=== PATIENT | female | born 1955 | race Caucasian/White ===

== ENCOUNTER 2020-11-29 08:49 | Outpatient (REF) | payer BC, SELFPAY ==
--- NOTE | ~2020-11-29 | XR_ITS ---
EXAMINATION: XR CHEST CLINICAL INFORMATION: COPD COMPARISON: None TECHNIQUE: 2 views of the chest were obtained. FINDINGS: The cardiac and mediastinal contours are normal. The lungs are well inflated. The lungs are clear. There is no pleural effusion or pneumothorax. There are degenerative changes of the spine. There are surgical clips in the left axilla. XR/XR chest 2V IMPRESSION: Well-inflated lungs suggestive of COPD. No evidence for acute disease in chest.
[2020-11-29 10:18] LABS: MANUAL DIFF FLAG NO
[2020-11-29 10:23] LABS: Basophils Percent Auto 0.3 % (0-2); Eosinophils Absolute Auto 0.2 X10*3/uL (0.0-0.4); Eosinophils Percent Auto 2.2 % (0-4); Hematocrit 44.9 % (37-47); Imm Gran Abs Auto 0.04 X10*3/uL (0.00-0.03); Imm Gran Pct Auto 0.5 % (0.0-0.4); Lymphocytes Absolute Auto 2.2 X10*3/uL (1.2-4.9); Lymphocytes Percent Auto 25.8 % (20-40); Mean Corpuscular HGB Conc 33.4 g/dl (31.0-35.0); Mean Corpuscular Volume 95.7 fL (80-98); Mean Platelet Volume 9.3 fL (9.4-12.3); Monocytes Absolute Auto 0.5 X10*3/uL (0.1-1.2); Monocytes Percent Auto 5.5 % (2-11); Neutrophils Absolute Auto 5.7 X10*3/uL (2.0-8.3); Neutrophils Percent Auto 65.7 % (45-73); Platelet Count 337 X10*3/uL (160-400); Red Blood Count 4.69 X10*6/uL (4.20-5.50); Red Cell Distribution Width 13.1 % (11.0-16.0); White Blood Count 8.7 X10*3/uL (4.8-10.8)
[2020-11-29 11:13] LABS: Erythrocyte Sedimentation Rate 12 MM/HR (0-20)
[2020-12-03 09:26] LABS: IgA 154 mg/dL (70-320); IgG 733 mg/dL (600-1540); IgM 196 mg/dL (50-300)
== END 2020-11-29 08:50 | disposition home or self-care (01) ==
LOC: HO.XRAY 08:49
PROVIDERS: PCP Internal Medicine Medical Oncology; Visit Provider Hospitalist
DX: J30.9 Allergic rhinitis, unspecified (principal); J44.9 Chronic obstructive pulmonary disease, unspecified; J40 Bronchitis, not specified as acute or chronic
CPT/HCPCS: 36415; 71046; 82784; 85025; 85652; 86003

== ENCOUNTER 2020-12-19 08:42 | Outpatient (REF) | payer MEDICARE, SELFPAY ==
--- NOTE | 2020-12-19 11:25 | PFT_ITS ---
FLOWS: FEV1 40% of predicted at 1.15 L. FVC 80% of predicted at 3.01 L. FEV1 to FVC ratio of 0.38. Positive bronchodilator response. LUNG VOLUMES: Total lung capacity 146% of predicted at 8.51 L. Residual volume 224% of predicted at 5.33 L. Slow vital capacity 92% of predicted at 3.18 L. Expiratory reserve volume 46% of predicted at 0.45 L. Diffusion capacity is moderately decreased. IMPRESSION: Severe obstructive ventilatory defect with positive bronchodilator response. Increased total lung capacity suggests hyperinflation. Increased residual volume suggests air trapping. Decreased diffusion capacity suggests emphysema. MD LEONCIO Bermudez/MODL / [id number]
== END 2020-12-19 08:43 | disposition home or self-care (01) ==
LOC: HO.RESP 08:42
PROVIDERS: PCP Internal Medicine Medical Oncology; Visit Provider Hospitalist
DX: J44.9 Chronic obstructive pulmonary disease, unspecified (principal)
CPT/HCPCS: 94060; 94727; 94729

== ENCOUNTER → 2020-12-31 08:52 | Outpatient (BNVA) | payer MEDICARE, SELFPAY | PROVIDERS: PCP Internal Medicine Medical Oncology; Visit Provider Hospitalist | DX: J44.0 Chronic obstructive pulmonary disease with (acute) lower respiratory infection (principal); J30.9 Allergic rhinitis, unspecified; J40 Bronchitis, not specified as acute or chronic | CPT/HCPCS: 99212 ==

== ENCOUNTER 2021-02-07 14:51 | Outpatient (REF) | payer MEDICARE, SELFPAY ==
--- NOTE | ~2021-02-07 | CT_ITS ---
EXAMINATION: CT CHEST SCREENING CLINICAL INFORMATION: Former smoker. Quit 1 year ago. 90 pack-year history. COMPARISON: Previous chest x-ray November 2020 TECHNIQUE: Multidetector volumetric CT imaging of the chest is performed without contrast using low dose technique. Additional 2D coronal and sagittal reformatted images and axial 3D maximum intensity projection (MIP) images are generated on the CT workstation. This CT examination was performed using dose optimization techniques as appropriate, variously including the following: *Automated exposure control *Adjustment of mA and/or kV according to patient size (this includes techniques or standardized protocols for targeted exams where dose is matched to indication/reason for exam; i.e. extremities or head) *Use of iterative reconstruction technique DLP: 51 mGy-cm FINDINGS: LUNGS: There is evidence of emphysema. There is mild biapical pleural parenchymal scarring. There is a 2 cm groundglass attenuation right upper lobe nodule near the junction of the major and minor fissures axial image 229 series 5. There is a 3 mm perivascular right middle lobe nodule axial image 3:30 series 5. No endobronchial or endotracheal lesion is seen. MEDIASTINUM: The mediastinum is normal. PLEURA: There is no pleural effusion. No pleural mass or thickening. AXILLA: There are surgical clips in the left axilla. There is left axillary lymphadenopathy. Largest left axillary lymph node measures 1 x 1.5 cm. There are surgical clips in the left breast. Right chest wall and axilla are unremarkable. UPPER ABDOMEN: Unremarkable OSSEOUS STRUCTURES: There are degenerative changes of the spine. CT/CT lung screening IMPRESSION: Emphysema. 2 cm groundglass attenuation right upper lobe nodule. Prominent left axillary lymph nodes. Postsurgical changes to the left axilla and chest wall. ASSESSMENT: Lung-RADS category 2S RECOMMENDATION: Annual low-dose chest CT follow-up recommended. Oncology follow-up for prominent left axillary lymph nodes recommended.
== END 2021-02-07 14:52 | disposition home or self-care (01) ==
LOC: HO.CT 14:51
PROVIDERS: PCP Internal Medicine Medical Oncology; Visit Provider Physician Assistant Medical
DX: Z87.891 Personal history of nicotine dependence (principal); J44.9 Chronic obstructive pulmonary disease, unspecified; Z80.1 Family history of malignant neoplasm of trachea, bronchus and lung
CPT/HCPCS: 71271; G0296

== ENCOUNTER → 2021-03-10 08:56 | Outpatient (BNVA) | payer MEDICARE, SELFPAY | PROVIDERS: PCP Internal Medicine Medical Oncology; Visit Provider Hospitalist | DX: J44.0 Chronic obstructive pulmonary disease with (acute) lower respiratory infection (principal); R91.1 Solitary pulmonary nodule; J30.9 Allergic rhinitis, unspecified | CPT/HCPCS: 99212 ==

== ENCOUNTER 2021-07-02 11:35 | Outpatient (REF) | payer MEDICARE, SELFPAY | END 2021-07-02 11:36 | disposition home or self-care (01) | LOC: HO.LNP 11:35 | PROVIDERS: Visit Provider Internal Medicine Medical Oncology | DX: H10.9 Unspecified conjunctivitis (principal) | CPT/HCPCS: 87070; 87205 ==

== ENCOUNTER 2021-07-18 07:03 | Outpatient (REF) | payer MEDICARE, SELFPAY ==
[2021-07-18 07:36] LABS: MANUAL DIFF FLAG NO
[2021-07-18 08:03] LABS: Basophils Percent Auto 0.5 % (0-2); Eosinophils Absolute Auto 0.2 X10*3/uL (0.0-0.4); Eosinophils Percent Auto 3.5 % (0-4); Hematocrit 41.4 % (37.0-47.0); Hemoglobin 13.7 g/dl (12.0-16.0); Imm Gran Abs Auto 0.01 X10*3/uL (0.00-0.03); Imm Gran Pct Auto 0.2 % (0.0-0.4); Lymphocytes Absolute Auto 2.4 X10*3/uL (1.2-4.9); Lymphocytes Percent Auto 44.2 % (20-40); Mean Corpuscular HGB Conc 33.1 g/dl (31.0-35.0); Mean Corpuscular Hemoglobin 32.2 pg (27.0-33.0); Mean Corpuscular Volume 97.4 fL (80.0-98.0); Mean Platelet Volume 9.4 fL (9.4-12.3); Monocytes Absolute Auto 0.4 X10*3/uL (0.1-1.2); Neutrophils Absolute Auto 2.4 x10*3/uL (2.0-8.3); Neutrophils Percent Auto 43.6 % (45-73); Platelet Count 279 X10*3/uL (160-400); Red Blood Count 4.25 X10*6/uL (4.20-5.50); Red Cell Distribution Width 13.2 % (11.0-16.0); White Blood Count 5.5 X10*3/uL (4.8-10.8)
[2021-07-18 08:32] LABS: Alanine Aminotransferase 23 U/L (0-31); Alkaline Phosphatase 84 U/L (39-117); Anion Gap 12 (12-20); Aspartate Amino Transferase 17 U/L (5-31); Bilirubin Total 0.5 mg/dL (0.0-1.0); Blood Urea Nitrogen 21 mg/dL (9-16); Calcium 9.7 mg/dL (8.4-10.2); Carbon Dioxide 28 mmol/L (22-29); Chloride 106 mmol/L (96-108); Cholesterol 228 mg/dL; Estimated Glomerular Filt Rate > 60; Glucose Fasting 107 mg/dL (60-99); HDL Cholesterol 55 mg/dL; LDL Cholesterol Calculated 134 mg/dl; Potassium 4.8 mmol/L (3.3-5.1); Sodium 141 mmol/L (135-145); Total Protein 6.3 g/dL (6.5-8.0); Triglycerides 197 mg/dL
[2021-07-18 09:06] LABS: Vitamin B12 874 pg/mL (200-900)
== END 2021-07-18 07:04 | disposition home or self-care (01) ==
LOC: HO.LAB 07:03
PROVIDERS: PCP Internal Medicine Medical Oncology; Visit Provider Internal Medicine Medical Oncology
DX: G35 Multiple sclerosis (principal); M47.27 Other spondylosis with radiculopathy, lumbosacral region; F41.9 Anxiety disorder, unspecified; M47.816 Spondylosis without myelopathy or radiculopathy, lumbar region
CPT/HCPCS: 36415; 80053; 80061; 82607; 85025

== ENCOUNTER 2021-07-24 09:19 | Outpatient (REF) | payer MEDICARE, SELFPAY ==
[2021-08-01 04:56] LABS: HPV mRNA E6/E7 rflx Detected (Not Detected)
[2021-08-01 05:01] LABS: HPV 16 RNA NOT DETECTED (NOT DETECTED)
== END 2021-07-24 09:20 | disposition home or self-care (01) ==
LOC: HO.LAB 09:19
PROVIDERS: PCP Internal Medicine Medical Oncology; Visit Provider Advanced Practice Midwife
DX: Z01.419 Encounter for gynecological examination (general) (routine) without abnormal findings (principal); F17.210 Nicotine dependence, cigarettes, uncomplicated
CPT/HCPCS: 87624; 87625; 88142

== ENCOUNTER → 2021-08-11 09:27 | Outpatient (BNVA) | payer MEDICARE, SELFPAY | PROVIDERS: PCP Internal Medicine Medical Oncology; Visit Provider Hospitalist | DX: J30.9 Allergic rhinitis, unspecified (principal); J44.1 Chronic obstructive pulmonary disease with (acute) exacerbation; R91.1 Solitary pulmonary nodule | CPT/HCPCS: 99212 ==

== ENCOUNTER 2021-11-04 11:14 | Outpatient (REF) | payer MEDICARE, SELFPAY ==
--- NOTE | ~2021-11-04 | XR_ITS ---
EXAMINATION: RIGHT HIP AND RIGHT FEMUR. CLINICAL INFORMATION: Pain. COMPARISON: None TECHNIQUE: AP and frog-leg views right hip. Right femur 2 views. FINDINGS: Right hip: There is no visible acute fracture, dislocation or subluxation seen. No bony erosive changes. The soft tissues are normal. Right femur: There is no visible acute fracture or bony erosive changes. The soft tissues are normal. XR/XR femur RT 2V IMPRESSION: Unremarkable right hip and right femur exam.
--- NOTE | ~2021-11-04 | XR_ITS ---
EXAMINATION: RIGHT HIP AND RIGHT FEMUR. CLINICAL INFORMATION: Pain. COMPARISON: None TECHNIQUE: AP and frog-leg views right hip. Right femur 2 views. FINDINGS: Right hip: There is no visible acute fracture, dislocation or subluxation seen. No bony erosive changes. The soft tissues are normal. Right femur: There is no visible acute fracture or bony erosive changes. The soft tissues are normal. XR/XR hip RT min 2V IMPRESSION: Unremarkable right hip and right femur exam.
== END 2021-11-04 11:15 | disposition home or self-care (01) ==
LOC: HO.XRAY 11:14
PROVIDERS: PCP Internal Medicine Medical Oncology; Visit Provider Internal Medicine Medical Oncology
DX: M25.551 Pain in right hip (principal); M89.8X5 Other specified disorders of bone, thigh
CPT/HCPCS: 73502; 73552

== ENCOUNTER 2021-11-13 07:10 | Outpatient (REF) | payer MEDICARE, SELFPAY ==
[2021-11-13 07:31] LABS: MANUAL DIFF FLAG NO
[2021-11-13 07:51] LABS: Basophils Percent Auto 0.5 % (0-2); Eosinophils Absolute Auto 0.3 X10*3/uL (0.0-0.4); Eosinophils Percent Auto 3.4 % (0-4); Hematocrit 42.3 % (37.0-47.0); Hemoglobin 14.4 g/dl (12.0-16.0); Imm Gran Abs Auto 0.03 X10*3/uL (0.00-0.03); Imm Gran Pct Auto 0.4 % (0.0-0.4); Lymphocytes Absolute Auto 3.1 X10*3/uL (1.2-4.9); Lymphocytes Percent Auto 42.8 % (20-40); Mean Corpuscular Hemoglobin 32.5 pg (27.0-33.0); Mean Corpuscular Volume 95.5 fL (80.0-98.0); Mean Platelet Volume 8.8 fL (9.4-12.3); Monocytes Absolute Auto 0.5 X10*3/uL (0.1-1.2); Monocytes Percent Auto 7.4 % (2-11); Neutrophils Absolute Auto 3.3 x10*3/uL (2.0-8.3); Neutrophils Percent Auto 45.5 % (45-73); Platelet Count 332 X10*3/uL (160-400); Red Blood Count 4.43 X10*6/uL (4.20-5.50); Red Cell Distribution Width 12.8 % (11.0-16.0); White Blood Count 7.3 X10*3/uL (4.8-10.8)
[2021-11-13 08:16] LABS: Alanine Aminotransferase 21 U/L (0-31); Albumin Level 4.2 g/dL (3.5-5.0); Alkaline Phosphatase 84 U/L (39-117); Anion Gap 15 (12-20); Aspartate Amino Transferase 14 U/L (5-31); Bilirubin Total 0.6 mg/dL (0.0-1.0); Blood Urea Nitrogen 23 mg/dL (9-16); Calcium 9.2 mg/dL (8.4-10.2); Carbon Dioxide 28 mmol/L (22-29); Chloride 103 mmol/L (96-108); Cholesterol 255 mg/dL; Estimated Glomerular Filt Rate > 60; Glucose Fasting 97 mg/dL (60-99); HDL Cholesterol 67 mg/dL; LDL Cholesterol Calculated 134 mg/dl; Potassium 4.3 mmol/L (3.3-5.1); Sodium 142 mmol/L (135-145); Total Protein 6.7 g/dL (6.5-8.0); Triglycerides 274 mg/dL
== END 2021-11-13 07:11 | disposition home or self-care (01) ==
LOC: HO.LAB 07:10
PROVIDERS: PCP Internal Medicine Medical Oncology; Visit Provider Internal Medicine Medical Oncology
DX: H10.9 Unspecified conjunctivitis (principal); G35 Multiple sclerosis; M47.816 Spondylosis without myelopathy or radiculopathy, lumbar region
CPT/HCPCS: 36415; 80053; 80061; 85025

== ENCOUNTER 2022-02-02 09:49 | Emergency (ER) | payer MEDICARE, SELFPAY ==
--- NOTE | ~2022-02-02 | XR_ITS ---
EXAMINATION: XR chest 2V CLINICAL INFORMATION: Reason for Exam covid + 14 days, sob, fever COMPARISON: November 2020 TECHNIQUE: XR chest 2V Lungs and Sania: Hyperinflated lungs suggesting air trapping disease possibly COPD, small density projecting over the left upper lobe superimposed on the left anterior fifth rib, could be bony versus lung nodule, round density projecting over the left middle lung zone same level of the nipple shadow lateral view. Pleura: Normal. Costophrenic angles are sharp. No pneumothorax. Heart: The heart is normal in size. Mediastinum: The mediastinum is within normal limits.. Bones: Skeletal structures included are normal for patient's age. XR/XR chest 2V IMPRESSION: 1. Hyperinflated lungs suggesting air trapping disease possibly COPD. 2. Small density projecting over the left upper lobe could be bony versus lung nodule. 3. Round density projecting over the left middle lung zone same level of the nipple shadow lateral view. 4. May consider correlation with follow-up annual low-dose chest CT screening
[2022-02-02 09:52] VITALS: BP 156/94; PULSE 124; RESP 24; TEMP 36.8; O2SAT 95; BMI 23.3
[2022-02-02 14:52] VITALS: BP 143/80; PULSE 121; RESP 20; TEMP 36.6; O2SAT 95
--- NOTE | 2022-02-02 15:34 | ED_ITS ---
HPI - General Adult General Chief complaint: Upper Respiratory Symptoms Stated complaint: Covid+/sent by pcp pneumonia? Time Seen by Provider: 02/02/22 15:34 Source: patient Mode of arrival: ambulatory Limitations: no limitations History of Present Illness HPI narrative: Patient is a 66 year old assigned female at with a history of COPD and COVID-19 presenting to the emergency department today with persistent cough and feeling unwell. Patient states that she was diagnosed with COVID-19 over 2 weeks ago, given PAXLOVID and was intitally starting to feel better than began feeling poorly again. Patient denies any dizziness, lightheadedness, abdominal pain, nausea, vomiting, blurry vision, double vision, loss of vision, chest pain, difficulty breathing, shortness of breath, back pain, night sweats, pain with urination, increased urinary frequency, increased urinary urgency, blood in her urine or stool, syncope or a near syncopal episode, recent trauma or falls, bowel incontinence, bladder incontinence, bowel retention, bladder retention, or any other complaints at this time. Onset (ago): week(s) (2) Severity: mild Severity scale (1-10): 3 Relieving factors: none Exacerbating factors: none Associated symptoms: cough Treatments prior to arrival: none Related Data Home Medications Medication Instructions Recorded Confirmed albuterol sulfate 90 mcg/actuation 2 puff PO Q6H PRN 11/29/20 aerosol inhaler sertraline 50 mg tablet 50 mg PO BID 11/29/20 cyclobenzaprine 5 mg tablet 5 mg PO BEDTIME 08/11/21 prednisone 20 mg tablet mg PO 08/11/21 Previous Rx's Medication Instructions Recorded doxycycline hyclate 100 mg capsule 100 mg PO BID 10 days #20 caps 08/11/21 prednisone 20 mg tablet See Rx Instructions PO DAILY 10 08/11/21 days #15 tabs albuterol sulfate 2.5 mg/3 mL 2.5 mg (3 mL) inhalation BID for 12/22/21 (0.083 %) solution for nebulization wheezing #180 mL Trelegy Ellipta 200 mcg-62.5 1 ea PO DAILY #60 ea 02/02/22 mcg-25 mcg powder for inhalation ([id number]) doxycycline hyclate 100 mg tablet 100 mg PO BID 7 days #14 tabs 02/02/22 prednisone 20 mg tablet 20 mg PO DAILY 12 days #26 tabs 02/02/22 Allergies Allergy/AdvReac Type Severity Reaction Status Date / Time No Known Allergies Allergy Verified 08/11/21 09:41 [No Known Allergies*] Review of Systems Constitutional: Constitutional: Reports no additional constitutional complaints, Denies chills, Reports fever(s) and Denies night sweats Eyes: Eyes: Reports no additional eye complaints, Denies blurry vision, Denies change in vision, Denies diplopia, Denies eye discharge, Denies loss of vision and Denies eye pain ENT: Denies dizziness Cardiovascular: Cardiovascular: Reports no additional cardiovascular complaints, Denies chest pain, Denies lightheadedness, Denies Loss of Consciousness and Denies dyspnea Respiratory: Respiratory: Reports no additional respiratory complaints, Reports cough and Denies dyspnea Gastrointestinal: Gastrointestinal: Reports no additional gastrointestinal complaints, Denies abdominal pain, Denies melena, Denies hematochezia, Denies change in bowel habits and Denies change in stool character Genitourinary: Genitourinary: Denies hematuria, Denies urinary frequency, Denies dysuria, Denies urinary incontinence, Denies urinary hesitancy and Denies urinary urgency Musculoskeletal: Musculoskeletal: Reports no additional musculoskeletal complaints, Denies numbness and Denies tingling Neurologic: Denies dizziness, Denies loss of vision, Denies numbness and Denies tingling Psychiatric: Psychiatric: Reports no additional psychiatric complaints Endocrine: Endocrine: Reports no additional endocrine complaints Hematologic/Lymphatic: Hematologic/Lymphatic: Reports no additional hematologic/lymphatic complaints Allergic/Immunologic: Allergic/Immunologic: Reports no additional allergic/immunologic complaints [facility] Past Medical History Attestation statement: The following information was validated with the patient. Source: old records reviewed Medical History Asthma-COPD overlap syndrome Bronchitis Chronic allergic rhinitis COPD (chronic obstructive pulmonary disease) History of breast cancer Personal history of nicotine dependence Pulmonary nodule Tobacco dependence Surgical History History of hysterectomy History of lumpectomy of left breast History of tonsillectomy Hx of cone biopsy of cervix Social History Social History Household Members: Significant Other Household Members Other:: Carlos Alcohol intake: current Alcohol intake frequency: a few times a week Patient Tobacco Use Status: Current someday Tobacco user Tobacco use type: Cigarette Cigarette Packs Per Day: 1 Years Smoked: 40 Second Hand Smoke Exposure: No Advance Directives: No Advance Directives Information Provided: No Sexual orientation: Straight/Heterosexual Gender identity: Female Physical Exam ED Vital Signs: Vital Signs - 24 hr 02/02/22 09:52 02/02/22 14:52 Temperature 98.3 F 98 F Pulse Rate 124 H 121 H Respiratory Rate 24 H 20 Blood Pressure 156/94 H 143/80 H Pulse Oximetry 95 95 Oxygen Delivery Method Room Air Room Air BMI result Body Mass Index 23.3 Const General: cooperative, no acute distress, alert and awake Nutritional Appearance: well nourished Orientation/consciousness: patient oriented x3 Limitations: no limitations HENMT Head: Yes normal to inspection and Yes atraumatic Ears: hearing grossly normal bilaterally and external ears normal General nose exam: Normal external nose present, no nasal discharge noted and no epistaxis Face and sinus: Yes normal facial exam, No abrasion and No laceration Mouth: Normal oral and palatal mucosa present, no drooling and no muffled voice Eyes General: appearance normal, both eyes and all related structures Periorbital: periorbital findings normal Eyelids: Yes eyelids normal Conjunctivae: conjunctivae normal Pupils: Equal, round and reactive pupils present EOM: EOMs intact bilaterally Neck Neck: Yes normal visual inspection, Yes full ROM and Yes no lymphadenopathy Chest Chest palpation & inspection: normal inspection of the chest Resp Effort & Inspection: normal respiratory effort, able to speak in complete sentences and Actively coughing Auscultation: clear to auscultation bilaterally Cardio Rate: regular rate Rhythm: regular rhythm GI Inspection: Yes normal to inspection Neuro General: patient oriented x3 and moves all extremities Cranial nerves: Yes Equal, round and reactive pupils present Cognition (Neuro): normal cognition Motor exam (neuro): 5/5 motor strength present throughout Sensory Exam: Normal double simultaneous stimulation for sensation Coordination: [id number] test normal Extrem General: Yes normal to inspection, Yes full ROM and Yes capillary refill normal Psych Appearance: grossly normal Mental Status: mental status grossly normal Affect: normal affect Attitude: cooperative Thought process: Normal thought process present Thought content: Normal thought content present Insight: Good insight present (Psych) Medical Decision Making MDM Narrative Medical decision making narrative: Patient is a 66 year old assigned female at with a history of COPD and COVID-19 presenting to the emergency department today with a persistent cough. Patient's physical exam was unremarkable. Patient's rapid COVID-19 test was still positive. Patient's chest x-ray showed no acute process. I explained my physical exam findings as well as all test results to the patient. I answered all questions asked by the patient. I stressed the importance of the patient taking her medication as prescribed. I stressed the importance of the patient following up with her primary care provider. I stressed the importance of the patient returning to the emergency department immediately if her symptoms were to worsen or if she were to develop any dizziness, shortness of breath, difficulty breathing, chest pain, blurry vision, loss of vision, nausea, vomiting, abdominal pain, fever, chills, back pain, or any other complaints. Patient verbalized agreement and understanding with this treatment plan and discharge. Medical Records Medical records reviewed: Yes I reviewed the patient's medical records. Lab Data Lab results reviewed: Yes I reviewed the patient's lab results. Labs: Lab Results 02/02/22 02/02/22 Range/Units 16:07 16:07 Influenza Type A (PCR) NEGATIVE (Negative) Influenza Type B (PCR) NEGATIVE (Negative) RSV RNA Qual (PCR) NEGATIVE (Negative) SARS-CoV-2 RNA (RT-PCR) POSITIVE A (Negative) S. pyogenes GrpA MINI Negative (Negative) Imaging Data Chest x-ray: Attestation: I personally reviewed and interpreted this imaging study as follows: My impression: No acute process. Radiologist's impression: EXAMINATION: XR chest 2V CLINICAL INFORMATION: Reason for Exam covid + 14 days, sob, fever COMPARISON: November 2020? TECHNIQUE: XR chest 2V Lungs and Sania: Hyperinflated lungs suggesting air trapping disease possibly COPD, small density projecting over the left upper lobe superimposed on the left anterior fifth rib, could be bony versus lung nodule, round density projecting over the left middle lung zone same level of the nipple shadow lateral view. Pleura: Normal. Costophrenic angles are sharp. No pneumothorax. Heart: The heart is normal in size. Mediastinum: The mediastinum is within normal limits.. Bones: Skeletal structures included are normal for patient's age. XR/XR chest 2V IMPRESSION: 1.? Hyperinflated lungs suggesting air trapping disease possibly COPD. 2.? Small density projecting over the left upper lobe could be bony versus lung nodule. 3.? Round density projecting over the left middle lung zone same level of the nipple shadow lateral view. 4.? May consider correlation with follow-up annual low-dose chest CT screening Dictated By: Joe Peace MD Signed By: Electronically signed by Joe Peace MD 02/02/22 1112 Discharge Plan Discharge Clinical Impression: Upper respiratory infection Patient Disposition: Home, Self-Care Instructions: Upper Respiratory Infection (ED) Additional Instructions: Follow up with your primary care provider. Return to the emergency department immediately if your symptoms worsen or if you develop any dizziness, shortness of breath, difficulty breathing, chest pain, blurry vision, loss of vision, nausea, vomiting, abdominal pain, fever, chills, back pain, or any other complaints. Prescriptions: New prednisone 20 mg tablet 20 mg PO DAILY 12 Days Qty: 26 0RF Rx Instructions: Take 3 tablets for 5 days THEN; Take 2 tablets for 4 days THEN; Take 1 tablet for 3 days doxycycline hyclate 100 mg tablet 100 mg PO BID 7 Days Qty: 14 0RF No Action albuterol sulfate 2.5 mg /3 mL (0.083 %) solution for nebulization 2.5 mg inhalation BID Qty: 180 0RF Trelegy Ellipta 200-62.5-25 mcg blister with device 1 ea PO DAILY Qty: 60 6RF albuterol sulfate 90 mcg/actuation HFA aerosol inhaler 2 puff PO Q6H PRN sertraline 50 mg tablet 50 mg PO BID prednisone 20 mg tablet PO cyclobenzaprine 5 mg tablet 5 mg PO BEDTIME doxycycline hyclate 100 mg capsule 100 mg PO BID 10 Days Qty: 20 0RF prednisone 20 mg tablet See Rx Instructions PO DAILY 10 Days Qty: 15 0RF Rx Instructions: PO daily; Take 2 tabs daily x 5 days, then 1 tablet daily x 5 days Referrals: Jaime Russ MD [Primary Care Provider] - Interventions: ED Discharge Assessment Last Done: 02/02/22 17:43 Print Language: Mosotho
[2022-02-02 16:24] LABS: Strep A Nucleic Acid Negative (Negative)
[2022-02-02 16:57] LABS: Influenza A PCR NEGATIVE (Negative); Influenza B PCR NEGATIVE (Negative); Resp Syncy Virus RNA Qual PCR NEGATIVE (Negative); SARS COV2 PCR INHOUSE POSITIVE (Negative)
== END 2022-02-02 18:39 | disposition home or self-care (01) ==
PROVIDERS: Physician Assistant Medical; Emergency Provider Student in an Organized Health Care Education/Training Program; PCP Internal Medicine Medical Oncology
DX: U07.1 COVID-19 (principal); R05.9 Cough, unspecified; Z79.899 Other long term (current) drug therapy; F17.210 Nicotine dependence, cigarettes, uncomplicated; Z71.6 Tobacco abuse counseling
CPT/HCPCS: 0241U; 71046; 87651; 99282; 99283

== ENCOUNTER → 2022-03-13 09:57 | Outpatient (BNVA) | payer MEDICARE, SELFPAY | PROVIDERS: PCP Internal Medicine Medical Oncology; Visit Provider Hospitalist | DX: J44.1 Chronic obstructive pulmonary disease with (acute) exacerbation (principal); J30.9 Allergic rhinitis, unspecified; J44.9 Chronic obstructive pulmonary disease, unspecified; R91.1 Solitary pulmonary nodule | CPT/HCPCS: 99212 ==

== ENCOUNTER 2022-05-01 16:17 | Outpatient (REF) | payer MEDICARE, SELFPAY ==
--- NOTE | ~2022-05-01 | CT_ITS ---
EXAMINATION: CT CHEST SCREENING CLINICAL INFORMATION: Previous smoker quitting 1 year ago with 45 year history of smoking 2 packs per day. COMPARISON: 02/07/2021. TECHNIQUE: Multidetector volumetric CT imaging of the chest is performed without contrast using low dose technique. Additional 2D coronal and sagittal reformatted images and axial 3D maximum intensity projection (MIP) images are generated on the CT workstation. This CT examination was performed using dose optimization techniques as appropriate, variously including the following: *Automated exposure control *Adjustment of mA and/or kV according to patient size (this includes techniques or standardized protocols for targeted exams where dose is matched to indication/reason for exam; i.e. extremities or head) *Use of iterative reconstruction technique DLP: 52 mGy-cm FINDINGS: LUNGS: Central airways are patent. There are changes of centrilobular emphysema seen bilaterally similar to previous study. There is some central bronchial wall thickening present, which may be related to respiratory bronchiolitis of smoking. No bronchiectasis is appreciated. There are some scattered bilateral sub-4 mm densities seen. There is again noted to be an approximately 2.7 x 2.1 x 2.0 cm region of groundglass opacity within the right middle lobe adjacent to major and minor fissures. Previously this measured approximately 2.5 x 2.1 x 2.0 cm in size. Within the superior segment of the right lower lobe there is an irregularly marginated soft tissue mass measuring approximately 1.8 x 1.2 x 1.4 cm in size. This was not appreciated on prior study of 02/07/2021 and is suspicious for possible malignancy. This is seen on image [address] series #5. There is a 5 mm nodule seen along the left major fissure on image [address] series #5. This is not calcified. This may represent an intrafissural lymph node. MEDIASTINUM: Visualized portions of the thyroid gland appear unremarkable. Heart normal size. No coronary artery calcification identified. No pericardial effusion. No thoracic aortic aneurysm. No mediastinal or hilar lymphadenopathy is appreciated. CORONARY ARTERY CALCIFICATION: None visualized on this study. PLEURA: There is no pleural effusion. No pleural mass or thickening. AXILLA: Patient is status post previous left axillary surgery. UPPER ABDOMEN: Unremarkable. OSSEOUS STRUCTURES: No suspicious destructive bony abnormality. CT/CT lung screening IMPRESSION: New suspicious 1.8 cm mass within the superior segment of the right lower lobe. Stable region of groundglass opacity within the right middle lobe. Changes of centrilobular emphysema. ASSESSMENT: Lung-RADS category 4X: Suspicious. RECOMMENDATION: Further evaluation with PET/CT.
== END 2022-05-01 16:18 | disposition home or self-care (01) ==
LOC: HO.CT 16:17
PROVIDERS: Visit Provider Physician Assistant Medical
DX: Z87.891 Personal history of nicotine dependence (principal)
CPT/HCPCS: 71271

== ENCOUNTER 2022-05-12 14:52 | Outpatient (REF) | payer MEDICARE, SELFPAY ==
--- NOTE | 2022-05-12 16:22 | PFT_ITS ---
Forced vital capacity 83%, FEV1 48%, FEV1/FVC ratio 45. [id number] is 23% and MVV 61%. Post bronchodilator therapy. There is a very small improvement in FEV1 and GSC53-37. Total lung capacity 126%, residual volume 172%, and diffusion capacity 61% CONCLUSION: There is evidence of severe obstructive airway disorder with hyperinflation and air trapping. Only minimal response to bronchodilator therapy is noted. Clinical correlation is recommended. MD DEYAINRA Crawford/MODL / [id number]
== END 2022-05-12 14:53 | disposition home or self-care (01) ==
LOC: HO.RESP 14:52
PROVIDERS: PCP Internal Medicine Medical Oncology; Visit Provider Surgery
DX: R91.1 Solitary pulmonary nodule (principal); Z87.891 Personal history of nicotine dependence
CPT/HCPCS: 94060; 94727; 94729

== ENCOUNTER 2022-05-19 13:12 | Outpatient (REF) | payer MEDICARE, SELFPAY ==
--- NOTE | ~2022-05-19 | PE_ITS ---
EXAMINATION: Fluorine-18 FDG PET/CT Scan CLINICAL INDICATION: Initial treatment management. Pulmonary nodule, diagnosis. History of left breast cancer 2016. PROCEDURE: 68 minutes following the intravenous administration of 5.9 mCi of fluorine 18 FDG, images from the base of the skull to the mid thighs were obtained using a combined PET/CT scanner with CT scan based attenuation correction. No oral contrast was administered. No intravenous contrast was administered. Transverse, coronal, sagittal, and volume reconstruction projections were obtained. The patient's blood glucose as determined by a finger stick, was 82 mg/dl immediately prior to injection. Total CT exam dose-length product 438.48 mGy-cm * These CT images were obtained using dose optimization techniques as appropriate, variously including the following: Automated exposure control * Adjustment of mA and/or kV according to patient size (this includes techniques or standardized protocols for targeted exams where dose is matched to indication/reason for exam; i.e. extremities or head) * Use of iterative reconstruction technique COMPARISON: No previous PET/CT scan is available for comparison. CT scan of the chest dated 05/01/[address] scan of the abdomen and pelvis dated 05/30/2018 are available for comparison. FINDINGS: (Slice numbers described in this report are numbered superiorly to inferiorly with slice #1 in the head) NECK AND VISUALIZED HEAD: No foci of abnormal FDG activity are noted. The distribution of FDG activity is physiological. There is no cervical lymphadenopathy. THORAX: There is an FDG avid solid pulmonary nodule present in the superior segment of the right lower lobe, measuring approximately 1.1 x 0.9 cm in largest transverse dimensions and 0.9 cm cephalocaudad. This shows abnormal FDG activity, SUVmax 3.8, slice 81/267. The nodule appears slightly smaller than on the recent CT scan of the chest dated 05/01/2022, but the differences probably due to the difference in CT technique on these nondiagnostic CT images compared to the prior. A groundglass opacity laterally in the posterior aspect of the right middle lobe abutting the major and minor interlobar fissures appears unchanged from 05/01/2022 and shows no abnormal FDG activity. There is a 0.5 cm nodule in the medial aspect of the interlobar fissure of the left lung, just barely visualized in slice 240/[address] images and appears unchanged from the 05/01/2022 CT scan. This is too small to be characterized on the FDG PET images. No additional pulmonary nodules are visualized. There are no additional foci of abnormal FDG activity present in the chest. No additional pulmonary nodules are visualized. There is no mediastinal, supraclavicular, or axillary lymphadenopathy. There is no pleural or pericardial fluid, or pneumothorax. Several metallic clips are present in the left breast and left axilla with no associated abnormal FDG activity. ABDOMEN AND PELVIS: There is mild FDG activity present throughout the gastrointestinal tract. Minimal diverticulosis is noted without evidence of diverticulitis. The hollow viscera are otherwise unremarkable. The liver, gallbladder, kidneys, adrenal glands and pancreas appear unremarkable. The pelvic organs are unremarkable. There is no retroperitoneal, mesenteric, pelvic or inguinal lymphadenopathy. MUSCULOSKELETAL: There is mildly increased FDG activity in the acromioclavicular joints bilaterally, more prominently on the right, likely arthritic. There are no other foci of abnormal FDG activity in the osseous structures. There are mild degenerative changes in the spine but no suspicious sclerotic or lytic lesions are visualized. VASCULAR: Scattered vascular calcifications are present, most prominently in the abdominal aorta. PET/PET CT fusion skull to thigh IMPRESSION: 1. The previously visualized nodule in the superior segment of the right lower lobe is FDG avid and strongly suspicious for malignancy. Biopsy is recommended if clinically indicated. 2. A groundglass opacity in the right middle lobe is unchanged from prior studies and shows no abnormal FDG activity suggesting a benign etiology. However because approximately 10% of pulmonary malignancies demonstrate no abnormal FDG activity, if biopsy of this nodule is not obtained, followup with diagnostic CT scan in 6 months is recommended. 3. No additional abnormalities suspicious for metastatic or other malignant lesions are noted.
== END 2022-05-19 13:13 | disposition home or self-care (01) ==
LOC: HO.PET 13:12
PROVIDERS: PCP Internal Medicine Medical Oncology; Visit Provider Surgery
DX: Z13.89 Encounter for screening for other disorder (principal)

== ENCOUNTER → 2022-05-22 08:49 | Outpatient (BNVA) | payer MEDICARE, SELFPAY | PROVIDERS: PCP Internal Medicine Medical Oncology; Visit Provider Surgery | DX: R91.1 Solitary pulmonary nodule (principal); F17.210 Nicotine dependence, cigarettes, uncomplicated; Z80.1 Family history of malignant neoplasm of trachea, bronchus and lung | CPT/HCPCS: 99202 ==

== ENCOUNTER 2022-07-27 09:06 | Outpatient (REF) | payer MEDICARE, MEDICAID, SELFPAY ==
[2022-07-30 04:44] LABS: HPV mRNA E6/E7 rflx Not Detected (Not Detected)
== END 2022-07-27 09:07 | disposition home or self-care (01) ==
LOC: HO.LNP 09:06
PROVIDERS: PCP Internal Medicine Medical Oncology; Visit Provider Advanced Practice Midwife
DX: Z01.419 Encounter for gynecological examination (general) (routine) without abnormal findings (principal); N95.1 Menopausal and female climacteric states; Z90.710 Acquired absence of both cervix and uterus
CPT/HCPCS: 87624; 88142

== ENCOUNTER 2022-07-28 09:56 | Outpatient (REF) | payer MEDICARE, MEDICAID, SELFPAY ==
[2022-07-28 10:53] LABS: MANUAL DIFF FLAG NO
[2022-07-28 11:09] LABS: Basophils Percent Auto 0.3 % (0-2); Eosinophils Absolute Auto 0.2 X10*3/uL (0.0-0.4); Eosinophils Percent Auto 2.8 % (0-4); Hematocrit 41.1 % (37.0-47.0); Hemoglobin 13.9 g/dl (12.0-16.0); Imm Gran Abs Auto 0.03 X10*3/uL (0.00-0.03); Imm Gran Pct Auto 0.5 % (0.0-0.4); Lymphocytes Percent Auto 31.2 % (20-40); Mean Corpuscular HGB Conc 33.8 g/dl (31.0-35.0); Mean Corpuscular Hemoglobin 32.1 pg (27.0-33.0); Mean Corpuscular Volume 94.9 fL (80.0-98.0); Mean Platelet Volume 9.2 fL (9.4-12.3); Monocytes Absolute Auto 0.5 X10*3/uL (0.1-1.2); Monocytes Percent Auto 8.4 % (2-11); Neutrophils Absolute Auto 3.6 x10*3/uL (2.0-8.3); Neutrophils Percent Auto 56.8 % (45-73); Platelet Count 279 X10*3/uL (160-400); Red Blood Count 4.33 X10*6/uL (4.20-5.50); Red Cell Distribution Width 12.6 % (11.0-16.0); White Blood Count 6.4 X10*3/uL (4.8-10.8)
[2022-07-28 11:55] LABS: Erythrocyte Sedimentation Rate 11 MM/HR (0-20)
[2022-07-28 12:26] LABS: Alanine Aminotransferase 21 U/L (0-31); Albumin Level 4.4 g/dL (3.5-5.0); Alkaline Phosphatase 117 U/L (39-117); Anion Gap 15 (12-20); Aspartate Amino Transferase 14 U/L (5-31); Bilirubin Direct 0.2 mg/dL (0.0-0.5); Bilirubin Total 0.6 mg/dL (0.0-1.0); Blood Urea Nitrogen 19 mg/dL (9-16); Calcium 9.6 mg/dL (8.4-10.2); Carbon Dioxide 27 mmol/L (22-29); Chloride 104 mmol/L (96-108); Estimated Glomerular Filt Rate > 60; Glucose Random 95 mg/dL (60-115); Potassium 4.9 mmol/L (3.3-5.1); Sodium 141 mmol/L (135-145); Total Protein 6.8 g/dL (6.5-8.0)
[2022-07-30 20:43] LABS: TS Negative Control Passed; TS Panel A 0; TS Panel B 1; TS Positive Control Passed; TSpotTB Negative (Negative)
[2022-08-04 05:33] LABS: Angiotensin Converting Enzyme 41 U/L (9-67)
== END 2022-07-28 09:57 | disposition home or self-care (01) ==
LOC: HO.LAB 09:56
PROVIDERS: PCP Internal Medicine Medical Oncology; Visit Provider Hospitalist
DX: J44.1 Chronic obstructive pulmonary disease with (acute) exacerbation (principal); J30.9 Allergic rhinitis, unspecified; R91.1 Solitary pulmonary nodule; F17.210 Nicotine dependence, cigarettes, uncomplicated
CPT/HCPCS: 36415; 80048; 80076; 82164; 85025; 85652; 86481; 99212

== ENCOUNTER 2022-11-03 07:20 | Outpatient (REF) | payer MEDICARE, MEDICAID, SELFPAY ==
--- NOTE | ~2022-11-03 | CT_ITS ---
EXAMINATION: CT CHEST WITHOUT CONTRAST CLINICAL INFORMATION: Pulmonary nodule COMPARISON: Previous chest CT April 2022 and PET/CT May 2022 TECHNIQUE: Multidetector volumetric CT imaging of the chest was done. Axial MIP volume rendering provided. Sagittal and coronal reformatted images were obtained. This CT examination was performed using dose optimization techniques as appropriate, variously including the following: *Automated exposure control *Adjustment of mA and/or kV according to patient size (this includes techniques or standardized protocols for targeted exams where dose is matched to indication/reason for exam; i.e. extremities or head) *Use of iterative reconstruction technique DLP: 147 mGy-cm FINDINGS: LUNGS: Emphysema. New postsurgical changes to the right lower lobe from partial lobectomy. Previously identified groundglass attenuation area in the right upper lobe near the major and minor fissures is not appreciably changed. This measures approximately 2 cm axial image 233 series 5. This may have cystic component. Stable small solid pulmonary nodules measuring 4 mm in the peripheral or subpleural left lower lobe adjacent to the major fissure axial image 260 series 5. No new pulmonary nodule. No endobronchial or endotracheal lesion. MEDIASTINUM: New surgical clips in the right pulmonary hilum. Normal heart size. No pericardial effusion. No enlarged hilar or mediastinal lymph nodes. Normal caliber thoracic aorta. CORONARY ARTERY CALCIFICATION: None visualized on this study. PLEURA: There is no pleural effusion. No pleural mass or thickening. AXILLA: Surgical clips in the left rest and axilla. No chest wall mass or enlarged axillary lymph nodes. UPPER ABDOMEN: Unremarkable. OSSEOUS STRUCTURES: Degenerative changes of the spine. CT/CT chest wo IV con IMPRESSION: Emphysema. New postsurgical changes following right lower lobe partial lobectomy. Stable pulmonary nodules, largest a 2 cm groundglass attenuation right upper lobe nodule near the major and minor fissures Fleischner guidelines were followed.
== END 2022-11-03 07:21 | disposition home or self-care (01) ==
LOC: HO.CT 07:20
PROVIDERS: PCP Internal Medicine Medical Oncology; Visit Provider Surgery
DX: R91.1 Solitary pulmonary nodule (principal)
CPT/HCPCS: 71250

== ENCOUNTER 2022-11-06 09:41 | Outpatient (AMB) | payer MEDICARE, MEDICAID, SELFPAY ==
--- NOTE | 2022-11-06 09:54 | A.OFFVIS_ITS ---
Intake Vital Signs 11/06/22 10:07 Height 5 ft 9 in Weight 168 lb BMI 24.8 BP 120/72 Blood Pressure Location Lt brachial Position Sitting Pulse 112 H Pulse Oximetry (%) 96 Intake Visit Reasons: Follow up after Chest CT Allergies No Known Allergies [No Known Allergies*] Allergy (Verified 11/06/22 10:01) Medication List - Last Reconciled 11/07/22 by Travis Forbes MD albuterol sulfate 90 mcg/actuation 2 puffs PO Q6H PRN albuterol sulfate 2.5 mg (3 mL) inhalation BID cyclobenzaprine 5 mg PO BEDTIME nebulizers As directed sertraline 50 mg PO BID Trelegy Ellipta 200-62.5-25 mcg ([id number]) 1 ea PO DAILY NS HPI Follow up after Chest CT HPI Details 67-year-old woman long-time smoker quit for the most part about a year ago but smoked a p ack per day starti ng at age 16 up un til that point.? S he is part of the lung cancer screen ing program and cooper d a low-dose CT sc an done on 05/01/19 which was swapna red with her previ ous low-dose CT sc an done on 021.? This was rev iewed interpreted by me directly and discussed at our multidisciplinary thoracic Oncology Conference.? Findi ngs on the most re cent CT scan show a new 1.8 cm super ior segment right lower lobe solid n odule.? There is a stable purely allegra und-glass area in the right middle l obe.? We had recom mended PET scan, P FTs and a visit wi th me to discuss.? PET scan was done but is not read y et.? On my review of the PET scan th ere is significant increased uptake within the nodule itself and no incr eased uptake in th e mediastinum, hil um, or elsewhere.? Pulmonary functio n testing done on 05/12/2022 showed an FEV1 of 48% of pr edicted which goes up to 55% and a D LCO VA of 65% of p redicted. She then underwent a da Vi nci right lower lo be superior segmen tectomy and was fo und on pathology t o have a granuloma tous nodule. She was discharged on postoperative day #2 06/26/2022. She did quite well po stoperatively and reports today that she has minimal i f any pain and her breathing seems t o be back at her b aseline.She had he r first follow-up CT scan done on 11/03/2022. This was done to ensure miriam t the nodule in qu estion was actuall y removed. Again on my review the n odule that was pre sent previously cooper s now gone as a re sult of her operat ion. Her mother h ad lung cancer and of it at 88 years old.? She wa s a former smoker at the time.? She reports otherwise feeling generally good health and de nies unintentional weight loss, decr eased appetite, fe vers, chills, soak ing sweats or nigh t sweats, or fatig ue.? She denies ch est pain, cough, o r hemoptysis.? She does report short ness of breath say s she can easily g o up a flight of s tairs without stop ping.? She can als o walk relatively long distances wit hout feeling short of breath.? She d enies any new neur ologic symptoms.? Other than above, 12 point review of systems was done and documented sep arately in the off ice chart with [facility] [place] social and f amily history. ? [facility] Medical History Asthma-COPD overlap syndrome Bronchitis Chronic allergic rhinitis COPD (chronic obstructive pulmonary disease) History of breast cancer Personal history of nicotine dependence Pulmonary nodule Pulmonary nodules Surgical History History of cone biopsy of cervix History of hysterectomy History of lumpectomy of left breast History of tonsillectomy Social History Household Members: Significant Other Household Members Other:: Carlos Alcohol intake: current Alcohol intake frequency: 0-2 drinks per day Patient Tobacco Use Status: Former Tobacco user Tobacco use type: Cigarette Cigarette Packs Per Day: 1 Years Smoked: 40 Second Hand Smoke Exposure: No Sexual orientation: Straight/Heterosexual Gender identity: Female Physical Exam Vital Signs: Last Vital Signs Pulse 112 H 11/06/22 10:07 BP 120/72 11/06/22 10:07 Pulse Ox 96 11/06/22 10:07 BMI result Body Mass Index 24.8 nad RRR CTAB abd soft nl bs no edema wounds well healed Assessment & Plan Assessment & Plan (1) Pulmonary nodule: Comment: (new soft tissue mass 1.8 x 1.2 x 1.4 cm in size in RLL on 05/01/22 LDCT)+necrotizing granulomas Code(s): R91.1 - Solitary pulmonary nodule Plan: 67-year-old woman who has now quit smoking and is about 5 months status post da Stacia right lower lobe superior segmentectomy for a 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 Her CAT scan does confirm that the nodule in question was indeed removed. She is quite pleased with the way her operation went and how she feels today. She says her breathing is at least back at her baseline since stopping smoking. I did discuss with her the findings on the CAT scan as described in the HPI. I think at this point we will just put her back in the screening program here and do an annual screening CT in about a year. (2) Personal history of nicotine dependence: Comment: (former smoker - onset 17, 1ppd x 48yrs, 45pyh - quit 12/2020) Code(s): Z87.891 - Personal history of nicotine dependence Orders: Orders CT lung screening 11 Months Z87.891 - Personal history of nicotine dependence Quality Reporting (2019) Adult ([facility] 138/05/27/[birth year]) Smoking risk assessment performed?: Yes Patient Tobacco Use Status: Former Tobacco user Coding Level of Care Code Est Pt Level 4 (44544) Diagnoses Pulmonary nodule R91.1 Personal history of nicotine dependence Z87.891
[2022-11-06 10:07] VITALS: BP 120/72; PULSE 112; O2SAT 96; BMI 24.8
== END 2022-11-06 10:19 | disposition home or self-care (01) ==
PROVIDERS: PCP Internal Medicine Medical Oncology; Visit Provider Surgery
DX: R91.1 Solitary pulmonary nodule (principal); Z87.891 Personal history of nicotine dependence

== ENCOUNTER → 2022-11-06 09:41 | Outpatient (BNVA) | payer MEDICARE, MEDICAID, SELFPAY | PROVIDERS: PCP Internal Medicine Medical Oncology; Visit Provider Surgery | DX: R91.1 Solitary pulmonary nodule (principal); Z87.891 Personal history of nicotine dependence | CPT/HCPCS: 99212 ==

== ENCOUNTER 2022-12-17 11:51 | Outpatient (REF) | payer MEDICARE, OTHER, SELFPAY ==
[2022-12-17 12:17] LABS: MANUAL DIFF FLAG NO
[2022-12-17 13:29] LABS: Basophils Percent Auto 0.4 % (0-2); Eosinophils Absolute Auto 0.2 X10*3/uL (0.0-0.4); Hemoglobin 13.8 g/dl (12.0-16.0); Imm Gran Abs Auto 0.01 X10*3/uL (0.00-0.03); Imm Gran Pct Auto 0.1 % (0.0-0.4); Lymphocytes Percent Auto 28.4 % (20-40); Mean Corpuscular HGB Conc 32.9 g/dl (31.0-35.0); Mean Corpuscular Hemoglobin 31.5 pg (27.0-33.0); Mean Corpuscular Volume 95.9 fL (80.0-98.0); Mean Platelet Volume 9.3 fL (9.4-12.3); Monocytes Absolute Auto 0.6 X10*3/uL (0.1-1.2); Monocytes Percent Auto 8.1 % (2-11); Neutrophils Absolute Auto 4.2 x10*3/uL (2.0-8.3); Platelet Count 326 X10*3/uL (160-400); Red Blood Count 4.38 X10*6/uL (4.20-5.50); Red Cell Distribution Width 12.6 % (11.0-16.0); White Blood Count 6.9 X10*3/uL (4.8-10.8)
[2022-12-17 14:02] LABS: C Reactive Protein 0.12 mg/dL (< or = 0.50)
[2022-12-17 14:18] LABS: Thyroid Stimulating Hormone 1.77 uIU/mL (0.32-4.0)
[2022-12-17 14:21] LABS: Erythrocyte Sedimentation Rate 12 MM/HR (0-20)
[2022-12-21 21:29] LABS: Immunoglobulin A 132 mg/dL (70-320)
[2022-12-22 19:44] LABS: Gliadin Deamidated IgA Ab <1.0 U/mL; Gliadin Deamidated IgG Ab <1.0 U/mL
[2022-12-24 11:33] LABS: Transglutaminase Ab IgG <1.0 U/mL; Transglutaminase IgA <1.0 U/mL
[2022-12-24 13:54] LABS: Endomysial IgA Antibody Negative (Negative)
== END 2022-12-17 11:52 | disposition home or self-care (01) ==
LOC: HO.LAB 11:51
PROVIDERS: PCP Internal Medicine Medical Oncology; Visit Provider Internal Medicine
DX: R19.4 Change in bowel habit (principal); R19.7 Diarrhea, unspecified
CPT/HCPCS: 36415; 82784; 84443; 85025; 85652; 86140; 86231; 86258; 86364

== ENCOUNTER 2023-01-26 09:48 | Outpatient (AMB) | payer MEDICARE, MEDICAID, SELFPAY ==
--- NOTE | 2023-01-26 09:54 | A.OFFVIS_ITS ---
Intake Vital Signs 01/26/23 09:55 Height 5 ft 9 in Weight 175 lb 4.28 oz BMI 25.9 BP 128/70 Blood Pressure Location Lt brachial Position Sitting Pulse 89 Pulse Source Pulse Oximeter Pulse Oximetry (%) 96 Oxygen Delivery Method Room Air Intake Visit Reasons: Pulmonary Nodules General Office Worker Required: No Allergies No Known Allergies [No Known Allergies*] Allergy (Verified 01/26/23 09:58) HPI HPI Comments History of Present Illness Details The patient is a 67-year-old woman with a long smoking history who apparently just moved from [facility] to the [facility] the last 3 years. She moved to the [place] she started developing worsening cough congestion nasal congestion and chest tightness. She has required prednisone multiple times. Usually worse he is in is in the springtime. She was provided Symbicort with partial improvement of the symptoms. She does have a rescue inhaler that she does use on a regular basis. Her symptoms have been getting worse and she was referred to an accounts receivable processor. However, she was found to have significant wheezing and rhonchi so therefore deferred the allergy testing for her to get control of her asthma symptoms and she was referred to us. On further questioning she does have 2 cats at home. She did quit regular smoking but she still smokes socially at times. Denies any mold in the house. She did not really have issues with allergies prior to moving to the [place]. She has not been hospitalized for this condition. The patient does not have a recent x-ray to review. I did look at her blood work from 2019 demonstrating some degree of eosinophilia bringing up the question of eosinophilic asthma or eosinophilic bronchitis. 03/13/2022 the patient is here for a pulm onary follow-up visit. Since we last spoke she did develop COVID-19 sometime in January. The patient did have increasing coughing chest congestion. She did have a chest x-ray demonstrating hyperinflation of her lungs. Otherwise the patient is doing better. She does continue on her Trelegy and has a rescue inhaler that she uses a vest twice a week. We did review her last CT scan of the chest that was part of the lung cancer screening program that was back in February 2021. The patient has yet had her repeat CT scan this year. I will send a message to the lung cancer screening program in order for her to be scheduled for her CT scan. In the meantime it is okay to wait few more weeks specially since the patient did have COVID and waiting for all potential inflammatory changes to subside. 07/28/2022 the patient is here for pulmon allyson follow-up visit. She underwent her surgery and she tolerated it well. Her wedge biopsy demonstrated a nodule that was consistent of necrotizing granulomas. Her AFB and fungal stains were negative. The lymph node dissection demonstrated lymphoid hyperplasia. It was all reactive. This is all reassuring. The patient states that back in 2018 she did get tested for TB although she does know the results. She does not have any respiratory symptoms at this time. She continues using inhalers. She did quit smoking and since then her breathing has improved dramatically. She is scheduled to have a repeat CT scan further other nodules with thoracic surgery in the lung cancer screening program. In the meantime will continue with current medicines. Will plan to decrease her Trelegy that visit. The patient also undergo blood work including a T spot. If the T spot is positive then additional diagnostic interventions will be required to check for AFB cultures. Ultimately will discuss diet if she needs any additional therapies. 01/26/2023 the patient is here for a pul monary follow-up visit. The patient is doing well. She had a repeat CT scan in November 2022 demonstrating stable postoperative changes in stable ground-glass densities. No significant changes overall. The patient does have emphysema. Her T spot was negative. She continues on the Trelegy 200. Since she is doing well will go ahead and switch her down to the 100. I do believe that in due time she is able to switch over to Anoro in minimizing the inhaled steroids. She quit smoking altogether. She is doing very well from that standpoint. Will follow-up in November after her repeat CT scan. Or sooner if any other issues arise. [facility] Medical History Asthma-COPD overlap syndrome Bronchitis Chronic allergic rhinitis COPD (chronic obstructive pulmonary disease) History of breast cancer Personal history of nicotine dependence Pulmonary nodule Pulmonary nodules Surgical History History of cone biopsy of cervix History of hysterectomy History of lumpectomy of left breast History of tonsillectomy Social History Household Members: Significant Other Household Members Other:: Carlos Alcohol intake: current Alcohol intake frequency: 0-2 drinks per day Patient Tobacco Use Status: Former Tobacco user Tobacco use type: Cigarette Cigarette Packs Per Day: 1 Years Smoked: 40 Second Hand Smoke Exposure: No Sexual orientation: Straight/Heterosexual Gender identity: Female Review of Systems Const Denies night sweats ENT Denies change in voice, Denies lip swelling, Denies mouth pain, Reports nasal congestion, Reports nasal discharge and Denies tongue swelling Card Denies chest pain Resp Denies change in phlegm color, Denies chest congestion, Reports cough and Denies wheezing GI Denies abdominal pain Musc Denies no additional complaints Neuro Denies Neuro-related abnormal movements Psych Denies no additional complaints Kailash/Lymph Denies easy bleeding and Denies lymphadenopathy Aller/Immun Denies lip swelling, Denies tongue swelling and Denies wheezing Physical Exam Vital Signs: Last Vital Signs Pulse 89 01/26/23 09:55 BP 128/70 01/26/23 09:55 Pulse Ox 96 01/26/23 09:55 Oxygen Delivery Method Room Air 01/26/23 09:55 BMI result Body Mass Index 25.9 Const General: cooperative, healthy appearing, no acute distress, well developed and alert Orientation/consciousness: patient oriented x3 HEENT Head: Yes normal to inspection Eyes General: appearance normal, both eyes and all related structures Neck Neck: Yes normal visual inspection Chest Chest palpation & inspection: normal inspection of the chest Breast/axilla palpation: normal palpation of the breasts Resp Effort & Inspection: normal respiratory effort Auscultation: no rhonchi, no wheezes and diminished lung sounds GI Palpation (GI): Soft to palpation Skin General skin exam: no rashes or lesions noted Rashes: no rashes Neuro General: patient oriented x3 Cognition (Neuro): normal cognition Extrem General: Yes normal to inspection Psych Attitude: cooperative Assessment & Plan Assessment & Plan (1) COPD (chronic obstructive pulmonary disease): Code(s): J44.9 - Chronic obstructive pulmonary disease, unspecified Qualifiers: COPD type: COPD with acute exacerbation Qualified Code(s): J44.1 - Chronic obstructive pulmonary disease with (acute) exacerbation (2) Chronic allergic rhinitis: Code(s): J30.9 - Allergic rhinitis, unspecified (3) Asthma-COPD overlap syndrome: Code(s): J44.9 - Chronic obstructive pulmonary disease, unspecified (4) Pulmonary nodule: Comment: (new soft tissue mass 1.8 x 1.2 x 1.4 cm in size in RLL on 05/01/22 LDCT)+necrotizing granulomas Code(s): R91.1 - Solitary pulmonary nodule Plan Decrease Trelegy inhaler 100, consider Anoro MIREYA as needed LDCT program 11/2023 F/U 8-10 months Quality Reporting (2019) Adult ([facility] 138/05/27/[birth year]) Smoking risk assessment performed?: Yes Patient Tobacco Use Status: Former Tobacco user Coding Level of Care Code Est Pt Level 4 (92010) Diagnoses Chronic obstructive pulmonary disease with acute exacerbation J44.1 COPD type: COPD with acute exacerbation Chronic allergic rhinitis J30.9 Asthma-COPD overlap syndrome J44.9 Pulmonary nodule R91.1 Time Spent (min) 16
[2023-01-26 09:55] VITALS: BP 128/70; PULSE 89; O2SAT 96; BMI 25.9
== END 2023-01-26 10:24 | disposition home or self-care (01) ==
PROVIDERS: PCP Internal Medicine Medical Oncology; Visit Provider Hospitalist
DX: J44.1 Chronic obstructive pulmonary disease with (acute) exacerbation (principal); J30.9 Allergic rhinitis, unspecified; J44.9 Chronic obstructive pulmonary disease, unspecified; R91.1 Solitary pulmonary nodule
CPT/HCPCS: 99214

== ENCOUNTER → 2023-01-26 09:48 | Outpatient (BNVA) | payer MEDICARE, MEDICAID, SELFPAY | PROVIDERS: Visit Provider Hospitalist | DX: R91.1 Solitary pulmonary nodule (principal); J44.1 Chronic obstructive pulmonary disease with (acute) exacerbation; J30.9 Allergic rhinitis, unspecified | CPT/HCPCS: 99212 ==

== ENCOUNTER 2023-02-08 13:23 | Day surgery (SDC) | payer MEDICARE, MEDICAID, SELFPAY ==
[2023-02-05 06:31] VITALS: BMI 25.4
--- NOTE | 2023-02-05 10:05 | HO.ANESPROP2 ---
Documented by User: Adrianne Augustine NP 02/05/23 10:06 HPI - Anesthesia Eval Consult details Narrative: 67yo F for Colonoscopy PMFSH Active Problems Active Problems: All Active Problems (Updated 07/28/22 @ 21:20 by Db Haley MD) Pulmonary nodules (Acute) Pulmonary nodule (Acute) Personal history of nicotine dependence (Acute) COPD (chronic obstructive pulmonary disease) (Acute) Bronchitis (Acute) Chronic allergic rhinitis (Acute) Asthma-COPD overlap syndrome (Acute) Past Medical History Medical History Pulmonary nodules Pulmonary nodule History of breast cancer Personal history of nicotine dependence COPD (chronic obstructive pulmonary disease) Bronchitis Chronic allergic rhinitis Asthma-COPD overlap syndrome Surgical History Surgical History History of pneumonectomy History of cone biopsy of cervix History of tonsillectomy History of lumpectomy of left breast History of hysterectomy Social History Social History Household Members: Significant Other Household Members Other:: Carlos Alcohol intake: current Alcohol intake frequency: 0-2 drinks per day Patient Tobacco Use Status: Former Tobacco user Quit Date: 1 year ago Tobacco use type: Cigarette Cigarette Packs Per Day: 1 Years Smoked: 40 Second Hand Smoke Exposure: No Use of substances other than those prescribed or required for medical reasons: No Are you DNR?: No Advance Directives: No Advance Directives Information Provided: Yes Sexual orientation: Straight/Heterosexual Gender identity: Female Meds Allergies Allergy/AdvReac Type Severity Reaction Status Date / Time No Known Allergies Allergy Verified 02/08/23 13:39 [No Known Allergies*] Home Medications Medication Instructions Recorded Confirmed Last Taken Type albuterol sulfate 90 mcg/actuation 2 puff PO Q6H PRN 11/29/20 11/07/22 Unknown History aerosol inhaler sertraline 50 mg tablet 50 mg PO BID 11/29/20 11/07/22 Unknown History cyclobenzaprine 5 mg tablet 5 mg PO BEDTIME 08/11/21 11/07/22 Unknown History nebulizers 03/13/22 11/07/22 Unknown History Exam Exam Date and Time: February 05, 2023 1005 Height,Weight and Vital Signs: Height 5 ft 10 in Weight 80.286 kg Assessment and Plan Assessment Anesthesia Assessment: Chart Reviewed Documented by User: Flores Us MD 02/08/23 14:26 PMFSH Past Medical History Medical History Pulmonary nodules Pulmonary nodule History of breast cancer Personal history of nicotine dependence COPD (chronic obstructive pulmonary disease) Bronchitis Chronic allergic rhinitis Asthma-COPD overlap syndrome Surgical History Surgical History History of pneumonectomy History of cone biopsy of cervix History of tonsillectomy History of lumpectomy of left breast History of hysterectomy History of Problems with Anesthesia: No Social History Social History Household Members: Significant Other Household Members Other:: Carlos Alcohol intake: current Alcohol intake frequency: 0-2 drinks per day Patient Tobacco Use Status: Former Tobacco user Quit Date: 1 year ago Tobacco use type: Cigarette Cigarette Packs Per Day: 1 Years Smoked: 40 Second Hand Smoke Exposure: No Use of substances other than those prescribed or required for medical reasons: No Are you DNR?: No Advance Directives: No Advance Directives Information Provided: Yes Sexual orientation: Straight/Heterosexual Gender identity: Female Meds Allergies Allergy/AdvReac Type Severity Reaction Status Date / Time No Known Allergies Allergy Verified 02/08/23 13:39 [No Known Allergies*] Home Medications Medication Instructions Recorded Confirmed Last Taken Type albuterol sulfate 90 mcg/actuation 2 puff PO Q6H PRN 11/29/20 11/07/22 Unknown History aerosol inhaler sertraline 50 mg tablet 50 mg PO BID 11/29/20 11/07/22 Unknown History cyclobenzaprine 5 mg tablet 5 mg PO BEDTIME 08/11/21 11/07/22 Unknown History nebulizers 03/13/22 11/07/22 Unknown History Exam Airway Mallampati Class: III TM Dist: >3cm Neck ROM: Full Partial: Upper and Lower Loose/Missing/Broken Teeth: Yes, Upper and Lower Heart: RRR Lungs: CTA Assessment and Plan Assessment Anesthesia Assessment: Anesthesia Plan Discussed Final Anesthetic Review History of Problems with Anesthesia: No NPO: Yes ASA Class: III Final Preanesthetic Review: Meds/Allgs Chart Reviewed, Consent Obtained/Reviewed and Anes Risks/Benef Reviewed Patient Risk: Intermediate Procedure Risk: Low Anesthetic Plan Anesthetic Plan: MAC: Disposition: Standard PACU
[2023-02-08 13:33] VITALS: BMI 24.7
[2023-02-08] MEDS: Lactated Ringers 1,000 ML 100 ML IVCONT (13:56)
[2023-02-08 13:57] VITALS: BP 128/87; PULSE 105; RESP 16; TEMP 36.4; O2SAT 98
--- NOTE | 2023-02-08 14:39 | PC.NURSE ---
Care transitioned to [facility] (PACU).
--- NOTE | 2023-02-08 16:13 | P.BOP_ITS ---
Brief Operative Note Date of Service: 02/08/23 Pre-op diagnosis: Screening Post-op diagnosis: other (Diverticulosis, Internal hemorrhoids) Procedure: Colonoscopy to the cecum Surgeon: Jaime Preciado MD Anesthesia: MAC Was an Surveyor Instrument Assistant used for this Procedure?: No Estimated blood loss (mL): 0 Pathology: none sent Condition: stable Disposition: PACU
[2023-02-08 16:17] VITALS: BP 130/71; PULSE 65; RESP 17; TEMP 36.3; O2SAT 99
[2023-02-08 16:32] VITALS: BP 129/77; PULSE 62; RESP 20; TEMP 36.7; O2SAT 97
--- NOTE | 2023-02-08 20:29 | OP_ITS ---
DATE OF SERVICE: 02/08/2023 SURGEON: Jaime Preciado MD INDICATIONS: The patient presents for evaluation of colorectal cancer screening. Full consent was obtained from her for this, including risks of bleeding and perforation. PREOPERATIVE DIAGNOSIS: Colorectal cancer screening. POSTOPERATIVE DIAGNOSIS: PROCEDURE PERFORMED: Colonoscopy to the cecum. ESTIMATED BLOOD LOSS: COMPLICATIONS: ANESTHESIA: Monitored anesthesia care. ASSISTANTS: SPECIMENS: POSTOPERATIVE DIAGNOSES: Colorectal cancer screening, diverticulosis, internal hemorrhoids. DESCRIPTION OF PROCEDURE: The patient was placed in the left lateral decubitus position. The digital rectal exam revealed no abnormalities. The Olympus video pediatric colonoscope was entered into the rectum and advanced to the cecum. Advancement past the sigmoid colon was somewhat difficult. Once in the cecum, I did identify a normal-appearing cecal pouch with appendiceal orifice and a normal-appearing ileocecal valve. The entire cecum appeared normal. The scope was slowly withdrawn, assessing all mucosal surfaces carefully. Preparation was excellent. I did not visualize any sign of polyps, colitis, nor angiodysplasia. There was a [id number] amount of sigmoid diverticulosis. In the rectum the scope was retroflexed visualizing internal hemorrhoids but no other pathology. The rectal mucosa appeared normal. The scope was straightened and withdrawn from the patient. She tolerated the procedure well and was returned to the recovery area in stable condition. IMPRESSION: 1. Diverticulosis. 2. Internal hemorrhoids. PLAN: Given the negative exam and no family history of colon cancer, I would recommend a followup colonoscopy in 10 years for further screening. She was advised to continue her dicyclomine as needed for abdominal cramps and discomfort. If things are stable, she will otherwise see me on a p.r.n. basis. MD YISEL Cheatham/LUIS DANIEL / [id number] MTDIsamar
== END 2023-02-08 16:47 | disposition home or self-care (01) ==
PROVIDERS: PCP Internal Medicine Medical Oncology; Visit Provider Internal Medicine
PROC: 0DJD8ZZ Inspection of Lower Intestinal Tract, Via Natural or Artificial Opening Endoscopic (ICD-10-PCS; CPT 45378; principal; 2023-02-08 14:40)
DX: Z12.11 Encounter for screening for malignant neoplasm of colon (principal); K57.30 Diverticulosis of large intestine without perforation or abscess without bleeding; K64.8 Other hemorrhoids; R19.7 Diarrhea, unspecified; M79.7 Fibromyalgia; J44.9 Chronic obstructive pulmonary disease, unspecified; R91.1 Solitary pulmonary nodule; Z90.2 Acquired absence of lung [part of]; Z80.1 Family history of malignant neoplasm of trachea, bronchus and lung; Z79.51 Long term (current) use of inhaled steroids; Z79.899 Other long term (current) drug therapy; Z85.3 Personal history of malignant neoplasm of breast; Z87.891 Personal history of nicotine dependence; Z98.890 Other specified postprocedural states
CPT/HCPCS: G0121

== ENCOUNTER 2023-07-26 08:34 | Outpatient (REF) | payer MEDICARE, OTHER, SELFPAY ==
[2023-07-26 08:44] LABS: MANUAL DIFF FLAG NO
[2023-07-26 09:25] LABS: Basophils Percent Auto 0.5 % (0-2); Eosinophils Absolute Auto 0.2 X10*3/uL (0.0-0.4); Eosinophils Percent Auto 3.1 % (0-4); Hematocrit 40.5 % (37.0-47.0); Hemoglobin 13.8 g/dl (12.0-16.0); Imm Gran Abs Auto 0.02 X10*3/uL (0.00-0.03); Imm Gran Pct Auto 0.3 % (0.0-0.4); Lymphocytes Absolute Auto 1.7 X10*3/uL (1.2-4.9); Lymphocytes Percent Auto 29.5 % (20-40); Mean Corpuscular HGB Conc 34.1 g/dl (31.0-35.0); Mean Corpuscular Hemoglobin 31.7 pg (27.0-33.0); Mean Corpuscular Volume 93.1 fL (80.0-98.0); Mean Platelet Volume 9.3 fL (9.4-12.3); Monocytes Absolute Auto 0.4 X10*3/uL (0.1-1.2); Monocytes Percent Auto 6.8 % (2-11); Neutrophils Absolute Auto 3.5 x10*3/uL (2.0-8.3); Neutrophils Percent Auto 59.8 % (45-73); Platelet Count 291 X10*3/uL (160-400); Red Blood Count 4.35 X10*6/uL (4.20-5.50); Red Cell Distribution Width 12.6 % (11.0-16.0); White Blood Count 5.9 X10*3/uL (4.8-10.8)
[2023-07-26 09:51] LABS: Alanine Aminotransferase 14 U/L (0-31); Albumin Level 4.1 g/dL (3.5-5.0); Alkaline Phosphatase 96 U/L (39-117); Anion Gap 10 (12-20); Aspartate Amino Transferase 13 U/L (5-31); Bilirubin Total 0.4 mg/dL (0.0-1.0); Blood Urea Nitrogen 16 mg/dL (9-16); Calcium 9.2 mg/dL (8.4-10.2); Carbon Dioxide 25 mmol/L (22-29); Chloride 107 mmol/L (96-108); Cholesterol 227 mg/dL (<200); Estimated Glomerular Filt Rate > 60; Glucose Fasting 105 mg/dL (60-99); HDL Cholesterol 61 mg/dL (>40); LDL Cholesterol Calculated 137 mg/dL (<100); Potassium 4.2 mmol/L (3.3-5.1); Sodium 138 mmol/L (135-145); Total Protein 6.7 g/dL (6.5-8.0); Triglycerides 146 mg/dL (<150)
== END 2023-07-26 08:35 | disposition home or self-care (01) ==
LOC: HO.LAB 08:34
PROVIDERS: PCP Internal Medicine Medical Oncology; Visit Provider Internal Medicine Medical Oncology
DX: E66.3 Overweight (principal)
CPT/HCPCS: 36415; 80053; 80061; 85025

== ENCOUNTER 2023-10-28 15:44 | Outpatient (REF) | payer MEDICARE, SELFPAY ==
--- NOTE | ~2023-10-28 | CT_ITS ---
EXAMINATION: CT LOW-DOSE SCREENING CHEST WITHOUT CONTRAST CLINICAL INFORMATION: Personal history of nicotine dependence, cigarettes, former smoker; 40 pack years; quit 2 years prior; 76 kg Partial right lower lung resection. COMPARISON: 11/03/[address] 05/01/[address] PET CT 05/19/2022. TECHNIQUE: Multidetector volumetric CT imaging of the chest is performed on a Siemens SOMATOM Definition scanner without contrast using low dose technique. Additional 2D coronal and sagittal reformatted images and axial 3D maximum intensity projection (MIP) images are generated on the CT workstation. This CT examination was performed using dose optimization techniques as appropriate, variously including the following: *Automated exposure control *Adjustment of mA and/or kV according to patient size (this includes techniques or standardized protocols for targeted exams where dose is matched to indication/reason for exam; i.e. extremities or head) *Use of iterative reconstruction technique TOTAL EXAM DLP: 48 mGy-cm. Please note, due to [facility] contractual, systems, and staffing issues, an [facility] radiologist was not available for review and dictation of this case until 12/10/2023. FINDINGS: PULMONARY NODULES: -Stable 2 cm inferior right upper lobe groundglass nodule with no solid component abutting the major fissure, without change (series 5, image 218). -6 mm branching linear nodule (series 5 image 181) is endobronchial and likely inflammatory. -3 mm nodule in the right middle lobe mid aspect is stable (series 5, image 242). -3 mm nodule left lower lobe superior segment is new from prior, however appears endobronchial and is likely inflammatory (series 5, image 247). -Stable granuloma left upper lobe laterally (series 5, image 122). This is benign. -Stable 4 mm lymph node in the medial left major fissure (series 5, image 251). This is benign. LUNGS: -There are partial right lower lobe resection. There is residual scarring and suture line present. -There is moderate centrilobular emphysema throughout both lungs. -Small airways appear normal. Central airways are patent. -Anterior right costophrenic angle scarring is stable. -No consolidations or definite active lung disease. MEDIASTINUM: -No abnormal mediastinal or hilar lymphadenopathy. -Aorta is nonaneurysmal and mildly calcified. -Main pulmonary artery is normal in size. -Heart size is normal. There is lipomatous infiltration of the intra-atrial septum. -No pericardial effusion. -Esophagus is normal in caliber and course with a probable small type I hiatal hernia. CORONARY ARTERY CALCIFICATION: None visualized on this study. THYROID GLAND: Unremarkable to the extent seen. CHEST WALL/AXILLA: No masses or abnormal lymph nodes present. There are surgical clips in the left axilla and left upper outer breast. UPPER ABDOMEN: -No abnormalities. OSSEOUS STRUCTURES: No suspicious lytic or blastic bone lesions. CT/CT lung screening IMPRESSION: 1. A few stable pulmonary nodules, with a stable 2.0 cm pure groundglass nodule inferior right upper lobe. Attention on future exams is recommended. Chance of malignancy less than 1%. 2. A small branching nodule in the right lower lobe and 3 mm left lower lobe new nodule felt to be endobronchial and inflammatory. 3. Moderate diffuse centrilobular emphysema. No active lung disease identified. 4. Status post partial resection right lower lobe. 5. No abnormal lymphadenopathy. 6. Left axillary clips present from prior surgery. ASSESSMENT: 1. Lung-RADS Category 2: Benign appearance or behavior of nodules. 2. Lung-RADS Category S: None. RECOMMENDATION: Continued routine annual low-dose CT lung screening in 1 year is recommended. An order for CT CHEST LOW DOSE CANCER SCREENING ([id number]) can be placed. Electronically signed by: Fam Forde MD 12/10/2023 03:19 PM EDT
== END 2023-10-28 15:45 | disposition home or self-care (01) ==
LOC: HO.CT 15:44
PROVIDERS: PCP Internal Medicine Medical Oncology; Visit Provider Physician Assistant Medical
DX: Z12.2 Encounter for screening for malignant neoplasm of respiratory organs (principal); Z87.891 Personal history of nicotine dependence
CPT/HCPCS: 71271

== ENCOUNTER → 2023-10-28 15:46 | Outpatient (BNV) | payer MEDICARE, SELFPAY | PROVIDERS: PCP Internal Medicine Medical Oncology; Visit Provider Radiology Diagnostic Radiology | DX: Z90.2 Acquired absence of lung [part of] (principal); Z87.891 Personal history of nicotine dependence | CPT/HCPCS: 71271 ==

== ENCOUNTER 2023-12-09 10:25 | Outpatient (AMB) | payer MEDICARE, SELFPAY ==
[2023-12-09 10:31] VITALS: BP 122/70; PULSE 89; O2SAT 96; BMI 26.2
--- NOTE | 2023-12-09 10:31 | MHC.OFFVIS ---
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 to the [facility] the last 3 years. She moved to the [place] she started developing worsening cough congestion nasal congestion and chest tightness. She has required prednisone multiple times. Usually worse he is in is in the springtime. She was provided Symbicort with partial improvement of the symptoms. She does have a rescue inhaler that she does use on a regular basis. Her symptoms have been getting worse and she was referred to an carbon printer. However, she was found to have significant wheezing and rhonchi so therefore deferred the allergy testing for her to get control of her asthma symptoms and she was referred to us. On further questioning she does have 2 cats at home. She did quit regular smoking but she still smokes socially at times. Denies any mold in the house. She did not really have issues with allergies prior to moving to the [place]. She has not been hospitalized for this condition. The patient does not have a recent x-ray to review. I did look at her blood work from 2019 demonstrating some degree of eosinophilia bringing up the question of eosinophilic asthma or eosinophilic bronchitis. 03/13/2022 the patient is here for a pulmonary follow-up visit. Since we last spoke she did develop COVID-19 sometime in January. The patient did have increasing coughing chest congestion. She did have a chest x-ray demonstrating hyperinflation of her lungs. Otherwise the patient is doing better. She does continue on her Trelegy and has a rescue inhaler that she uses a vest twice a week. We did review her last CT scan of the chest that was part of the lung cancer screening program that was back in February 2021. The patient has yet had her repeat CT scan this year. I will send a message to the lung cancer screening program in order for her to be scheduled for her CT scan. In the meantime it is okay to wait few more weeks specially since the patient did have COVID and waiting for all potential inflammatory changes to subside. 07/28/2022 the patient is here for pulmonary follow-up visit. She underwent her surgery and she tolerated it well. Her wedge biopsy demonstrated a nodule that was consistent of necrotizing granulomas. Her AFB and fungal stains were negative. The lymph node dissection demonstrated lymphoid hyperplasia. It was all reactive. This is all reassuring. The patient states that back in 2018 she did get tested for TB although she does know the results. She does not have any respiratory symptoms at this time. She continues using inhalers. She did quit smoking and since then her breathing has improved dramatically. She is scheduled to have a repeat CT scan further other nodules with thoracic surgery in the lung cancer screening program. In the meantime will continue with current medicines. Will plan to decrease her Trelegy that visit. The patient also undergo blood work including a T spot. If the T spot is positive then additional diagnostic interventions will be required to check for AFB cultures. Ultimately will discuss diet if she needs any additional therapies. 01/26/2023 the patient is here for a pulmonary follow-up visit. The patient is doing well. She had a repeat CT scan in November 2022 demonstrating stable postoperative changes in stable ground-glass densities. No significant changes overall. The patient does have emphysema. Her T spot was negative. She continues on the Trelegy 200. Since she is doing well will go ahead and switch her down to the 100. I do believe that in due time she is able to switch over to Anoro in minimizing the inhaled steroids. She quit smoking altogether. She is doing very well from that standpoint. Will follow-up in November after her repeat CT scan. Or sooner if any other issues arise. 12/09/2023 the patient is here for a pulmonary follow-up visit. The patient overall has been doing well from a respiratory status. She continues use her respiratory medications as prescribed. We had decreased her to Trelegy 100. At this point will try to place her on oral when trying to minimize inhaled steroids. She did have a CT scan so the lung cancer screening program. Has not been officially read yet. Has been about a month. I did review the images with the patient. It appears that her surgical changes have not changed in pulmonary nodules have not changed. Although we still have to wait for the final read. The patient ultimately will have a repeat CT scan in a year's time if has not changed. In addition to that the patient is concerned that she is very anxious. Her daughter is undergoing evaluation for potential rectal cancer. I did encourage her to reach out to her primary care doctor. Is and also message for primary care doctor about anxiety issues. [facility] Medical History Pulmonary nodules Pulmonary nodule History of breast cancer Personal history of nicotine dependence COPD (chronic obstructive pulmonary disease) Bronchitis Chronic allergic rhinitis Asthma-COPD overlap syndrome Surgical History History of pneumonectomy History of cone biopsy of cervix History of tonsillectomy History of lumpectomy of left breast History of hysterectomy Social History Household Members: Significant Other Household Members Other:: Carlos Alcohol intake: current Alcohol intake frequency: 0-2 drinks per day Patient Tobacco Use Status: Former Tobacco user Tobacco use type: Cigarette Cigarette Packs Per Day: 1 Years Smoked: 40 Second Hand Smoke Exposure: No Sexual orientation: Straight/Heterosexual Gender identity: Female Review of Systems Const Denies night sweats ENT Denies change in voice, Denies lip swelling, Denies mouth pain, Reports nasal congestion, Reports nasal discharge and Denies tongue swelling Card Denies chest pain Resp Denies change in phlegm color, Denies chest congestion, Reports cough and Denies wheezing GI Denies abdominal pain Musc Denies no additional complaints Neuro Denies Neuro-related abnormal movements Psych Reports as per HPI and Reports anxiety Kailash/Lymph Denies easy bleeding and Denies lymphadenopathy Aller/Immun Denies lip swelling, Denies tongue swelling and Denies wheezing Physical Exam Vital Signs: Last Vital Signs Pulse 89 12/09/23 10:31 BP 122/70 12/09/23 10:31 Pulse Ox 96 12/09/23 10:31 Oxygen Delivery Method Room Air 12/09/23 10:31 BMI result Body Mass Index 26.2 Const General: cooperative, healthy appearing, no acute distress, well developed and alert Orientation/consciousness: patient oriented x3 HEENT Head: Yes normal to inspection Eyes General: appearance normal, both eyes and all related structures Neck Neck: Yes normal visual inspection Chest Chest palpation & inspection: normal inspection of the chest Breast/axilla palpation: normal palpation of the breasts Resp Effort & Inspection: normal respiratory effort Auscultation: no rhonchi, no wheezes and diminished lung sounds GI Palpation (GI): Soft to palpation Skin General skin exam: no rashes or lesions noted Rashes: no rashes Neuro General: patient oriented x3 Cognition (Neuro): normal cognition Extrem General: Yes normal to inspection Psych Attitude: cooperative Quality Reporting (2019) Adult ([facility] 138/05/27/[birth year]) Smoking risk assessment performed?: Yes Patient Tobacco Use Status: Former Tobacco user Assessment & Plan Assessment & Plan (1) COPD (chronic obstructive pulmonary disease): Code(s): J44.9 - Chronic obstructive pulmonary disease, unspecified Category: Medical Qualifiers: COPD type: COPD with acute exacerbation Qualified Code(s): J44.1 - Chronic obstructive pulmonary disease with (acute) exacerbation (2) Chronic allergic rhinitis: Code(s): J30.9 - Allergic rhinitis, unspecified Category: Medical (3) Asthma-COPD overlap syndrome: Code(s): J44.9 - Chronic obstructive pulmonary disease, unspecified Category: Medical (4) Pulmonary nodule: Comment: (new soft tissue mass 1.8 x 1.2 x 1.4 cm in size in RLL on 05/01/22 LDCT)+necrotizing granulomas Code(s): R91.1 - Solitary pulmonary nodule Category: Medical Plan stop Trelegy inhaler 100 start Anoro MIREYA as needed LDCT program 11/2024 F/U 12 months Medications: New umeclidinium-vilanterol 62.5-25 mcg/actuation (Anoro Ellipta) 1 inh inhalation DAILY 60 ea 11RF J44.89 - Other specified chronic obstructive pulmonary disease Discontinued qtcwbbavrhs-crfouyxyv-jocxnwix 100-62.5-25 mcg (Trelegy Ellipta) Discontinued Reason: Doctor's Order 1 inh inhalation DAILY 30 days 60 ea 11RF J44.9 - Chronic obstructive pulmonary disease, unspecified Coding Level of Care Code Est Pt Level 4 (47485) Diagnoses Chronic obstructive pulmonary disease with acute exacerbation J44.1 COPD type: COPD with acute exacerbation Chronic allergic rhinitis J30.9 Asthma-COPD overlap syndrome J44.9 Pulmonary nodule R91.1 Time Spent (min) 17
== END 2023-12-09 11:38 | disposition home or self-care (01) ==
PROVIDERS: PCP Internal Medicine Medical Oncology; Visit Provider Hospitalist
DX: J44.1 Chronic obstructive pulmonary disease with (acute) exacerbation (principal); J30.9 Allergic rhinitis, unspecified; J44.9 Chronic obstructive pulmonary disease, unspecified; R91.1 Solitary pulmonary nodule
CPT/HCPCS: 99214

== ENCOUNTER → 2023-12-09 10:25 | Outpatient (BNVA) | payer MEDICARE, SELFPAY | PROVIDERS: PCP Internal Medicine Medical Oncology; Visit Provider Hospitalist | DX: J44.89 Other specified chronic obstructive pulmonary disease (principal); J30.9 Allergic rhinitis, unspecified; R91.1 Solitary pulmonary nodule | CPT/HCPCS: 99212 ==

== ENCOUNTER 2024-08-12 10:27 | Inpatient (IN) | payer MEDICARE, SELFPAY ==
[2024-08-12] VITALS (7 sets, daily range): BP systolic 100–170; BP diastolic 62–86; PULSE 73–110; RESP 12–18; TEMP 36.3–37.1; O2SAT 95–99; BMI 24.4; BMI 25.2
--- NOTE | ~2024-08-12 | NM_ITS ---
Lexiscan Myocardial perfusion study Indication: Chest pain to evaluate for myocardial ischemia Technique: The patient was brought in for a Lexiscan perfusion study on 08/14/2024 and was injected 0.4 mg of Lexiscan intravenously. Within a minute of this injection 33 mCi of sestamibi was given intravenously. Images were obtained using the SPECT gamma camera interlaced with the gating device. Images were obtained in supine position. Resting perfusion study was performed on 08/14/2024. Patient was administered 11 mCi of sestamibi intravenously at rest. Images were then obtained in supine position. Images obtained without without CT attenuation. Total DLP 71 mGy-cm. Images were processed with the software and compared side to side in short axis, horizontal long axis and vertical long axis views. Findings: The stress perfusion study showed nonattenuated images show moderately reduced uptake in the basal inferior and mid inferior wall of the LV myocardium. Remainder of the LV myocardium is normally perfused. Attenuated corrected images show mild thickening and heterogeneous uptake in the basal and mid inferior wall of the LV myocardium.. The gated study shows normal LV systolic function with calculated LVEF of 62%. LV cavity is normal in size. The gated study shows normal systolic wall thickening and contraction of segments. Resting study shows nonattenuated images show mildly improved uptake in the mid inferior wall and no significant change in the basal inferior wall uptake. Attenuated corrected images show normal uptake of radiotracer in all segments of the LV myocardium. Gating at rest reveals normal systolic wall motion with ejection fraction at greater than 55%. The findings are consistent with reversible defect of the basal and mid inferior wall of minimal to mild intensity suggestive of ischemia. NM/NM yvonne perf SPECT rest & str Impression: 1. Myocardial perfusion imaging study shows [id number] sized minimal to mild intensity basal and mid inferior wall ischemia in RCA territory 2. Gated LVEF is 62% 3. Transient ischemic dilatation not present Nondiagnostic changes on EKG. Electronically signed by: Dl Mann MD 08/14/2024 05:25 PM EDT
--- NOTE | ~2024-08-12 | XR_ITS ---
CLINICAL HISTORY: CP 2 view chest x-ray Comparison: 02/02/2022 Findings: No consolidation or effusion. Normal size heart. No acute fracture. IMPRESSION: 1. No acute findings. This document has been electronically signed by: Octavio Ledezma MD on 08/12/2024 11:35:14
--- NOTE | 2024-08-12 10:34 | ECG_ITS ---
Test Reason : CP Blood Pressure : */* mmHG Vent. Rate : 87 BPM Atrial Rate : 75 BPM P-R Int : 124 ms QRS Dur : 82 ms QT Int : 364 ms P-R-T Axes : 59 33 83 degrees QTcB Int : 438 ms Sinus rhythm with occasional Premature ventricular complexes and Premature atrial complexes Low voltage QRS ST & T wave abnormality, consider anterior ischemia Abnormal ECG When compared with ECG of 27-Feb-2018 18:31, Premature ventricular complexes are now Present Premature atrial complexes are now Present Referred By: Sandoval Leo Electronically Signed By: MONIQUE WALKER
--- NOTE | 2024-08-12 10:45 | ED_ITS ---
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 She states at that time she had diaphoresis, palpitations, shortness of breath, and nausea.She states that they lasted for approximately 20 minutes, waxing and waning in severity. She states that EMS had given her a dose of nitroglycerin and aspirin, she states that she is currently asymptomatic at this time. Patient reports that she did recently travel to [place] and back at the end of July. She also states that she had a tooth pulled several days ago. No fevers or chills. No recent illness. No recent surgeries or hospitalizations. No history of blood clots. No other complaints or concerns at this time. MD complaint: chest pain, chest heaviness and chest discomfort Pertinent past history: asthma Onset (ago): hour(s) Timing of current episode: episodic Prior episodes: No Onset: during rest Pain location: substernal Pain radiation: right arm and jaw/teeth Severity: severe Quality: aching and heaviness Relieving factors: nitroglycerin Exacerbating factors: nothing Context: recent surgery Associated symptoms: nausea, diaphoresis and dyspnea Treatment prior to arrival: aspirin and nitroglycerin Risk Factors Coronary artery disease risk factors: smoking history Thoracic aortic dissection risk factors: none Related Data On Oral Contraceptives: No Home Medications ?Medication ?Instructions ?Recorded ?Confirmed sertraline 50 mg tablet 50 mg PO DAILY 11/29/20 08/12/24 nebulizers 03/13/22 11/07/22 acetaminophen 650 mg 650 mg PO Q8H PRN pain 08/12/24 08/12/24 tablet,extended release cholecalciferol (vitamin D3) 50 50 mcg PO DAILY 08/12/24 08/12/24 mcg (2,000 unit) capsule (Vitamin D3) dicyclomine 10 mg capsule 10 - 20 mg PO Q6H PRN abdominal 08/12/24 08/12/24 cramps or discomfort melatonin 5 mg tablet 10 mg PO BEDTIME 08/12/24 08/12/24 tizanidine 2 mg tablet 2 mg PO BEDTIME PRN Muscle Spasm 08/12/24 08/12/24 fluticasone fur. 200 mcg-umeclid 1 inh inhalation DAILY 08/13/24 08/13/24 62.5 mcg-vilant 25 mcg inhalat.powder (Trelegy Ellipta) Allergies Allergy/AdvReac Type Severity Reaction Status Date / Time No Known Allergies Allergy Verified 08/12/24 10:43 [No Known Allergies*] Review of Systems 2 Review of Systems: Yes all other systems are reviewed and are negative Constitutional: Constitutional: Reports as per [facility] Past Medical History Medical History Pulmonary nodules Pulmonary nodule History of breast cancer Personal history of nicotine dependence COPD (chronic obstructive pulmonary disease) Bronchitis Chronic allergic rhinitis Asthma-COPD overlap syndrome Surgical History History of pneumonectomy History of cone biopsy of cervix History of tonsillectomy History of lumpectomy of left breast History of hysterectomy Family History Family History (Updated 08/13/24 @ 10:46 by Jimbo Bain MD) Mother Heart disease Social History Social History Household Members: Spouse Household Members Other:: Carlos Housing: House Do you presently have visiting nurse or other home services: No Alcohol intake: current Alcohol intake frequency: a few times a week Patient Tobacco Use Status: Former Tobacco user Tobacco use type: Cigarette Cigarette Packs Per Day: 1 Years Smoked: 40 Smoked in Last 30 Days: No Second Hand Smoke Exposure: No Use of substances other than those prescribed or required for medical reasons: No Currently Displaying Signs/Symptoms of Drug Intoxication Withdrawal: No Have you been hit, kicked, punched, or otherwise hurt by someone within the past year? If so, by whom?: No Do you feel safe in your current relationship?: Yes Is there a partner from a previous relationship who is making you feel unsafe now?: No Are you made to feel afraid or neglected: No Advance Directives: No Advance Directives Information Provided: No Do you have a plan to hurt others: No Plan Recently lost weight without trying: No Eating poorly because of decreased appetite: No Nutrition Risks: No Nutritional Risk Patient : No : No Poor oral hygiene: No service: No Sexual orientation: Straight/Heterosexual Gender identity: Female Physical Exam 2 Vital Signs: Vital Signs: Last Vital Signs Temp 96.9 F 08/14/24 07:51 Pulse 75 08/14/24 07:51 Resp 17 08/14/24 07:51 BP 136/95 H 08/14/24 07:51 Pulse Ox 98 08/14/24 07:51 O2 Del Method Room Air 08/14/24 07:51 BMI result Body Mass Index 24.4 Const: General: cooperative, comfortable and no acute distress O rientation/consciousness: patient oriented x3 Limitations: no limitations HEENT: Head: Yes normal to inspection, Yes normocephalic and Yes atraumatic Ears: hearing grossly normal bilaterally General nose exam: Normal external nose present Face and sinus: Yes normal facial exam Mouth: Normal oral and palatal mucosa present, oropharynx normal and moist mucous membranes Throat: Yes posterior oropharynx normal Eyes: General: appearance normal, both eyes and all related structures E yelids: Yes eyelids normal Conjunctivae: conjunctivae normal Sclerae: s clerae normal Pupils: Equal, round and reactive pupils present EOM: EOMs intact bilaterally Neck: Neck: Yes normal visual inspection, Yes full ROM and Yes no lymphadenopathy Lymphatic: no lymphadenopathy noted Chest: Chest palpation & inspection: normal inspection of the chest Resp: Effort & Inspection: normal respiratory effort and able to speak in complete sentences Auscultation: clear to auscultation bilaterally, no crackles, no rales, no rhonchi and no wheezes Cardio: Rate: regular rate Rhythm: regular rhythm Heart sounds: S1 normal heart sound present and S2 normal heart sound present GI: Inspection: Yes normal to inspection Skin: General skin exam: no rashes or lesions noted Trauma: no lacerations or abrasions Wounds: no wounds Neuro: General: patient oriented x3 and moves all extremities Cranial nerves: Yes Equal, round and reactive pupils present Extrem: General: Yes normal to inspection Right upper extremity: normal to inspection Left upper extremity: normal to inspection Right lower extremity: normal to inspection Left lower extremity: normal to inspection Medications Administered Generic Name Dose Route Start Last Admin Trade Name Freq PRN Reason Stop Dose Admin Acetaminophen 650 mg 08/12/24 16:09 08/13/24 21:01 Acetaminophen 325 Mg Tablet PO 650 mg Q6H PRN Administration Pain, Mild 1-3,fever,headache Aspirin 81 mg 08/13/24 09:00 08/14/24 08:01 Aspirin Enteric Coated 81 Mg Tablet.Dr PO 81 mg DAILY YOLANDE Administration Atorvastatin Calcium 40 mg 08/13/24 09:15 08/14/24 08:01 Atorvastatin Calcium 40 Mg Tablet PO 40 mg DAILY YOLANDE Administration Enoxaparin Sodium 40 mg 08/13/24 09:00 08/14/24 08:00 Enoxaparin Sodium 40 Mg/0.4 Ml Syringe SUBCUT 40 mg Q24H YOLANDE Administration Fluticasone/Umeclidinium/Vilanterol 1 puff 08/14/24 08:00 08/14/24 07:48 Fluticasone/Umeclidinium/Vilanterol 200/62.5/25 Blst.W.Dev INHALE 1 puff RDAILY YOLANDE Administration Fluticasone/Umeclidinium/Vilanterol 1 puff 08/14/24 09:00 08/14/24 08:29 Fluticasone/Umeclidinium/Vilanterol 200/62.5/25 Blst.W.Dev INHALE Not Given RDAILY YOLANED Melatonin 6 mg 08/12/24 16:09 08/13/24 21:01 Melatonin 3 Mg Tablet PO 6 mg BEDTIME PRN Administration Insomnia Sertraline HCl 50 mg 08/13/24 09:00 08/14/24 08:01 Sertraline Hcl 50 Mg Tablet PO 50 mg DAILY YOLANDE Administration Sodium Chloride 3 ml 08/13/24 00:00 08/14/24 08:01 0.9 % Sodium Chloride Flush 3 Ml Syringe IVFLUSH 3 ml QSHIFT YOLANDE Administration Tizanidine HCl 2 mg 08/12/24 21:48 08/13/24 21:03 Tizanidine Hcl 4 Mg Tablet PO 2 mg BEDTIME PRN Administration Muscle Spasm Vitamin D 50 mcg 08/13/24 09:00 08/14/24 08:01 Cholecalciferol (Vitamin D3) 25 Mcg Tablet PO 50 mcg DAILY YOLANDE Administration Discontinued Medications Generic Name Dose Route Start Last Admin Trade Name Patricq PRN Reason Stop Dose Admin Lorazepam 0.25 mg 08/14/24 08:00 08/14/24 08:05 Lorazepam 0.5 Mg Tablet PO 08/14/24 08:01 0.25 mg ONCE ONE Administration Tizanidine HCl 4 mg 08/12/24 21:07 08/12/24 21:12 Tizanidine Hcl 4 Mg Tablet PO 08/12/24 21:08 4 mg ONCE ONE Administration Medical Decision Making Medical Decision Making [facility] Narrative: 69-year-old female, with a past medical history of COPD, pulmonary nodules, asthma, 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 On arrival, patient is hypertensive at 170/80, tachycardic at 110bpm. Patient is alert and oriented x4, speaking in full sentences, well-appearing. Differential diagnoses include ACS, PE, pneumothorax, anxiety. will obtain cardiac workup. Given long flight to [place], and recent surgery, PE is also in the differential. D-dimer was ordered. Course: 1550 - overall workup today reassuring, she has no leukocytosis, stable H&H, chemistry with no significant electrolyte derangement troponin x2 negative. Urine revealing high specific gravity, otherwise not infectious. D-dimer negative. Chest x-ray unremarkable. Patient has a heart score of 5. Given patient is concerning story on her arrival today, I discussed this case with my attending physician, Dr. Leo, who agrees that this is a concerning story. I discussed this case with road traffic controller, Dr. Bain, who recommends admission. Differential Diagnosis Differential Diagnoses: The differential diagnosis associated with the presentation includes see above Admission/Observation Consideration of admission/observation: Escalation of care including admission/observation considered Lab Data [facility] Lab Attestation statement: I reviewed the patient's lab results. patient with no leukocytosis, stable H&H, chemistry revealing no acute electrolyte abnormalities, troponin x2 flat D-dimer less than 150 08/13/24 07:42 08/13/24 07:42 Labs: Lab Results 0508/12/24 08/12/24 Range/Units 11:08 13:07 13:25 WBC 7.4 (4.8-10.8) X10*3/uL RBC 4.32 (4.20-5.50) X10*6/uL Hgb 13.7 (12.0-16.0) g/dl Hct 41.1 (37.0-47.0) % MCV 95.1 (80.0-98.0) fL MCH 31.7 (27.0-33.0) pg MCHC 33.3 (31.0-35.0) g/dl RDW 13.0 (11.0-16.0) % Plt Count 301 (160-400) X10*3/uL MPV 8.9 L (9.4-12.3) fL Immature Gran % (Auto) 0.3 (0.0-0.4) % Neut % (Auto) 73.5 H (45-73) % Lymph % (Auto) 18.4 L (20-40) % Hawkins % (Auto) 5.8 (2-11) % Eos % (Auto) 1.6 (0-4) % Baso % (Auto) 0.4 (0-2) % Lymph # (Auto) 1.4 (1.2-4.9) X10*3/uL Hawkins # (Auto) 0.4 (0.1-1.2) X10*3/uL Eos # (Auto) 0.1 (0.0-0.4) X10*3/uL Baso # (Auto) 0.0 (0.0-0.2) X10*3/uL Abs Immat Gran (auto) 0.02 (0.00-0.03) X10*3/uL Absolute Neuts (auto) 5.4 (2.0-8.3) x10*3/uL Absolute Nucleated RBC 0.000 (0.0-0.012) X10*3/uL Nucleated RBC % (auto) 0.0 (0.0-0.2) /100WBC PT 10.2 L (10.9-12.4) SEC INR 0.9 (0.9-1.1) APTT 27.0 (26.0-36.8) SEC D-Dimer High Sensitivty < 150 NG/ML Sodium 142 (135-145) mmol/L Potassium 4.2 (3.3-5.1) mmol/L Chloride 109 H (96-108) mmol/L Carbon Dioxide 23 (22-29) mmol/L Anion Gap 14 (12-20) BUN 24 H (9-16) mg/dL Creatinine 0.83 (0.5-1.4) mg/dL Estim Creat Clear Calc 65.9 Estimated GFR > 60 Random Glucose 94 (60-115) mg/dL Calcium 9.4 (8.4-10.2) mg/dL Magnesium 2.4 (1.6-2.6) mg/dL Total Bilirubin 0.4 (0.0-1.0) mg/dL Direct Bilirubin 0.1 (0.0-0.5) mg/dL AST 21 (5-31) U/L ALT 25 (0-31) U/L Alkaline Phosphatase 98 (39-117) U/L Total Creatine Kinase 53 (26-140) U/L Troponin I High Sens < 2.7 < 2.7 (<3.5-17.0) ng/L Total Protein 7.1 (6.5-8.0) g/dL Albumin 4.3 (3.5-5.0) g/dL Urine Color Yellow Urine Appearance Clear Urine pH 5.5 (5.0-9.0) Ur Specific Robbins >= 1.030 H (1.005-1.025) Urine Protein Trace (Neg-Trace) mg/dL Urine Glucose (UA) Negative (Negative) mg/dL Urine Ketones Trace (Negative) mg/dL Urine Blood Negative (Negative) Urine Nitrite Negative (Negative) Ur Leukocyte Esterase Negative (Negative) Influenza Type A (PCR) NEGATIVE (Negative) Influenza Type B (PCR) NEGATIVE (Negative) RSV RNA Qual (PCR) NEGATIVE (Negative) SARS-CoV-2 RNA (RT-PCR) NEGATIVE (Negative) Independent Interpretation I performed an independent interpretation of an: EKG Interpretation: EKG at a ventricular rate of 87 beats per minute, occasional PACs, she does have inverted T-waves in V1 through V6, similar to previous. Radiology Impression Discussion of test interpretation with radiology: I have reviewed the radiologist's reading. Radiologist Impression: [address] [address] XRay Report Signed Patient: Filomena Saeed MR#: [id number] : 1955 Acct:[id number] Age/Sex: 69 / F ADM Date: 08/12/24 Loc: HO.ED Attending Dr: Ordering Physician: Amanda Hou Date of Service: 08/12/24 Procedure(s): XR chest 2V Accession Number(s): [id number] cc: Jaime Russ MD; Amanad Hou~ CLINICAL HISTORY: CP 2 view chest x-ray Comparison: 02/02/2022 Findings: No consolidation or effusion. Normal size heart. No acute fracture. IMPRESSION: 1. No acute findings. This document has been electronically signed by: Octavio Ledezma MD on 08/12/2024 11:35:14 Dictated By: Octavio Ledezma MD Signed By: <Electronically signed by Octavio Ledezma MD in OV> Scores Heart Score History: -2- highly suspicious ECG: -1- non specific repolarization disturbance Age: -2- > or = 65 Risk factory: -0- no risk factors known Troponin: -0- < or = normal limit Score: 5 Risk: 16.6% Critical Care Time Critical Care Time Critical Care Time: Yes Total Critical Care Time: 31 Attestation: I have personally provided critical care time exclusive of time spent on separately billable procedures. Time includes review of lab data, radiology results, discussion with consultants, and monitoring for potential decompensation. Intervention performed as documented. Discharge Plan Discharge Clinical Impression: Chest pain Patient Disposition: Admitted As Inpatient Interventions: Admission Worksheet (ED) Last Done: 08/12/24 16:57 Discharge Date/Time: 08/12/24 18:43
--- OUTSIDE RECORDS SUMMARY | 2024-08-12 10:49 | XMS_ITS ---
Author Organization [facility] Address [address] [place] [address] [place] [address] Care Team Providers Care Senior Information Systems Architect Name Role Phone Petrona STEWART, Jaime Primary Care Provider Unavailab Jaime Bush Unavailable [phone] REASON FOR VISIT EXTREME ABD PAIN Encounters Encounter Location Date Provider Diagnosis [facility] [address] [place] [address] 04/03/2024 Jaime Preciado Plan Of Treatment No Information Progress Notes * ENRIQUE GUIDO BDOB: (68 yo F)Acc No.[id number]:04/03/2024 Patient:?ENRIQUE GUIDO :1955???Age:68 Y???Sex:Female Address:[facility] [address] , [place], [address] * true * Date:? Generated for Princess sarmiento/Zoila/eTransmitting on:?08/12/2024 10:49 AM EDT
--- OUTSIDE RECORDS SUMMARY | 2024-08-12 10:49 | XMS_ITS | Patient Health Record ---
Author Organization Jaime Russ III, MD Address [address] [facility] [place] [address] Care Team Providers Care Housing Property Manager Name Role Phone Jaime Russ Primary Care Provider Allergies Allergen (clinical drug [...] 1.3 BLD Negative Negative - Menstrating No MAMMOGRAM DIGITAL BILATERAL SCREEN Reviewed date:10/21/2023 03:24:22 PM Interpretation:undefined Performing Lab: Notes/Report: undefined CT lung screening Reviewed date:03/29/2024 08:34:39 AM Interpretation: Performing Lab: Notes/Report: [address] [address] [address] Scan Report Signed Patient: Filomena Alanis MR#: [id number] : 1955 Acct:[id number] Age/Sex: 68 / F ADM Date: 10/28/23 Loc: HO.CT Attending Dr: Chayo Mayo PA-C Ordering Physician: Chayo Mayo PA-C Date of Service: 10/28/23 Procedure(s): CT lung screening Accession Number(s): [id number] cc: Jaime Russ MD; Chayo Mayo PA-C EXAMINATION: CT LOW-DOSE SCREENING CHEST WITHOUT CONTRAST CLINICAL INFORMATION: Personal history of nicotine dependence, cigarettes, former smoker; 40 pack years; quit 2 years prior; 76 kg Partial right lower lung resection. COMPARISON: 11/03/[address] 05/01/[address]. PET CT 05/19/2022. TECHNIQUE: Multidetector volumetric CT imaging of the chest is performed on a Siemens SOMATOM Definition scanner without contrast using low dose technique. Additional 2D coronal and sagittal reformatted images and axial 3D maximum intensity projection (MIP) images are generated on the CT workstation. This CT examination was performed using dose optimization techniques as appropriate, variously including the following: *Automated exposure control *Adjustment of mA and/or kV according to patient size (this includes techniques or standardized protocols for targeted exams where dose is matched to indication/reason for exam; i.e. extremities or head) *Use of iterative reconstruction technique TOTAL EXAM DLP: 48 mGy-cm. Please note, due to [facility] contractual, systems, and staffing issues, an [facility] radiologist was not available for review and dictation of this case until 12/10/2023. FINDINGS: PULMONARY NODULES: -Stable 2 cm inferior right upper lobe groundglass nodule with no solid component abutting the major fissure, without change (series 5, image 218). -6 mm branching linear nodule (series 5 image 181) is endobronchial and likely inflammatory. -3 mm nodule in the right middle lobe mid aspect is stable (series 5, image 242). -3 mm nodule left lower lobe superior segment is new from prior, however appears endobronchial and is likely inflammatory (series 5, image 247). -Stable granuloma left upper lobe laterally (series 5, image 122). This is benign. -Stable 4 mm lymph node in the medial left major fissure (series 5, image 251). This is benign. LUNGS: -There are partial right lower lobe resection. There is residual scarring and suture line present. -There is moderate centrilobular emphysema throughout both lungs. -Small airways appear normal. Central airways are patent. -Anterior right costophrenic angle scarring is stable. -No consolidations or definite active lung disease. MEDIASTINUM: -No abnormal mediastinal or hilar lymphadenopathy. -Aorta is nonaneurysmal and mildly calcified. -Main pulmonary artery is normal in size. -Heart size is normal. There is lipomatous infiltration of the intra-atrial septum. -No pericardial effusion. -Esophagus is normal in caliber and course with a probable small type I hiatal hernia. CORONARY ARTERY CALCIFICATION: None visualized on this study. THYROID GLAND: Unremarkable to the extent seen. CHEST WALL/AXILLA: No masses or abnormal lymph nodes present. There are surgical clips in the left axilla and left upper outer breast. UPPER ABDOMEN: -No abnormalities. OSSEOUS STRUCTURES: No suspicious lytic or blastic bone lesions. CT/CT lung screening IMPRESSION: 1. A few stable pulmonary nodules, with a stable 2.0 cm pure groundglass nodule inferior right upper lobe. Attention on future exams is recommended. Chance of malignancy less than 1%. 2. A small branching nodule in the right lower lobe and 3 mm left lower lobe new nodule felt to be endobronchial and inflammatory. 3. Moderate diffuse centrilobular emphysema. No active lung disease identified. 4. Status post partial resection right lower lobe. 5. No abnormal lymphadenopathy. 6. Left axillary clips present from prior surgery. ASSESSMENT: 1. Lung-RADS Category 2: Benign appearance or behavior of nodules. 2. Lung-RADS Category S: None. RECOMMENDATION: Continued routine annual low-dose CT lung screening in 1 year is recommended. An order for CT CHEST LOW DOSE CANCER SCREENING ([id number]) can be placed. Electronically signed by: Fam Forde MD 12/10/2023 03:19 PM EDT Dictated By: Fam Forde MD Signed By: <Electronically signed by Fam Forde MD in OV> 12/10/23 1519 DD/ 1546 TD/TT: 10/28/23 1605 Ladies Suit Operator: [address] [address] [address] Scan Report Signed Patient: Umberto Alanis MR#: [id number] : 1955 Acct:[id number] Age/Sex: 68 / F ADM Date: 10/28/23 Loc: HO.CT Attending Dr: Chayo Mayo PA-C Ordering Physician: Chayo Mayo PA-C Date of Service: 10/28/23 Procedure(s): CT lung screening Accession Number(s): [id number] cc: Jaime Russ MD; Chayo Mayo PA-C EXAMINATION: CT LOW-DOSE SCREENIN G CHEST WITHOUT CONTRAST CLINICAL INFORMATION: Personal history of nicotine dependence, cigarettes, former smoker; 40 pack years; quit 2 y ears prior; 76 kg Partial right lower lung resection. COMPARISON: 11/03/[address] 05/01/2022 low dose l glenna screening CT. PET CT 05/19/2022. TECHNIQUE: Multidetector volume tric CT imaging of the chest is performed on a Siemens SOMATOM Defi nition scanner without contrast using low dose technique. Additiona l 2D coronal and sagittal reformatted images and axial 3D maximum int ensity projection (MIP) images are generated on the CT workstation. This CT examination was performed using dose optimization techniques as appropriate, various ly including the following: *Automated exposure control *Adjustment of mA an d/or kV according to patient size (this includes techniques or standa rdized protocols for targeted exams where dose is matched to indicatio n/reason for exam; i.e. extremities or head) *Use of iterative reconstruction technique TOTAL EXAM DLP: 48 mGy-cm. Please note, due to [facility] contractual, systems, and staffing issues, an [facility] radio logist was not available for review and dictation of this case until 12/10/2023. FINDINGS: PULMONARY NODULES: -Stable 2 cm inferio r right upper lobe groundglass nodule with no solid component abutting t he major fissure, without change (series 5, image 218). -6 mm branching line ar nodule (series 5 image 181) is endobronchial and likely inflammatory. -3 mm nodule in the right middle lobe mid aspect is stable (series 5, image 242). -3 mm nodule left lo wer lobe superior segment is new from prior, however appears endo bronchial and is likely inflammatory (series 5, image 247). -Stable granuloma le ft upper lobe laterally (series 5, image 122). This is benign. -Stable 4 mm lymph n ode in the medial left major fissure (series 5, image 251). This is benign. LUNGS: -There are partial r ight lower lobe resection. There is residual scarring and suture line present. -There is moderate centrilobular emphysema throughout both lungs. -Small airways appea r normal. Central airways are patent. -Anterior right cost ophrenic angle scarring is stable. -No consolidations o r definite active lung disease. MEDIASTINUM: -No abnormal mediast inal or hilar lymphadenopathy. -Aorta is nonaneurys mal and mildly calcified. -Main pulmonary ernestine ry is normal in size. -Heart size is adrianne l. There is lipomatous infiltration of the intra-atrial septum. -No pericardial effusion. -Esophagus is normal in caliber and course with a probable small type I hiatal hernia. CORONARY ARTERY CALC IFICATION: None visualized on this study. THYROID GLAND: Unrem arkable to the extent seen. CHEST WALL/AXILLA: N o masses or abnormal lymph nodes present. There are surgical clips in th e left axilla and left upper outer breast. UPPER ABDOMEN: -No abnormalities. OSSEOUS STRUCTURES: No suspicious lytic or blastic bone lesions. C T/CT lung screening IMPRESSION: 1. A few stable pulm onary nodules, with a stable 2.0 cm pure groundglass nodule i nferior right upper lobe. Attention on future exams is recommended. Gil ce of malignancy less than 1%. 2. A small branching nodule in the right lower lobe and 3 mm left lower lobe new nodule felt to be endobronchial and inflammatory. 3. Moderate diffuse centrilobular emphysema. No active lung disease identified. 4. Status post parti al resection right lower lobe. 5. No abnormal lymphadenopathy. 6. Left axillary cli ps present from prior surgery. ASSESSMENT: 1. Lung-RADS Categor y 2: Benign appearance or behavior of nodules. 2. Lung-RADS Category S: None. RECOMMENDATION: Continued routine an nual low-dose CT lung screening in 1 year is recommended. An orde r for CT CHEST LOW DOSE CANCER SCREENING ([id number]) can be placed. Electronically mike d by: Fam Forde MD 12/10/2023 03:19 PM EDT Dictated By: Fam Forde MD Signed By: <Electron ically signed by Fam Forde MD in OV> 12/10/23 1519 DD/ 1546 TD/TT: 10/28/23 1602 [employer] Suit Operator: Reason For Referral No Information Medications Medication SIG (Take, Route, Frequency, Duration) Notes Start Date End Date Status Sertraline HCl 50 MG TAKE 1 TABLET BY MO ORH TWICE DAILY Active LORazepam 1 MG 1 tablet at bedtime as needed Orally Once a day 02/15/2024 Active Anoro Ellipta 62.5-25 MCG/ACT Inhalation Active tiZANidine HCl 2 MG TAKE 1 TABLET BY ALEJANDRA TH DAILY AT BEDTIME NEEDED Oral Active LORazepam 1 MG 1 tablet at bedtime if needed Orally Once a day 06/09/2024 Active Immunizations Vaccine Route Administration Date Status Comme nts Influenza no Preserv 3 and > Unknown 02/09/2020 Adminis tered Td (adult) Unknown 08/18/2016 Administered Comirnaty Pfizer COVID-19 12+ Unknown 01/28/2023 Admini stered COVID 19 Moderna Unknown 07/04/2020 Administered Influenza-iiv4 p-free high dose Unknown 02/09/2020 Admi nistered Boostrix Unknown 05/12/2024 Administered COVID 19 Moderna Unknown 10/14/2021 Administered COVID 19 Moderna Unknown 02/03/2021 Administered COVID 19 Moderna Unknown 06/06/2020 Administered Comirnaty Pfizer COVID-19 12+ Unknown 05/12/2024 Admini stered RSV Adjuvant Unknown 03/16/2023 Administered PCV13 Unknown 01/20/2021 Administered PCV20 Unknown 03/16/2023 Administered Social History Tobacco Use: Social History Observation [...] Never (0 point) Points 2 Interpretation Negative Problems Problem Type SNOMED Code ICD Code Onset Dates Problem Status W/U Status Risk Notes Problem 2620267 Former smoker (Z87.891) Active confirmed We have formulated a plan to reemain abstinent in times of stress and illness. Problem 476550129 Overweight (E66.3) Active confirmed She has gained a few pounds and is very slightly overweight. We reviewed her weight loss strategy. We made a plan to return to the mid range of normal of her BMI. Problem 44332175 Multiple sclerosis (G35) Active confirmed There was no sign of activity of this process. She remained stable. No treatment is necessary. Surveillance will continue. Problem 97943113 Anxiety (F41.9) Active confirmed We discussed ways of coping with anxiety without using medication. Her anxiety is mild and her depression is minimal distention. Problem Vitamin D deficiency (47206293) Vitamin D deficiency, unspecified (E55.9) Active confirmed She was continued on her supplements. Problem 42305209 Chronic obstructive pulmonary disease, unspecified COPD type (J44.9) Active confirmed No longer smoking. She is comfortable breathing room air. Is somewhat short of breath with prolonged exertion. She has not her renewals specialist recently. Problem 362853613 Lumbosacral radiculopathy due to degenerative joint disease of spine (M47.27) Active confirmed Pain in the right hip may be from nerve impingement in the lumbar spine or from the joint. X-rays will be done in an orthopedic consultation will be arranged. Problem 27539631 Dysfunctional uterine bleeding (N93.8) Active confirmed She has had no C[employer] C[employer] MEAT complaints. Recently. Problem 58902901 Reactive depression (F32.9) Active confirmed She appears to be stable. No increase in her depression or depressive symptoms has occurred. She continues on sertraline. She does not have a history of worsening depression around the winter holidays. Problem 379292296 Malignant neoplasm of upper-outer quadrant of left female breast, unspecified estrogen receptor status (C50.412) Active confirmed There was no sign of return breast cancer today. Breast of monthly. She will be up-to-date with a Problem 46287497 Degenerative disc disease at L5-S1 level (M51.36) Active confirmed Her back pain is mild. She is avoiding heavy lifting and says to range of motion of the spine is normal. Problem 240133535 Right lower lobe pulmonary nodule (R91.1) Active confirmed The tumor was a benign lesion with granulomatous. Although the lymph nodes were negative. She continues to smoke cigarettes and we have aggressively discussed smoking cessation today. The wounds have healed. Problem 576223979 Arthritis of lumbar spine (M47.816) Active confirmed Her low back pain is minimal today. She is conducting all of the activities of daily life without impairment. Vital Signs Heart Rate 72 /min 08/02/2024 Temperature 97.0 degrees Fahrenheit 08/02/2024 Blood pressure diastolic 75 mm Hg 08/02/2024 Height 69 in 08/02/2024 Blood pressure systolic 117 mm Hg 08/02/2024 Weight 168 lbs 08/02/2024 BMI 24.81 kg/m2 08/02/2024 Encounters Encounter Location Date Provider Diagnosis Jaime Russ III, MD [address] [place] [address] [place] [address] 03/14/2024 Jaime Russ Overweight E66.3 ; Malignant neoplasm of upper-outer quadrant of left female breast, unspecified estrogen receptor status C50.412 ; Vitamin D deficiency, unspecified E55.9 ; Multiple sclerosis G35 ; Reactive depression F32.9 ; Lumbosacral radiculopathy due to degenerative joint disease of spine M47.27 and Anxiety F41.9 Jaime Russ III, MD [address] [place] [address] [place] [address] 08/02/2024 Jaime Russ Malignant neoplasm o f [...] and Right lower lobe pulmonary nodule R91.1 Jaime Russ III, MD [address] [place] [address] [place] [address] 12/27/2023 Jaime Russ III, MD [address] [place] [address] [place] [address] 12/27/2023 Jaime Russ III, MD [address] [place] [address] [place] [address] 02/15/2024 Jaime Russ III, MD [address] [place] [address] [place] [address] 02/15/2024 Jaime Russ III, MD [address] [place] [address] [place] [address] 04/03/2024 Jaime Russ III, MD [address] [place] [address] [place] [address] 06/09/2024 Jaime Russ III, MD [address] [place] [address] [place] [address] 06/09/2024 Jaime Russ Assessments Encounter Date Diagnosis (ICD Code) Assessment [...] of recurrence.A breast examination today was unremarkable. 08/02/2024 Chronic obstructive pulmonary disease, unspecified COPD type (ICD-10 - J44.9) No longer smoking. She is comfortable breathing room air. Is somewhat short of breath with prolonged exertion. She has not her renewals specialist recently. 08/02/2024 Malignant neoplasm of upper-outer quadrant of left female breast, unspecified estrogen receptor status (ICD-10 - C50.412) There was no sign of return breast cancer today. Breast of monthly. She will be up-to-date with a 03/14/2024 Vitamin D deficiency, unspecified (ICD-10 - E55.9) She was continued on her supplements. 08/02/2024 Multiple sclerosis (ICD-10 - G35) There was no sign of activity of this process. She remained stable. No treatment is necessary. Surveillance will continue. 03/14/2024 Multiple sclerosis (ICD-10 - G35) There [...] worsening depression around the winter holidays. 03/14/2024 Reactive depression (ICD-10 - F32.9) She appears to be stable. No increase in her depression or depressive symptoms has occurred. She continues on sertraline. She does not have a history of worsening depression around the winter holidays. 08/02/2024 Dysfunctional uterine bleeding (ICD-10 - N93.8) She has had no C[employer] MEAT complaints. Recently. 03/14/2024 Lumbosacral radiculopathy due to degenerative joint disease of spine (ICD-10 - M47.27) Pain in the right hip may be from nerve impingement in the lumbar spine or from the joint. X-rays will be done in an orthopedic consultation will be arranged. 08/02/2024 Anxiety (ICD-10 - F41.9) We discussed ways of coping with anxiety without using medication. Her anxiety is mild and her depression is minimal distention. 03/14/2024 Anxiety (ICD-10 - F41.9) We discussed [...] The wounds have healed. Plan Of Treatment Pending Test Test Name Order Date PROFILE, FASTING (COMPREHENSIVE METABOLI C) 09/02/2017 PROFILE, FASTING (COMPREHENSIVE METABOLI C) 07/22/2021 PROFILE, FASTING (COMPREHENSIVE METABOLI C) 07/28/2023 PROFILE, FASTING (COMPREHENSIVE METABOLI C) 06/02/2021 PROFILE, FASTING (COMPREHENSIVE METABOLI C) 08/02/2024 PROFILE, FASTING (COMPREHENSIVE METABOLI C) 01/26/2023 PROFILE, FASTING (COMPREHENSIVE METABOLI C) 07/10/2019 PROFILE, FASTING (COMPREHENSIVE METABOLI C) 03/14/2024 LIPID PANEL 07/10/2019 LIPID PANEL 09/02/2017 LIPID PANEL 07/22/2021 LIPID PANEL 06/02/2021 CBC w DIFF 07/10/2019 CBC w DIFF 09/02/2017 CBC w DIFF 07/28/2023 CBC w DIFF 07/22/2021 CBC w DIFF 06/02/2021 CBC w DIFF 08/02/2024 CA 27.29 09/02/2017 CBC WITH AUTO DIFF 01/26/2023 CBC WITH AUTO DIFF 03/14/2024 Lipid Panel 08/02/2024 Lipid Panel 01/26/2023 Lipid Panel 03/14/2024 Lipid Panel 07/28/2023 Vitamin B12 06/02/2021 Vitamin D 25-OH Total 03/14/2024 MM screening mammo BI 08/02/2024 Next Appt Details Provider Name:Jaime Russ, 11/01/2024 10:30:00 AM, [address] [place] [address] [address] [place], [place], [address], Provider Name:Jaime Russ, 08/03/2025 09:30:00 AM, [address] [place] [address] [place], [place], [address], Insurance Providers Payer Name Payer Address Payer Phone Subscriber Number Group Number Insured Name Patient Relationship to Insured Coverage Start Date Coverage End Date [employer] [address] [place], [place] [id number] [phone] [id number] [place] (Billing s)Filomena Self - patient is the insured MEDICARE NGS [address] [place] [place] [address] [phone] [id number] [place] (Billing s)Filomena Self - patient is the insured Medical (General) History Medical History History ICD Code multiple sclerosis 2012, last menstrual period 1986 invasive adenocarcinoma left breast, estrogen and progesterone positive, HER-2 negative,12/2015, Oncotype 10% depression history of anxiety state history of vitamin B12 injections 2014 f or cobalamin deficiency osteopenia by bone density December 05, 2015 Surgical History Surgery Date(Month/Year) Lung surgery segmentectomy by Dr Forbes at [facility], [place] ign granuloma 06/24/2022 lumpectomy left breast, DCIS 1995 partial hysterectomy with unilateral O o ophorectomy 1986 lumpectomy, fibroadenoma, left breast 19 75 left breast lumpectomy stage 1A infiltra ting ductal carcinoma 01/2016 Hospitalization History Reason Date(Month/Year) lung resection only in 2 days 06/24/2022 Low back pain 04/2019
--- OUTSIDE RECORDS SUMMARY | 2024-08-12 10:49 | XMS_ITS ---
Author Organization [facility] Address [address] [place] [address] [place] [address] Care Team Providers Care Recovery Advocate Name Role Phone Petrona STEWART, Jaime Primary Care Provider Unavailab Jaime Bush Unavailable [phone] REASON FOR VISIT not feeling well Medications Medication SIG (Take, Route, Fr equency, Duration) Notes Start Date End Date Status Dicyclomine HCl 10 MG TAKE 1 TO 2 CAPSUL ES BY MOUTH EVERY 6 HOURS NEEDED FOR ABDOMINAL CRAMPS/DISCOMFORT Orally Every 6 hours as needed for 30 days Active Ondansetron 4 MG 1 tablet on the tong ue and allow to dissolve Orally Every 6 hours as needed for nausea for 30 day(s) 04/07/2024 Active Encounters Encounter Location Date Provider Diagnosis [facility] [address] [place] [address] 04/07/2024 Jaime Preciado Plan Of Treatment Medication Medication Name Sig Start Date Stop Date Notes Dicyclomine HCl 10 MG TAKE 1 TO 2 CAPSUL ES BY MOUTH EVERY 6 HOURS NEEDED FOR ABDOMINAL CRAMPS/DISCOMFORT Orally Every 6 hours as needed for 30 days Ondansetron 4 MG 1 tablet on the tong ue and allow to dissolve Orally Every 6 hours as needed for nausea for 30 day(s) 04/07/2024 Progress Notes * ENRIQUE GUIDO BDOB: [birth year] (68 yo F)Acc No.[id number]:04/07/2024 Patient:?ENRIQUE GUIDO :1955???Age:68 Y???Sex:Female Address:[place], [address] * Refills? Refill Dicyclomine HCl Capsule, 10 MG, Orally, 40, TAKE 1 TO 2 CAPSULES BY MOUTH EVERY 6 HOURS NEEDED FOR ABDOMINAL CRAMPS/DISCOMFORT, Every 6 hours as needed, 30 days, Refills=3 Start Ondansetron Tablet Disintegrating, 4 MG, Orally, 20, 1 tablet on the tongue and allow to dissolve, Every 6 hours as needed for nausea, 30 day(s), Refills=0 * true * Date:? Generated for Princess sarmiento/oZila/eTransmitting on:?08/12/2024 10:49 AM EDT
--- OUTSIDE RECORDS SUMMARY | 2024-08-12 10:49 | XMS_ITS | Patient Health Record ---
Author Organization [facility] Address [address] [place] [address] Care Team Providers Care Steel Die Engraver Name Role Phone SUKH EDMONDS Unavailable Allergies No Known Allergies Reason For Referral Reason EVAL AND TREAT Diagnosis 1 Anxiety (F41.9) Referral Organization [facility] Referring Provider First Name SUKH Referring Provider Last Name ARISTEO Penn Referring Provider Speciality Family Med icine Referred Provider Specialty Psychiatry Referral Priority Routine Referral Appointment Date 02/24/2024 Reason EVAL AND TREAT Diagnosis 1 Anxiety (F41.9) Referral Organization [facility] Referring Provider First Name SUKH Referring Provider Last Name ARISTEO Penn Referring Provider Speciality Family Med icine Referred Provider Specialty Family Medic ine Referral Priority Routine Referral Appointment Date 02/24/2024 Medications Medication SIG (Take, Route, Frequency, Duration) Notes Start Date End Date Status Anoro Ellipta 62.5-25 MCG/ACT INHALE 1 P UFF BY MOUTH DAILY Inhalation for 30 Days Active Cyclobenzaprine HCl 5 MG TAKE 1 TABLET B Y MOUTH EVERY DAY AT BEDTIME Oral for 90 Days Active Sertraline HCl 50 MG TAKE 1 TABLET BY MO UTH TWICE DAILY Oral for 90 Days Active LORazepam 1 MG TAKE 1 TABLET BY ALEJANDRA TH DAILY AT BEDTIME FOR 10 DAYS NEEDED Oral for 10 Days Active Social History Tobacco Use: Social History Observation Description Date Details (start date - stop date) Never Smoker NA - NA Tobacco Control (Standard) Question Answer Notes Tobacco use: Nonsmoker Problems Problem Type SNOMED Code ICD Code Onset Dates Problem Status W/U Status Risk Notes Problem [id number] Anxiety (F41.9) Active confirmed Vital Signs Height 69 in 02/24/2024 Patient Reported Normal Blood Pressure Patient Reported Normal Temperature Weight 172 lbs 02/24/2024 Patient Reported Normal Blood Pressure Patient Reported Normal Temperature BMI 25.4 kg/m2 02/24/2024 Patient Reported Normal Blood Pressure Patient Reported Normal Temperature Encounters Encounter Location Date Provider Diagnosis [facility] [address] [place] [address] 02/24/2024 SUKH EDMONDS Anxiety F41.9 Assessments Encounter Date Diagnosis (ICD Code) Assessment Notes Treatment Notes Treatment Clinical Notes Section Notes 02/24/2024 Anxiety (ICD-10 - F41.9) Your records show you are currently on lorazepam. Please follow up with your regular doctor or psychiatrist for further evaluation and management of increasing anxiety. PATIENT EDUCATION: ANXIETY Anxiety is a normal reaction to stress. Difficult situations can cause you to have symptoms such as sweaty palms and a nervous feeling. In an anxiety disorder, the symptoms are far more severe. Constant worry, muscle tension, trouble sleeping, nausea and diarrhea, and other symptoms can make normal daily activities difficult or impossible. These symptoms may occur for no reason, and they can affect your work, school, or social life. Medicines, counseling, and self-care can all help. FOLLOW UP WITH PSYCHIATRY. Here are a list of different online options: https://www.[address].com/ https://www.FreedomPop.Payteller/ https://www.Waterstone Pharmaceuticals.Payteller/ https://www.YOGITECH.Payteller/ https://get.Factual.Payteller Take medicines exactly as directed. Call your doctor if you think you are having a problem with your medicine. Go to your counseling sessions and follow-up appointments. Call 911 anytime you think you may need emergency care. For example, call if: You feel you cannot stop from hurting yourself or someone else. Keep the numbers for these national suicide hotlines: Dial 988, 3-751-393-TALK ( ) or 0-600-BHAPCWV ( ) . If you or someone you know talks about suicide or feeling hopeless, get help right away. Watch closely for changes in your health, and be sure to contact your doctor if: You have anxiety or fear that affects your life. You have symptoms of anxiety that are new or different from those you had before. 02/24/2024 Other Follow the treatment plan as indicated by the provider. Take any medications as prescribed. If you have any questions about your prescription, ask the pharmacist. Call 911 anytime you think you may need emergency care. For example, call if:You have severe trouble breathing.You have a seizure.Call your doctor now or seek immediate medical care if:You have trouble breathing.You have a fever with a stiff neck or a severe headache.You have pain or pressure in your chest or belly.You have a fever or cough that returns after getting better.You feel very sleepy, dizzy, or confused.You are not urinating.You have severe muscle pain.You have severe weakness, or you are unsteady.You have medical conditions that are getting worse.Watch closely for changes in your health, and be sure to contact your doctor if:You do not get better as expected.You are having a problem with your medicine. You participated in a Fasttrack Rx request, considered an asynchronous visit where you provide your symptoms and medical history, and a treatment plan is formulated based on your submission. A treatment plan and patient education were provided based on your submission. If symptoms persist or worsen, you should seek in-person care or call 911 immediately for further evaluation. Plan Of Treatment No Information Insurance Providers Payer Name Payer Address Payer Phone Subscriber Number Group Number Insured Name Patient Relationship to Insured Coverage Start Date Coverage End Date [facility] [address] [place] [address] [id number] Filomena Saeed Self - patient is the insured Medical (General) History Medical History History ICD Code COPD 11/24/2021
--- OUTSIDE RECORDS SUMMARY | 2024-08-12 10:49 | XMS_ITS ---
Author Organization Jaime Russ III, MD Address [address] [place] [address] [address] [facility] [place] [address] Care Team Providers Care Radio Operator Name Role Phone Jaime Russ Primary Care Provider [phone] Medications Medication SIG (Take, Route, Fr equency, Duration) Notes Start Date End Date Status LORazepam 1 MG 1 tablet at bedtime if needed Orally Once a day for 10 days 06/09/2024 Active Social History Sex Assigned At : Social History Observation Description Sex Assigned At Female Encounters Encounter Location Date Provider Diagnosis Jaime Russ III, MD [address] [place] [address] [address] [place] [address] 06/09/2024 Jaime Russ Plan Of Treatment Medication Medication Name Sig Start Date Stop Date Notes LORazepam 1 MG 1 tablet at bedtime if needed Orally Once a day for 10 days 06/09/2024 Next Appt Details Provider Name:Jaime Russ, 11/01/2024 10:30:00 AM, [address] [place] [address] [place], [address], Provider Name:Jaime Russ, 08/03/2025 09:30:00 AM, [address] [place] [address] [place], [address], Progress Notes * Filomena SAEED (BILLINGS)DOB: 1955 (68 yo F)Acc No.[id number]:06/09/2024 Patient:?Filomena SAEED (BILLINGS) :1955???Age:68 Y???Sex:Female Address:[address] [place] [address], [place], [address] * Refills? Start LORazepam Tablet, 1 MG, Orally, 10 Tablet, 1 tablet at bedtime if needed, Once a day, 10 days, Refills=1 * true * Date:? Generated for Princess sarmiento/Zoila/eTransmitting on:?08/12/2024 10:48 AM EDT
--- OUTSIDE RECORDS SUMMARY | 2024-08-12 10:49 | XMS_ITS ---
Author Organization [facility] Address [address] [place] [address] Care Team Providers Care Team Sports Sales Associate Name Role Phone SUKH EDMONDS Unavailable Allergies No Known Allergies Reason For Referral Reason EVAL AND TREAT Diagnosis 1 Anxiety (F41.9) Referral Organization [facility] Referring Provider First Name DUANEVALENTINO Referring Provider Last Name ARISTEO Penn Referring Provider Speciality Family Med gatito Referred Provider Specialty Psychiatry Referral Priority Routine Referral Appointment Date 02/24/2024 Reason EVAL AND TREAT Diagnosis 1 Anxiety (F41.9) Referral Organization [facility] Referring Provider First Name SUKH Referring Provider Last Name ARISTEO Penn Referring Provider Speciality Family Med icine Referred Provider Specialty Family Medic ine Referral Priority Routine Referral Appointment Date 02/24/2024 REASON FOR VISIT General Health, Patient requesting service from promotional campaign insurance_pmax Medications Medication SIG (Take, Route, Frequency, Duration) [...] Problem Status W/U Status Risk Notes Problem [id number] Anxiety (F41.9) Active confirmed Vital Signs Height 69 in 02/24/2024 Weight 172 lbs 02/24/2024 BMI 25.4 kg/m2 02/24/2024 Patient Reported Normal Bloo d PressurePatient Reported Normal Temperature Encounters Encounter Location Date Provider Diagnosis [facility] [address] [place] [address] 02/24/2024 SUKH EDMONDS Anxiety F41.9 Assessments Encounter [...] are a list of different online options: https://www.Dianji Technology.com/ https://www.PrairieSmarts.Wallept/ https://www.Jacked.Wallept/ https://www.Ici [place]reuil.Wallept/ https://get.ACTV8me.Wallept Take medicines exactly as directed. Call your doctor if you think you are having a problem with your medicine. Go to your counseling sessions and follow-up appointments. Call 911 anytime you think you may need emergency care. For example, call if: You feel you cannot stop from hurting yourself or someone else. Keep the numbers for these national suicide hotlines: Dial 988, 5-413-432-TALK ( ) or 0-629-XXUWMSZ ( ) . If you or someone [...] immediately for further evaluation. Plan Of Treatment Treatment Notes Assessment Notes Anxiety Your records show you are currently on [...] are a list of different online options: https://www.talkiatry.com/ https://www.brightside.com/ https://www.talkspace.com/ https://www.betterhelp.com/ https://get.Sensipass.com Take medicines exactly as directed. Call your doctor if you think you are having a problem with your medicine. Go to your counseling sessions and follow-up appointments. Call 911 anytime you think you may need emergency care. For example, call if: You feel you cannot stop from hurting yourself or someone else. Keep the numbers for these national suicide hotlines: Dial 988, 2-655-635-TALK ( ) or 7-296-QFNVNCN ( ). If you or someone you know talks about suicide or feeling hopeless, get help right away. Watch closely for changes in your health, and be sure to contact your doctor if: You have anxiety or fear that affects your life. You have symptoms of anxiety that are new or different from those you had before. Other Follow the treatment plan as indicated [...] are having a problem with your medicine. Referrals Referral Date Details 02/24/2024 02/24/2024, EVAL AND TREAT 02/24/2024 02/24/2024, EVAL AND TREAT Next Appt Details Follow Up: PCP, Reason: Progress Notes * Adrián SAEED:1955 (68 yo F)Acc No.[id number]:02/24/2024 Patient:?Filomena SAEED Provider:?SUKH EDMONDS MD :1955???Age:68 Y???Sex:Female D ate:02/24/2024 Phone: Address:[id number] Subjective: * Chief Complaints: * ???General HealthPatient req uesting service from promotional campaign insurance_pmax * HPI: ???TeleHealth Complaint History:? Reason for visit:. ? 68 year-old female, presents with anxiety for a duration of 7 weeks. Medical History: COPD, generalized anxiety disorder 2 item score and fibromyalgia. Medications: Sertraline HCl 50mg 1X daily. Risk Factors: No recent history of upper respiratory infection. MSG SENT TO PT:?the [facility] Provider is unable to fulfill your request with the information submitted. To complete your request, please clarify if you are looking for a refill? If so please provide name, dosage and direction on medication needed. PTS RESPONSE:??I am looking for a prescription for something to address my heightened anxiety. * ROS:?All Other Systems:?Review of Systems (ROS)?See HPI for details.?The patient is also suffering from anxiety (clinical course gradual and severity severe), muscle pain (severity moderate and duration 4 years), nausea (duration 7 days), night sweats, excessive sweating, fatigue, sleep disturbance, waking up and cannot fall back to sleep, waking up couple of times at night, poor concentration and generalized muscle pain. The patient denies the following: weakness of one side of body, speech dysfunction, drooping of side of the mouth, chest pain, palpitations, lack of energy to complete day-to-day tasks, shortness of breath, cough, sputum production, dizziness, difficulty walking, facial flushing, rash, disability affecting daily living, difficulty falling asleep, excessive sleepiness, tremors, change in bowel habit and fever. * Medical History:? * Surgical History:?Denies Pas t Surgical History * Hospitalization/Major Diagno stic Procedure:?Denies Past Hospitalization * Family History:? Patient Denies. * Social History:?Tobacco Use:?Tobacco Control (Standard)?Tobacco use:?Nonsmoker.?Drugs/Alcohol:?Do you drink alcohol?: Yes 1 Drink Weekly Social. * Medications:?TakingCyclobenz aprine HCl 5 MG Tablet TAKE 1 TABLET BY MOUTH EVERY DAY AT BEDTIME Oral Anoro Ellipta 62.5-25 MCG/ACT Aerosol Powder Breath Activated INHALE 1 PUFF BY MOUTH DAILY Inhalation LORazepam 1 MG Tablet TAKE 1 TABLET BY MOUTH DAILY AT BEDTIME FOR 10 DAYS NEEDED Oral Sertraline HCl 50 MG Tablet TAKE 1 TABLET BY MOUTH TWICE DAILY Oral Taking Cyclobenzaprine HCl 5 MG Tablet TAKE 1 TABLET BY MOUTH EVERY DAY AT BEDTIME Oral Taking Anoro Ellipta 62.5-25 MCG/ACT Aerosol Powder Breath Activated INHALE 1 PUFF BY MOUTH DAILY Inhalation Taking LORazepam 1 MG Tablet TAKE 1 TABLET BY MOUTH DAILY AT BEDTIME FOR 10 DAYS NEEDED Oral Taking Sertraline HCl 50 MG Tablet TAKE 1 TABLET BY MOUTH TWICE DAILY Oral * Allergies:?N.K.D.A.no[Allerg ies Verified] Objective: * Vitals:?Ht: 69 in, Wt:172lbs , BMI:25.4Index. Patient Reported Normal Blood Pressure Patient Reported Normal Temperature. * Physical Examination:?Asynchronous visit, unable to assess. Assessment: * Assessment: 1.?Anxiety - F41.9 (Primary) ??? Plan: * Treatment: 2.?Others? Notes: Follow the treatment plan as indicated by the provider. Take any medications as prescribed. If you have any questions about your prescription, ask the pharmacist. [id number] you think you may need emergency care. For example, call if:You have severe trouble breathing.You have a seizure.Call your doctor nowor seek immediate medical care if:You have trouble [...] expected.You are having a problem with your medicine.?? Clinical Notes:You participated in a Fasttrack Rx request, considered an asynchronous visit where you provide your symptoms and medical history, and a treatment plan is formulated based on your submission. A treatment plan and patient education were provided based on your submission. If symptoms persist or worsen, you should seek in-person care or call 911 immediately for further evaluation. ?? * Procedure Codes:?EDILSON Magdaleno ant / CC Processing [id number] Office Visit, Est Pt., Level 2, delivered asynchronous, Modifiers: GQ * Follow Up:?PCP * Billing Information: * Visit Code:? * Procedure Codes:? MPFEE Merchant / CC Processing Fee. [id number] Office Visit, Est Pt., Level 2, delivered asynchronous. Modifiers: GQ * Sign off status: Completed true * Provider:?SUKH EDMONDS MD Da te:?02/24/2024 Generated for Princess sarmiento/Zoila/eTransmitting on:?08/12/2024 10:48 AM EDT History and Physical Notes * HPI (History of Present Illness) Category Sub-Category Detail Notes Category Not es TeleHealth Complaint History 68 year-old female, presents with anxiety for a duration of 7 weeks. Medical History: COPD, generalized anxiety disorder 2 item score and fibromyalgia. Medications: Sertraline HCl 50mg 1X daily. Risk Factors: No recent history of upper respiratory infection. MSG SENT TO PT: the [facility] Provider is unable to fulfill your request with the information submitted. To complete your request, please clarify if you are looking for a refill? If so please provide name, dosage and direction on medication needed. PTS RESPONSE: I am looking for a prescription for something to address my heightened anxiety. Physical Examination Category Sub-Category Detail Notes Section Note s Asynchronous vi sit, unable to assess Consultation Request Notes Referral Date Referring Provider Referred Provider Not es 02/24/2024 SUKH EDMONDS EVAL AND TREAT 02/24/2024 SUKH EDMONDS EVAL AND TREAT
--- OUTSIDE RECORDS SUMMARY | 2024-08-12 10:49 | XMS_ITS | Clinical Summary ---
Author Organization [facility] Address [address] [place] [address] Care Team Providers Care Senior Account Executive Name Role Phone Ariana Russ MD Primary Care Provider [phone] Social History Tobacco Use Types Packs/Day Years Used Date Smoking Tobacco: Former Cigarettes Q uit: 05/06/2022 Comments Unknown Sex and Gender Information Value Date Recorded Sex Assigned at Not on file Legal Sex Female 11:22 AM EST Gender Identity Not on file Sexual Orientation Not on file Travel History Travel Start Travel End [place] 07/02/2024 08/02/2024 Obstetrics History Last Filed Vital Signs Vital Sign Reading Time Taken Comments Blood Pressure 132/94 07/07/2022 10:33 AM EDT Si tting R Arm Pulse 102 07/07/2022 10:33 AM EDT Temperature - - Respiratory Rate - - Oxygen Saturation - - Inhaled Oxygen Concentration - - Weight 75.8 kg (167 lb) 07/07/2022 10:33 AM EDT Height 175.3 cm (5' 9 ) 07/07/2022 10:33 AM EDT Body Mass Index 24.66 07/07/2022 10:33 AM EDT Plan of Treatment Upcoming Encounters Date Type Department Care Team (Late st Contact Info) Description 08/14/2024 9:30 AM EDT [facility]ointment [facility] [address] [address] Health Maintenance Due Date Last Done Comments DTaP,Tdap,and Td Vaccines (1 - Tdap) 1973 Pneumococcal Vaccine: 50+ Years (1 of 1 - PCV) 2004 Zoster Vaccines (1 of 2) 2004 Colorectal Cancer Screening: Colonoscopy 03/03/2022 Depression Screening 03/03/2022 Falls Risk Assessment 03/03/2022 Hepatitis C Screening 03/03/2022 Medicare Annual Wellness Visit 03/03/2022 Social Influencers of Health Screening 03/03/2022 COVID-19 Vaccine ( season) 2023 Influenza Vaccine (Season Ended) 2024 Breast Cancer Screening 08/12/2025 08/13/19 24, 08/10/2022, 06/30/2021, Additional history exists RSV Immunization Adult Patients (1 - 1-dose 75+ series) 2029 Osteoporosis Screening (Bone Density Screening) 07/01/2031 06/30/2021 HIB Vaccines Aged Out No longer eligi ble based on patient's age to complete this topic HPV Vaccines Aged Out No longer eligi ble based on patient's age to complete this topic Hepatitis A Vaccines Aged Out No long er eligible based on patient's age to complete this topic Hepatitis B Vaccines Aged Out No long er eligible based on patient's age to complete this topic IPV Vaccines Aged Out No longer eligi ble based on patient's age to complete this topic MMR Vaccines Aged Out No longer eligi ble based on patient's age to complete this topic Meningococcal ACWY Vaccine Aged Out N o longer eligible based on patient's age to complete this topic Meningococcal B Vaccine Aged Out No l onger eligible based on patient's age to complete this topic RSV Immunization Patients Under 20 months Aged Out No longer eligible based on patient's age to complete this topic Varicella Vaccines Aged Out No longer eligible based on patient's age to complete this topic Procedures Procedure Name Priority Date/Time Associated Diagnosis Comments [facility] SCREENING DIGITAL Routine 08/13/2023 10:07 AM EDT Encounter for screening mammogram for malignant neoplasm of breast [facility] DEXA AXIAL SKELETON Routine 06/30/2021 2:58 PM EDT Encounter for screening for osteoporosis from Last 3 Months or Most Recently Relevant to Health Maintenance Results * [facility] SCREENING DIGITAL (08/13/2023 10:07 AM EDT) Anatomical Region Laterality Modality Mammography 08/13/2023 8:33 AM EDT Narrative 08/13/2023 10:[address] [facility] Diagnostic Imaging Department [address] [place] [address] Patient: ??ENRIQUE MERAZ ?/Age/Sex: 1955 - Unit#: ??[id number] ? Location/Status: ??SPDIMAM/REG CLI ? Mnemonic/Ordering Site: ??DIGSC/SPMAM Ordering Physician: ??ARIANA RUSS MD [facility] Screening Digital - 08/13/23845 Report Status:Signed EXAM: [facility] Screening Digital EXAM DATE AND TIME: 08/13/2023 8:46 AM HISTORY: ??Annual screening, history of left breast lumpectomy in 2016 COMPARISON: ??Multiple exams dating back to 2019 TECHNIQUE: Bilateral digital breast tomosynthesis was performed in the CC and MLO projections. Computer aided detection with PlaceFull 3D 3.1 was employed. TISSUE DENSITY: b. There are scattered areas of fibroglandular density. FINDINGS: Postsurgical changes of lumpectomy in the left breast. ??No suspicious masses, grouped microcalcifications, or areas of architectural distortion are seen. The skin and vascularity are unremarkable. IMPRESSION: Stable mammographic appearance of the breasts. ??No evidence of malignancy is seen. A negative mammogram in the presence of a clinically suspicious palpable abnormality does not preclude the possibility of malignancy or alter the indications for biopsy. BI-RADS: ??Category 2: Benign RECOMMENDATION(S): 1: Routine screening mammogram BILATERAL in 1 year. 3341F, 7033F Dictating Physician: ??RAYSA CATSELLON MD Electronically Signed by: ??RAYSA CASTELLON MD Dic Date/Time: ??08/13/23 1006 Sign date/Time: ??08/13/23 1007 Procedure Note Raysa Castellon MD - 11/22/2023 [facility] Diagnostic Imaging Department [address] [place], [place] [id number] Patient: ENRIQUE MERAZ /Age/Sex: 1955 - 68 - F Unit#: [id number] Location/Status: [facility] CLI Mnemonic/Ordering Site: [facility] Ordering Physician: ARIANA RUSS MD [facility] Screening Digital - 08/13/23 - 0846 Report Status:Signed EXAM: [facility] Screening Digital EXAM DATE AND TIME: 08/13/2023 8:46 AM HISTORY: Annual screening, history of left breast lumpectomy in 2016 COMPARISON: Multiple exams dating back to 2019 TECHNIQUE: Bilateral digital breast tomosynthesis was performed in the CCand MLO projections. Computer aided detection with StockleapD Zulama 3D 3.1was employed. TISSUE DENSITY: b. There are scattered areas of fibroglandular density. FINDINGS: Postsurgical changes of lumpectomy in the left breast. No suspiciousmasses, grouped microcalcifications, or areas of architectural distortion areseen. The skin and vascularity are unremarkable. IMPRESSION: Stable mammographic appearance of the breasts. No evidence of malignancyis seen. A negative mammogram in the presence of a clinically suspicious palpable abnormality does not preclude the possibility of malignancy or alter the indications for biopsy. BI-RADS: Category 2: Benign RECOMMENDATION(S): 1: Routine screening mammogram BILATERAL in 1 year. 3341F, 7025F Dictating Physician: RAYSA CASTELLON MD Electronically Signed by: RAYSA CASTELLON MD Dic Date/Time: 08/13/23 1006 Sign date/Time: 08/13/23 1007 us Ariana Russ MD IMG BI PROCEDURES Final Result * [facility] DEXA AXIAL SKELETON (06/30/2021 2:58 PM EDT) Anatomical Region Laterality Modality Mammography 06/30/2021 1:24 PM EDT Narrative 06/30/2021 2:[address] [facility] Diagnostic Imaging Department [address] [place] [address] Patient: ??ENRIQUE MERAZ ?/Age/Sex: 1955 65 - F Unit#: ??[id number] ? Location/Status: ??SPDIMAM/REG CLI ? Mnemonic/Ordering Site: ??MAMDEXAAX/SPMAM Ordering Physician: ??ARIANA RUSS MD [facility] Dexa Axial Skeleton - 06/30/21 - 9257 HISTORY: Post menopausal woman with hormone depletion for screening bone densitometry. The patient is on calcium supplement with Vitamin D. TECHNIQUE: Bone densitometry is performed utilizing dual energy x-ray absorptiometry (DEXA) in the ITADSecurity unit. The lumbar spine is evaluated in the AP projection and L1 through L4 are utilized. The proximal femora are evaluated in the AP projection bilaterally. FINDINGS: AP spine: Bone mineral density: 0.911 gm/cm2 T-score: -2.2 Z-score: -0.8 Dual Femur (mean): Bone mineral density: 0.675 gm/cm2 T-score: -2.6 Z-score: -1.6 IMPRESSION: Osteopenia in the lumbar spine. 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 520[address] A report detailing these results has been enclosed. Dictating Physician: ??PETERSON BRAND MD Electronically Signed by: ??PETERSON BRAND MD Dic Date/Time: ??06/30/211456 Sign date/Time: ??06/30/21 145 Procedure Note Peterson Brand MD - 03/25/2022 [facility] Diagnostic Imaging Department [address] [place] [address] Patient: ENRIQUE MERAZO.B./Age/Sex: 1955 - 65 - F Unit#: [id number] Location/Status: [facility] Mnemonic/Ordering Site: [facility] Ordering Physician: ARIANA RUSS MD [facility] Dexa Axial Skeleton - 06/30/21 - 1417 HISTORY: Post menopausal woman with hormone depletion for screening bone densitometry. The patient is on calcium supplement with Vitamin D. TECHNIQUE: Bone densitometry is performed utilizing dual energy x-ray absorptiometry (DEXA) in the ITADSecurity unit. The lumbar spine isevaluated in the AP projection and L1 through L4 are utilized. The proximal femoraare evaluated in the AP projection bilaterally. FINDINGS: AP spine: Bone mineral density: 0.911 gm/cm2 T-score: -2.2 Z-score: -0.8 Dual Femur (mean): Bone mineral density: 0.675 gm/cm2 T-score: -2.6 Z-score: -1.6 IMPRESSION: Osteopenia in the lumbar spine. 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 [address]654 A report detailing these results has been enclosed. Dictating Physician: PETERSON BRAND MD Electronically Signed by: PETERSON BRAND MD Dic Date/Time: 06/30/211456 Sign date/Time: 06/30/211457 Ariana Russ MD IMG BI PROCEDURES Final Result from Last 3 Months or Most Recently Relevant to Health Maintenance Insurance [employer]IC[place] AD[place]ANTAGE Care Teams Senior Account Executive Relationship Specialty Start Date End Date Ariana Russ MD [address] [place] [id number] PCP - General 05/18/22
--- OUTSIDE RECORDS SUMMARY | 2024-08-12 10:49 | XMS_ITS ---
Author Organization Jaime Russ III, MD Address [address] [facility] [place] [address] Care Team Providers Care Power Lineman Name Role Phone Jaime Russ Primary Care [...] 1.3 BLD Negative Negative - Menstrating No REASON FOR VISIT annual exam Medications Medication SIG (Take, Route, Frequency, Duration) Notes Start Date End Date Status Sertraline HCl 50 MG TAKE 1 TABLET BY MO UTH TWICE DAILY Active Anoro Ellipta 62.5-25 MCG/ACT [...] Date Provider Diagnosis Jaime Russ III, MD [address] [place] [address] [place] [address] 08/02/2024 Jaime Russ Malignant neoplasm o f [...] with prolonged exertion. She has not her military communications specialist recently. 08/02/2024 Multiple sclerosis (ICD-10 - [...] (ICD-10 - N93.8) She has had no SAMPLE CASE PORTER complaints. Recently. 08/02/2024 Anxiety (ICD-10 - F41.9) [...] 1 TABLET BY MO UT TWICE DAILY Anoro Ellipta 62.5-25 MCG/ACT Inhalation [...] METABOLI C) 08/02/2024 CBC w DIFF 08/02/2024 Lipid Panel 08/02/2024 MM screening mammo BI 08/02/2024 Next Appt Details Follow Up: 3 Months, Reason: ov review labs and mammogram Provider Name:Jaime Russ, 11/01/2024 10:30:00 AM, [address] [place] [address] [address], [place], [address], Provider Name:Jaime Russ, 08/03/2025 09:30:00 AM, [address] [place] [address] [address], [place], [address], Progress Notes * Filomena SAEED (BILLINGS)DOB: 1955 (69 yo F)Acc No.[id number]:08/02/2024 Progress Notes Patient:?ALLYLOR CristoFilomena DAS Provider:?Jaime Russ MD :1955???Age:69 Y???Sex:Female D ate:08/02/2024 Address:[address] [place] [address] [phone] Subjective: * Chief Complaints: * ???Annual exam * HPI: ???Depression Screening:?She comes to the office today at the age of 73 her annual physical examination.? Her COPD has been stable.? Her seasonal allergies have been very mild.? Her main complaint today is that she wakes up in the middle the night and cannot return to sleep.? She has been taking melatonin.? Her dose was 3 mg.? I suggested she try fiber 6.? We discussed the varieties of insomnia.? She will be up-to-date with colonoscopies and mammograms.? Comprehensive blood work will be ordered. ?PHQ-9?Little interest or pleasure in doing things?Not at all ?Feeling down, depressed, or hopeless?Not at all ?Trouble falling or staying asleep, or sleeping too much?Nearly every day ?Feeling tired or having little energy?Not at all ?Poor appetite or overeating?Not at all ?Feeling bad about yourself or that you are a failure, or have let yourself or your family down?Not at all ?Trouble concentrating on things, such as reading the newspaper or watching television?Not at all ?Moving or speaking so slowly that other people could have noticed; or the opposite, being so fidgety or restless that you have been moving around a lot more than usual?Not at all ?Thoughts that you would be better off or of hurting yourself in some way?Not at all ?Total Score?3 ?Interpretation?Minimal Depression ???COVID-19 Screening:?Questions?Have you had any new onset fever, chills, cough, congestion, sore throat, shortness of breath, muscle aches??No ???Fall Risk Screening:?Fall History?Have you had any falls with injury in the past year??No ?Have you had two or more falls in the past year??No ?Fall Risk Assessment:?No falls in the past year ???SDOH Questions:?SDOH Questions?In the past year have you been worried about losing your housing??No ?In the past year have you or any family members you live with been unable to get any of the following when it was really needed? Check all that apply:?None * ROS:?General/Constitutional:?pain?only normal aches and pains.?Chills?denies.?Fatigue?admits.?Fever?denies.?ENT:?Decreased hearing?denies.?Respiratory:?Cough?denies.?Cardiovascular:?Chest pain with exertion?denies.?Dyspnea on exertion?with prolonged activity.?Shortness of breath?with exertion.?Gastrointestinal:?Constipation?occasional.?Decreased appetite?denies.?Diarrhea?denies.?Heartburn?denies.?Nausea?denies.?Rectal bleeding?denies.?Vomiting?denies.?Hematology:?bruising?denies.?petechiae?denies.?Swollen glands?none have been noted.?Genitourinary:?Frequent urination?a small amount.?Musculoskeletal:?Muscle aches?denies.?Painful joints?denies.?Sciatica?denies.?Weakness?denies.?Skin:?Itching?denies.?Rash?denies.?Skin lesion(s)?denies.?Neurologic:?Difficulty speaking?denies.?Dizziness?denies.?Headache?denies.?Low back pain?denies.?Psychiatric:?Depressed mood?denies.? * Medical History:? * Surgical History:?left breas t lumpectomy stage 1A infiltrating ductal carcinoma 01/2016lumpectomy, fibroadenoma, left breast 1975partial hysterectomy with unilateral O oophorectomy 1986lumpectomy left breast, DCIS 1995segmentectomy by Dr Forbes at [facility], Benign granuloma 06/24/2022Lung surgery * Hospitalization/Major Diagno stic Procedure:?Low back pain 04/2019lung resection only in 2 days 06/24/2022 * Family History:?Father: dece ased 79 yrs.?Mother: 88 yrs, diagnosed with Cancer, HTN.?Siblings: .?1 brother(s) , 1 sister(s) - healthy. 1 son(s) , 1 daughter(s) - healthy. .? Her maternal grandmother had a primary brain tumor. Her mother of lung cancer and was a smoker. A brother with bipolar disorder committed suicide. There is no family history of solid tumors or hematologic disorders otherwise. Her father had Alzheimer's disease when he . * Social History:?Tobacco Use:?Tobacco Control (Standard)?Tobacco use:?Former smoker ?How long has it been since you last smoked??1-5 years ?Additional Findings: Tobacco non-user?Ex-cigarette smoker ???Drugs/Alcohol:?Drugs?Have you used drugs other than those for medical reasons in the past 12 months??No ???Drug/Alcohol:?AUDIT-C (Standard)?Did you have a drink containing alcohol in the past year??Yes ?How often did you have six or more drinks on one occasion in the past year??2 to 4 times a month (2 points) ?How many drinks did you have on a typical day when you were drinking in the past year??1 or 2 drinks (0 point) ?How often did you have a drink containing alcohol in the past year??Never (0 point) ?Points?2 ?Interpretation?Negative ???She is and lives independently. She has a significant other boyfriend in [place]. A daughter has a history of substance abuse. She has a son who works as a residential counselor. She stopped smoking in 2016. * Medications:?TakingSertralin e HCl 50 MG Tablet TAKE 1 TABLET [...] reviewed and reconciled with the patient * Allergies:?SeasonaleTamoxife n CitrateNo Known Food Allergy Objective: * Vitals:?Ht: 69, Wt:168, BMI: 24.81, BP:117/75, HR:72, Temp:97.0, Wt-k.2. * ???Past Orders: Lab:URINE DIP STICK * Collection Date [...] -) Menstrating No NR N/A * Examination: ???General Examination: ?GENERAL APPEARANCE:?pleasant, well nourished, well developed, in no acute distress, calm and relaxed, woman.?HEAD:?atraumatic, normocephalic.?EYES:?eomi, perrla, anicteric, conjugate.?EARS:?normal.?NOSE:?septum intact.?ORAL CAVITY:?normal, unremarkable.?NECK/THYROID:?no jugular venous distention, no carotid bruit, thyroid normal.?LYMPH NODES:?no enlarged lymph nodes,spleen normal.?SKIN:?no suspicious lesions, anicteric.?HEART:?no clicks, gallops, murmurs, or rubs, regular rhythm, S1, S2 normal, no s3, or vascular bruits.?LUNGS:?, diminished breath sounds throughout, rhonchi on the RIGHT, rhonchi on the LEFT.?BREASTS:?Not examined, Patient declined in favor her tester/lift trucker.?ABDOMEN:?bowel sounds normal, no ascites, no organomegaly, no mass.?RECTAL EXAM:?Declined, prefers tester/lift trucker.?MUSCULOSKELETAL:?extremities unremarkable, no clubbing, cyanosis or edema.?PERIPHERAL PULSES:?normal.?NEUROLOGIC:?alert and oriented, cranial nerves 2-12 grossly intact, deep tendon reflexes 2+ symmetrical, motor strength normal upper and lower extremities, sensory exam intact.?PSYCH:?alert, oriented, cognitive function intact, thought process logical, goal directed, speech clear, mood/affect full range, good eye contact.? Assessment: * Assessment: 1.?Malignant neoplasm of upp er-outer quadrant of left female breast, unspecified estrogen receptor status - C50.412 (Primary)???Notes :There was no sign of return breast cancer today.? Breast of monthly.? She will be up-to-date with a???2.?Chronic obstructive pulmonary disease, unspecified COPD type - J44.9???Notes :No longer smoking.? She is comfortable breathing room air.? Is somewhat short of breath with prolonged exertion.? She has not her military communications specialist recently.???3.?Multiple sclerosis - G35???Notes :There was no sign of activity of this process. She remained stable. No treatment is necessary. Surveillance will continue.???4.?Reactive depression - F32.9???Notes :She appears to be stable. No increase in her depression or depressive symptoms has occurred. She continues on sertraline. She does not have a history of worsening depression around the winter holidays.???5.?Dysfunctional uterine bleeding - N93.8???Notes :She has had no SAMPLE CASE PORTER complaints. Recently.???6.?Anxiety - F41.9???Notes :We discussed ways of coping with anxiety without using medication. Her anxiety is mild and her depression is minimal distention.???7.?Lumbosacral radiculopathy due to degenerative joint disease of spine - M47.27???Notes :Pain in the right hip may be from nerve impingement in the lumbar spine or from the joint. X-rays will be done in an orthopedic consultation will be arranged.???8.?Degenerative disc disease at L5-S1 level - M51.36???Notes :Her back pain is mild. She is avoiding heavy lifting and says to range of motion of the spine is normal.???9.?Right lower lobe pulmonary nodule - R91.1???Notes :The tumor was a benign lesion with granulomatous. Although the lymph nodes were negative. She continues to smoke cigarettes and we have aggressively discussed smoking cessation today. The wounds have healed.??? Plan: * Treatment: 2.?Chronic obstructive pulmo nary disease, unspecified COPD type?LAB: PROFILE, FASTING (COMPREHENSIVE METABOLIC) ?LAB: CBC w DIFF ?LAB: Lipid Panel 3.?Others? Continue LORazepam Tablet, 1 MG, 1 tablet at bedtime as needed, Orally, Once a day;?Continue Sertraline HCl Tablet, 50 MG, TAKE 1 TABLET BY MOUTH TWICE DAILY;?Continue Anoro Ellipta Aerosol Powder Breath Activated, 62.5-25 MCG/ACT, Inhalation;?Continue LORazepam Tablet, 1 MG, 1 tablet at bedtime if needed, Orally, Once a day;?Continue tiZANidine HCl Tablet, 2 MG, TAKE 1 TABLET BY MOUTH DAILY AT BEDTIME NEEDED, Oral.?? * Labs:? * ?Lab: URINE DIP STICK (C ollection Date & Time - 08/02/2024) ? Value Reference Range ?SG 1.025 1.005 - 1.025 * ?pH 5.0 5.0 - 9.0 * ?MESHA Negative Negative - * ?NIT Negative Negative - * ?PRO 15 Negative - Trac e * ?GLU Negative Negative - * ?KET 5 Negative - * ?UBG 0.2 0.1 - 1.8 * ?KEVIN 1 0.2 - 1.3 * ?BLD Negative Negative - * ?Menstrating No * Procedure Codes:?71579 URINE -NO MICRO * Preventive Medicine:? ??COPD Care Plan:?Patient Lifestyle Goals?Be able to be more active with friends and family, Reduce number of ED and hospitalizations, Relieve symptoms and improve quality of life.?Treatment Goals?Exercise to help whole body, including lungs, Eat a nutritious diet and increase water consumption to 6-8 glasses a day.?Barriers?no barriers.?Self-Managment Goals?Eat a healthy diet, Get an air purifier for the rooms you are in the most.? * Follow Up:?3 Months (Reason: ov review labs and mammogram) * Images: * Sign off status: Completed true * Provider:?Jaime Russ MD Date:?07/06 Generated for Princess sarmiento/Zoila/Amrik on:?08/12/2024 10:49 AM EDT History and Physical Notes * [...] had two or more falls in the year?: No Fall Risk Assessment:: No falls [...] examined, Patien t declined in favor her tester/lift trucker MUSCULOSKELETAL: extremities unremark able, no clubbing, cyanosis or edema LYMPH NODES: no enlarged lymph no brennan,spleen normal RECTAL EXAM: Declined, prefers gy necologist PSYCH: alert, oriented, cog nitive function intact, thought process logical, goal directed, speech clear, mood/affect full range, good eye contact ORAL CAVITY: normal, unremarkable
--- OUTSIDE RECORDS SUMMARY | 2024-08-12 10:50 | XMS_ITS ---
Author Organization Jaime Russ III, MD Address [address] [place] [address] [place] [address] Care Team Providers Care Bessemer Converter Operator Name Role Phone Jaime Russ Primary Care Provider [phone] REASON FOR VISIT Rx Request Social History Sex Assigned At : Social History Observation Description Sex Assigned At Female Encounters Encounter Location Date Provider Diagnosis Jaime Russ III, MD [address] [place] [address] [place] [address] 06/09/2024 Jaime Russ Plan Of Treatment Next Appt Details Provider Name:Jaime Russ, 11/01/2024 10:30:00 AM, [address] [place] [address] [place], [address], Provider Name:Jaime Russ, 08/03/2025 09:30:00 AM, [address] [place] [address] [place], [address], Progress Notes * Filomena SAEED (BILLINGS)DOB: 1955 (68 yo F)Acc No.[id number]:06/09/2024 Patient:?Filomena SAEED (BILLINGS) :1955???Age:68 Y???Sex:Female Address:[facility] [place], [address] * true * Date:? Generated for Princess sarmiento/Zoila/eTransmitting on:?08/12/2024 10:49 AM EDT
[2024-08-12 11:15] LABS: MANUAL DIFF FLAG NO
[2024-08-12 11:16] LABS: Basophils Percent Auto 0.4 % (0-2); Eosinophils Absolute Auto 0.1 X10*3/uL (0.0-0.4); Eosinophils Percent Auto 1.6 % (0-4); Hematocrit 41.1 % (37.0-47.0); Hemoglobin 13.7 g/dl (12.0-16.0); Imm Gran Abs Auto 0.02 X10*3/uL (0.00-0.03); Imm Gran Pct Auto 0.3 % (0.0-0.4); Lymphocytes Absolute Auto 1.4 X10*3/uL (1.2-4.9); Lymphocytes Percent Auto 18.4 % (20-40); Mean Corpuscular HGB Conc 33.3 g/dl (31.0-35.0); Mean Corpuscular Hemoglobin 31.7 pg (27.0-33.0); Mean Corpuscular Volume 95.1 fL (80.0-98.0); Mean Platelet Volume 8.9 fL (9.4-12.3); Monocytes Absolute Auto 0.4 X10*3/uL (0.1-1.2); Monocytes Percent Auto 5.8 % (2-11); Neutrophils Absolute Auto 5.4 x10*3/uL (2.0-8.3); Neutrophils Percent Auto 73.5 % (45-73); Platelet Count 301 X10*3/uL (160-400); Red Blood Count 4.32 X10*6/uL (4.20-5.50); White Blood Count 7.4 X10*3/uL (4.8-10.8)
[2024-08-12 11:27] LABS: INTERNATIONAL NORM RATIO 0.9 (0.9-1.1); Prothrombin Time 10.2 SEC (10.9-12.4)
[2024-08-12 11:30] LABS: Alanine Aminotransferase 25 U/L (0-31); Albumin Level 4.3 g/dL (3.5-5.0); Alkaline Phosphatase 98 U/L (39-117); Anion Gap 14 (12-20); Aspartate Amino Transferase 21 U/L (5-31); Bilirubin Direct 0.1 mg/dL (0.0-0.5); Bilirubin Total 0.4 mg/dL (0.0-1.0); Blood Urea Nitrogen 24 mg/dL (9-16); Calcium 9.4 mg/dL (8.4-10.2); Carbon Dioxide 23 mmol/L (22-29); Chloride 109 mmol/L (96-108); Creatinine Clr Calc Pharmacy 65.9; Estimated Glomerular Filt Rate > 60; Glucose Random 94 mg/dL (60-115); Magnesium 2.4 mg/dL (1.6-2.6); Potassium 4.2 mmol/L (3.3-5.1); Sodium 142 mmol/L (135-145); Total Protein 7.1 g/dL (6.5-8.0)
[2024-08-12 11:34] LABS: D Dimer High Sensitivity < 150 NG/ML
[2024-08-12 11:40] LABS: Troponin-I High Sensitivity < 2.7 ng/L (<3.5-17.0)
[2024-08-12 11:55] LABS: Influenza A PCR NEGATIVE (Negative); Influenza B PCR NEGATIVE (Negative); Resp Syncy Virus RNA Qual PCR NEGATIVE (Negative); SARS COV2 PCR INHOUSE NEGATIVE (Negative)
[2024-08-12 13:16] LABS: Appearance Urine Clear; Color Urine Yellow; Glucose Urine UA Negative (Negative); Leukocyte Esterase Urine Negative (Negative); Nitrite Urine Negative (Negative); PH 5.5 (5.0-9.0); Specific Gravity - Urine >= 1.030 (1.005-1.025); Urine Blood Negative (Negative); Urine Ketones Trace mg/dL (Negative); Urine Protein Trace mg/dL (Neg-Trace)
[2024-08-12 13:54] LABS: Troponin-I High Sensitivity < 2.7 ng/L (<3.5-17.0)
--- NOTE | 2024-08-12 16:11 | P.HPHOSP_ITS ---
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 She also reported diaphoresis, palpitations, dizziness, shortness of breath, and nausea. The symptoms were intermittent, lasting approximately 20 minutes, and improved significantly after administration of nitroglycerin by EMS, reducing her pain from 8/10 to 1/10. EMS noted an irregular heartbeat with frequent premature atrial contractions (PACs). ECG showed non-specific ST-T wave changes and PACs. Troponin I levels were within normal limits on two occasions. At the time of evaluation, the patient was pain-free and hemodynamically stable. Review of Systems 2 Review of Systems: Gen: no fever Resp: no sob, no cough CV: no chest at this time, no JIMENEZ, no leg edema GI: No n/v, no abd pain Neuro: No confusion Yes all other systems are reviewed and are negative [facility] Medical History Pulmonary nodules Pulmonary nodule History of breast cancer Personal history of nicotine dependence COPD (chronic obstructive pulmonary disease) Bronchitis Chronic allergic rhinitis Asthma-COPD overlap syndrome Surgical History History of pneumonectomy History of cone biopsy of cervix History of tonsillectomy History of lumpectomy of left breast History of hysterectomy Social History Household Members: Spouse Household Members Other:: Carlos Housing: House Do you presently have visiting nurse or other home services: No Alcohol intake: current Alcohol intake frequency: a few times a week Patient Tobacco Use Status: Former Tobacco user Tobacco use type: Cigarette Cigarette Packs Per Day: 1 Years Smoked: 40 Smoked in Last 30 Days: No Second Hand Smoke Exposure: No Use of substances other than those prescribed or required for medical reasons: No Currently Displaying Signs/Symptoms of Drug Intoxication Withdrawal: No Have you been hit, kicked, punched, or otherwise hurt by someone within the past year? If so, by whom?: No Do you feel safe in your current relationship?: Yes Is there a partner from a previous relationship who is making you feel unsafe now?: No Are you made to feel afraid or neglected: No Advance Directives: No Advance Directives Information Provided: No Do you have a plan to hurt others: No Plan Recently lost weight without trying: No Eating poorly because of decreased appetite: No Nutrition Risks: No Nutritional Risk Patient : No : No Poor oral hygiene: No Sexual orientation: Straight/Heterosexual Gender identity: Female Meds Allergies Allergy/AdvReac Type Severity Reaction Status Date / Time No Known Allergies Allergy Verified 08/12/24 10:43 [No Known Allergies*] Home Medications ?Medication ?Instructions ?Recorded ?Confirmed ?Last Taken ?Type sertraline 50 mg tablet 50 mg PO DAILY 11/29/20 08/12/24 08/12/24 History nebulizers 03/13/22 11/07/22 Unknown History acetaminophen 650 mg 650 mg PO Q8H PRN pain 08/12/24 08/12/24 Unknown History tablet,extended release cholecalciferol (vitamin D3) 50 50 mcg PO DAILY 08/12/24 08/12/24 Unknown History mcg (2,000 unit) capsule (Vitamin D3) dicyclomine 10 mg capsule 10 - 20 mg PO Q6H PRN abdominal 08/12/24 08/12/24 Unknown History cramps or discomfort melatonin 5 mg tablet 10 mg PO BEDTIME 08/12/24 08/12/24 Unknown History tizanidine 2 mg tablet 2 mg PO BEDTIME PRN Muscle Spasm 08/12/24 08/12/24 Unknown History Physical Exam 2 Vital Signs and Narrative: Vital Signs: Last Vital Signs Temp 98.3 F 08/12/24 16:00 Pulse 73 08/12/24 16:00 Resp 13 08/12/24 16:00 BP 137/76 08/12/24 16:00 Pulse Ox 99 08/12/24 16:00 O2 Del Method Room Air 08/12/24 16:00 BMI result Body Mass Index 24.4 Const: Other: General: AO X 3, no acute distress Resp: CTA bilateral CVS: S1,S2,RRR GI: +BS, NT, no distention Skin: No rash Neuro: motor grossly intact Psych: appropriate affect Results Labs 08/12/24 11:08 08/12/24 11:08 Labs: Laboratory Results - last 24 hr 08/12/24 08/12/24 11:08 13:07 MCV 95.1 MCH 31.7 MCHC 33.3 RDW 13.0 Plt Count 301 MPV 8.9 L Immature Gran % (Auto) 0.3 Neut % (Auto) 73.5 H Lymph % (Auto) 18.4 L [place] % (Auto) 5.8 Eos % (Auto) 1.6 Baso % (Auto) 0.4 Lymph # (Auto) 1.4 [place] # (Auto) 0.4 Eos # (Auto) 0.1 Baso # (Auto) 0.0 Abs Immat Gran (auto) 0.02 Absolute Neuts (auto) 5.4 Absolute Nucleated RBC 0.000 Nucleated RBC % (auto) 0.0 PT 10.2 L INR 0.9 APTT 27.0 D-Dimer High Sensitivty < 150 Anion Gap 14 Estim Creat Clear Calc 65.9 Estimated GFR > 60 Random Glucose 94 Calcium 9.4 Magnesium 2.4 Total Bilirubin 0.4 Direct Bilirubin 0.1 AST 21 ALT 25 Alkaline Phosphatase 98 Total Creatine Kinase 53 Total Protein 7.1 Albumin 4.3 Urine Color Yellow Urine Appearance Clear Urine pH 5.5 Ur Specific [place] >= 1.030 H Urine Protein Trace Urine Glucose (UA) Negative Urine Ketones Trace Urine Blood Negative Urine Nitrite Negative Ur Leukocyte Esterase Negative Influenza Type A (PCR) NEGATIVE Influenza Type B (PCR) NEGATIVE RSV RNA Qual (PCR) NEGATIVE SARS-CoV-2 RNA (RT-PCR) NEGATIVE Assessment and Plan (1) Chest pain: Status: Acute (2) COPD (chronic obstructive pulmonary disease): Qualifiers: COPD type: COPD with acute exacerbation Qualified Code(s): J44.1 - Chronic obstructive pulmonary disease with (acute) exacerbation Status: Acute Plan 69-year-old female with a history of COPD, pulmonary nodules, asthma, and 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 UA serila troponin i cardiology consult repeat ECG in AM ASA check lipids in AM copd, no exacerbation inhalers prn mood disorder sertraline Lovenox for DVT prophylaxis Full code Quality Stroke Does the patient have a stroke diagnosis?: No VTE Prior VTE?: No VTE Risk Level:: Medical - moderate - high VTE Device Contraindication: Treatment Not Indicated VTE Drug Contraindication: N/A - Med Ordered
--- NOTE | 2024-08-12 17:42 | PHA.MEDREC ---
Addendum entered by Kim Dinh RP 08/12/24 18:12: reviewed by [facility]. Original Note: Pharmacy Consult ? Medication Reconciliation Pharmacy has completed the medication reconciliation. Spoke with patient to confirm. She takes sertraline once daily (LF 10/12/23 x180 tablets) and Anoro once daily (LF 03/21/24 x30 DS). Tizanidine replaced cyclobenzaprine. She only had sertraline and Anoro today.
[2024-08-12] MEDS: Acetaminophen 325 MG TABLET 650 MG PO (21:10)
[2024-08-12] MEDS: 0.9 % Sodium Chloride Flush 3 ML SYRINGE IVFLUSH (21:11)
[2024-08-12] MEDS: TiZANidine HCL 4 MG TABLET PO (21:12)
[2024-08-12] MEDS: Melatonin 3 MG TABLET 6 MG PO (21:12)
[2024-08-13] VITALS (7 sets, daily range): BP systolic 117–147; BP diastolic 55–97; PULSE 61–84; RESP 16–20; TEMP 36.3–37; O2SAT 95–97
--- NOTE | 2024-08-13 07:51 | ECG_ITS ---
Test Reason : chest pain Blood Pressure : */* mmHG Vent. Rate : 69 BPM Atrial Rate : 69 BPM P-R Int : 128 ms QRS Dur : 86 ms QT Int : 398 ms P-R-T Axes : 62 41 22 degrees QTcB Int : 426 ms Sinus rhythm with Premature ventricular complexes or Fusion complexes Low voltage QRS ST & T wave abnormality, consider anterior ischemia Abnormal ECG When compared with ECG of 12-Aug-2024 10:39, No significant changes seen Referred By: Usama Lopes Electronically Signed By: MONIQUE WALKER
[2024-08-13] MEDS: Cholecalciferol (Vitamin D3) 25 MCG TABLET 50 MCG PO (07:59)
[2024-08-13] MEDS: 0.9 % Sodium Chloride Flush 3 ML SYRINGE IVFLUSH ×3 (08:00→21:04)
[2024-08-13] MEDS: Sertraline HCL 50 MG TABLET PO (08:00)
[2024-08-13] MEDS: Aspirin Enteric Coated 81 MG TABLET.DR PO (08:00)
[2024-08-13 08:08] LABS: MANUAL DIFF FLAG NO
[2024-08-13 08:13] LABS: Basophils Percent Auto 0.5 % (0-2); Eosinophils Absolute Auto 0.2 X10*3/uL (0.0-0.4); Eosinophils Percent Auto 4.1 % (0-4); Hematocrit 40.3 % (37.0-47.0); Hemoglobin 13.4 g/dl (12.0-16.0); Imm Gran Abs Auto 0.02 X10*3/uL (0.00-0.03); Imm Gran Pct Auto 0.4 % (0.0-0.4); Lymphocytes Absolute Auto 1.7 X10*3/uL (1.2-4.9); Lymphocytes Percent Auto 29.9 % (20-40); Mean Corpuscular HGB Conc 33.3 g/dl (31.0-35.0); Mean Corpuscular Hemoglobin 31.9 pg (27.0-33.0); Mean Platelet Volume 9.1 fL (9.4-12.3); Monocytes Absolute Auto 0.4 X10*3/uL (0.1-1.2); Monocytes Percent Auto 6.8 % (2-11); Neutrophils Absolute Auto 3.2 x10*3/uL (2.0-8.3); Neutrophils Percent Auto 58.3 % (45-73); Platelet Count 289 X10*3/uL (160-400); Red Cell Distribution Width 13.1 % (11.0-16.0); White Blood Count 5.6 X10*3/uL (4.8-10.8)
[2024-08-13 08:30] LABS: Anion Gap 13 (12-20); Blood Urea Nitrogen 21 mg/dL (9-16); Calcium 9.2 mg/dL (8.4-10.2); Carbon Dioxide 27 mmol/L (22-29); Chloride 106 mmol/L (96-108); Cholesterol 252 mg/dL (<200); Creatinine Clr Calc Pharmacy 72.9; Estimated Glomerular Filt Rate > 60; Glucose Random 108 mg/dL (60-115); HDL Cholesterol 62 mg/dL (>40); LDL Cholesterol Calculated 145 mg/dL (<100); Potassium 4.7 mmol/L (3.3-5.1); Sodium 141 mmol/L (135-145); Triglycerides 227 mg/dL (<150)
--- NOTE | 2024-08-13 09:15 | P.PNIM_ITS ---
Subjective Subjective Date of Service: 08/13/24 Interval History: No chest pain or shortness of breath, ECG unchanged Review of Systems Gen: no fever Resp: no sob, no cough CV: no chest at this time, no JIMENEZ, no leg edema GI: No n/v, no abd pain Neuro: No confusion Constitutional Constitutional: Reports as per HPI Physical Exam 2 Vital Signs: Vital Signs: Last Vital Signs Temp 97.5 F 08/13/24 07:42 Pulse 61 08/13/24 07:42 Resp 20 08/13/24 07:42 BP 117/71 08/13/24 07:42 Pulse Ox 96 08/13/24 07:42 O2 Del Method Room Air 08/13/24 07:42 BMI result Body Mass Index 25.2 Const: Other: General: AO X 3, no acute distress Resp: CTA bilateral CVS: S1,S2,RRR GI: +BS, NT, no distention Skin: No rash Neuro: motor grossly intact Psych: appropriate affect Objective Data Active Medications Acetaminophen (Acetaminophen 325 Mg Tablet) 650 mg PO Q6H PRN PRN Reason: Pain, Mild 1-3,fever,headache Last Admin: 08/12/24 21:10 Dose: 650 mg Documented By: ANTOINAnnmarie Acetaminophen (Acetaminophen 325 Mg Tablet) 650 mg PO Q6H PRN PRN Reason: Pain, Moderate(Pain Scale 4-6) Aspirin (Aspirin Enteric Coated 81 Mg Tablet.Dr) 81 mg PO DAILY COUNTS INCLUDE 234 BEDS AT THE [facility] Last Admin: 08/13/24 08:00 Dose: 81 mg Documented By: LYNETTE Atorvastatin Calcium (Atorvastatin Calcium 40 Mg Tablet) 40 mg PO DAILY COUNTS INCLUDE 234 BEDS AT THE [facility] Calcium Carbonate (Calcium Carbonate 750 Mg Tab.Chew) 750 mg PO Q4H PRN PRN Reason: Heartburn Dicyclomine HCl (Dicyclomine Hcl 10 Mg Capsule) 10 mg PO Q6H PRN PRN Reason: abdominal cramps or discomfort Enoxaparin Sodium (Enoxaparin Sodium 40 Mg/0.4 Ml Syringe) 40 mg SUBCUT Q24H COUNTS INCLUDE 234 BEDS AT THE [facility] Magnesium Hydroxide (Milk Of Magnesia 30 Ml Oral.Susp) 30 ml PO DAILY PRN PRN Reason: Constipation Melatonin (Melatonin 3 Mg Tablet) 6 mg PO BEDTIME PRN PRN Reason: Insomnia Last Admin: 08/12/24 21:12 Dose: 6 mg Documented By: ANTOINC Non-Formulary Medication (Umeclidinium-Vilanterol [Anoro Ellipta]) 1 inhalation INHALE DAILY COUNTS INCLUDE 234 BEDS AT THE [facility] Ondansetron HCl (Ondansetron Hcl 4 Mg/2 Ml Vial) 4 mg IVPUSH Q8H PRN PRN Reason: Nausea and Vomiting Polyethylene Glycol (Polyethylene Glycol 3350 17 Gm Powd.Pack) 17 gm PO DAILY PRN PRN Reason: Constipation Sertraline HCl (Sertraline Hcl 50 Mg Tablet) 50 mg PO DAILY COUNTS INCLUDE 234 BEDS AT THE [facility] Last Admin: 08/13/24 08:00 Dose: 50 mg Documented By: LYNETTE Sodium Chloride (0.9 % Sodium Chloride Flush 3 Ml Syringe) 3 ml IVFLUSH QSHIFT COUNTS INCLUDE 234 BEDS AT THE [facility] Last Admin: 08/13/24 08:00 Dose: 3 ml Documented By: LYNETTE Tizanidine HCl (Tizanidine Hcl 4 Mg Tablet) 2 mg PO BEDTIME PRN PRN Reason: Muscle Spasm Vitamin D (Cholecalciferol (Vitamin D3) 25 Mcg Tablet) 50 mcg PO DAILY COUNTS INCLUDE 234 BEDS AT THE [facility] Last Admin: 08/13/24 07:59 Dose: 50 mcg Documented By: LYNETTE Labs 08/13/24 07:42 08/13/24 07:42 Labs: Laboratory Results - last 24 hr 08/12/24 08/12/24 08/13/24 11:08 13:07 07:42 MCV 95.1 96.0 MCH 31.7 31.9 MCHC 33.3 33.3 RDW 13.0 13.1 Plt Count 301 289 MPV 8.9 L 9.1 L Immature Gran % (Auto) 0.3 0.4 Neut % (Auto) 73.5 H 58.3 Lymph % (Auto) 18.4 L 29.9 [place] % (Auto) 5.8 6.8 Eos % (Auto) 1.6 4.1 H Baso % (Auto) 0.4 0.5 Lymph # (Auto) 1.4 1.7 [place] # (Auto) 0.4 0.4 Eos # (Auto) 0.1 0.2 Baso # (Auto) 0.0 0.0 Abs Immat Gran (auto) 0.02 0.02 Absolute Neuts (auto) 5.4 3.2 Absolute Nucleated RBC 0.000 0.000 Nucleated RBC % (auto) 0.0 0.0 PT 10.2 L INR 0.9 APTT 27.0 D-Dimer High Sensitivty < 150 Anion Gap 14 13 Estim Creat Clear Calc 65.9 72.9 Estimated GFR > 60 > 60 Random Glucose 94 108 Calcium 9.4 9.2 Magnesium 2.4 Total Bilirubin 0.4 Direct Bilirubin 0.1 AST 21 ALT 25 Alkaline Phosphatase 98 Total Creatine Kinase 53 Total Protein 7.1 Albumin 4.3 Triglycerides 227 H Cholesterol 252 H LDL Cholesterol, Calc 145 H HDL Cholesterol 62 Urine Color Yellow Urine Appearance Clear Urine pH 5.5 Ur Specific [place] >= 1.030 H Urine Protein Trace Urine Glucose (UA) Negative Urine Ketones Trace Urine Blood Negative Urine Nitrite Negative Ur Leukocyte Esterase Negative Influenza Type A (PCR) NEGATIVE Influenza Type B (PCR) NEGATIVE RSV RNA Qual (PCR) NEGATIVE SARS-CoV-2 RNA (RT-PCR) NEGATIVE Assessment and Plan (1) Chest pain: Status: Acute Plan 69-year-old female with a history of COPD, pulmonary nodules, asthma, and 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 UA serila troponin i cardiology consult ASA HLD Laboratory Tests 08/13/24 07:42 Triglycerides 227 H Cholesterol 252 H LDL Cholesterol, Calc 145 H HDL Cholesterol 62 Lipitor copd, no exacerbation inhalers prn mood disorder sertraline Lovenox for DVT prophylaxis Full code Quality Stroke Does the patient have a stroke diagnosis?: No VTE Prior VTE?: No VTE Risk Level:: Medical - moderate - high VTE Device Contraindication: Treatment Not Indicated VTE Drug Contraindication: N/A - Med Ordered
--- NOTE | 2024-08-13 09:35 | CA_ITS ---
Acquisition Time: 2024-08-14 10:06:27 Total Exercise Time: 00:02:00 Test Indications: CP Medications: SEE H&P Protocol: LEXISCAN Max HR: 139 BPM 92% of Pred: 150 BPM Max BP: 142/88 mmHG Max Work Load: 1.0 METS Pharmacological stress test with Lexiscan while pt marches in the chair, with reports of nasuea, SOB and lightheadedness, with isolated PACs and PVCs, with normotensive response to injection. Nondiagnostic EKG for ischemia. In recovery, pt treated with IVP Aminophylline 75 mg to reverse Lexiscan after which pt feeling back to baseline. Nuclear images pending. Test reviewed with Dr. Mann. Referred By: Jimbo Bain Electronically Signed By: Donta Quintero
--- NOTE | 2024-08-13 09:53 | MHC.CM.PN ---
IMM 08/13. Pt self-care, lives at home with her who will transport her home at discharge. New HCP completed with pt, now on file. PCP: Dr. Jaime Russ
--- NOTE | 2024-08-13 10:40 | P.CONCA_ITS ---
History of Present Illness History of Present Illness Date of Service: 08/13/24 Chief complaint: Chest pain, concern for UA Narrative: This is a cardiology consultation regarding chest pain. Patient denies any prior history of cardiac issues including coronary disease or myocardial infarction or cardiomyopathy. She apparently works in [employer] and [employer] and is walking all the time and some days she walks as much as 3 miles with no issues. Presentation is because of chest pain. She describes a heavy pressure-like sensation in the substernal area that radiated to the neck/jaw that was bothersome. She thought she was having a heart attack or so and then at ER presentation. Lasted for about 20-30 minutes in total. Then she got nitroglycerin in the ER and then the pain apparently resolved completely. Today she states she feels fine. She has had these episodes in the past but nothing this intense. Review of Systems 2 Review of Systems: Yes all other systems are reviewed and are negative Constitutional: Constitutional: Reports as per HPI and Reports no additional constitutional complaints Eyes: Eyes: Reports as per HPI and Denies no additional eye complaints ENT: Denies system reviewed and no additional complaints, except as documented and Reports as per HPI Cardiovascular: Cardiovascular: Reports as per HPI, Reports no additional cardiovascular complaints, Denies acrocyanosis, Denies cool extremities, Reports chest pain, Denies leg edema, Denies lightheadedness, Denies palpitations and Denies dyspnea Respiratory: Respiratory: Reports as per HPI, Denies no additional respiratory complaints and Denies dyspnea Gastrointestinal: Gastrointestinal: Reports as per HPI and Denies no additional gastrointestinal complaints Genitourinary: Genitourinary: Reports as per HPI Musculoskeletal: Musculoskeletal: Reports no additional musculoskeletal complaints and Reports as per HPI Integumentary/Breasts: Skin/Breast: Reports system reviewed and no additional complaints, except as docu Neurologic: Reports system reviewed and no additional complaints, except as documented and Reports as per HPI Psychiatric: Psychiatric: Reports no additional psychiatric complaints and Reports as per HPI Endocrine: Endocrine: Reports no additional endocrine complaints, Reports as per HPI and Denies palpitations Hematologic/Lymphatic: Hematologic/Lymphatic: Reports no additional hematologic/lymphatic complaints and Reports as per HPI Allergic/Immunologic: Allergic/Immunologic: Reports no additional allergic/immunologic complaints and Reports as per HPI [facility] Past Medical History Medical History Pulmonary nodules Pulmonary nodule History of breast cancer Personal history of nicotine dependence COPD (chronic obstructive pulmonary disease) Bronchitis Chronic allergic rhinitis Asthma-COPD overlap syndrome Family History Family History (Updated 08/13/24 @ 10:46 by Jimbo Bain MD) Mother Heart disease Surgical History Surgical History History of pneumonectomy History of cone biopsy of cervix History of tonsillectomy History of lumpectomy of left breast History of hysterectomy Social History Social History Household Members: Spouse Household Members Other:: Carlos Housing: House Do you presently have visiting nurse or other home services: No Alcohol intake: current Alcohol intake frequency: a few times a week Patient Tobacco Use Status: Former Tobacco user Tobacco use type: Cigarette Cigarette Packs Per Day: 1 Years Smoked: 40 Smoked in Last 30 Days: No Second Hand Smoke Exposure: No Use of substances other than those prescribed or required for medical reasons: No Currently Displaying Signs/Symptoms of Drug Intoxication Withdrawal: No Have you been hit, kicked, punched, or otherwise hurt by someone within the past year? If so, by whom?: No Do you feel safe in your current relationship?: Yes Is there a partner from a previous relationship who is making you feel unsafe now?: No Are you made to feel afraid or neglected: No Advance Directives: No Advance Directives Information Provided: No Do you have a plan to hurt others: No Plan Recently lost weight without trying: No Eating poorly because of decreased appetite: No Nutrition Risks: No Nutritional Risk Patient : No : No Poor oral hygiene: No service: No Sexual orientation: Straight/Heterosexual Gender identity: Female Meds Allergies Allergy/AdvReac Type Severity Reaction Status Date / Time No Known Allergies Allergy Verified 08/12/24 10:43 [No Known Allergies*] Active Medications: Current Medications Acetaminophen (Acetaminophen 325 Mg Tablet) 650 mg PO Q6H PRN PRN Reason: Pain, Mild 1-3,fever,headache Last Admin: 08/12/24 21:10 Dose: 650 mg Acetaminophen (Acetaminophen 325 Mg Tablet) 650 mg PO Q6H PRN PRN Reason: Pain, Moderate(Pain Scale 4-6) Aspirin (Aspirin Enteric Coated 81 Mg Tablet.Dr) 81 mg PO DAILY [facility] Last Admin: 08/13/24 08:00 Dose: 81 mg Atorvastatin Calcium (Atorvastatin Calcium 40 Mg Tablet) 40 mg PO DAILY [facility] Calcium Carbonate (Calcium Carbonate 750 Mg Tab.Chew) 750 mg PO Q4H PRN PRN Reason: Heartburn Dicyclomine HCl (Dicyclomine Hcl 10 Mg Capsule) 10 mg PO Q6H PRN PRN Reason: abdominal cramps or discomfort Enoxaparin Sodium (Enoxaparin Sodium 40 Mg/0.4 Ml Syringe) 40 mg SUBCUT Q24H [facility] Magnesium Hydroxide (Milk Of Magnesia 30 Ml Oral.Susp) 30 ml PO DAILY PRN PRN Reason: Constipation Melatonin (Melatonin 3 Mg Tablet) 6 mg PO BEDTIME PRN PRN Reason: Insomnia Last Admin: 08/12/24 21:12 Dose: 6 mg Non-Formulary Medication (Umeclidinium-Vilanterol [Anoro Ellipta]) 1 inhalation INHALE DAILY [facility] Ondansetron HCl (Ondansetron Hcl 4 Mg/2 Ml Vial) 4 mg IVPUSH Q8H PRN PRN Reason: Nausea and Vomiting Polyethylene Glycol (Polyethylene Glycol 3350 17 Gm Powd.Pack) 17 gm PO DAILY PRN PRN Reason: Constipation Sertraline HCl (Sertraline Hcl 50 Mg Tablet) 50 mg PO DAILY [facility] Last Admin: 08/13/24 08:00 Dose: 50 mg Sodium Chloride (0.9 % Sodium Chloride Flush 3 Ml Syringe) 3 ml IVFLUSH QSHIFT [facility] Last Admin: 08/13/24 08:00 Dose: 3 ml Tizanidine HCl (Tizanidine Hcl 4 Mg Tablet) 2 mg PO BEDTIME PRN PRN Reason: Muscle Spasm Vitamin D (Cholecalciferol (Vitamin D3) 25 Mcg Tablet) 50 mcg PO DAILY [facility] Last Admin: 08/13/24 07:59 Dose: 50 mcg Home Medications ?Medication ?Instructions ?Recorded ?Confirmed ?Last Taken ?Type sertraline 50 mg tablet 50 mg PO DAILY 11/29/20 08/12/24 08/12/24 History nebulizers 03/13/22 11/07/22 Unknown History acetaminophen 650 mg 650 mg PO Q8H PRN pain 08/12/24 08/12/24 Unknown History tablet,extended release cholecalciferol (vitamin D3) 50 50 mcg PO DAILY 08/12/24 08/12/24 Unknown History mcg (2,000 unit) capsule (Vitamin D3) dicyclomine 10 mg capsule 10 - 20 mg PO Q6H PRN abdominal 08/12/24 08/12/24 Unknown History cramps or discomfort melatonin 5 mg tablet 10 mg PO BEDTIME 08/12/24 08/12/24 Unknown History tizanidine 2 mg tablet 2 mg PO BEDTIME PRN Muscle Spasm 08/12/24 08/12/24 Unknown History Physical Exam 2 Vital Signs: Vital Signs: Last Vital Signs Temp 97.5 F 08/13/24 07:42 Pulse 61 08/13/24 07:42 Resp 20 08/13/24 07:42 BP 117/71 08/13/24 07:42 Pulse Ox 96 08/13/24 07:42 O2 Del Method Room Air 08/13/24 07:42 BMI result Body Mass Index 25.2 Const: General: comfortable and no acute distress O rientation/consciousness: patient oriented x3 HEENT: Other: Unremarkable Head: Yes normal to inspection Neck: Neck: Yes normal visual inspection Chest: Chest palpation & inspection: normal inspection of the chest Resp: Auscultation: clear to auscultation bilaterally Cardio: Palpation: normal PMI Heart sounds: S1 normal heart sound present, S2 normal heart sound present, no gallops, no murmurs and no rubs GI: Palpation (GI): Soft to palpation Back/Spine/Pelvis: Other: unremarkable Skin: General skin exam: no rashes or lesions noted Neuro: General: patient oriented x3 Extrem: General: Yes normal to inspection Psych: Mental Status: mental status grossly normal Objective Labs and Meds 08/13/24 07:42 08/13/24 07:42 Lab results: Laboratory Results - last 24 hr 08/12/24 08/12/24 08/12/24 11:08 13:07 13:25 WBC 7.4 RBC 4.32 Hgb 13.7 Hct 41.1 MCV 95.1 MCH 31.7 MCHC 33.3 RDW 13.0 Plt Count 301 MPV 8.9 L Immature Gran % (Auto) 0.3 Neut % (Auto) 73.5 H Lymph % (Auto) 18.4 L [place] % (Auto) 5.8 Eos % (Auto) 1.6 Baso % (Auto) 0.4 Lymph # (Auto) 1.4 [place] # (Auto) 0.4 Eos # (Auto) 0.1 Baso # (Auto) 0.0 Abs Immat Gran (auto) 0.02 Absolute Neuts (auto) 5.4 Absolute Nucleated RBC 0.000 Nucleated RBC % (auto) 0.0 PT 10.2 L INR 0.9 APTT 27.0 D-Dimer High Sensitivty < 150 Sodium 142 Potassium 4.2 Chloride 109 H Carbon Dioxide 23 Anion Gap 14 BUN 24 H Creatinine 0.83 Estim Creat Clear Calc 65.9 Estimated GFR > 60 Random Glucose 94 Calcium 9.4 Magnesium 2.4 Total Bilirubin 0.4 Direct Bilirubin 0.1 AST 21 ALT 25 Alkaline Phosphatase 98 Total Creatine Kinase 53 Troponin I High Sens < 2.7 < 2.7 Total Protein 7.1 Albumin 4.3 Triglycerides Cholesterol LDL Cholesterol, Calc HDL Cholesterol Urine Color Yellow Urine Appearance Clear Urine pH 5.5 Ur Specific [place] >= 1.030 H Urine Protein Trace Urine Glucose (UA) Negative Urine Ketones Trace Urine Blood Negative Urine Nitrite Negative Ur Leukocyte Esterase Negative Influenza Type A (PCR) NEGATIVE Influenza Type B (PCR) NEGATIVE RSV RNA Qual (PCR) NEGATIVE SARS-CoV-2 RNA (RT-PCR) NEGATIVE 08/13/24 07:42 WBC 5.6 RBC 4.20 Hgb 13.4 Hct 40.3 MCV 96.0 MCH 31.9 MCHC 33.3 RDW 13.1 Plt Count 289 MPV 9.1 L Immature Gran % (Auto) 0.4 Neut % (Auto) 58.3 Lymph % (Auto) 29.9 [place] % (Auto) 6.8 Eos % (Auto) 4.1 H Baso % (Auto) 0.5 Lymph # (Auto) 1.7 [place] # (Auto) 0.4 Eos # (Auto) 0.2 Baso # (Auto) 0.0 Abs Immat Gran (auto) 0.02 Absolute Neuts (auto) 3.2 Absolute Nucleated RBC 0.000 Nucleated RBC % (auto) 0.0 PT INR APTT D-Dimer High Sensitivty Sodium 141 Potassium 4.7 Chloride 106 Carbon Dioxide 27 Anion Gap 13 BUN 21 H Creatinine 0.75 Estim Creat Clear Calc 72.9 Estimated GFR > 60 Random Glucose 108 Calcium 9.2 Magnesium Total Bilirubin Direct Bilirubin AST ALT Alkaline Phosphatase Total Creatine Kinase Troponin I High Sens Total Protein Albumin Triglycerides 227 H Cholesterol 252 H LDL Cholesterol, Calc 145 H HDL Cholesterol 62 Urine Color Urine Appearance Urine pH Ur Specific [place] Urine Protein Urine Glucose (UA) Urine Ketones Urine Blood Urine Nitrite Ur Leukocyte Esterase Influenza Type A (PCR) Influenza Type B (PCR) RSV RNA Qual (PCR) SARS-CoV-2 RNA (RT-PCR) ECG Interpretation: EKG shows sinus rhythm, PVC, anterior T inversions. Ventricular rate 69/Min. Anterior T inversions are actually seen in the EKG going back to 2018. Assessment and Plan (1) Chest pain: Status: Acute Plan Chest pain sounds typical based on presentation as was relief from nitro but previously she never had any exertional chest pain and very active. EKGs abnormal with ischemia in the LAD territory but that again seems chronic as the previous EKG from 2018 is similar. High sensitivity troponins are unremarkable. We discussed about a diagnostic catheterization as the next step. However, patient does not comfortable with that and she would like to just get noninvasive testing 1st. Hence we can start with an echocardiogram/stress perfusion imaging tomorrow morning. Based on the findings, we will plan if she needs a diagnostic catheterization or not. In the interim, keep on aspirin, statins. Sublingual nitroglycerin as necessary. Of note, she does have quite high lipid levels. We will follow up with you. Procedures Date of Service Date of Service: 08/13/24
[2024-08-13] MEDS: Atorvastatin Calcium 40 MG TABLET PO (10:51)
[2024-08-13] MEDS: Enoxaparin Sodium 40 MG/0.4 ML SYRINGE SUBCUT (10:51)
--- NOTE | 2024-08-13 11:43 | MHC.RECOVRN ---
Patient screened?+AUDIT C screen? Attempted to meet with patient for Brief Intervention? Patient declined meeting with this sheet writer, declined resources/information?
[2024-08-13] MEDS: Acetaminophen 325 MG TABLET 650 MG PO ×2 (14:31→21:01)
[2024-08-13] MEDS: Melatonin 3 MG TABLET 6 MG PO (21:01)
[2024-08-13] MEDS: TiZANidine HCL 4 MG TABLET 2 MG PO (21:03)
[2024-08-14 03:24] VITALS: BP 120/68; PULSE 66; RESP 16; TEMP 36.5; O2SAT 98
--- NOTE | 2024-08-14 07:00 | CA_ITS ---
Transthoracic Echocardiogram Patient (Last, First, Middle): Filomena SaeedKd Gender: Female Date of : 1955 Age: 69 Procedure Date: 08/14/2024 Procedure Type: Transthoracic Echocardiogram [place] [facility] [place]: 175.26 cm Weight: 77.11 kg BSA: 1.93 m2 Heart Rate: 83 bpm BP: 120 / 68 mmHg Railroad Conductor: Referring MD: Jimbo Bain MD Videotape Recording Engineer: Dl Mann MD Symptoms: chest pain Study Quality: Adequate w contrast ECG Rhythm: Sinus with extra beats Conclusions: - 1. Normal LV ejection fraction of 60 65% with mild LVH with grade 1 diastolic dysfunction 2. Cardiac valvular Dopplers within normal limits 3. Normal RV systolic pressure Findings Procedure Information Contrast agent, definity, is being given per protocol without apparent complications. Left Ventricle Normal left ventricular size and systolic function. There is mildly increased left ventricular wall thickness. The visually estimated ejection fraction is between 60-65%. Spectral Doppler is indicative of an impaired relaxation filling pattern. E/E prime ratio is <8, consistent with normal filling pressures. Evidence suggests grade I (mild) diastolic dysfunction. difficult to evaluate wall motion due to frequent ectopy beats. Basal inferior wall motion abnormality can not be entirely ruled out Right Ventricle The right ventricle was not well visualized. There is normal right ventricular systolic function. Atria The left atrium is likely dilated. Interatrial shunt cannot be excluded. The right atrium was not well visualized. Aortic Valve The aortic valve structure and function is likely normal. There is no aortic valve stenosis. There is no aortic valve regurgitation. Mitral Valve Likely normal mitral valve structure and function. There is trace mitral valve regurgitation. There is no mitral valve stenosis. Pulmonic Valve The pulmonic valve was not well visualized. Tricuspid Valve Likely normal tricuspid valve structure and function. There is trace tricuspid valve regurgitation. The right ventricular systolic pressure is normal. The right ventricular systolic pressure is 18 mmHg. Normal right atrial pressure. There is no evidence of pulmonary hypertension. Great Vessels The pulmonary artery was not well visualized. There is no dilatation of the ascending aorta measuring 3.20 cm. Venous The inferior vena cava is normal in size and collapses greater than 50% with inspiration. Pericardium/Pleural There is no evidence of pericardial effusion. Prior Study Comparison No prior study available for comparison. Measurements 2D Linear Measurements IVSd: 1.37 0.6-0.9/0.6-1.0 cm LVIDd: 4.87 3.9-5.3/4.2-5.9 cm LVIDd Index: 2.52 2.4-3.2/2.2-3.1 cm/m2 LVIDs: 2.98 2.0-3.6 cm LVPWd: 1.35 0.7-1.1 cm LA Diam: 3.90 2.7-3.8/3.0-4.0 cm LAIDs Index: 2.02 1.5-2.3 cm/m2 LV Mass: 334.61 67-162/88-224 g LV Mass Index: 173.38 43-95/49-115 g/m2 LVOT Diam: 2.00 3.0+(-)1.3 cm Mitral Valve MV Pk E: 0.57 MV PK A: 0.66 MV Decel Time: 247.00 E/A: 0.90 E'Lateral: 7.83 E'Medial: 6.53 E/E' Med: 8.70 E/E' Lat: 7.20 PHT: 72.00 MVA PHT: 3.06 Decel Chaves: 2.29 Aortic Valve AoV Pk Jamel: 1.43 AoV Mn Jamel: 0.86 AoV VTI: 0.27 AoV Pk Grad: 8.00 Aov Mn Grad: 4.00 REAL Cont.VTI: 2.60 LVOT LVOT Pk Jamel: 1.11 LVOT Mn Jamel: 0.67 LVOT VTI: 0.22 LVOT Pk Grad: 5.00 LVOT Mn Grad: 2.00 LVOT Diam: 2.00 LVOT Area: 3.14 Diastolic Function MV Pk E: 0.57 MV Pk A: 0.66 E/A: 0.90 E'Medial: 6.53 E/E' Med: 8.70 E' Laterial: 7.83 E/E' Lat: 7.20 Right Ventricle TAPSE (mm): 25.40 Tricuspid Valve TR Pk Jamel: 1.96 TR Pk Grad: 15.00 RA Press: 3.00 RVSP: 18.00 Great Vessels Aorta Sinus of Valsalva: 3.20 2.0-3.5 cm Ao Asc: 3.20 2.1-3.4 cm Pulmonary Valve PV Pk Jamel: 1.21 Peak PV Grad: 6.00 Updated in Other Vendor System with Status of Final Dl Mann MD electronically signed on 08/14/2024 4:17:52 PM with status of Final
[2024-08-14] MEDS: Fluticasone/Umeclidinium/Vilanterol 200/62.5/25 BLST.W.DEV 1 PUFF INHALE (07:48)
[2024-08-14 07:49] VITALS: PULSE 105; RESP 18; O2SAT 97
[2024-08-14 07:51] VITALS: BP 136/95; PULSE 75; RESP 17; TEMP 36.1; O2SAT 98
[2024-08-14] MEDS: Enoxaparin Sodium 40 MG/0.4 ML SYRINGE SUBCUT (08:00)
[2024-08-14] MEDS: Atorvastatin Calcium 40 MG TABLET PO (08:01)
[2024-08-14] MEDS: Sertraline HCL 50 MG TABLET PO (08:01)
[2024-08-14] MEDS: Cholecalciferol (Vitamin D3) 25 MCG TABLET 50 MCG PO (08:01)
[2024-08-14] MEDS: Aspirin Enteric Coated 81 MG TABLET.DR PO (08:01)
[2024-08-14] MEDS: 0.9 % Sodium Chloride Flush 3 ML SYRINGE IVFLUSH (08:01)
[2024-08-14] MEDS: LORazepam 0.5 MG TABLET 0.25 MG PO (08:05)
--- NOTE | 2024-08-14 10:48 | P.PNIM_ITS ---
Subjective Subjective Date of Service: 08/14/24 Interval History: No chest pain or sob Review of Systems Gen: no fever Resp: no sob, no cough CV: no chest at this time, no JIMENEZ, no leg edema GI: No n/v, no abd pain Neuro: No confusion Physical Exam 2 Vital Signs: Vital Signs: Last Vital Signs Temp 96.9 F 08/14/24 07:51 Pulse 75 08/14/24 07:51 Resp 17 08/14/24 07:51 BP 136/95 H 08/14/24 07:51 Pulse Ox 98 08/14/24 07:51 O2 Del Method Room Air 08/14/24 07:51 BMI result Body Mass Index 25.2 Const: Other: General: AO X 3, no acute distress Resp: CTA bilateral CVS: S1,S2,RRR GI: +BS, NT, no distention Skin: No rash Neuro: motor grossly intact Psych: appropriate affect Objective Data Active Medications Acetaminophen (Acetaminophen 325 Mg Tablet) 650 mg PO Q6H PRN PRN Reason: Pain, Mild 1-3,fever,headache Last Admin: 08/13/24 21:01 Dose: 650 mg Documented By: MISAEL Acetaminophen (Acetaminophen 325 Mg Tablet) 650 mg PO Q6H PRN PRN Reason: Pain, Moderate(Pain Scale 4-6) Aspirin (Aspirin Enteric Coated 81 Mg Tablet.) 81 mg PO DAILY [facility] Last Admin: 08/14/24 08:01 Dose: 81 mg Documented By: ALO Atorvastatin Calcium (Atorvastatin Calcium 40 Mg Tablet) 40 mg PO DAILY [facility] Last Admin: 08/14/24 08:01 Dose: 40 mg Documented By: ALO Calcium Carbonate (Calcium Carbonate 750 Mg Tab.Chew) 750 mg PO Q4H PRN PRN Reason: Heartburn Dicyclomine HCl (Dicyclomine Hcl 10 Mg Capsule) 10 mg PO Q6H PRN PRN Reason: abdominal cramps or discomfort Enoxaparin Sodium (Enoxaparin Sodium 40 Mg/0.4 Ml Syringe) 40 mg SUBCUT Q24H [facility] Last Admin: 08/14/24 08:00 Dose: 40 mg Documented By: ALO Fluticasone/Umeclidinium/Vilanterol (Fluticasone/Umeclidinium/Vilanterol 200/62.5/25 Blst.W.Dev) 1 puff INHALE RDAILY [facility] Last Admin: 08/14/24 07:48 Dose: 1 puff Documented By: MICHEAL Fluticasone/Umeclidinium/Vilanterol (Fluticasone/Umeclidinium/Vilanterol 200/62.5/25 Blst.W.Dev) 1 puff INHALE RDAILY [facility] Last Admin: 08/14/24 08:29 Dose: Not Given Documented By: MICHEAL Non-Admin Reason: Duplicate Order Magnesium Hydroxide (Milk Of Magnesia 30 Ml Oral.Susp) 30 ml PO DAILY PRN PRN Reason: Constipation Melatonin (Melatonin 3 Mg Tablet) 6 mg PO BEDTIME PRN PRN Reason: Insomnia Last Admin: 08/13/24 21:01 Dose: 6 mg Documented By: MISAEL Ondansetron HCl (Ondansetron Hcl 4 Mg/2 Ml Vial) 4 mg IVPUSH Q8H PRN PRN Reason: Nausea and Vomiting Polyethylene Glycol (Polyethylene Glycol 3350 17 Gm Powd.Pack) 17 gm PO DAILY PRN PRN Reason: Constipation Sertraline HCl (Sertraline Hcl 50 Mg Tablet) 50 mg PO DAILY [facility] Last Admin: 08/14/24 08:01 Dose: 50 mg Documented By: ALO Sodium Chloride (0.9 % Sodium Chloride Flush 3 Ml Syringe) 3 ml IVFLUSH QSHIFT [facility] Last Admin: 08/14/24 08:01 Dose: 3 ml Documented By: ALO Tizanidine HCl (Tizanidine Hcl 4 Mg Tablet) 2 mg PO BEDTIME PRN PRN Reason: Muscle Spasm Last Admin: 08/13/24 21:03 Dose: 2 mg Documented By: MISAEL Vitamin D (Cholecalciferol (Vitamin D3) 25 Mcg Tablet) 50 mcg PO DAILY [facility] Last Admin: 08/14/24 08:01 Dose: 50 mcg Documented By: ALO Labs 08/13/24 07:42 08/13/24 07:42 Assessment and Plan (1) Chest pain: Status: Acute Plan 69-year-old female with a history of COPD, pulmonary nodules, asthma, and 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 UA serila troponin i cardiology consult [facility] Laboratory Tests 08/13/24 07:42 Triglycerides 227 H Cholesterol 252 H LDL Cholesterol, Calc 145 H HDL Cholesterol 62 Lipitor stress testoday copd, no exacerbation inhalers prn mood disorder sertraline Lovenox for DVT prophylaxis Full code Quality Stroke Does the patient have a stroke diagnosis?: No VTE Prior VTE?: No VTE Risk Level:: Medical - moderate - high VTE Device Contraindication: Treatment Not Indicated VTE Drug Contraindication: N/A - Med Ordered
--- NOTE | 2024-08-14 10:49 | PM.DS ---
DS: Providers Provider Date of Service: 08/14/24 Date of admission: 08/12/24 15:51 Date of discharge: 08/14/24 Primary care physician: Jaime Russ MD Consults: 08/12/24 16:08 Consult to Cardiology Routine Consulting Provider: [facility] Reason for consultation: Chest pain, ECG changes 08/12/24 18:30 Addiction Medicine Provider Routine Consulting Provider: Addiction Covering Reason for consultation: ETOH use DS: Diagnosis Discharge Diagnosis (1) Chest pain: Status: Acute DS: Summary Hospital Course Hospital Course: admission hpi Chief Complaint: Chest pain 69-year-old female with a history of COPD, pulmonary nodules, asthma, and 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 She also reported diaphoresis, palpitations, dizziness, shortness of breath, and nausea. The symptoms were intermittent, lasting approximately 20 minutes, and improved significantly after administration of nitroglycerin by EMS, reducing her pain from 8/10 to 1/10. EMS noted an irregular heartbeat with frequent premature atrial contractions (PACs). ECG showed non-specific ST-T wave changes and PACs. Troponin I levels were within normal limits on two occasions. At the time of evaluation, the patient was pain-free and hemodynamically stable. 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 Admitted to the hosptial and had serial troponin I which were normal, had some ECG changes, treated with baby Aspriin, HLD treated with Lipitor. Was seen by cardiology and underlyin Chemical stress test with myoview and showed Chest pain--concern for unstable serila troponin i have been negative cardiology swa the patient and perform stress which shows a small are of ischemia. For now she will be treated medically with ASA, torpolol and toprolol per cardiology recommendation. Laboratory Tests 08/13/24 07:42 Triglycerides 227 H Cholesterol 252 H LDL Cholesterol, Calc 145 H HDL Cholesterol 62 HDL Lipitor copd, no exacerbation inhalers prn mood disorder sertraline Time Attestation Discharge Coordination Time (in mins): 40 Quality: Safe Use of Opioids Does Pt have an Active Cancer Diagnosis on the Problem List?: No Quality: Stroke Does the patient have a stroke diagnosis?: No Physical Exam Vital Signs: Vital Signs: Last Vital Signs Temp 96.9 F 08/14/24 07:51 Pulse 75 08/14/24 07:51 Resp 17 08/14/24 07:51 BP 136/95 H 08/14/24 07:51 Pulse Ox 98 08/14/24 07:51 O2 Del Method Room Air 08/14/24 07:51 BMI result Body Mass Index 25.2 Const: Other: General: AO X 3, no acute distress Resp: CTA bilateral CVS: S1,S2,RRR GI: +BS, NT, no distention Skin: No rash Neuro: motor grossly intact Psych: appropriate affect Discharge Plan Discharge Anticipated Discharge Date/Time: 08/14/24 12:44 Patient Disposition: Home, Self-Care Discharge Diagnosis: Chest pain, Referrals: Jaime Russ MD [Primary Care Provider] - 1 Week Discharge Medications: New atorvastatin 40 mg Tablet 40 mg PO DAILY Qty: 90 0RF metoprolol succinate 50 mg Tablet Extended Release 24 Hr 50 mg PO DAILY Qty: 90 0RF Protocol: Hold for SBP/HR < HOLD for SBP < : 90 HOLD for HR < : 60 aspirin 81 mg Tablet,Delayed Release (Dr/Ec) 81 mg PO DAILY Qty: 90 0RF Rx Instructions: offer over the counter as alternative Continued tizanidine 2 mg tablet 2 mg PO BEDTIME PRN (Reason: Muscle Spasm) acetaminophen 650 mg tablet extended release 650 mg PO Q8H PRN (Reason: pain) dicyclomine 10 mg capsule 10 - 20 mg PO Q6H PRN (Reason: abdominal cramps or discomfort) melatonin 5 mg Tablet 10 mg PO BEDTIME cholecalciferol (vitamin D3) [Vitamin D3] 50 mcg (2,000 unit) Capsule 50 mcg PO DAILY Trelegy Ellipta 200-62.5-25 mcg Blister With Device 1 inh INHALATION DAILY sertraline 50 mg tablet 50 mg PO DAILY (DME) nebulizers Misc See Rx Instructions .Route Rx Instructions: As directed Discharge Orders: Discharge Order (Routine); Ordered 05/12/25 Ordered By: Usama Lopes Diet: Advance to usual diet Activity on Discharge: As tolerated Stand Alone Forms: Patient Portal Discharge page Print Language: Armenian Care Plan Goals: recovery from chest pain, abnormal stress test Health Concerns: chest pain abnormal stress test abnormal ecg Plan of Treatment: take aspirin, lipitor and Toprolol as directed and follow up with your Dcotor in a week. Heart doctor will arrange a follow up with visit with you and discuss caridac catherization if you experience similar chest pain, call 911 Assessment: see above
[2024-08-14 11:17] VITALS: BP 136/86; PULSE 83; RESP 17; TEMP 36.4; O2SAT 94
--- NOTE | 2024-08-14 12:22 | PM.PNCARD ---
Subjective Subjective Date of Service: 08/14/24 Principal diagnosis: Chest pain normal stress test. Interval history: Patient has had no overnight chest pain. Hemodynamically stable. Cardiac markers are negative. Myocardial perfusion imaging done today shows mild inferior ischemia. Patient noted to have frequent PACs and short runs. Review of Systems Constitutional: Reports no additional constitutional complaints Cardiovascular: Reports no additional cardiovascular complaints Respiratory: Reports no additional respiratory complaints Gastrointestinal: Reports no additional gastrointestinal complaints Genitourinary: Reports no additional female genitourinary complaints Musculoskeletal: Reports no additional musculoskeletal complaints Reports system reviewed and no additional complaints, except as documented Endocrine: Reports no additional endocrine complaints Physical Exam Vital Signs: Last Vital Signs Temp 97.5 F 08/14/24 11:17 Pulse 83 08/14/24 11:17 Resp 17 08/14/24 11:17 BP 136/86 08/14/24 11:17 Pulse Ox 94 08/14/24 11:17 O2 Del Method Room Air 08/14/24 11:17 BMI result Body Mass Index 25.2 Const General: comfortable and no acute distress Orientation/consciousness: patient oriented x3 HEENT Other: Unremarkable Head: Yes normal to inspection Neck Neck: Yes normal visual inspection Chest Chest palpation & inspection: normal inspection of the chest Resp Auscultation: clear to auscultation bilaterally Cardio Palpation: normal PMI Heart sounds: S1 normal heart sound present, S2 normal heart sound present, no gallops, no murmurs and no rubs GI Palpation (GI): Soft to palpation Back/Spine/Pelvis Other: unremarkable Skin General skin exam: no rashes or lesions noted Neuro General: patient oriented x3 Extrem General: Yes normal to inspection Psych Mental Status: mental status grossly normal Objective Labs and Meds 08/13/24 07:42 08/13/24 07:42 Progress Note: A&P Assessment and plan (1) Chest pain: Status: Acute Assessment and Plan: Chest pain at rest with multiple risk factors. Patient had negative cardiac markers. EKG shows anterior T-wave inversions. Myocardial perfusion imaging is suggestive of mild inferior ischemia. He does not have any other high risk features at this point time. I think she can be discharged home with the need for patient cardiac catheterization. This was discussed with her. Will start on Toprol-XL 50 mg a day and continue aspirin and statins. If she gets recurrent chest pain she is advised to come to the emergency room as soon as possible. Outpatient follow-up with cardiac catheterization. Will follow up in the clinic after cardiac catheterization. Thank you for allowing me to partake in her care Time Spent With Patient Time: Total time managing care of this patient today ____ minutes. Progress Note: Quality Stroke Does the patient have a stroke diagnosis?: No Procedures Date of Service Date of Service: 08/14/24
--- NOTE | 2024-08-14 12:51 | MHC.CM.PN ---
Patient has been medically cleared for dc to home today, self care. Last IMM was addressed yesterday.
[2024-08-14 13:12] VITALS: BP 154/94; PULSE 104
[2024-08-14] MEDS: Metoprolol Succinate ER 50 MG TAB.ER.24H PO (13:12)
[2024-08-14] MEDS: Acetaminophen 325 MG TABLET 650 MG PO (13:13)
== END 2024-08-14 14:51 | disposition home or self-care (01) | DRG 313 ==
LOC: HO.ED 10:47 → HO.EDOVER 16:43 → HO.IMC 17:27
PROVIDERS: Physician Assistant Medical; Admitting Provider Internal Medicine; Emergency Provider Emergency Medicine; PCP Internal Medicine Medical Oncology; Visit Provider Internal Medicine
DX: R07.9 Chest pain, unspecified (principal); J44.9 Chronic obstructive pulmonary disease, unspecified; F39 Unspecified mood [affective] disorder; E78.5 Hyperlipidemia, unspecified; Z20.822 Contact with and (suspected) exposure to COVID-19; Z90.2 Acquired absence of lung [part of]; Z87.891 Personal history of nicotine dependence; Z79.899 Other long term (current) drug therapy
CPT/HCPCS: 0241U; 36415; 71046; 78452; 80048; 80061; 80076; 81003; 82550; 83735; 84484; 85025; 85379; 85610; 85730; 93005; 93017; 93306; 94640; 99285; A9500; J0280; J1650; J2785; Q9957

== ENCOUNTER → 2024-08-12 10:34 | Outpatient (BNV) | payer MEDICARE, SELFPAY | PROVIDERS: Emergency Provider Emergency Medicine; PCP Internal Medicine Medical Oncology; Visit Provider Radiology Diagnostic Radiology | DX: R07.9 Chest pain, unspecified (principal) | CPT/HCPCS: 71046 ==

== ENCOUNTER 2024-08-12 15:51 | Outpatient (BNV) | payer MEDICARE, SELFPAY | END 2024-08-13 07:51 | PROVIDERS: Admitting Provider Internal Medicine; Emergency Provider Emergency Medicine; PCP Internal Medicine Medical Oncology; Visit Provider Internal Medicine | DX: R06.02 Shortness of breath (principal); I49.1 Atrial premature depolarization; I49.3 Ventricular premature depolarization | CPT/HCPCS: 93010; 93016; 93018 ==

== ENCOUNTER 2024-08-12 15:51 | Outpatient (BNV) | payer MEDICARE, SELFPAY | END 2024-08-14 07:00 | PROVIDERS: Admitting Provider Internal Medicine; Emergency Provider Emergency Medicine; PCP Internal Medicine Medical Oncology; Visit Provider Internal Medicine Cardiovascular Disease | DX: I25.5 Ischemic cardiomyopathy (principal); R07.9 Chest pain, unspecified; R94.31 Abnormal electrocardiogram [ECG] [EKG]; I51.89 Other ill-defined heart diseases | CPT/HCPCS: 78452; 93320; 93325; 93350; 93352 ==

== ENCOUNTER → 2024-08-12 15:51 | Outpatient (BNV) | payer MEDICARE, SELFPAY | PROVIDERS: Admitting Provider Internal Medicine; Emergency Provider Emergency Medicine; PCP Internal Medicine Medical Oncology; Visit Provider Internal Medicine | DX: J44.1 Chronic obstructive pulmonary disease with (acute) exacerbation (principal); R07.9 Chest pain, unspecified | CPT/HCPCS: 99223; 99232; 99239; 99499 ==

== ENCOUNTER → 2024-08-12 15:51 | Outpatient (BNV) | payer MEDICARE, SELFPAY | PROVIDERS: Admitting Provider Internal Medicine; Emergency Provider Emergency Medicine; PCP Internal Medicine Medical Oncology; Visit Provider Internal Medicine | DX: R07.9 Chest pain, unspecified (principal) | CPT/HCPCS: 93010; 99223 ==

== ENCOUNTER → 2024-08-22 23:59 | Outpatient (BNV) | payer MEDICARE, SELFPAY | PROVIDERS: PCP Internal Medicine Medical Oncology; Visit Provider Internal Medicine Cardiovascular Disease | DX: I20.89 Other forms of angina pectoris (principal) | CPT/HCPCS: 93458; 99152 ==

== ENCOUNTER 2024-09-05 09:02 | Outpatient (AMB) | payer MEDICARE, SELFPAY ==
[2024-09-05 09:11] VITALS: BP 118/72; PULSE 71; BMI 25.3
--- NOTE | 2024-09-05 09:11 | A.OFFVIS_ITS ---
Vital Signs 09/05/24 09:11 Height 5 ft 9 in Weight 171 lb 8.314 oz BMI 25.3 BP 118/72 Blood Pressure Location Lt brachial Position Sitting Pulse 71 Intake Visit Reasons: Follow up post cardiac cath/[facility] discharge Ichthyologist Required: No Pediatric Dermatologist: Pediatric Dermatologist Present Allergies No Known Allergies [No Known Allergies*] Allergy (Verified 09/05/24 09:13) Medication List - Last Reconciled 09/05/24 by KRISTOFER ZeeC acetaminophen ER 650 mg PO Q8H PRN aspirin 81 mg PO DAILY atorvastatin 40 mg PO DAILY cholecalciferol (vitamin D3) (Vitamin D3) 50 mcg PO DAILY dicyclomine 10 - 20 mg PO Q6H PRN cwlksfwtukz-ywtyexkxk-qeahfmuq 200-62.5-25 mcg (Trelegy Ellipta) 1 inh inhalation DAILY melatonin 10 mg PO BEDTIME nebulizers As directed sertraline 50 mg PO DAILY tizanidine 2 mg PO BEDTIME PRN HPI HPI Follow up post cardiac cath/[facility] discharge: Details: Filomena is a 69-year-old female with past medical history of asthma, smoking, hyperlipidemia who was recently admitted to [facility] with mid chest discomfort. Her troponin levels were normal, EKG did show T-wave inversions anteriorly. Nuclear stress test was suggestive of RCA territory ischemia. She underwent cardiac catheterization showing normal coronary arteries and now presents for follow-up. Today she reports she has been doing well since her hospital discharge. She has not had recurrent chest discomfort. She states on the day of her admission she was at work at [employer] and she began getting discomfort in her mid chest. EMS was called and they did give her nitroglycerin which did help to relieve her symptom. She says she has had symptoms like this in the past without known aggravating or alleviating factors. She normally walks up to 3 miles a day while at work. She usually feels well with no concerning symptoms. She denies having shortness of breath, PND, orthopnea, edema, lightheadedness, presyncope, syncope. She has no prior known cardiac history. Right radial catheterization site is feeling good. Compliant with meds. is present. REPLACED BY [facility] Medical History Pulmonary nodules Pulmonary nodule History of breast cancer Personal history of nicotine dependence COPD (chronic obstructive pulmonary disease) Bronchitis Chronic allergic rhinitis Asthma-COPD overlap syndrome Surgical History History of pneumonectomy History of cone biopsy of cervix History of tonsillectomy History of lumpectomy of left breast History of hysterectomy Family History Mother Heart disease Social History Household Members: Spouse Household Members Other:: Carlos Housing: House Do you presently have visiting nurse or other home services: No Alcohol intake: current Alcohol intake frequency: a few times a week Patient Tobacco Use Status: Former Tobacco user Tobacco use type: Cigarette Cigarette Packs Per Day: 1 Years Smoked: 40 Second Hand Smoke Exposure: No service: No Sexual orientation: Straight/Heterosexual Gender identity: Female Review of Systems Const All systems reviewed & are unremarkable except as noted in HPI and below ENT Denies dizziness Card Reports chest pain, Reports chest pain at rest, Denies chest pain with activity, Denies rapid heart rate, Denies pedal edema, Denies edema, Denies leg edema, Denies lightheadedness, Denies palpitations, Denies dyspnea, Denies dyspnea on exertion and Denies orthopnea Resp Denies cough, Denies dyspnea and Denies dyspnea on exertion GI Denies hematochezia and Denies change in stool character Musc Denies abnormal gait, Denies limited range of motion, Denies muscle cramps, Denies muscle weakness, Denies numbness, Denies radiating pain into limb, Denies stiffness and Denies tingling Neuro Denies abnormal gait, Denies dizziness, Denies numbness and Denies tingling Endo Denies palpitations Physical Exam Vital Signs: Last Vital Signs Pulse 71 09/05/24 09:11 BP 118/72 09/05/24 09:11 BMI result Body Mass Index 25.3 Const General: cooperative, healthy appearing, comfortable and no acute distress Orientation/consciousness: patient oriented x3 Neck Neck: Yes normal visual inspection and Yes no JVD Resp Effort & Inspection: normal respiratory effort Auscultation: clear to auscultation bilaterally, no rales, no rhonchi and no wheezes Cardio Rate: regular rate Rhythm: regular rhythm Heart sounds: S1 normal heart sound present, S2 normal heart sound present, no gallops, no murmurs and no rubs Neuro General: patient oriented x3 Extrem General: Yes normal to inspection, No no pedal edema and No calf tenderness Psych Appearance: grossly normal Mental Status: mental status grossly normal Speech and movement: Normal speech and movement present Assessment & Plan Assessment & Plan (1) Chest pain: Code(s): R07.9 - Chest pain, unspecified Category: Medical Plan: [facility] evaluation for chest discomfort. Her EKG did show anterior T-wave inversions which were also noted on other EKGs in our system. Troponin levels were normal. Her echocardiogram 08/14/2024 showed EF 60-65%, mild LVH, grade 1 diastolic dysfunction, no reported regional wall motion abnormality. Nuclear stress 08/14/2024 showed imecw-gw-evubixze size minimal to mild intensity basal to mid inferior wall ischemia, RCA territory. She was transferred for cardiac catheterization done on 08/22/2024 showing normal coronary arteries. She was discharged with aspirin and atorvastatin. Her LDL had been elevated at 145. Chest discomfort since that time. We discussed noncardiac causes of chest discomfort. It is possible this is esophageal. She will continue to monitor. Emergency care if ever needed for symptoms symptoms. Cardiac risk factor modification discussed. Will check fasting lipids and liver profile. Reports of PACs and PVCs during hospitalization. Will plan for Holter monitor to further evaluate. Cardiology follow-up 3 months, sooner if needed. (2) S/P cardiac cath: Comment: 08/22/2024 normal coronary arteries Code(s): Z98.890 - Other specified postprocedural states Category: Surgical (3) Elevated BP without diagnosis of hypertension: Code(s): R03.0 - Elevated blood-pressure reading, without diagnosis of hypertension Category: Medical Plan: Blood pressure goal less than 130/80. Blood pressure is noted to be elevated during hospitalization. No history of hypertension. Instructed to periodically monitor blood pressure at home and follow low-salt diet. Informed that uncontrolled hypertension can contribute to chest discomfort. (4) Hospital discharge follow-up: Code(s): Z09 - Encounter for follow-up examination after completed treatment for conditions other than malignant neoplasm Category: Medical Plan: As above (5) Hyperlipidemia: Code(s): E78.5 - Hyperlipidemia, unspecified Category: Medical Plan: LDL goal less than 100. Recently started on atorvastatin. Fasting lipids and liver profile ordered. (6) Palpitation: Code(s): R00.2 - Palpitations Category: Medical Plan: PACs and PVCs seen during hospitalization. Will check Holter monitor. Plan We discussed the non-obstructive findings from the cardiac catheterization showing open coronary arteries, making the likelihood of myocardial infarction low. The patient understands the possible role of stress-induced hypertension or non-cardiac chest pain?possibly esophageal spasm?could be contributory. Strong emphasis was placed on blood pressure management and lifestyle modifications, including dietary sodium reduction. The significance and low-risk potential of her PACs and PVCs were explained with the recommendation for a Holter monitor to ensure no significant arrhythmias are present, all contingent on symptom recurrence or exertion limits. The patient is informed about the necessary fasting cholesterol recheck for atorvastatin efficacy and agreed to monitor blood pressure with advised parameters. The patient consented to the proposed management plan and understands that she should seek emergency care if symptoms worsen. The follow-up plan includes returning for results discussion, managing future concerns, and periodic reassessment of interventions. Orders: Orders ECG 3 day holter monitor Today R00.2 - Palpitations Liver Panel Today E78.5 - Hyperlipidemia, unspecified Lipid Panel Today E78.5 - Hyperlipidemia, unspecified Patient Instructions: - Monitor blood pressure regularly and aim for readings below 130/80 mmHg. - Reduce salt intake in your diet. - Manage stress; consider relaxation techniques. - Expect a call to schedule a Holter monitor appointment. - Get a fasting cholesterol test before the next visit. - Monitor for any potential patterns in symptoms and contact if the symptoms reoccur like before. - If experiencing severe chest pain, visit the ER. - Baby aspirin can be taken if suspected heart attack symptoms occur. - Plan a follow-up visit to discuss monitoring results and check symptoms in a few months. Patient was informed and verbally consented to the use of an ambient scribe for clinic note documentation during this visit. Visit time spent on chart review, interview, assessment, orders, documentation. Coding Level of Care Code Est Pt Level 4 (24089) Complex EM visit Add On G2211 Diagnoses Chest pain R07.9 S/P cardiac cath Z98.890 Elevated BP without diagnosis of hypertension R03.0 Hospital discharge follow-up Z09 Hyperlipidemia E78.5 Palpitation R00.2 Time Spent (min) 36
--- OUTSIDE RECORDS SUMMARY | 2024-09-05 09:49 | XMS_ITS ---
Author Organization Jaime Russ III, MD Address [address] [place] [place] [address] Care Team Providers Care Oracle Sql Developer Name Role Phone Jaime Russ Primary Care [...] Problem Status W/U Status Risk Notes Problem [id number] Intermittent chest pain (R07.9) Active confirmed It [...] Date Provider Diagnosis Jaime Russ III, MD [address] [place] [address] [place] [address] 09/01/2024 Jaime Russ Intermittent chest p ain [...] with prolonged exertion. She has not her transitional living specialist recently. 09/01/2024 Right lower lobe pulmonary [...] 2 Months, Reason: OV Provider Name:Jaime Russ, 11/01/2024 10:30:00 AM, [address] [place] [address] , [address], [address], Provider Name:Jaime Russ, 08/03/2025 09:30:00 AM, [address] [place] [address] JERICA OCHOA, [place], [id number], Progress Notes * Umberto SAEED (BILLINGS)justenDOB: 1955 (69 yo F)Acc No.[id number]:09/01/2024 Patient:?Filomena SAEED (BILLINGS) Provider:?Jaime Russ MD :1955???Age:69 Y???Sex:Female D ate:09/01/2024 Address:[address] [place], [place] [address]Trish [phone] Subjective: * Chief Complaints: * ???Hospital Follow upwas inp t at from 08/12/2024-5Chest pain * HPI: ???COVID-19 Screening:?She was recently admitted to [facility] August 12 through August 15, 2024 for chest pain.? She went to the emergency room where her EKG was equivocal with nonspecific ST-T wave changes. Her troponins were normal.? She was seen in consultation by cardiology, Dr. Crouch.? Her monitoring showed only peripheral ventricular contractions.? After discharge she was taken to [facility] on August 22, 2024 and underwent cardiac catheterization which showed normal coronary anatomy and contractility and valves. She has her next appointment with cardiology September 05, 2024.? She comes in today in follow-up. ?Questions?Have you had any new onset fever, chills, cough, congestion, sore throat, shortness of breath, muscle aches??No * ROS:?General/Constitutional:?pain?only normal aches and pains.?Chills?denies.?Fatigue?admits.?Fever?denies.?ENT:?Decreased hearing?denies.?Respiratory:?Cough?denies.?Cardiovascular:?Chest pain with exertion??resolved.?Dyspnea on exertion?with moderate activity.?Shortness of breath?with exertion.?Gastrointestinal:?Constipation?denies.?Decreased appetite?denies.?Diarrhea?denies.?Heartburn?denies.?Nausea?denies.?Rectal bleeding?denies.?Vomiting?denies.?Hematology:?bruising?denies.?petechiae?denies.?Swollen glands?none have been noted.?Genitourinary:?Frequent urination?denies.?Musculoskeletal:?Muscle aches?denies.?Painful joints?denies.?Sciatica?denies.?Weakness?denies.?Skin:?Itching?denies.?Rash?denies.?Skin lesion(s)?denies.?Neurologic:?Difficulty speaking?denies.?Dizziness?denies.?Headache?denies.?Low back pain?denies.?Psychiatric:?Depressed mood?denies.? * Medical History:? * Surgical History:?left breas t lumpectomy stage 1A infiltrating ductal carcinoma 01/2016lumpectomy, fibroadenoma, left breast 1974partial hysterectomy with unilateral O oophorectomy 1986lumpectomy left breast, DCIS 1995segmentectomy by Dr Forbes at [facility], Benign granuloma 06/24/2022Lung surgery * Hospitalization/Major Diagno stic Procedure:?Low back pain 04/2019lung resection only in 2 days 06/24/2022inpt at with chest pain 08/12/2024 * Family History:?Father: dece ased 79 yrs.?Mother: [...] smoked??1-5 years ?Additional Findings: Tobacco non-user?Ex-cigarette smoker ???She is and lives independently. She has a significant other boyfriend in [place]. A daughter has a history of substance abuse. She has a son who works as a residential counselor. She stopped smoking in 2015. * Medications:?TakingSertralin e HCl 50 MG Tablet [...] patient * Allergies:?SeasonaleTamoxife n CitrateNo Known Food Allergyno[Allergies Verified] Objective: * Vitals:?Ht: 69, Wt:168, BMI: 24.81, BP:110/60, HR:71, Temp:98.0, Wt-k.2. * Examination: ???General Examination: ?GENERAL APPEARANCE:?pleasant, well nourished, well developed, in no acute distress, calm and relaxed, woman.?HEAD:?atraumatic, normocephalic.?EYES:?eomi, perrla, anicteric, conjugate.?EARS:?normal.?NOSE:?septum intact.?ORAL CAVITY:?normal, unremarkable.?NECK/THYROID:?no jugular venous distention, no carotid bruit, thyroid normal.?LYMPH NODES:?no enlarged lymph nodes,spleen normal.?SKIN:?no suspicious lesions, anicteric.?HEART:?no clicks, gallops, murmurs, or rubs, regular rhythm, S1, S2 normal, no s3, or vascular bruits.?LUNGS:?, diminished breath sounds throughout, good air movement, no wheezes, rales, rhonchi.?BREASTS:??no masses palpable bilaterally.?ABDOMEN:?bowel sounds normal, no ascites, no organomegaly, no mass.?RECTAL EXAM:?not examined.?MUSCULOSKELETAL:?extremities unremarkable, no clubbing, cyanosis or edema.?PERIPHERAL PULSES:?normal.?NEUROLOGIC:?alert and oriented, cranial nerves 2-12 grossly intact, deep tendon reflexes 2+ symmetrical, motor strength normal upper and lower extremities, sensory exam intact.?PSYCH:?alert, oriented.? Assessment: * Assessment: 1.?Intermittent chest pain - R07.9 (Primary)???Notes :It is likely that this is noncardiac chest pain.? It could possibly be vasospasm.? She has an appointment with cardiology next week which I urged her to continue.? The cardiac catheterization showed normal valves and contractility and septum and coronary anatomy.???2.?Multiple sclerosis - G35???Notes :There was no sign of activity of this process. She remained stable. No treatment is necessary. Surveillance will continue.???3.?Malignant neoplasm of upper-outer quadrant of left female breast, unspecified estrogen receptor status - C50.412???Notes :There was no sign of return breast cancer today. Breast of monthly. She will be up-to-date with a???4.?Reactive depression - F32.9???Notes :She appears to be stable. No increase in her depression or depressive symptoms has occurred. She continues on sertraline. She does not have a history of worsening depression around the winter holidays.???5.?Anxiety - F41.9???Notes :We discussed ways of coping with anxiety without using medication. Her anxiety is mild and her depression is minimal distention.???6.?Lumbosacral radiculopathy due to degenerative joint disease of spine - M47.27???Notes :Pain in the right hip may be from nerve impingement in the lumbar spine or from the joint. X-rays will be done in an orthopedic consultation will be arranged.???7.?Degenerative disc disease at L5- S1 level - M51.36???Notes :Her back pain is mild. She is avoiding heavy lifting and says to range of motion of the spine is normal.???8.?Overweight - E66.3???Notes :She has gained a few pounds and is very slightly overweight. We reviewed her weight loss strategy. We made a plan to return to the mid range of normal of her BMI.???9.?Former smoker - Z87.891???Notes :We have formulated a plan to reemain abstinent in times of stress and illness.???10.?Chronic obstructive pulmonary disease, unspecified COPD type - J44.9???Notes :No longer smoking. She is comfortable breathing room air. Is somewhat short of breath with prolonged exertion. She has not her transitional living specialist recently.???11.?Right lower lobe pulmonary nodule - R91.1???Notes :The tumor was a benign lesion with granulomatous. Although the lymph nodes were negative. She continues to smoke cigarettes and we have aggressively discussed smoking cessation today. The wounds have healed.??? Plan: * Treatment: 2.?Others? Continue Sertraline HCl Tablet, 50 MG, TAKE 1 TABLET BY MOUTH TWICE DAILY;?Continue Anoro Ellipta Aerosol Powder Breath Activated, 62.5-25 MCG/ACT, Inhalation;?Continue tiZANidine HCl Tablet, 2 MG, TAKE 1 TABLET BY MOUTH DAILY AT BEDTIME NEEDED, Oral.?? * Procedure Codes:? * Preventive Medicine:? ??Counseling:?Care goal follow-up plan:?Counseling for abnormal BMI given?Yes ?Above Normal BMI Follow-up?Dietary management education, guidance, and counseling ?Smoking/Tobacco Use?Patient counseled on the dangers of tobacco use and urged to quit.?09/01/2024 ??COPD Care Plan:?Patient Lifestyle Goals?Relieve symptoms and improve quality of life, Reduce number of ED and hospitalizations, Be able to be more active with friends and family.?Treatment Goals?Exercise to help whole body, including lungs, Eat a nutritious diet and increase water consumption to 6-8 glasses a day, Eat 4-5 small meals throughout the day.?Barriers?no barriers.?Self-Managment Goals?Eat a healthy diet, Get an air purifier for the rooms you are in the most.? * Follow Up:?2 Months (Reason: OV) * Images: * Sign off status: Completed true * Provider:?Jaime Russ MD Date:?08/05 Generated for Princess sarmiento/Zoila/Amrik on:?09/05/2024 09:48 AM EDT History and Physical Notes * [...]
== END 2024-09-05 09:54 | disposition home or self-care (01) ==
LOC: HO.HCS 09:03
PROVIDERS: PCP Internal Medicine Medical Oncology; Visit Provider Nurse Practitioner Family
DX: R07.9 Chest pain, unspecified (principal); Z98.890 Other specified postprocedural states; R03.0 Elevated blood-pressure reading, without diagnosis of hypertension; Z09 Encounter for follow-up examination after completed treatment for conditions other than malignant neoplasm; E78.5 Hyperlipidemia, unspecified; R00.2 Palpitations
CPT/HCPCS: 99214; G2211

== ENCOUNTER → 2024-09-05 09:02 | Outpatient (BNVA) | payer MEDICARE, SELFPAY | PROVIDERS: PCP Internal Medicine Medical Oncology; Visit Provider Nurse Practitioner Family | DX: R07.9 Chest pain, unspecified (principal); R00.2 Palpitations; R03.0 Elevated blood-pressure reading, without diagnosis of hypertension; E78.5 Hyperlipidemia, unspecified; Z09 Encounter for follow-up examination after completed treatment for conditions other than malignant neoplasm; Z87.891 Personal history of nicotine dependence; Z98.890 Other specified postprocedural states | CPT/HCPCS: 99212 ==

== ENCOUNTER → 2024-09-15 13:31 | Outpatient (REF) | payer MEDICARE, SELFPAY ==
--- OUTSIDE RECORDS SUMMARY | 2024-09-15 13:46 | XMS_ITS ---
Author Organization Jaime Russ III, MD Address [address] [place] [address] Care Team Providers Care Roll Forming Machine Set Up Operator Name Role Phone Jaime Russ Primary [...] Problem Status W/U Status Risk Notes Problem [id number] Intermittent chest pain (R07.9) Active confirmed It [...] Date Provider Diagnosis Jaime Russ III, MD [address] [place] [address] [place] [address] 09/01/2024 Jaime Russ Intermittent chest p ain [...] with prolonged exertion. She has not her application integration specialist recently. 09/01/2024 Right lower lobe pulmonary [...] OV Provider Name:Jaime Russ, 11/01/2024 10:30:00 AM, [address] [place] [address] , [address], [address], Provider Name:Jaime Russ, 08/03/2025 09:30:00 AM, [address] [place] [address] J[place]ICA OCHO[place], [place], [address], Progress Notes * Umberto SAEED (BILLINGS)justenDOB: 1955 (69 yo F)Acc No.[id number]:09/01/2024 Patient:?Filomena SAEED (BILLINGS) Provider:?Jaime Russ MD :1955???Age:69 Y???Sex:Female D ate:09/01/2024 Address:[address] [place], [place] [address]DANNACARTrish Mike MAHG-[id number] Subjective: * Chief Complaints: * ???Hospital Follow upwas inp t at from 08/12/2024-5Chest pain * HPI: ???COVID-19 Screening:?She was recently admitted to [facility] August 12 through August 15, 2024 for chest pain.? She went to the emergency room where her EKG was equivocal with nonspecific ST-T wave changes. Her troponins were normal.? She was seen in consultation by cardiology, Dr. Crouch.? Her monitoring showed only peripheral ventricular contractions.? 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 A daughter has a history of substance [...] with prolonged exertion. She has not her application integration specialist recently.???11.?Right lower lobe pulmonary nodule - [...] Russ MD Date:?08/05 Generated for Princess sarmiento/Zoila/Amrik on:?09/15/2024 01:46 PM EDT History and Physical Notes * [...]
== END ==
LOC: HO.CARD 13:31
PROVIDERS: PCP Internal Medicine Medical Oncology; Visit Provider Nurse Practitioner Family
DX: R00.2 Palpitations (principal)
CPT/HCPCS: 93242

== ENCOUNTER → 2024-09-15 13:34 | Outpatient (BNV) | payer MEDICARE, SELFPAY | PROVIDERS: PCP Internal Medicine Medical Oncology; Visit Provider Internal Medicine | DX: I48.91 Unspecified atrial fibrillation (principal) | CPT/HCPCS: 93244 ==

== ENCOUNTER 2024-10-31 09:18 | Outpatient (AMB) | payer MEDICARE, SELFPAY ==
--- OUTSIDE RECORDS SUMMARY | 2024-09-01 07:00 | XMS_ITS ---
Author Organization Jaime Russ III, MD Address [address] [place] [address] Care Team Providers Care Varnish Mixer Name Role Phone Jaime Russ Primary Care [...] Problem Status W/U Status Risk Notes Problem [id number] Intermittent chest pain (R07.9) Active confirmed It [...] Provider Diagnosis Jaime Russ III, MD [address] [place] [address] [place] [address] 09/01/2024 Jaime Russ Intermittent chest p ain [...] of worsening depression around the winter holidays. 09/01/2024 Anxiety (ICD-10 - F41.9) We discussed [...] with prolonged exertion. She has not her adult specialist recently. 09/01/2024 Right lower lobe pulmonary [...] Up: 2 Months, Reason: OV Provider Name:Jaime Russ, 11/02/2024 10:00:00 AM, [address] [place] [address] , [address], [address], Provider Name:Jaime Russ, 08/03/2025 09:30:00 AM, [address] [place] [address] JERICA OCHOA, [place], [address], Progress Notes * Umberto SAEED (BILLINGS)justenDOB: 1955 (69 yo F)Acc No.[id number]:09/01/2024 Patient: Filomena MENJIVAR (BILLINGS) Provider: Kenan Russ MD :1955 A ge:69 Y S ex:Female Date:09/01/2024 Address:[address] [place], [place] [id number] Subjective: * Chief Complaints: * H ospital Follow upwas inpt at from 08/12/2024-5Chest pain * HPI: C OVID-19 Screening: She was recently admitted to [facility] August 12 through August 15, 2024 for chest pain.? She went to the emergency room where her EKG was equivocal with nonspecific ST-T wave changes. Her troponins were normal. She was seen in consultation by cardiology, Dr. Crouch. Her monitoring showed only peripheral ventricular contractions. After discharge she was taken to [facility] on August 22, 2024 and underwent cardiac [...] breast, DCIS 1995segmentectomy by Dr Forbes at [facility], Benign granuloma 06/24/2022Lu surgery * Hospitalization/Major Diagno stic Procedure: L [...] She has a significant other boyfriend in [place]. A daughter has a history of substance [...] with prolonged exertion. She has not her adult specialist recently. 1 1. R ight lower [...] MD Date: 0 09/01/2024 Generated for Princess sarmiento/Zoila/Sulemanitting on: 0 10/31/2024 09:44 AM EDT History and Physical Notes * [...]
[2024-10-31 09:22] VITALS: BP 114/82; PULSE 63; BMI 24.8
--- NOTE | 2024-10-31 09:22 | A.OFFVIS_ITS ---
Vital Signs 10/31/24 09:22 Height 5 ft 9 in Weight 167 lb 15.876 oz BMI 24.8 BP 114/82 Blood Pressure Location Lt brachial Position Sitting Pulse 63 Pulse Source Pulse Oximeter Intake Visit Reasons: per Bess r/s from dec Technical Maintenance Technician Required: No Correctional Casework Specialist: Correctional Casework Specialist Present Allergies No Known Allergies (No Known Allergies*) Allergy (Verified 10/31/24 09:24) Medication List - Last Reconciled 10/31/24 by TAWANA Zee acetaminophen ER 650 mg PO Q8H PRN apixaban (Eliquis) 5 mg PO BID atorvastatin 40 mg PO DAILY cholecalciferol (vitamin D3) (Vitamin D3) 50 mcg PO DAILY dicyclomine 10 - 20 mg PO Q6H PRN donvebnbxmj-pmwjajgxb-pcdulzgb 200-62.5-25 mcg (Trelegy Ellipta) 1 inh inhalation DAILY melatonin 10 mg PO BEDTIME metoprolol tartrate 12.5 mg (1/2 x 25 mg) PO BID nebulizers As directed sertraline 50 mg PO DAILY tizanidine 2 mg PO BEDTIME PRN HPI HPI per Bess r/s from dec: Details: Filomena is a 69-year-old female with past medical history of asthma, smoking, hyperlipidemia who was recently admitted to [facility] with mid chest discomfort. Her troponin levels were normal, EKG did show T-wave inversions anteriorly. Nuclear stress test was suggestive of RCA territory ischemia. She underwent cardiac catheterization showing normal coronary arteries. On follow-up visit she reported heart palpitations and underwent Holter monitor showing episodes of paroxysmal atrial fibrillation. She was started on low-dose metoprolol and Eliquis and now presents for follow-up. Today she reports she continues to have heart palpitations on the metoprolol 12.5 mg b.i.d.. She says she mostly notices it at night when she is laying down. She can feel her heart beating irregularly. She does not notice concerning heart palpitations during the day. No lightheadedness, presyncope, syncope. No longer having issues with chest discomfort. No shortness of breath, PND, orthopnea or edema. 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 She reports passing a small amount of blood in her stool. She reports having diverticulosis. She also has been taking Celebrex but no longer is. is present [facility] Medical History Pulmonary nodules Pulmonary nodule History of breast cancer Personal history of nicotine dependence COPD (chronic obstructive pulmonary disease) Bronchitis Chronic allergic rhinitis Asthma-COPD overlap syndrome Surgical History History of pneumonectomy History of cone biopsy of cervix History of tonsillectomy History of lumpectomy of left breast History of hysterectomy Family History Mother Heart disease Social History Household Members: Spouse Household Members Other:: Carlos Housing: House Do you presently have visiting nurse or other home services: No Alcohol intake: current Alcohol intake frequency: a few times a week Patient Tobacco Use Status: Former Tobacco user Tobacco use type: Cigarette Cigarette Packs Per Day: 1 Years Smoked: 40 Second Hand Smoke Exposure: No service: No Sexual orientation: Straight/Heterosexual Gender identity: Female Review of Systems Const All systems reviewed & are unremarkable except as noted in HPI and below ENT Denies dizziness Card Details: heart palpitations Denies chest pain, Denies chest pain at rest, Denies chest pain with activity, Denies rapid heart rate, Denies pedal edema, Denies edema, Denies leg edema, Denies lightheadedness, Denies palpitations, Denies dyspnea, Denies dyspnea on exertion and Denies orthopnea Resp Denies cough, Denies dyspnea and Denies dyspnea on exertion GI Denies hematochezia and Denies change in stool character Musc Denies abnormal gait, Denies limited range of motion, Denies muscle cramps, Denies muscle weakness, Denies numbness, Denies radiating pain into limb, Denies stiffness and Denies tingling Neuro Denies abnormal gait, Denies dizziness, Denies numbness and Denies tingling Endo Denies palpitations Physical Exam Vital Signs: Last Vital Signs Pulse 63 10/31/24 09:22 BP 114/82 10/31/24 09:22 BMI result Body Mass Index 24.8 Const General: cooperative, healthy appearing, comfortable and no acute distress Orientation/consciousness: patient oriented x3 Neck Neck: Yes normal visual inspection and Yes no JVD Resp Effort & Inspection: normal respiratory effort Auscultation: clear to auscultation bilaterally, no rales, no rhonchi and no wheezes Cardio Rate: regular rate Rhythm: regular rhythm Heart sounds: S1 normal heart sound present, S2 normal heart sound present, no gallops, no murmurs and no rubs Neuro General: patient oriented x3 Extrem General: Yes normal to inspection, No no pedal edema and No calf tenderness Psych Appearance: grossly normal Mental Status: mental status grossly normal Speech and movement: Normal speech and movement present Assessment & Plan Assessment & Plan (1) PAF (paroxysmal atrial fibrillation): Code(s): I48.0 - Paroxysmal atrial fibrillation Category: Medical Plan: New finding of paroxysmal atrial fibrillation is seen on Holter monitor. Holter done 09/15/2024 for heart palpitation showing sinus rhythm with average heart rate 83 beats per minute, atrial fibrillation with burden 11.4%, longest episode 8 hours with max rate 156, frequent SVE, burden 3.8%, rare ventricular ectopy, burden 0.6%. She was put on metoprolol tartrate 12.5 mg b.i.d. and Eliquis 5 mg b.i.d.. Currently still having heart palpitations. Will have her increase metoprolol tartrate to 25 mg b.i.d.. She has had lightheadedness in the past on higher doses. Instructed to call if she continues to have heart palpitations on this dose, then antiarrhythmic may need to be added. She does report passing a small amount of blood rectally. Instructed her to continue to monitor and discuss it with her GI provider, letting them know she is now on Eliquis. Cardiology follow-up in 3 months for re-evaluation, sooner if needed. (2) Chest pain: Code(s): R07.9 - Chest pain, unspecified Category: Medical Plan: Prior reports of chest discomfort. Her EKG did show anterior T-wave inversions which were also noted on other EKGs in our system. Troponin levels normal. Her echocardiogram 08/14/2024 showed EF 60-65%, mild LVH, grade 1 diastolic dysfunction, no reported regional wall motion abnormality. Nuclear stress 08/14/2024 showed hvghr-zd-hwbllmms size minimal to mild intensity basal to mid inferior wall ischemia, RCA territory. She was transferred for cardiac catheterization done on 08/22/2024 showing normal coronary arteries. Currently no chest pains. She was taken off aspirin as she is now on Eliquis. She continues on atorvastatin, ideal LDL goal now less than 100. (3) S/P cardiac cath: Comment: 08/22/2024 normal coronary arteries Code(s): Z98.890 - Other specified postprocedural states Category: Surgical (4) Hyperlipidemia: Code(s): E78.5 - Hyperlipidemia, unspecified Category: Medical Plan: LDL goal less than 100. Recently started on atorvastatin. Fasting lipids and liver profile ordered. (5) Palpitation: Code(s): R00.2 - Palpitations Category: Medical Plan: PACs and PVCs seen during hospitalization. Holter showing PAF and frequent PACs. Now on metoprolol. Plan Time spent on chart review, documentation, interview and assessment Medications: Changed From metoprolol tartrate Take 1/2 tab twice daily 12.5 mg (1/2 x 25 mg) PO BID 30 tabs 5RF To metoprolol tartrate 25 mg PO BID 60 tabs 5RF Coding Level of Care Code Est Pt Level 4 (50463) Complex EM visit Add On G2211 Diagnoses PAF (paroxysmal atrial fibrillation) I48.0 Chest pain R07.9 S/P cardiac cath Z98.890 Hyperlipidemia E78.5 Palpitation R00.2 Time Spent (min) 32
--- OUTSIDE RECORDS SUMMARY | 2024-10-31 09:45 | XMS_ITS | Patient Health Record ---
Author Organization [facility] Address [address] [facility] [place] [address] Care Team Providers Care Signal Processing Engineer Name Role Phone Jaime Russ MD Primary Care Provider Jaime Chambers Unavailable [phone] Allergies No Known Allergies Reason For Referral No Information Medications Medication SIG (Take, Route, Frequency, Duration) Notes Start Date End Date Status Cyclobenzaprine HCl 5 MG TAKE 1 TABLET B Y MOUTH EVERY DAY AT BEDTIME Oral for 90 M797,Lex terry Active Trelegy Ellipta 200-62.5-25 MCG/ACT Inhalation for 30 Act veronika Vitamin E Active Dicyclomine HCl 10 MG TAKE 1 TO 2 CAPSULES BY MOUTH EVERY 6 HOURS NEEDED FOR ABDOMINAL CRAMPS/DISCOMFORT Orally Every 6 hours as needed for 30 days Active Ondansetron 4 MG 1 tablet on the tongue and allow to dissolve Orally Every 6 hours as needed for nausea for 30 day(s) 04/07/2024 Active Vitamin D3 Active Social History Tobacco Use: Social History Observation Description Date Details (start date - stop date) Former Smoker NA - NA Tobacco Use/Smoking Question Answer Notes Patient is a former smoker How long has it been since you last smoked? 5-10 years Alcohol Screen Question Answer Notes Did you have a drink contain ing alcohol in the past year? Yes How often did you have a dri nk containing alcohol in the past year? 2 to 3 times a week (3 points) How many drinks did you have on a typical day when you were drinking in the past year? 1 or 2 drinks (0 point) How often did you have 6 or more drinks on one occasion in the past year? Never (0 point) Points 3 Interpretation Positive Section Notes: Nonsmoker x 5 years, 1 or 2 drinks about 4 times per week Problems Problem Type SNOMED Code ICD Code Onset Dates Problem Status W/U Status Risk Notes Problem [id number] Colon cancer screening (Z12.11) Active confirmed Problem 23291198 Change in bowel habits (R19.4) Active confirmed Problem Diverticulosis o f large intestine without perforation or abscess without bleeding (K57.30) Active confirmed Problem 002272008 Abdominal cramps (R10.9) Active confirmed Problem 91578186 Diarrhea, unspecified type (R19.7) Active confirmed Encounters Encounter Location Date Provider Diagnosis [facility] [address] [place] [phone] 04/03/2024 Jaime Preciado [facility] [address] [place] [phone] 04/07/2024 Jaime Preciado Plan Of Treatment Pending Test Test Name Order Date CRP 12/17/2022 CBC w DIFF 12/17/2022 SED RATE (ESR) 12/17/2022 TSH reflex Free T4 12/17/2022 Celiac Panel 10 12/17/2022 Future Test Test Name Order Date COLONOSCOPY 12/17/2022 Insurance Providers Payer Name Payer Address Payer Phone Subscriber Number Group Number Insured Name Patient Relationship to Insured Coverage Start Date Coverage End Date HMO BLUE BCBS PROF[employer] L CLAIMS [address] [place] [address] [id number] ENRIQUE GUIDO Self - patient is the insured MED[place] [address] [place] [address] [id number] ENRIQUE GUIDO Self - patient is the insured Medical (General) History Medical History History ICD Code COPD Left breast cancer 2015- lumpectomy and Tamoxifen Fibromyalgia Denies ND,DM,CVA,renal disease Negative screening colonosco py at age 49 or so--done while living on [facility] Lung nodule with surgery as below Surgical History Surgery Date(Month/Year) Lumpectomy, left breast 2015 Partial right lung resection for benign lesion-Dr. Forbes 06/2022 Hysterectomy with removal of 1 ovary 199 7
--- OUTSIDE RECORDS SUMMARY | 2024-10-31 09:45 | XMS_ITS | Patient Health Record ---
Author Organization [facility] Address [address] [place] [address] Care Team Providers Care Horse Race Timer Name Role Phone SUKH EDMONDS Unavailable Allergies No Known Allergies Reason For Referral Reason EVAL AND TREAT Diagnosis 1 Anxiety (F41.9) Referral Organization [facility] + Referring Provider First Name SUKH Referring Provider Last Name ARISTEO Penn Referring Provider Speciality Family Med icine Referred Provider Specialty Psychiatry Referral Priority Routine Referral Appointment Date 02/24/2024 Reason EVAL AND TREAT Diagnosis 1 Anxiety (F41.9) Referral Organization [facility] Referring Provider First Name SUKH Referring Provider [...] Problem Status W/U Status Risk Notes Problem [id number] Anxiety (F41.9) Active confirmed Vital Signs Height 69 in 02/24/2024 Patient Reported Normal Blood Pressure Patient Reported Normal Temperature Weight 172 lbs 02/24/2024 Patient Reported Normal Blood Pressure Patient Reported Normal Temperature BMI 25.4 kg/m2 02/24/2024 Patient Reported Normal Blood Pressure Patient Reported Normal Temperature Encounters Encounter Location Date Provider Diagnosis [facility] [address] [place] [address] 02/24/2024 SUKH EDMONDS Anxiety F41.9 Assessments Encounter [...] are a list of different online options: https://www.[employer].com/ https://www.[employer]/ https://www.Pre Play Sports.[employer]/ https://www.EZbuildingEHS.[employer]/ https://get.Nonstop Games.[employer] Take medicines exactly as directed. Call your doctor if you think you are having a problem with your medicine. Go to your counseling sessions and follow-up appointments. Call 911 anytime you think you may need emergency care. For example, call if: You feel you cannot stop from hurting yourself or someone else. Keep the numbers for these national suicide hotlines: Dial 988, 6-760-978-TALK ( ) or 2-421-MIQLPTP ( ) . If you or someone [...] Insured Coverage Start Date Coverage End Date [facility] [address] [place] [address] [id number] Filomena Saeed Self - patient is the insured Medical (General) History Medical History History ICD Code COPD 11/24/2021
--- OUTSIDE RECORDS SUMMARY | 2024-10-31 09:45 | XMS_ITS | Clinical Summary ---
Author Organization [facility] Address [address] [place] [address] Phone Care Team Providers Care Plant Buyer Name Role Phone Ariana Russ MD Primary Care Provider [phone] Social History Tobacco Use Types Packs/Day Years Used Date Smoking Tobacco: Former Cigarettes Q uit: 05/06/2022 Comments Unknown Sex and Gender Information Value Date Recorded Sex Assigned at Not on file Legal Sex Female 11:22 AM EST Gender Identity Not on file Sexual Orientation Not on file Obstetrics History Last Filed Vital Signs Vital [...] 07/07/2022 10:33 AM EDT Plan of Treatment Health Maintenance Due Date Last Done Comments DTaP,Tdap,and Td Vaccines (1 - Tdap) 1973 Pneumococcal Vaccine: 50+ Years (1 of 1 - PCV) 2004 Zoster Vaccines (1 of 2) 2004 Colorectal Cancer Screening: Colonoscopy 03/03/2022 Falls Risk Assessment 03/03/2022 Hepatitis C Screening 03/03/2022 Medicare Annual Wellness Visit 03/03/2022 Social Influencers of Health Screening 03/03/2022 COVID-19 Vaccine ( season) 2023 Depression Screening 04/05/2024 Influenza Vaccine (#1) 2024 Breast Cancer Screening 08/12/2025 08/13/19 24, [...] Procedure Name Priority Date/Time Associated Diagnosis Comments [facility] SCREENING DIGITAL Routine 08/13/2023 10:07 AM EDT Encounter for screening mammogram for malignant neoplasm of breast [facility] DEXA AXIAL SKELETON Routine 06/30/2021 2:58 PM EDT Encounter for screening for osteoporosis from Last 3 Months or Most Recently Relevant to Health Maintenance Results * [facility] SCREENING DIGITAL (08/13/2023 10:07 AM EDT) Anatomical Region Laterality Modality Mammography 08/13/2023 8:33 AM EDT Narrative 08/13/2023 10:07 AM EDT [facility] Diagnostic Imaging Department [address] [place] [address] Patient: ENRIQUE MERAZ /Age/Sex: 1955 - 68 - F Unit#: [id number] Location/Status: SPDIMAM/REG CLI Mnemonic/Ordering Site: [facility] Ordering Physician: ARIANA RUSS MD [facility] Screening Digital - 08/13/23 - 0846 Report Status:Signed EXAM: [facility] Screening Digital EXAM DATE AND TIME: 08/13/2023 8:46 AM HISTORY: Annual screening, history of left breast lumpectomy in 2016 COMPARISON: Multiple exams dating back to 2019 TECHNIQUE: Bilateral digital breast tomosynthesis was performed in the CC and MLO projections. Computer aided detection with EDUonGo 3D 3.1 was employed. TISSUE DENSITY: b. There are scattered areas of fibroglandular density. FINDINGS: Postsurgical changes of lumpectomy in the left breast. No suspicious masses, grouped microcalcifications, or areas of architectural distortion are seen. The skin and vascularity are unremarkable. IMPRESSION: Stable mammographic appearance of the breasts. No evidence of malignancy is seen. A negative [...] Date/Time: 08/13/23 1006 Sign date/Time: 08/13/23 1007 Procedure Note Raysa Castellon MD - 11/22/2023 [facility] Diagnostic Imaging Department [address] [place] [address] Patient: ROSE MERAZTERESE Yi /Age/Sex: 1955 - 68 - F Unit#: [id number] Location/Status: SPDIMAM/REG CLI Mnemonic/Ordering Site: [facility] Ordering Physician: ARIANA RUSS MD [facility] Screening Digital - 08/13/238[address] Report Status:Signed EXAM: [facility] Screening Digital EXAM DATE AND TIME: 08/13/2023 8:46 AM HISTORY: Annual screening, history of left breast lumpectomy in 2016 COMPARISON: Multiple exams dating back to 2019 TECHNIQUE: Bilateral digital breast tomosynthesis was performed in the CCand MLO projections. Computer aided detection with Quire AI 3D 3.1was employed. TISSUE DENSITY: b. There [...] MD IMG BI PROCEDURES Final Result * [facility] DEXA AXIAL SKELETON (06/30/2021 2:58 PM EDT) Anatomical Region Laterality Modality Mammography 06/30/2021 1:24 PM EDT Narrative 06/30/2021 2:58 PM EDT [facility] Diagnostic Imaging Department [address] [place] [address] Patient: KTENRIQUE /Age/Sex: 1955 - 65 - F Unit#: [id number] [facility] Ordering Physician: ARIANA RUSS MD [facility] Dexa Axial Skeleton - 06/30/21 - 6306 HISTORY: Post menopausal woman with hormone depletion for screening bone densitometry. The patient is on calcium supplement with Vitamin D. TECHNIQUE: Bone densitometry is performed utilizing dual energy x-ray absorptiometry (DEXA) in the DxContinuum unit. The lumbar spine is evaluated in the AP projection and L1 through L4 are utilized. The proximal femora are evaluated in the AP projection bilaterally. FINDINGS: AP spine: Bone mineral density: 0.911 gm/cm2 T-score: -2.2 Z-score: -0.8 Dual Femur (mean): Bone mineral density: 0.675 gm/cm2 T-score: -2.6 Z-score: -1.6 IMPRESSION: Osteopenia in the lumbar spine. 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 [id number] A report detailing these results has been enclosed. Dictating Physician: PETERSON BRAND MD Electronically Signed by: PETERSON BRAND MD Dic Date/Time: 06/30/211456 Sign date/Time: 06/30/21 1458 Procedure Note Peterson Brand MD - 03/25/2022 [facility] Diagnostic Imaging Department [address] [place] [address] Patient: ENRIQUE MERAZO.B./Age/Sex: 1955 - 65 - F Unit#: [id number] Location/Status: [facility] CLI Mnemonic/Ordering Site: [facility] Ordering Physician: ARIANA RUSS MD [facility] Dexa Axial Skeleton - 06/30/21 - 7604 HISTORY: Post menopausal woman with hormone depletion for screening bone densitometry. The patient is on calcium supplement with Vitamin D. TECHNIQUE: Bone densitometry is performed utilizing dual energy x-ray absorptiometry (DEXA) in the DxContinuum unit. The lumbar spine isevaluated in the AP projection and L1 through L4 are utilized. The proximal femoraare evaluated in the AP projection bilaterally. FINDINGS: AP spine: Bone mineral density: 0.911 gm/cm2 T-score: -2.2 Z-score: -0.8 Dual Femur (mean): Bone mineral density: 0.675 gm/cm2 T-score: -2.6 Z-score: -1.6 IMPRESSION: Osteopenia in the lumbar spine. 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 [id number] A report detailing these results has been enclosed. Dictating Physician: PETERSON BRAND MD Electronically Signed by: PETERSON BRAND MD Dic Date/Time: 06/30/211456 Sign date/Time: 06/30/211457 Ariana Russ MD IMG BI PROCEDURES Final Result from Last 3 Months or Most Recently Relevant to Health Maintenance Insurance [employer] [employer] - [place] MEDIC[place] ADVANTAGE Care Teams Plant Buyer Relationship Specialty Start Date End Date Ariana Russ MD [address] [address] PCP - General 05/18/22
== END 2024-10-31 10:16 | disposition home or self-care (01) ==
LOC: HO.HCS 09:19
PROVIDERS: PCP Internal Medicine Medical Oncology; Visit Provider Nurse Practitioner Family
DX: I48.0 Paroxysmal atrial fibrillation (principal); R07.9 Chest pain, unspecified; Z98.890 Other specified postprocedural states; E78.5 Hyperlipidemia, unspecified; R00.2 Palpitations
CPT/HCPCS: 99214; G2211

== ENCOUNTER → 2024-10-31 09:18 | Outpatient (BNVA) | payer MEDICARE, SELFPAY | PROVIDERS: PCP Internal Medicine Medical Oncology; Visit Provider Nurse Practitioner Family | DX: I48.0 Paroxysmal atrial fibrillation (principal); R07.9 Chest pain, unspecified; Z98.890 Other specified postprocedural states; E78.5 Hyperlipidemia, unspecified; R00.2 Palpitations | CPT/HCPCS: 99212 ==

== ENCOUNTER 2024-11-02 10:25 | Outpatient (REF) | payer MEDICARE, SELFPAY ==
--- OUTSIDE RECORDS SUMMARY | 2024-09-01 07:00 | XMS_ITS ---
Author Organization Jaime Russ III, MD Address [address] [place] [address] Care Team Providers Care Surety Bond Agent Name Role Phone Jaime Russ Primary Care Provider [phone] Allergies Allergen (clinical drug ingredient) Drug/Non Drug [...] Problem Status W/U Status Risk Notes Problem [id number] Intermittent chest pain (R07.9) Active confirmed It [...] Provider Diagnosis Jaime Russ III, MD [address] [place] [address] [place] [address] 09/01/2024 Jaime Russ Intermittent chest p ain [...] with prolonged exertion. She has not her food safety specialist recently. 09/01/2024 Right lower lobe pulmonary [...] 2 Months, Reason: OV Provider Name:Jaime Russ, 11/23/2024 09:15:00 AM, [address] [place] [address] , [address], [address], Provider Name:Jaime Russ, 08/03/2025 09:30:00 AM, [address] [place] [address] JERICA OCHOA, [facility] [place], [address], Progress Notes * Umberto SAEED (BILLINGS)justenDOB: 1955 (69 yo F)Acc No.[id number]:09/01/2024 Patient: Filomena MENJIVAR (BILLINGS) Provider: Kenan Russ MD :1955 A ge:69 Y S ex:Female Date:09/01/2024 Address:[address] [place], [place] [id number] Subjective: * Chief Complaints: * H ospital Follow upwas inpt at from 08/12/2024-5Chest pain * HPI: C OVID-19 Screening: She was recently admitted to [facility] August 12 through August 15, 2024 for chest pain.? She went to the emergency room where her EKG was equivocal with nonspecific ST-T wave changes. Her troponins were normal. She was seen in consultation by cardiology, Dr. Crouch. Her monitoring showed only peripheral ventricular contractions. After discharge she was taken to [facility] on August 22, 2024 and underwent [...] breast, DCIS 1995segmentectomy by Dr Forbes at [facility], Benign granuloma 06/24/2022Lu surgery * Hospitalization/Major Diagno [...] She has a significant other boyfriend in [place]. A daughter has a history of substance [...] with prolonged exertion. She has not her food safety specialist recently. 1 1. R ight lower [...] 09/01/2024 Generated for Princess sarmiento/Zoila/Sulemanitting on: 0 11/02/2024 11:09 AM EDT History and Physical Notes * [...]
--- NOTE | ~2024-11-02 | XR_ITS ---
EXAMINATION: XR TIBIA FIBULA 2 VIEWS LEFT HISTORY: LEG PAIN, LEFT COMPARISON: Comparison is made with the prior examination dated 08/18/2016. FINDINGS: AP and lateral views of the left tibia and fibula are submitted. Osseous mineralization is normal. There is no fracture or dislocation. The visualized knee and ankle joint spaces are preserved. The soft tissues are unremarkable. XR/XR tibia fibula LT 2V IMPRESSION: Unremarkable examination of the left tibia and fibula. Electronically signed by: Jaime Haque MD 11/02/2024 10:57 AM EDT
--- OUTSIDE RECORDS SUMMARY | 2024-11-02 11:10 | XMS_ITS | Patient Health Record ---
Author Organization [facility] Address [address] [place] [address] Care Team Providers Care Hose Operator Name Role Phone SUKH EDMONDS Unavailable [phone] Allergies No Known Allergies Reason For Referral Reason EVAL AND TREAT Diagnosis 1 Anxiety (F41.9) Referral Organization [facility] Referring Provider First Name SUKH Referring Provider Last Name ARISTEO Penn Referring Provider Speciality Family Med icine Referred Provider Specialty Psychiatry Referral Priority Routine Referral Appointment Date 02/24/2024 Reason EVAL AND TREAT Diagnosis 1 Anxiety (F41.9) Referral Organization [facility] Referring Provider First Name SUKH Referring Provider [...] Problem Status W/U Status Risk Notes Problem [id number] Anxiety (F41.9) Active confirmed Vital Signs Height 69 in 02/24/2024 Patient Reported Normal Blood Pressure Patient Reported Normal Temperature Weight 172 lbs 02/24/2024 Patient Reported Normal Blood Pressure Patient Reported Normal Temperature BMI 25.4 kg/m2 02/24/2024 Patient Reported Normal Blood Pressure Patient Reported Normal Temperature Encounters Encounter Location Date Provider Diagnosis [facility] [address] [place] [address] 02/24/2024 SUKH EDMONDS Anxiety F41.9 Assessments Encounter [...] are a list of different online options: https://[email or web address].com.com/ https://www.MDdatacor.[employer] [employer]/ https://www.Intense.[place] [employer]/ https://www.[employer].[place] [employer]/ https://get.[employer].[place] [employer] Take medicines exactly as directed. Call your doctor if you think you are having a problem with your medicine. Go to your counseling sessions and follow-up appointments. Call 911 anytime you think you may need emergency care. For example, call if: You feel you cannot stop from hurting yourself or someone else. Keep the numbers for these national suicide hotlines: Dial 988, 4-963-104-TALK ( ) or 0-760-ZFRYCRX ( ) . If you or someone [...] Insured Coverage Start Date Coverage End Date [facility] [address] [place] [address] [id number] Filomena Saeed Self - patient is the insured Medical (General) History Medical History History ICD Code COPD 11/24/2021
--- OUTSIDE RECORDS SUMMARY | 2024-11-02 11:10 | XMS_ITS | Clinical Summary ---
Author Organization [facility] Address [address] [place] [address] Phone Care Team Providers Care Wire Drawing Setter Name Role Phone Ariana Russ MD Primary Care Provider [phone] Social History Tobacco Use Types Packs/Day Years [...] Procedure Name Priority Date/Time Associated Diagnosis Comments [facility] SCREENING DIGITAL Routine 08/13/2023 10:07 AM EDT Encounter for screening mammogram for malignant neoplasm of breast [facility] DEXA AXIAL SKELETON Routine 06/30/2021 2:58 PM EDT Encounter for screening for osteoporosis from Last 3 Months or Most Recently Relevant to Health Maintenance Results * [facility] SCREENING DIGITAL (08/13/2023 10:07 AM EDT) Anatomical Region Laterality Modality Mammography 08/13/2023 8:33 AM EDT Narrative 08/13/2023 10:07 AM EDT [facility] Diagnostic Imaging Department [address] [place] [address] Patient: ENRIQUE MERAZ /Age/Sex: 1955 - 68 - F Unit#: [id number] Location/Status: SPDIMAM/REG CLI Mnemonic/Ordering Site: [facility] Ordering Physician: ARIANA RUSS MD [facility] Screening Digital - 08/13/23 - 0846 Report Status:Signed EXAM: [facility] Screening Digital EXAM DATE AND TIME: 08/13/2023 8:46 AM HISTORY: Annual screening, history of left breast lumpectomy in 2016 COMPARISON: Multiple exams dating back to 2019 TECHNIQUE: Bilateral digital breast tomosynthesis was performed in the CC and MLO projections. Computer aided detection with [employer] 3D 3.1 was employed. TISSUE DENSITY: b. [...] Procedure Note Raysa Castellon MD - 11/22/2023 [facility] Diagnostic Imaging Department [address] [place] [address] Patient: ROSE MERAZTERESE Yi /Age/Sex: 1955 - 68 - F Unit#: [id number] Location/Status: SPDIMAM/REG CLI Mnemonic/Ordering Site: [facility] Ordering Physician: ARIANA RUSS MD [facility] Screening Digital - 08/13/23845 Report Status:Signed EXAM: [facility] Screening Digital EXAM DATE AND TIME: 08/13/2023 8:46 AM HISTORY: Annual screening, history of left breast lumpectomy in 2016 COMPARISON: Multiple exams dating back to 2019 TECHNIQUE: Bilateral digital breast tomosynthesis was performed in the CCand MLO projections. Computer aided detection with [employer] 3D 3.1was employed. TISSUE DENSITY: b. [...] MD IMG BI PROCEDURES Final Result * [facility] DEXA AXIAL SKELETON (06/30/2021 2:58 PM EDT) Anatomical Region Laterality Modality Mammography 06/30/2021 1:24 PM EDT Narrative 06/30/2021 2:58 PM EDT [facility] Diagnostic Imaging Department [address] [place] [address] Patient: KTENRIQUE /Age/Sex: 1955 - 65 - F Unit#: [id number] [facility] Ordering Physician: ARIANA RUSS MD [facility] Dexa Axial Skeleton - 06/30/21 - 3621 HISTORY: Post menopausal woman with hormone depletion for screening bone densitometry. The patient is on calcium supplement with Vitamin D. TECHNIQUE: Bone densitometry is performed utilizing dual energy x-ray absorptiometry (DEXA) in the Primekss unit. The lumbar spine is evaluated in the AP projection and L1 through L4 are utilized. The proximal femora are evaluated in the AP projection bilaterally. FINDINGS: AP spine: Bone mineral density: 0.911 gm/cm2 T-score: -2.2 Z-score: -0.8 Dual Femur (mean): Bone mineral density: 0.675 gm/cm2 T-score: -2.6 Z-score: -1.6 IMPRESSION: Osteopenia in the lumbar spine. 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 [address]23 A report detailing these results has been enclosed. Dictating Physician: PETERSON BARND MD Electronically Signed by: PETERSON BRAND MD Dic Date/Time: 06/30/211456 Sign date/Time: 06/30/21 1458 Procedure Note Peterson Brand MD - 03/25/2022 [facility] Diagnostic Imaging Department [address] [place] [address] Patient: ENRIQUE MERAZO.B./Age/Sex: 1955 - 65 - F Unit#: [id number] Location/Status: [facility] CLI Mnemonic/Ordering Site: [facility] Ordering Physician: ARIANA RUSS MD [facility] Dexa Axial Skeleton - 06/30/21 - 8463 HISTORY: Post menopausal woman with hormone depletion for screening bone densitometry. The patient is on calcium supplement with Vitamin D. TECHNIQUE: Bone densitometry is performed utilizing dual energy x-ray absorptiometry (DEXA) in the Primekss unit. The lumbar spine isevaluated in the AP projection and L1 through L4 are utilized. The proximal femoraare evaluated in the AP projection bilaterally. FINDINGS: AP spine: Bone mineral density: 0.911 gm/cm2 T-score: -2.2 Z-score: -0.8 Dual Femur (mean): Bone mineral density: 0.675 gm/cm2 T-score: -2.6 Z-score: -1.6 IMPRESSION: Osteopenia in the lumbar spine. 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 [address]128 A report detailing these results has been enclosed. Dictating Physician: PETERSON BRAND MD Electronically Signed by: PETERSON BRAND MD Dic Date/Time: 06/30/211456 Sign date/Time: 06/30/211457 Ariana Russ MD IMG BI PROCEDURES Final Result from Last 3 Months or Most Recently Relevant to Health Maintenance Insurance [employer] - [place] MEDICARE ADVANTAGE Care Teams Wire Drawing Setter Relationship Specialty Start Date End Date Ariana Russ MD [address] [address] PCP - General 05/18/22
--- OUTSIDE RECORDS SUMMARY | 2024-11-02 11:10 | XMS_ITS | Patient Health Record ---
Author Organization [facility] Address [address] [place] [address] Care Team Providers Care Shearing Supervisor Name Role Phone Jaime Russ MD Primary Care Provider Jaime Chambers Unavailable [phone] Allergies No Known Allergies Reason For Referral [...] Problem Status W/U Status Risk Notes Problem 730640489 Colon cancer screening (Z12.11) Active confirmed Problem 78691016 Change in bowel habits (R19.4) Active confirmed Problem Diverticulosis o f large intestine without perforation or abscess without bleeding (K57.30) Active confirmed Problem 103990510 Abdominal cramps (R10.9) Active confirmed Problem 14902613 Diarrhea, unspecified type (R19.7) Active confirmed Encounters Encounter Location Date Provider Diagnosis [facility] [address] [place] [phone] 04/03/2024 Jaime Preciado [facility] [address] [place] [phone] 04/07/2024 Jaime Preciado Plan Of Treatment Pending [...] BLUE [employer]BS PROF[employer] L CLAIMS [address] [place] [address] [id number] ENRIQUE GUIDO Self - patient is the insured MEDICAID OF [place] [address] [place] [address] [id number] ENRIQUE GUIDO Self - patient is the insured Medical (General) History Medical History History ICD Code COPD Left breast cancer 2015- lumpectomy and Tamoxifen Fibromyalgia Denies KS,DM,CVA,renal disease Negative screening colonosco py at age 49 or so--done while living on [facility] Lung nodule with surgery as below Surgical History Surgery Date(Month/Year) Lumpectomy, left breast 2015 Partial right lung resection for benign lesion-Dr. Forbes 06/2022 Hysterectomy with removal of 1 ovary 199 7
[2024-11-02 12:13] LABS: Alanine Aminotransferase 31 U/L (0-31); Albumin Level 4.4 g/dL (3.5-5.0); Alkaline Phosphatase 99 U/L (39-117); Aspartate Amino Transferase 24 U/L (5-31); Cholesterol 153 mg/dL (<200); HDL Cholesterol 59 mg/dL (>40); Total Protein 6.8 g/dL (6.5-8.0); Triglycerides 137 mg/dL (<150)
== END 2024-11-02 10:26 | disposition home or self-care (01) ==
LOC: HO.LAB 10:25
PROVIDERS: Absent Provider Nurse Practitioner Family; PCP Internal Medicine Medical Oncology; Visit Provider Internal Medicine Medical Oncology
DX: M79.605 Pain in left leg (principal); E78.5 Hyperlipidemia, unspecified
CPT/HCPCS: 36415; 73590; 80061; 80076

== ENCOUNTER → 2024-11-02 10:38 | Outpatient (BNV) | payer MEDICARE, SELFPAY | PROVIDERS: Absent Provider Nurse Practitioner Family; PCP Internal Medicine Medical Oncology; Visit Provider Radiology Diagnostic Radiology | DX: M79.605 Pain in left leg (principal) | CPT/HCPCS: 73590 ==

== ENCOUNTER 2025-01-29 13:56 | Outpatient (AMB) | payer MEDICARE, SELFPAY ==
--- OUTSIDE RECORDS SUMMARY | 2024-03-10 13:15 | XMS_ITS ---
Author Organization Jaime Russ III, MD Address [address] [place] [address] Care Team Providers Care Floor Covering Installer Name Role Phone Dr. Jaime Russ III Primary Care Provider Allergies Allergen (clinical drug ingredient) Drug/Non Drug Allergy documented on EMR Reaction Allergy Type Onset Date Status tamoxifen Tamoxifen Citrate Unknown Drug Allergy Active Seasonale Unknown Drug Allergy Active REASON FOR VISIT Follow-up Medications Medication SIG (Take, Route, Frequency, Duration) Notes Start Date End Date Status Cyclobenzaprine HCl 5 MG TAKE 1 TABLET B Y MOUTH EVERY DAY Active Trelegy Ellipta 100-62.5-25 MCG/ACT 1 puff Inhalation Once a day Active LORazepam 1 MG 1 tablet at bedtime as needed Orally Once a day 02/15/2024 Active Sertraline HCl 50 MG TAKE [address] [facility] TWICE DAILY Active LORazepam 1 MG 1 tablet at bedtime as needed Orally Once a day 12/27/2023 Active Social History Tobacco Use: Social History Observation Description Date Details (start date - stop date) Former Smoker NA - NA Sex Assigned At : Social History Observation Description Sex Assigned At Female Tobacco Use/Smoking Question Answer Notes Patient is a former smoker How long has it been since y ou last smoked? 1-5 years Additional Findings: Tobacco User Light cigarett e smoker ((1-9 cigs/day) Additional Findings: Tobacco Non-User Ex-cigaret te smoker Encounters Encounter Location Date Provider Diagnosis Jaime Russ III, MD [address] [place] [address] [place] [address] 03/10/2024 Jaime Russ Plan Of Treatment Medication Medication Name Sig Start Date Stop Date Notes Cyclobenzaprine HCl 5 MG TAKE 1 TABLET B Y MOUTH EVERY DAY Trelegy Ellipta 100-62.5-25 MCG/ACT 1 puff Inhalation Once a day LORazepam 1 MG 1 tablet at bedtime as needed Orally Once a day 02/15/2024 Sertraline HCl 50 MG TAKE [address] [facility] TWICE DAILY LORazepam 1 MG 1 tablet at bedtime as needed Orally Once a day 12/27/2023 Next Appt Details Provider Name:Jaime Russ , 08/03/2025 09:30:00 AM, [address] [place] [address] DR, [facility], [place], [address], Progress Notes * HAY (KT)FilomenaDOB: 1955 (69 yo F)Acc No.[id number]:03/10/2024 Progress Notes Patient: Warner MCKEON (KTCalin Filomena Provider: Kenan Russ MD :1955 A ge:68 Y S ex:Female Date:03/10/2024 Address:[address] [place], [place] [id number] Subjective: * Chief Complaints: * 1 . Follow-up. * HPI: C OVID-19 Screening: Questions H ave you had any new onset fever, chills, cough, congestion, sore throat, shortness of breath, muscle aches? N o H ave you been exposed to the virus within the last 10 days? N o H ave you travelled internationally in the last 10 days? N o H ave you been exposed to COVID-19 in the past? N o * ROS: G eneral/Constitutional: pain o nly normal aches and pains. C hills d enies.?Fatigue a dmits. F ever d enies. E NT: Decreased hearing d enies. R espiratory: Cough d enies. C ardiovascular: Chest pain with exertion d enies. D yspnea on exertion?denies. S hortness of breath d enies. G astrointestinal: Constipation d enies. D ecreased appetite d enies.?Diarrhea d enies. H eartburn d enies. N ausea d enies. R ectal bleeding?denies. V omiting d enies. H ematology: bruising d enies. p etechiae d enies. S wollen glands n one have been noted. G enitourinary: Frequent urination d enies. M usculoskeletal: Muscle aches d enies. P ainful joints d enies. S ciatica d enies. W eakness d enies. S kin: Itching d enies. R al d enies. S kin lesion(s)?denies. N eurologic: Difficulty speaking d enies. D izziness d enies.?Headache d enies. L ow back pain d enies. P sychiatric: Depressed mood d enies. * Medical History: M ultiple sclerosis 2012,, Last menstrual period 1986, invasive adenocarcinoma left breast, estrogen and progesterone positive, HER-2 negative,12/2015, Oncotype 10%, Depression, History of anxiety state, history of vitamin B12 injections 2014 for cobalamin deficiency, osteopenia by bone density December 05, 2015. * Surgical History: l eft breast lumpectomy stage 1A infiltrating ductal carcinoma 01/2016, lumpectomy, fibroadenoma, left breast 1974, partial hysterectomy with unilateral O oophorectomy 1986, lumpectomy left breast, DCIS 1995, segmentectomy by Dr Forbes at [facility], Benign granuloma 06/24/2022. * Hospitalization/Major Diagno stic Procedure: L ow back pain 04/2019, lung resection only in 2 days 06/24/2022. * Family History: F ather: 79 yrs, Alzheimer's dementia. M other: 88 yrs, Old age, diagnosed with Cancer, HTN. 1 brother(s) , 1 sister(s) - healthy. 1 son(s) , 1 daughter(s) - healthy. . Her maternal grandmother had a primary brain tumor. Her mother of lung cancer and was a smoker. A brother with bipolar disorder committed suicide. There is no family history of solid tumors or hematologic disorders otherwise. Her father had Alzheimer's disease when he . * Social History: T obacco Use: T obacco Use/Smoking P atient is a f ormer smoker H ow long has it been since you last smoked??1-5 years A dditional Findings: Tobacco User L ight cigarette smoker ((1-9 cigs/day) A dditional Findings: Tobacco Non-User E x-cigarette smoker S he is and lives independently. She has a significant other boyfriend in [place]. A daughter has a history of substance abuse. She has a son who works as a residential counselor. She stopped smoking in 2015. * Medications: T aking Sertraline HCl 50 MG Tablet TAKE 1 TABLET BY MOUTH TWICE DAILY , Taking Cyclobenzaprine HCl 5 MG Tablet TAKE 1 TABLET BY MOUTH EVERY DAY , Taking Trelegy Ellipta 100-62.5-25 MCG/ACT Aerosol Powder Breath Activated 1 puff Inhalation Once a day , Taking LORazepam 1 MG Tablet 1 tablet at bedtime as needed Orally Once a day , Discontinued LORazepam 1 MG Tablet 1 tablet at bedtime as needed Orally Once a day , Medication List reviewed and reconciled with the patient * Allergies: S easonale, Tamoxifen Citrate. Objective: * Vitals: * Examination: G eneral Examination: GENERAL APPEARANCE: p leasant, well nourished, well developed, in no acute distress, calm and relaxed. HEAD: a traumatic, normocephalic. EYES: e afrhana, perrla, anicteric, conjugate. EARS: n ormal. NOSE: s eptum intact. ORAL CAVITY: n ormal, unremarkable. NECK/THYROID: n o jugular venous distention, no carotid bruit, thyroid normal. LYMPH NODES: n o enlarged lymph nodes,spleen normal. SKIN: n o suspicious lesions, anicteric. HEART: n o clicks, gallops, murmurs, or rubs, regular rhythm, S1, S2 normal, no s3, or vascular bruits. LUNGS: c lear to auscultation . BREASTS: no masses palpable bilaterally. ABDOMEN: b owel sounds normal, no ascites, no organomegaly, no mass. RECTAL EXAM: n ot examined. MUSCULOSKELETAL: e xtremities unremarkable, no clubbing, cyanosis or edema. PERIPHERAL PULSES: n ormal. NEUROLOGIC: a lert and oriented, cranial nerves 2-12 grossly intact, deep tendon reflexes 2+ symmetrical, motor strength normal upper and lower extremities, sensory exam intact. PSYCH: a lert, oriented. Assessment: Plan: * Treatment: * Images: * The named appointment provid er may or may not be the originator of this progress note, and it is not deemed complete until electronically signed by the appointment provider. Sign off status: Pending * Provider: Kenan Russ MD Date: 05/11/2023 Generated for Printi ng/Radhag/eTransmitting on: 05:39 PM EDT History and Physical Notes * HPI (History of Present Illness) Category Sub-Category Detail Notes COVID-19 Screening Questions Have you had any new onset fever, chills, cough, congestion, sore throat, shortness of breath, muscle aches?: No Have you been exposed to the virus withi n the last 10 days?: No Have you travelled internationally in [facility] last 10 days?: No Have you been exposed to COVID-19 in the past?: No Examination Category Sub-Category Detail Notes General Examination GENERAL APPEARANCE: pleasant , well nourished, well developed, in no acute distress, calm and relaxed HEAD: atraumatic, normocep halic EYES: eomi, perrla, anicte bala, conjugate EARS: normal NOSE: septum intact NECK/THYROID: no jugular venous di stention, no carotid bruit, thyroid normal HEART: no clicks, gallops, murmurs, or rubs, regular rhythm, S1, S2 normal, no s3, or vascular bruits LUNGS: clear to auscultatio n ABDOMEN: bowel sounds normal, no ascites, no organomegaly, no mass NEUROLOGIC: alert and oriented, cranial nerves 2-12 grossly intact, deep tendon reflexes 2+ symmetrical, motor strength normal upper and lower extremities, sensory exam intact SKIN: no suspicious lesion s, anicteric PERIPHERAL PULSES: normal BREASTS: no masses palpable b ilaterally MUSCULOSKELETAL: extremities unremark able, no clubbing, cyanosis or edema LYMPH NODES: no enlarged lymph no brennan,spleen normal RECTAL EXAM: not examined PSYCH: alert, oriented ORAL CAVITY: normal, unremarkable
--- OUTSIDE RECORDS SUMMARY | 2024-03-14 09:45 | XMS_ITS ---
Author Organization Jaime Russ III, MD Address [address] [place] [address] Care Team Providers Care Jewelry Department Supervisor Name Role Phone Dr. Jaime Russ III Primary Care Provider Allergies Allergen (clinical drug ingredient) Drug/Non Drug Allergy documented on EMR Reaction Allergy Type Onset Date Status tamoxifen Tamoxifen Citrate Unknown Drug Allergy Active Seasonale Unknown Drug Allergy Active REASON FOR VISIT Follow-up Medications Medication SIG (Take, Route, Frequency, Duration) Notes Start Date End Date Status Sertraline HCl 50 MG TAKE 1 TABLET BY [facility] TWICE DAILY Active Anoro Ellipta 62.5-25 MCG/ACT Inhalation Active Cyclobenzaprine HCl 5 MG TAKE 1 TABLET B Y MOUTH EVERY DAY Active LORazepam 1 MG 1 tablet at bedtime as needed Orally Once a day 02/15/2024 Active Social History Tobacco Use: Social History [...] Additional Findings: Tobacco Non-User Ex-cigaret te smoker Vital Signs Temperature 97.0 degrees Fahrenheit 03/14/20 24 Blood pressure systolic 123 mm Hg 03/14/20 24 Blood pressure diastolic 86 mm Hg 024 Heart Rate 80.0 /min 03/14/2024 Height 69 in 03/14/2024 Weight 172 lbs 03/14/2024 BMI 25.4 kg/m2 03/14/2024 Encounters Encounter Location Date Provider Diagnosis Jaime Russ III, MD [address] [place] [address] [place] [address] 03/14/2024 Jaime Russ Overweight E66.3 ; Malignant neoplasm of upper-outer quadrant of left female breast, unspecified estrogen receptor status C50.412 ; Vitamin D deficiency, unspecified E55.9 ; Multiple sclerosis G35 ; Reactive depression F32.9 ; Lumbosacral radiculopathy due to degenerative joint disease of spine M47.27 and Anxiety F41.9 Assessments Encounter Date Diagnosis (ICD Code) Assessment Notes Treat ment Notes Treatment Clinical Notes 03/14/2024 Overweight (ICD-10 - E66.3) She has gained a few pounds and is very slightly overweight. We reviewed her weight loss strategy. We made a plan to return to the mid range of normal of her BMI. 03/14/2024 Malignant neoplasm of upper-outer quadrant of left female breast, unspecified estrogen receptor status (ICD-10 - C50.412) She remains in remission with no sign of recurrence.A breast examination today was unremarkable. 03/14/2024 Vitamin D deficiency, unspecified (ICD-10 - E55.9) She was continued on her supplements. 03/14/2024 Multiple sclerosis (ICD-10 - G35) There was no sign of activity of this process. She remained stable. No treatment is necessary. Surveillance will continue. 03/14/2024 Reactive depression (ICD-10 - F32.9) She appears to be stable. No increase in her depression or depressive symptoms has occurred. She continues on sertraline. She does not have a history of worsening depression around the winter holidays. 03/14/2024 Lumbosacral radiculopathy due to degenerative joint disease of spine (ICD-10 - M47.27) Pain in the right hip may be from nerve impingement in the lumbar spine or from the joint. X-rays will be done in an orthopedic consultation will be arranged. 03/14/2024 Anxiety (ICD-10 - F41.9) We discussed ways of coping with anxiety without using medication. Her anxiety is mild and her depression is minimal distention. Plan Of Treatment Medication Medication Name Sig Start Date Stop Date Notes Sertraline HCl 50 MG TAKE 1 TABLET BY [facility] TWICE DAILY Anoro Ellipta 62.5-25 MCG/ACT Inhalation Cyclobenzaprine HCl 5 MG TAKE 1 TABLET B Y MOUTH EVERY DAY LORazepam 1 MG 1 tablet at bedtime as needed Orally Once a day 02/15/2024 Pending Test Test Name Order Date PROFILE, FASTING (COMPREHENSIVE METABOLI C) 03/14/2024 CBC WITH AUTO DIFF 03/14/2024 Lipid Panel 03/14/2024 Vitamin D 25-OH Total 03/14/2024 Next Appt Details Follow Up: As Scheduled, Jul, Reason: Annual Exam, Regular check-up and post-mammogram consultation Provider Name:Jaime Russ , 08/03/2025 09:30:00 AM, [address] [place] [address] [facility] [place], [place], [address], Progress Notes * HAY (KT)FilomenaDOB: 1955 (68 yo F)Acc No.[id number]:03/14/2024 Progress Notes Patient: Warner MCKEON (Filomena DAS Provider: Kenan Russ MD :1955 A ge:68 Y S ex:Female Date:03/14/2024 Address:[address] [place] [address] [id number] Subjective: * Chief Complaints: * F ollow-up * HPI: C OVID-19 Screening: Questions H ave you had any new onset fever, chills, cough, congestion, sore throat, shortness of breath, muscle aches? N o H ave you been exposed to the virus within the last 10 days? N o H ave you travelled internationally in the last 10 days? N o H ave you been exposed to COVID-19 in the past? Y es * : The patient, a 68-year-old female, has been dealing with a condition that she refers to as fibromyalgia. She has been experiencing flare-ups of this condition recently. She is currently being treated with cyclobenzaprine and is under the care of a neurologist. The patient also has a history of breast cancer, but reports no current issues with her breast. She has been experiencing some shoulder pain. She also has a history of lung surgery and diverticulosis. She has quit smoking recently. She also has a benign skin growth that occasionally bleeds, but it is not a cause for concern. * ROS: G eneral/Constitutional: pain l umbar spine, otherwise only normal aches and pains.?Chills d enies. F atigue a dmits. F ever d enies. E NT: Decreased hearing m ild. R espiratory: Cough d enies. C ardiovascular: Chest pain with exertion d enies. D yspnea on exertion?denies. S hortness of breath d enies. G astrointestinal: Constipation o ccasional. D ecreased appetite d enies. D iarrhea d enies. H eartburn d enies. N ausea d enies. R ectal bleeding d enies. V omiting d enies. H ematology: bruising [...] enies.?Headache d enies. L ow back pain t hat is chronic. P sychiatric: Depressed mood d enies. * Medical History: * Surgical History: l eft breast lumpectomy stage 1A infiltrating ductal carcinoma 01/2016lumpectomy, fibroadenoma, left breast 1974partial hysterectomy with unilateral O oophorectomy 1986lumpectomy left breast, DCIS 1995segmentectomy by Dr Forbes at [facility], Benign granuloma 06/24/2022Lung surgery * Hospitalization/Major Diagno stic Procedure: L ow back pain 04/2019lung resection only in 2 days 06/24/2022 * Family History: F ather: 79 yrs. M other: 88 yrs, diagnosed with HTN, Cancer. S iblings: . 1 brother(s) , 1 sister(s) - healthy. [...] She has a significant other boyfriend in [place]. A daughter has a history of substance abuse. She has a son who works as a residential counselor. She stopped smoking in 2015. * Medications: T akingLORazepam 1 MG Tablet 1 tablet at bedtime as needed Orally Once a day Sertraline HCl 50 MG Tablet TAKE 1 TABLET BY MOUTH TWICE DAILY Cyclobenzaprine HCl 5 MG Tablet TAKE 1 TABLET BY MOUTH EVERY DAY Anoro Ellipta 62.5-25 MCG/ACT Aerosol Powder Breath Activated Inhalation Taking LORazepam 1 MG Tablet 1 tablet at bedtime as needed Orally Once a day Taking Sertraline HCl 50 MG Tablet TAKE 1 TABLET BY MOUTH TWICE DAILY Taking Cyclobenzaprine HCl 5 MG Tablet TAKE 1 TABLET BY MOUTH EVERY DAY Taking Anoro Ellipta 62.5-25 MCG/ACT Aerosol Powder Breath Activated Inhalation DiscontinuedTrelegy Ellipta 100-62.5-25 MCG/ACT Aerosol Powder Breath Activated 1 puff Inhalation Once a day LORazepam 1 MG Tablet 1 tablet at bedtime as needed Orally Once a day Medication List reviewed and reconciled with the patientDiscontinued Trelegy Ellipta 100-62.5-25 MCG/ACT Aerosol Powder Breath Activated 1 puff Inhalation Once a day Discontinued LORazepam 1 MG Tablet 1 tablet at bedtime as needed Orally Once a day Medication List reviewed and reconciled with the patient * Allergies: S easonaleTamoxifen Citrateno[Allergies Verified] Objective: * Vitals: H t: 69, Wt:172, BMI:25.4, BP:123/86, HR:80.0, Temp:97.0, Wt-k.02. * Examination: G eneral Examination: GENERAL APPEARANCE: p leharry, well nourished, well developed, in no acute distress, calm and relaxed, overweight, woman. HEAD: a traumatic, normocephalic. EYES: e farhana, perrla, anicteric, conjugate. EARS: n ormal. NOSE: [...] LUNGS: c lear to auscultation . BREASTS: H ealed scars left breast,, no masses palpable bilaterally, no drainage, no discharge, no dimpling, nontender, symmetrical.? ABDOMEN: b owel sounds normal, no ascites, no organomegaly, no mass, overweight. RECTAL EXAM: n ot examined. MUSCULOSKELETAL: e xtremities unremarkable, no clubbing, cyanosis or edema, Diminished range of motion lumbar spine. PERIPHERAL PULSES: n ormal. NEUROLOGIC: a lert and oriented, cranial nerves 2-12 grossly intact, deep tendon reflexes 2+ symmetrical, motor strength normal upper and lower extremities, sensory exam intact. PSYCH: a lert, oriented. Assessment: * Assessment: 1. M alignant neoplasm of upper-outer quadrant of left female breast, unspecified estrogen receptor status - C50.412 (Primary) N otes :She remains in remission with no sign of recurrence.A breast examination today was unremarkable. 2 . O verweight - E66.3 N otes :She has gained a few pounds and is very slightly overweight. We reviewed her weight loss strategy. We made a plan to return to the mid range of normal of her BMI. 3 . V itamin D deficiency, unspecified - E55.9 N otes :She was continued on her supplements. 4 . M ultiple sclerosis - G35 N otes :There was no sign of activity of this process. She remained stable. No treatment is necessary. Surveillance will continue. 5 . R eactive depression - F32.9 N otes :She appears to be stable. No increase in her depression or depressive symptoms has occurred. She continues on sertraline. She does not have a history of worsening depression around the winter holidays. 6 . L umbosacral radiculopathy due to degenerative joint disease of spine - M47.27 N otes :Pain in the right hip may be from nerve impingement in the lumbar spine or from the joint. X-rays will be done in an orthopedic consultation will be arranged. 7 . A nxiety - F41.9 N otes :We discussed ways of coping with anxiety without using medication. Her anxiety is mild and her depression is minimal distention. Plan: * Treatment: 2. V itamin D deficiency, unspecified L AB: PROFILE, FASTING (COMPREHENSIVE METABOLIC) L AB: CBC WITH AUTO DIFF L AB: Lipid Panel L AB: Vitamin D 25-OH Total 3. O thers Continue LORazepam Tablet, 1 MG, 1 tablet at bedtime as needed, Orally, Once a day; C ontinue Sertraline HCl Tablet, 50 MG, TAKE 1 TABLET BY MOUTH TWICE DAILY; C ontinue Cyclobenzaprine HCl Tablet, 5 MG, TAKE 1 TABLET BY MOUTH EVERY DAY; C ontinue Anoro Ellipta Aerosol Powder Breath Activated, 62.5-25 MCG/ACT, Inhalation. * Procedure Codes: * Preventive Medicine: COPD Care Plan: P atient Lifestyle Goals B e able to be more active with friends and family, Reduce number of ED and hospitalizations, Relieve symptoms and improve quality of life. T reatment Goals E xercise to help whole body, including lungs, Eat a nutritious diet and increase water consumption to 6-8 glasses a day, Eat 4-5 small meals throughout the day. B arriers n o barriers. S elf-Managment Goals G et an air purifier for the rooms you are in the most, Eat a healthy diet. * Follow Up: A s Scheduled, July (Reason: Annual Exam, Regular check-up and post-mammogram consultation) * Images: * Sign off status: Completed true * Provider: Kenan Russ MD Date: 05/15/2023 Generated for Princess sarmiento/Zoila/eTransmitting on: 1 05:39 PM EDT History and Physical Notes * HPI (History of Present Illness) Category Sub-Category Detail Notes COVID-19 Screening Questions Have you had any new onset fever, chills, cough, congestion, sore throat, shortness of breath, muscle aches?: No Have you been exposed to the virus with n the last 10 days?: No Have you travelled internationally in last 10 days?: No Have you been exposed to COVID-19 in the past?: Yes Examination Category Sub-Category Detail Notes General Examination GENERAL APPEARANCE: pleasant , well nourished, well developed, in no acute distress, calm and relaxed, overweight, woman HEAD: atraumatic, normocep halic EYES: eomi, perrla, anicte bala, conjugate EARS: normal NOSE: septum intact NECK/THYROID: no jugular venous di stention, no carotid bruit, thyroid normal HEART: no clicks, gallops, murmurs, or rubs, regular rhythm, S1, S2 normal, no s3, or vascular bruits LUNGS: clear to auscultatio n ABDOMEN: bowel sounds normal, no ascites, no organomegaly, no mass, overweight NEUROLOGIC: alert and oriented, cranial nerves 2-12 grossly intact, deep tendon reflexes 2+ symmetrical, motor strength normal upper and lower extremities, sensory exam intact SKIN: no suspicious lesion s, anicteric PERIPHERAL PULSES: normal BREASTS: Healed scars left br east,, no masses palpable bilaterally, no drainage, no discharge, no dimpling, nontender, symmetrical MUSCULOSKELETAL: extremities unremark able, no clubbing, cyanosis or edema, Diminished range of motion lumbar spine LYMPH NODES: no enlarged lymph no brennan,spleen normal RECTAL EXAM: not examined PSYCH: alert, oriented ORAL CAVITY: normal, unremarkable
--- OUTSIDE RECORDS SUMMARY | 2024-04-03 05:26 | XMS_ITS ---
Author Organization Jaime Russ III, MD Address [address] [place] [address] [place] [address] Care Team Providers Care Field Operations Coordinator Name Role Phone Dr. Jaime Russ III Primary Care Provider REASON FOR VISIT Message Social History Sex Assigned At : Social History Observation Description Sex Assigned At Female Encounters Encounter Location Date Provider Diagnosis Jaime Russ III, MD [address] [place] [address] [address] [place] [address] 04/03/2024 Jaime Russ Plan Of Treatment Next Appt Details Provider Name:Jaime Russ , 08/03/2025 09:30:00 AM, [address] [place] [address] [place], [address], Progress Notes * Filomena SAEED (BILLINGS)DOB: 1955 (68 yo F)Acc No.[id number]:04/03/2024 Patient: Warner MCKEON Filomena (BILLINGS) :1955 A ge:68 Y S ex:Female Address:[address] [place], [place] [address], [address] * true * Date: Generated for Printi ng/Faxing/eTransmitting on: 05:40 PM EDT
--- OUTSIDE RECORDS SUMMARY | 2024-06-09 06:59 | XMS_ITS ---
Author Organization Jaime Russ III, MD Address [address] [place] [address] [place] [address] Care Team Providers Care Building Maintenance Mechanic Name Role Phone Dr. Jaime Russ III Primary Care Provider [phone] REASON FOR VISIT Rx Request Social History Sex Assigned At : Social History Observation Description Sex Assigned At Female Encounters Encounter Location Date Provider Diagnosis Jaime Russ III, MD [address] [place] [address] [address] [place] [address] 06/09/2024 Jaime Russ Plan Of Treatment Next Appt Details Provider Name:Jaime Russ , 08/03/2025 09:30:00 AM, [address] [place] [address] [place], [address], Progress Notes * Filomena SAEED (BILLINGS)DOB: 1955 (68 yo F)Acc No.[id number]:06/09/2024 Patient: Warner MCKEON Filomena (BILLINGS) :1955 A ge:68 Y S ex:Female Address:[address] [place], [place] [address], [address] * true * Date: Generated for Morai guillermina/Faoding/eTransmitting on: 05:40 PM EDT
--- OUTSIDE RECORDS SUMMARY | 2024-06-09 08:09 | XMS_ITS ---
Author Organization Jaime Russ III, MD Address [address] [place] [address] [address] [facility] [place] [address] Care Team Providers Care Social Media Marketing Manager Name Role Phone Dr. Jaime Russ III [...] Date Provider Diagnosis Jaime Russ III, MD [address] [place] [address] [address] [place] [address] 06/09/2024 Jaime Russ Plan Of Treatment Medication Medication Name Sig Start Date Stop Date Notes LORazepam 1 MG 1 tablet at bedtime if needed Orally Once a day for 10 days 06/09/2024 Next Appt Details Provider Name:Jaime Russ , 08/03/2025 09:30:00 AM, [address] [place] [address] [place], [address], Progress Notes * HAY (Filomena DASDOB: 1955 (68 yo F)Acc No.[id number]:06/09/2024 Patient: Warner MCKEON (Filomena DAS :1955 A ge:68 Y S ex:Female Address:[address] [place], [place] [address], [address] * Refills Start LORazepam Tablet, 1 MG, Orally, 10 Tablet, 1 tablet at bedtime if needed, Once a day, 10 days, Refills=1 * true * Date: Generated for Princess sarmiento/Zoila/Amrik on: 05:40 PM EDT
--- OUTSIDE RECORDS SUMMARY | 2024-08-02 05:45 | XMS_ITS ---
Author Organization Jaime Russ III, MD Address [address] [place] [address] Care Team Providers Care Environmental Health Manager Name Role Phone Dr. Jaime Russ [...] Panel Reviewed date:09/03/2024 08:13:14 PM Interpretation: Performing Lab:[facility], [address] [place] [phone] Notes/Report: Triglycerides 227 <150 mg/dL Desirable Triglyceride: [...] 50 MG TAKE 1 TABLET BY MO [facility] TWICE DAILY Active Anoro Ellipta 62.5-25 MCG/ACT [...] Date Provider Diagnosis Jaime Russ III, MD [address] [place] [address] [place] [address] 08/02/2024 Jaime Russ Malignant neoplasm o f [...] with prolonged exertion. She has not her regulatory law specialist recently. 08/02/2024 Multiple sclerosis (ICD-10 - [...] (ICD-10 - N93.8) She has had no MEDICAL HEALTH RESEARCHER complaints. Recently. 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 A daughter has a history of substance [...] ot examined, Patient declined in favor her mechanical engineering draftsperson. ABDOMEN: b owel sounds normal, no ascites, no organomegaly, no mass. RECTAL EXAM: D eclined, prefers mechanical engineering draftsperson. MUSCULOSKELETAL: e xtremities unremarkable, no clubbing, cyanosis [...] with prolonged exertion. She has not her regulatory law specialist recently. 3 . M ultiple sclerosis [...] N93.8 N otes :She has had no MEDICAL HEALTH RESEARCHER complaints. Recently. 6 . A nxiety - [...] MD Date: 0 08/02/2024 Generated for Princess sarmiento/Zoila/Amrik on: 1 05:40 PM EDT History and Physical Notes * [...] examined, Patien t declined in favor her mechanical engineering draftsperson MUSCULOSKELETAL: extremities unremark able, no clubbing, cyanosis or edema LYMPH NODES: no enlarged lymph no brennan,spleen normal RECTAL EXAM: Declined, prefers gy necologist PSYCH: alert, oriented, cog nitive function intact, thought process logical, goal directed, speech clear, mood/affect full range, good eye contact ORAL CAVITY: normal, unremarkable
--- OUTSIDE RECORDS SUMMARY | 2024-09-01 07:00 | XMS_ITS ---
Author Organization Jaime Russ III, MD Address [address] [address] Care Team Providers Care Lamination Machine Operator Name Role Phone Dr. Jaime Russ III Primary Care Provider [phone] Allergies Allergen (clinical drug ingredient) Drug/Non Drug [...] Problem Status W/U Status Risk Notes Problem [id number] Intermittent chest pain (R07.9) Active confirmed It [...] Provider Diagnosis Jaime Russ III, MD [address] [place] [address] [place] [address] 09/01/2024 Jaime Russ Intermittent chest p ain [...] with prolonged exertion. 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 09/01/2024 Right lower lobe pulmonary [...] Provider Name:Jaime Russ , 08/03/2025 09:30:00 AM, [address] [place] [address] , [facility] Cristofer, [place], [address], Progress Notes * Filomena SAEED (BILLINGS)DOB: 1955 (69 yo F)Acc No.[id number]:09/01/2024 Patient: Filomena MENJIVAR (BILLINGS) Provider: Kenan Russ MD :1955 A ge:69 Y S ex:Female Date:09/01/2024 Address:[address] [place], [place] [address], [id number] Subjective: * Chief Complaints: * H ospital Follow upwas inpt at from 08/12/2024-5Chest pain * HPI: C OVID-19 Screening: She was recently admitted to [facility] August 12 through August 15, 2024 for chest pain.? She went to the emergency room where her EKG was equivocal with nonspecific ST-T wave changes. Her troponins were normal. She was seen in consultation by cardiology, Dr. Crouch. Her monitoring showed only peripheral ventricular contractions. 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 A daughter has a history of substance [...] with prolonged exertion. 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 1 1. R ight lower [...] 0 09/01/2024 Generated for Princess sarmiento/Zoila/Amrik on: 05:39 PM EDT History and Physical [...]
--- OUTSIDE RECORDS SUMMARY | 2024-11-01 13:30 | XMS_ITS ---
Author Organization Jaime Russ III, MD Address [address] [place] [address] [place] [address] Care Team Providers Care Paying Teller Name Role Phone Dr. Jaime Russ III Primary Care Provider [phone] REASON FOR VISIT follow up Social History Sex Assigned At : Social History Observation Description Sex Assigned At Female Encounters Encounter Location Date Provider Diagnosis Jaime Russ III, MD [address] [place] [address] [address] [place] [address] 11/01/2024 Jaime Russ Plan Of Treatment Next Appt Details Provider Name:Jaime Russ , 08/03/2025 09:30:00 AM, [address] [place] [address] [place], [address], Progress Notes * ALLYLOR LemonsZEKECalinFilomenaDOB: 1955 (69 yo F)Acc No.[id number]:11/01/2024 Progress Notes Patient: Warner LemonsZEKECalinFilomena Provider: Kenan Russ MD :1955 A ge:69 Y S ex:Female Date:11/01/2024 Address:[facility] [address] [id number] Subjective: * Chief Complaints: * 1 . [...] 0 11/01/2024 Generated for Princess sarmiento/Zoila/Amrik on: 05:40 PM EDT
--- OUTSIDE RECORDS SUMMARY | 2024-11-02 06:00 | XMS_ITS ---
Author Organization Jaime Russ III, MD Address [address] [place] [address] Care Team Providers Care Boat Engines Installer Name Role Phone Dr. Jaime Russ III Primary Care Provider [phone] Allergies Allergen (clinical drug ingredient) Drug/Non Drug [...] Problem Status W/U Status Risk Notes Problem [id number] Left medial tibial stress syndrome, initial encounter [...] Date Provider Diagnosis Jaime Russ III, MD [address] [place] [address] [place] [address] 11/02/2024 Jaime Russ Left medial tibial stress [...] She has not her renewals specialist recently. 11/02/2024 Former smoker (ICD-10 - [...] 50 MG TAKE 1 TABLET BY MO [facility] TWICE DAILY Aspirin Low Dose 81 MG TAKE 1 TABLET BY MOUTH EVERY DAY Oral Pending Test Test Name Order Date XR tibia fibula LT 2V 11/02/2024 Next Appt Details Follow Up: 3 Weeks, Reason: OV Provider Name:Jaime Russ , 08/03/2025 09:30:00 AM, [address] [place] [address] DR, [place] [address], [place], [address], Progress Notes * ALLYLOR (Filomena DASDOB: 1955 (69 yo F)Acc No.[id number]:11/02/2024 Progress Notes Patient: Warner MCKEON (Filomena DAS Provider: Kenan Russ MD :1955 A ge:69 Y S ex:Female Date:11/02/2024 Address:[address] [place], [id number] Subjective: * Chief Complaints: * L eft [...] by Dr Forbes at [facility], Benign granuloma 06/24/2022Lung surgery * Hospitalization/Major [...] She has a significant other boyfriend in [place]. A daughter has a history of substance [...] mg/dL Urine Blood Negative Negative - Specific [place] - Urine >= 1.030 H 1.005-1.025 - [...] She has not her renewals specialist recently. 7 . F ormer smoker [...] MD Date: 0 11/02/2024 Generated for Morai ng/Zoila/eTransmitting on: 1 05:39 PM EDT History and [...]
--- OUTSIDE RECORDS SUMMARY | 2024-11-23 13:00 | XMS_ITS ---
Author Organization Jaime Russ III, MD Address [address] [place] [address] Care Team Providers Care Dog Pound Attendant Name Role Phone Dr. Jaime Russ III Primary Care Provider [phone] Allergies Allergen (clinical drug ingredient) Drug/Non Drug [...] TABLET BY ALEJANDRA TH TWICE DAILY Oral Active Anoro Ellipta [...] Date Provider Diagnosis Jaime Russ III, MD [address] [place] [address] [place] [address] 11/23/2024 Jaime Russ Plan Of Treatment Medication [...] Provider Name:Jaime Russ , 08/03/2025 09:30:00 AM, [address] [place] [address] JERICA OCHOA, [place], [address], Progress Notes * HAY (KT)FilomenaDOB: 1955 (69 yo F)Acc No.[id number]:11/23/2024 Progress Notes Patient: Warner MCKEON (Filomena DAS Provider: Kenan Russ MD :1955 A ge:69 Y S ex:Female Date:11/23/2024 Address:[address] [place] [address] [place] Mike [phone] Subjective: * Chief Complaints: * 1 . [...] DCIS 1995, segmentectomy by Dr Forbes at [facility], Benign granuloma 06/24/2022, Lung surgery . * [...] She has a significant other boyfriend in [place]. A daughter has a history of substance [...] 0 11/23/2024 Generated for Princess sarmiento/Zoila/Ancelmosmitting on: 05:39 PM EDT History and Physical [...]
[2025-01-29 14:09] VITALS: BP 110/72; PULSE 67; BMI 24.7
--- NOTE | 2025-01-29 14:09 | A.OFFVIS_ITS ---
Vital Signs 01/29/25 14:09 Height 5 ft 9 in Weight 167 lb 8.821 oz BMI 24.7 BP 110/72 Blood Pressure Location Lt brachial Position Sitting Pulse 67 Intake Visit Reasons: 3 mth f/up Intake Note: 3 month follow-up feeling good Pipe Smoking Machine Offbearer Required: No Allergies No Known Allergies (No Known Allergies*) Allergy (Verified 10/31/24 09:24) Medication List - Last Reconciled 01/29/25 by Dl Mann MD acetaminophen ER 650 mg PO Q8H PRN apixaban (Eliquis) 5 mg PO BID atorvastatin 40 mg PO DAILY cholecalciferol (vitamin D3) (Vitamin D3) 50 mcg PO DAILY dicyclomine 10 - 20 mg PO Q6H PRN askbndgduco-ccqtpmnyt-gvdzosdv 200-62.5-25 mcg (Trelegy Ellipta) 1 inh inhalation DAILY melatonin 10 mg PO BEDTIME metoprolol tartrate 25 mg PO BID nebulizers As directed sertraline 50 mg PO DAILY tizanidine 2 mg PO BEDTIME PRN HPI Comments Details: Filomena comes for follow-up. Patient has no significant chest pain syndrome at this point time. She also denies any significant palpitations. She says she occasionally feels fluttering in his chest but no prolonged irregular heartbeat. He is currently taking metoprolol and having no side effects. No lightheadedness or syncope. She is also taking her oral anticoagulation without any side effects. [facility] Medical History Pulmonary nodules Pulmonary nodule History of breast cancer Personal history of nicotine dependence COPD (chronic obstructive pulmonary disease) Bronchitis Chronic allergic rhinitis Asthma-COPD overlap syndrome Surgical History History of pneumonectomy History of cone biopsy of cervix History of tonsillectomy History of lumpectomy of left breast History of hysterectomy Family History Mother Heart disease Social History Household Members: Spouse Household Members Other:: Carlos Housing: House Do you presently have visiting nurse or other home services: No Alcohol intake: current Alcohol intake frequency: a few times a week Patient Tobacco Use Status: Former Tobacco user Tobacco use type: Cigarette Cigarette Packs Per Day: 1 Years Smoked: 40 Second Hand Smoke Exposure: No service: No Sexual orientation: Straight/Heterosexual Gender identity: Female Review of Systems Const Denies chills, Denies fatigue, Denies fever(s), Denies frequent falls, Denies weakness, Denies weight gain and Denies weight loss ENT Denies dizziness Card Denies chest pain, Denies leg edema, Denies lightheadedness, Denies palpitations, Denies dyspnea, Denies dyspnea on exertion, Denies orthopnea and Denies other (loss of consciousness) Resp Denies cough, Denies dyspnea and Denies dyspnea on exertion GI Denies hematochezia and Denies change in stool character Musc Denies abnormal gait, Denies muscle weakness, Denies numbness, Denies radiating pain into limb and Denies tingling Neuro Denies abnormal gait, Denies dizziness, Denies frequent falls, Denies numbness, Denies tingling and Denies weakness Endo Denies fatigue and Denies palpitations Physical Exam Vital Signs: Last Vital Signs Pulse 67 01/29/25 14:09 BP 110/72 01/29/25 14:09 BMI result Body Mass Index 24.7 Const General: cooperative, healthy appearing, comfortable and no acute distress Orientation/consciousness: patient oriented x3 Neck Neck: Yes normal visual inspection and Yes no JVD Resp Effort & Inspection: normal respiratory effort Auscultation: clear to auscultation bilaterally, no rales, no rhonchi and no wheezes Cardio Rate: regular rate Rhythm: regular rhythm Heart sounds: S1 normal heart sound present, S2 normal heart sound present, no gallops, no murmurs and no rubs Neuro General: patient oriented x3 Extrem General: Yes normal to inspection, No no pedal edema and No calf tenderness Psych Appearance: grossly normal Mental Status: mental status grossly normal Speech and movement: Normal speech and movement present Assessment & Plan Assessment & Plan (1) PAF (paroxysmal atrial fibrillation): Code(s): I48.0 - Paroxysmal atrial fibrillation Category: Medical Plan: Paroxysmal atrial fibrillation without any significant symptoms tolerating current metoprolol dose. Management of atrial fibrillation was discussed. Currently metoprolol as a good therapy to pursue and reduce risk of recurrent atrial fibrillation. Continue full oral anticoagulation, currently on Eliquis 5 mg b.i.d.. Semi annual renal function test is recommended. Continue to avoid stimulants. Stress mitigation strategies were discussed. No indication for antiarrhythmic drug therapy. Advised to consider investing in phone based EKGs sensors device. She is going to look into it. (2) Hyperlipidemia: Code(s): E78.5 - Hyperlipidemia, unspecified Category: Medical Plan: Hyperlipidemia with normal coronary arteries. This is in the setting of symptoms as well as EKGs changes. Will hold off on atorvastatin therapy for 3 months. Follow-up lipid panel in the further guide lipid therapy as need be. Will follow up in the clinic in 1 year's time, sooner PRN. Thank you for allowing me to partake in her care Orders: Orders Lipid Panel 3 Months E78.5 - Hyperlipidemia, unspecified, I25.10 - Atherosclerotic heart disease of [place] coronary artery without angina pectoris Medications: Discontinued atorvastatin Discontinued Reason: Doctor's Order 40 mg PO DAILY 90 tabs 3RF Coding Level of Care Code Est Pt Level 4 (66610) Complex EM visit Add On G2211 Diagnoses PAF (paroxysmal atrial fibrillation) I48.0 Hyperlipidemia E78.5
--- OUTSIDE RECORDS SUMMARY | 2025-01-29 17:40 | XMS_ITS | Patient Health Record ---
Author Organization Jaime Russ III, MD Address [address] [address] Care Team Providers Care Civil Manager Name Role Phone Dr. Jaime Russ III Primary Care Provider [phone] Allergies Allergen (clinical drug ingredient) Drug/Non Drug [...] Panel Reviewed date:09/03/2024 08:13:14 PM Interpretation: Performing Lab:[facility], [address] [place] [address] Notes/Report: Triglycerides 227 <150 mg/dL Desirable Triglyceride: [...] low results in patients with liver disease. Prothrombin Time INR Reviewed date:09/03/2024 08:13:14 PM Interpretation: Performing Lab:[address] [address] Notes/Report: Prothrombin Time 10.2 10.9-12.4 SEC INTERNATIONAL NORM RATIO 0.9 0.9-1.1 INTERNATIONAL NORMALIZED RATIO (INR) REFERENCE RANGES Reference Range For patients not on anticoagulant therapy: 0.9 - 1.1 INR ranges for oral anticoagulant therapy: For prevention and treatment of venous thrombosis and pulmonary embolism: 2.0 - 3.0 For acute myocardial infarction with aspirin therapy: 2.0 - 3.0 For acute myocardial infarction without aspirin therapy: 3.0 - 4.0 For patients with mechanical prosthetic heart valves: 2.5 - 3.5 Partial Thromboplastin Time Reviewed date:09/03/2024 08:13:14 PM Interpretation: Performing Lab:[address] [address] Notes/Report: Partial Thromboplastin Time 27.0 26.0-36.8 SEC For information regarding the monitoring of direct thrombin inhibitors, please refer to Pharmacy. Troponin-I High Sensitivity Reviewed date:09/03/2024 08:13:14 PM Interpretation: Performing Lab:[address] [address] Notes/Report: Troponin-I High Sensitivity < 2.7 <3.5-17.0 ng/L The Macias high sensitivity Troponin-I results should be used in conjunction with other diagnostic information such as ECG, clinical observations and information, and patient symptoms to aid in the diagnosis of NM. UA CC w/rflx Micro + Cult Reviewed date:09/03/2024 08:13:14 PM Interpretation: Performing Lab:[address] [address] Notes/Report: Urine, Clean Catch Color Urine Yellow Appearance Urine Clear PH 5.5 5.0-9.0 Glucose Urine UA Negative Negative mg/dL Urine Blood Negative Negative Specific [place] - Urine >= 1.030 1.005-1.025 Urine Protein Trace Neg-Trace mg/dL Urine Ketones Trace Negative mg/dL Nitrite Urine Negative Negative Leukocyte Esterase Urine Negative Negative D Dimer High Sensitivity Reviewed date:09/03/2024 08:13:14 PM Interpretation: Performing Lab:[facility], [address] [place] [address] Notes/Report: D Dimer High Sensitivity < 150 D-DIMER HS REFERENCE RANGE Note: Our assay reports D-Dimer Units (D-DU). The cut-off value for venous thromboembolic (VTE) disease is 230 ng/mL. This value has a very high negative predictive value when the patient has a low to moderate clinical probability of VTE. The upper limit of normal is 243 ng/mL. XR chest 2V Reviewed date:09/03/2024 08:13:14 PM Interpretation: Performing Lab: Notes/Report: [address] [address] XRay Report Signed Patient: Filomena Saeed MR#: [id number] 54 : 1955 Acct:[id number] Age/Sex: 69 / F ADM Date: 08/12/24 Loc: .ED Attending Dr: Ordering Physician: Amanda Hou Date of Service: 08/12/24 Procedure(s): XR chest 2V Accession Number(s): [id number] cc: Jaime Russ MD; Amanda Hou CLINICAL HISTORY: CP 2 view chest x-ray Comparison: 02/02/2022 Findings: No consolidation or effusion. Normal size heart. No acute fracture. IMPRESSION: 1. No acute findings. This document has been electronically signed by: Octavio Ledezma MD on 08/12/2024 11:35:14 Dictated By: Octavio Ledezma MD Signed By: <Electronically signed by Octavio Ledezma MD in OV> 08/12/24 1136 DD/ 1135 TD/TT: 08/12/24 1135 Oven Press Tender: [address] [address] XRay Report Signed Patient: Kacey Saeed MR#: [id number] 54 : 1955 Acct:[id number] Age/Sex: 69 / F ADM Date: 08/12/24 Loc: HO.ED Attending Dr: Ordering Physician: Amanda Hou Date of Service: 08/12/24 Procedure(s): XR prasanth st 2V Accession Number(s): [id number] cc: Jaime Russ MD; Amanda Hou CLINICAL HISTORY: CP 2 view chest x-ray Comparison: 02/02/2022 Findings: No consolidation or effusion. Normal size heart. No acute fracture. IMPRESSION: 1. No acute findings. This document has be en electronically signed by: Octavio Ledezma MD on 08/12/2024 11:35:14 Dictated By: Octavio Ledezma MD Signed By: <Electronically signed by Octavio Ledezma MD in OV> 08/12/24 1136 DD/ 1135 TD/TT: 08/12/24 1135 Oven Press Tender: Complete Blood Count Auto Di ff Reviewed date:09/03/2024 08:13:14 PM Interpretation: Performing Lab:[facility], [address] [place] [phone] Notes/Report: White Blood Count 5.6 4.8-10.8 X10*3/uL Red Blood Count 4.20 4.20-5.50 X10*6/uL Hemoglobin 13.4 12.0-16.0 g/dl Hematocrit 40.3 37.0-47.0 % Mean Corpuscular Volume 96.0 80.0-98.0 fL Mean Corpuscular Hemoglobin 31.9 27.0-33.0 pg Mean Corpuscular HGB Conc 33.3 31.0-35.0 g/dl Red Cell Distribution Width 13.1 11.0-16.0 % Platelet Count 289 160-400 X10*3/uL Mean Platelet Volume 9.1 9.4-12.3 fL Neutrophils Percent Auto 58.3 45-73 % Imm Gran Pct Auto 0.4 0.0-0.4 % Lymphocytes Percent Auto 29.9 20-40 % Monocytes Percent Auto 6.8 2-11 % Eosinophils Percent Auto 4.1 0-4 % Basophils Percent Auto 0.5 0-2 % NRBC Pct Auto 0.0 0.0-0.2 /100WBC Neutrophils Absolute Auto 3.2 2.0-8.3 x10*3/uL Imm Gran Abs Auto 0.02 0.00-0.03 X10*3/uL Lymphocytes Absolute Auto 1.7 1.2-4.9 X10*3/uL Monocytes Absolute Auto 0.4 0.1-1.2 X10*3/uL Eosinophils Absolute Auto 0.2 0.0-0.4 X10*3/uL Basophils Absolute Auto 0.0 0.0-0.2 X10*3/uL NRBC Abs Auto 0.000 0.0-0.012 X10*3/uL Basic Metabolic Panel Reviewed date:09/03/2024 08:13:14 PM Interpretation: Performing Lab:[facility], [address] [place] [address] Notes/Report: Sodium 141 135-145 mmol/L Potassium 4.7 3.3-5.1 mmol/L Chloride 106 96-108 mmol/L Carbon Dioxide 27 22-29 mmol/L Anion Gap 13 12-20 Blood Urea Nitrogen 21 9-16 mg/dL Creatinine 0.75 0.5-1.4 mg/dL Creatinine Clr Calc Pharmacy 72.9 Provided height and weight: 175.26 cm, 77.3 kg. eGFR (calculated from the MDRD study equation) and eCrCl (calculated from the Cockcroft-Gault equation) are based on different parameters and may not yield comparable results. If eCrCl result is absurd, please check patient's height/weight. Estimated Glomerular Filt Rate > 60 Chronic Kidney Disease: Estimated GFR < 60 mL/min/1.73m2 Severe Kidney Disease: Estimated GFR < 15 mL/min/1.73m2 Glucose Random 108 60-115 mg/dL Calcium 9.2 8.4-10.2 mg/dL NM yvonne perf SPECT rest & str Reviewed date:09/03/2024 08:13:14 PM Interpretation: Performing Lab: Notes/Report: [address] [address] Nuclear Medicine Report Signed Patient: Filomena Saeed MR#: [id number] 54 : 1955 Acct:[id number] Age/Sex: 69 / F ADM Date: 08/12/24 Loc: [facility] 458-[address]: Usama Lopes MD Ordering Physician: Jimbo Bain MD Date of Service: 08/14/24 Procedure(s): NM yvonne perf SPECT rest str Accession Number(s): [id number] cc: Jaime Russ MD; Jimbo Bain MD Lexiscan Myocardial perfusion study Indication: Chest pain to evaluate for myocardial ischemia Technique: The patient was brought in for a Lexiscan perfusion study on 08/14/2024 and was injected 0.4 mg of Lexiscan intravenously. Within a minute of this injection 33 mCi of sestamibi was given intravenously. Images were obtained using the SPECT gamma camera interlaced with the gating device. Images were obtained in supine position. Resting perfusion study was performed on 08/14/2024. Patient was administered 11 mCi of sestamibi intravenously at rest. Images were then obtained in supine position. Images obtained without without CT attenuation. Total DLP 71 mGy-cm. Images were processed with the software and compared side to side in short axis, horizontal long axis and vertical long axis views. Findings: The stress perfusion study showed nonattenuated images show moderately reduced uptake in the basal inferior and mid inferior wall of the LV myocardium. Remainder of the LV myocardium is normally perfused. Attenuated corrected images show mild thickening and heterogeneous uptake in the basal and mid inferior wall of the LV myocardium.. The gated study shows normal LV systolic function with calculated LVEF of 62%. LV cavity is normal in size. The gated study shows normal systolic wall thickening and contraction of segments. Resting study shows nonattenuated images show mildly improved uptake in the mid inferior wall and no significant change in the basal inferior wall uptake. Attenuated corrected images show normal uptake of radiotracer in all segments of the LV myocardium. Gating at rest reveals normal systolic wall motion with ejection fraction at greater than 55%. The findings are consistent with reversible defect of the basal and mid inferior wall of minimal to mild intensity suggestive of ischemia. NM/NM yvonne perf SPECT rest str Impression: 1. Myocardial perfusion imaging study shows [id number] sized minimal to mild intensity basal and mid inferior wall ischemia in RCA territory 2. Gated LVEF is 62% 3. Transient ischemic dilatation not present Nondiagnostic changes on EKG. Electronically signed by: Dl Mann MD 08/14/2024 05:25 PM EDT RP Dictated By: Dl Mann MD Signed By: <Electronically signed by Dl Mann MD in OV> 08/14/24 1725 DD/ 0935 TD/TT: 08/14/24 1135 O[employer] Press Tender: [place] [address] Nuclear Medicine Report Signed Patient: Kacey Saeed MR#: [id number] 54 : 1955 Acct:[id number] Age/Sex: 69 / F ADM Date: 08/12/24 Loc: [facility] 458-[address]: Anya Lopes MD Ordering Physician: Jimbo Bain MD Date of Service: 08/14/24 Procedure(s): NM yvonne perf SPECT rest str Accession Number(s): [id number] cc: Jaime Russ MD; Jimbo Bain MD Lexiscan Myocardial perfusion study Indication: Chest pain to evalua te for myocardial ischemia Technique: The patient was brought in for a Lexiscan perfusion study on 08/14/2024 and was injected 0.4 mg of Lexiscan intravenously. Within a minute of this injection 33 mC i of sestamibi was given intravenously. Images were obtained using the SPECT gamma camera interlaced with the gating device. Images were obtained in supine position. Resting perfusion study was performed on 08/14/2024. Patient was administered 11 mCi of sestamibi intravenously at rest. Images were then obtained in supine position. Images obtained without without CT attenuation. Total DLP 71 mGy-cm. Images were processe d with the software and compared side to side in short axis, horizont al long axis and vertical long axis views. Findings: The stress perfusion study showed nonattenuated images show moderately reduced uptake in th e basal inferior and mid inferior wall of the LV myocardium. Remainde r of the LV myocardium is normally perfused. Attenuated corrected images show mild thickening and heterogeneous uptake in the basal and mid inferior wall of the LV myocardium.. The gated study shows normal LV systolic function with calculated LVEF of 62%. LV cavity is normal in size. The gated study shows normal systolic wall thickening and contraction of segments. Resting study shows nonattenuated images show mildly improved uptake in the mid inferior wal l and no significant change in the basal inferior wall uptake. Attenuated corrected images show normal uptake of radiotracer in all segments of the LV myocardium. Gating at rest reveals normal systolic wall motion with ejection fraction at greater than 55%. The findings are consistent with reversible defect of the basal and mid inferior wall of minimal to mild intensity suggestive of ischemia. NM/NM yvonne perf SPECT rest str Impression: 1. Myocardial perfusion imaging study shows hdwnr-[id number]-[id number] sized minimal to mild intensity basal and mid inferior wall ischemia in RCA territory 2. Gated LVEF is 62% 3. Transient ischemi c dilatation not present Nondiagnostic change s on EKG. Electronically mike d by: Dl Mann MD 08/14/2024 05:25 PM EDT RP Dictated By: Dl Mann MD Signed By: <Electronically signed by Dl Mann MD in OV> 08/14/24 1725 DD/ 0935 TD/TT: 08/14/24 1135 Oven Press Tender: Liver Panel Reviewed date:11/12/2024 08:08:12 PM Interpretation: Performing Lab:[facility], [address] [place] [address] Notes/Report: Bilirubin Total 0.6 0.0-1.0 mg/dL Bilirubin Direct 0.2 0.0-0.5 mg/dL Aspartate Amino Transferase 24 5-31 U/L Alanine Aminotransferase 31 0-31 U/L Total Protein 6.8 6.5-8.0 g/dL Albumin Level 4.4 3.5-5.0 g/dL Alkaline Phosphatase 99 39-117 U/L Lipid Panel Reviewed date:11/12/2024 08:08:12 PM Interpretation: Performing Lab:[facility], [address] [place] [phone] Notes/Report: Triglycerides 137 <150 mg/dL Desirable Triglyceride: less than 150 mg/dL Borderline High Triglyceride 150-199 mg/dL High Triglyceride: 200-499 mg/dL Very High Triglyceride: greater than or equal to 5OO mg/dL Cholesterol 153 <200 mg/dL Desirable Cholesterol: less than 200 mg/dL Borderline High Cholesterol: 200-239 mg/dL High Cholesterol: greater than 239 mg/dL LDL Cholesterol Calculated 67 <100 mg/dL Desirable LDL: less than 100 mg/dL Near Optimal/Above Optimal LDL: 110-129 mg/dL Borderline High LDL: 130-159 mg/dL High LDL: 160-189 mg/dL Very High LDL: greater than or equal to 190 mg/dL HDL Cholesterol 59 >40 mg/dL Desirable HDL: greater than 40 mg/dL Note: This HDL assay may give artificially low results in patients with liver disease. XR tibia fibula LT 2V Reviewed date:11/12/2024 08:08:12 PM Interpretation: Performing Lab: Notes/Report: [address] [address] XRay Report Signed Patient: Filomena Saeed MR#: [id number] 54 : 1955 Acct:[id number] Age/Sex: 69 / F ADM Date: 11/02/24 Loc: HO.LAB Attending Dr: Jaime Russ MD Ordering Physician: Jaime Russ MD Date of Service: 11/02/24 Procedure(s): XR tibia fibula LT 2V Accession Number(s): [id number] cc: Jaime Russ MD EXAMINATION: XR TIBIA FIBULA 2 VIEWS LEFT HISTORY: LEG PAIN, LEFT COMPARISON: Comparison is made with the prior examination dated 08/18/2016. FINDINGS: AP and lateral views of the left tibia and fibula are submitted. Osseous mineralization is normal. There is no fracture or dislocation. The visualized knee and ankle joint spaces are preserved. The soft tissues are unremarkable. XR/XR tibia fibula LT 2V IMPRESSION: Unremarkable examination of the left tibia and fibula. Electronically signed by: Jaime Haque MD 11/02/2024 10:57 AM EDT Dictated By: Jaime Haque MD Signed By: <Electronically signed by Jaime Haque MD in OV> 11/02/24 1057 DD/ 1040 TD/TT: 11/02/24 1050 Oven Press Tender: [address] [address] XRay Report Signed Patient: Kacey Saeed MR#: [id number] 54 : 1955 Acct:[id number] Age/Sex: 69 / F ADM Date: 11/02/24 Loc: HO.LAB Attending Dr: Jaime Russ MD Ordering Physician: Jaime Russ MD Date of Service: 11/02/24 Procedure(s): XR tib ia fibula LT 2V Accession Number(s): [id number] cc: Jaime Russ MD EXAMINATION: XR TIBI A FIBULA 2 VIEWS LEFT HISTORY: LEG PAIN, LEFT COMPARISON: Comparis on is made with the prior examination dated 08/18/2016. FINDINGS: AP and lateral views of the left tibia and fibula are submitted. Osseous mineralizati on is normal. There is no fracture or dislocation. The visualized knee and ankle joint spaces are preserved. The soft tissues are unremarkable. XR/XR tibia fibula LT 2V IMPRESSION: Unremarkable examination of the left tibia and fibula. Electronically mike d by: Jaime Haque MD 11/02/2024 10:57 AM EDT RP Dictated By: Jaime Haque MD Signed By: <Electronically signed by Jaime Haque MD in OV> 11/02/24 1057 DD/ 1040 TD/TT: 11/02/24 1050 Oven Press Tender: Reason For Referral No Information Medications Medication SIG (Take, Route, Frequency, Duration) Notes Start Date End Date Status Metoprolol Tartrate 25 MG TAKE 1/2 TABLE T BY MOUTH TWICE DAILY Oral Active Eliquis 5 MG TAKE 1 TABLET BY ALEJANDRA TH TWICE DAILY Oral Active Meloxicam 15 MG 1 tablet Orally Once a day 11/02/2024 Active Atorvastatin Calcium 40 MG Oral Active Aspirin Low Dose 81 MG TAKE 1 TABLET BY MOUTH EVERY DAY Oral Active Anoro Ellipta 62.5-25 MCG/ACT Inhalation Active tiZANidine HCl 2 MG TAKE 1 TABLET BY ALEJANDRA TH DAILY AT BEDTIME NEEDED Oral Active Sertraline HCl 50 MG TAKE 1 TABLET BY MO UT TWICE DAILY Active Immunizations Vaccine Route Administration Date Status [...] Problem Status W/U Status Risk Notes Problem 5302158 Former smoker (Z87.891) Active confirmed We have formulated a plan to reemain abstinent in times of stress and illness. Problem 298714017 Overweight (E66.3) Active confirmed She has gained a few pounds and is very slightly overweight. We reviewed her weight loss strategy. We made a plan to return to the mid range of normal of her BMI. Problem 30163539 Multiple sclerosis (G35) Active confirmed There was no sign of activity of this process. She remained stable. No treatment is necessary. Surveillance will continue. Problem 54342342 Anxiety (F41.9) Active confirmed We discussed ways of coping with anxiety without using medication. Her anxiety is mild and her depression is minimal distention. Problem Vitamin D deficiency (52579855) Vitamin D deficiency, unspecified (E55.9) Active confirmed She was continued on her supplements. Problem 01106683 Chronic obstructive pulmonary disease, unspecified COPD type (J44.9) Active confirmed No longer smoking. She is comfortable breathing room air. Is somewhat short of breath with prolonged exertion. She has not her clinical nurse specialist recently. Problem 742092575 Lumbosacral radiculopathy due to degenerative joint disease of spine (M47.27) Active confirmed Pain in the right hip may be from nerve impingement in the lumbar spine or from the joint. X-rays will be done in an orthopedic consultation will be arranged. Problem 75142094 Dysfunctional uterine bleeding (N93.8) Active confirmed She has had no [employer] complaints. Recently. Problem 49608912 Reactive depression (F32.9) Active confirmed She appears to be stable. No increase in her depression or depressive symptoms has occurred. She continues on sertraline. She does not have a history of worsening depression around the winter holidays. Problem 029666156 Malignant neoplasm of upper-outer quadrant of left female breast, unspecified estrogen receptor status (C50.412) Active confirmed There was no sign of return breast cancer today. Breast of monthly. She will be up-to-date with a Problem 10156702 Degenerative disc disease at L5-S1 level (M51.36) Active confirmed Her back pain i s mild. She is avoiding heavy lifting and says to range of motion of the spine is normal. Problem 520343270 Right lower lobe pulmonary nodule (R91.1) Active confirmed The tumor was a benign lesion with granulomatous. Although the lymph nodes were negative. She continues to smoke cigarettes and we have aggressively discussed smoking cessation today. The wounds have healed. 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 She is conducting all of the activities of daily life without impairment. Problem 33619185 Intermittent chest pain (R07.9) Active confirmed It is likely that this is noncardiac chest pain. It could possibly be vasospasm. She has an appointment with cardiology next week which I urged her to continue. The cardiac catheterization showed normal valves and contractility and septum and coronary anatomy. Problem 83815537675552955 Left medial tibial stress syndrome, initial encounter (S86.440O) Active confirmed Images have bee n requested. She will use ice and rest and NSAIDs. A followup visit was arranged. Vital Signs Heart Rate 51 /min 11/02/2024 Temperature 97.0 degrees Fahrenheit 11/02/2024 Blood pressure diastolic 74 mm Hg 11/02/2024 Height 69 in 11/02/2024 Blood pressure systolic 133 mm Hg 11/02/2024 Weight 169 lbs 11/02/2024 BMI 24.95 kg/m2 11/02/2024 Encounters Encounter Location Date Provider Diagnosis Jaime Russ III, MD [address] [place] [address] [place] [phone] 03/14/2024 Jaime Russ Overweight E66.3 ; Malignant neoplasm of upper-outer quadrant of left female breast, unspecified estrogen receptor status C50.412 ; Vitamin D deficiency, unspecified E55.9 ; Multiple sclerosis G35 ; Reactive depression F32.9 ; Lumbosacral radiculopathy due to degenerative joint disease of spine M47.27 and Anxiety F41.9 Jaime Russ III, MD [address] [place] [address] [place] [address] 08/02/2024 Jaime Russ Malignant neoplasm o f [...] pulmonary nodule R91.1 Jaime Russ III, MD [address] [place] [address] [place] [address] 09/01/2024 Jaime Russ Intermittent chest p ain [...] pulmonary nodule R91.1 Jaime Russ III, MD [address] [place] [address] [place] [address] 11/02/2024 Jaime Russ Left medial tibial stress syndrome, initial encounter S86.892A ; Multiple sclerosis G35 ; Malignant neoplasm of upper-outer quadrant of left female breast, unspecified estrogen receptor status C50.412 ; Reactive depression F32.9 ; Anxiety F41.9 ; Chronic obstructive pulmonary disease, unspecified COPD type J44.9 ; Former smoker Z87.891 ; Overweight E66.3 and Vitamin D deficiency, unspecified E55.9 Jaime Russ III, MD [address] [place] [address] [place] [address] 02/15/2024 Jaime Russ III, MD [address] [place] [address] [place] [address] 02/15/2024 Jaime Russ III, MD [address] [place] [address] [place] [address] 04/03/2024 Jaime Russ III, MD [address] [place] [address] [place] [address] 06/09/2024 Jaime Russ III, MD [address] [place] [address] [place] [address] 06/09/2024 Jaime Russ Assessments Encounter Date Diagnosis (ICD Code) Assessment Notes Treatment Notes Treatment Clinical Notes 03/14/2024 Overweight (ICD-10 [...] with prolonged exertion. She has not her clinical nurse specialist recently. 08/02/2024 Malignant neoplasm of upper-outer quadrant of left female breast, unspecified estrogen receptor status (ICD-10 - C50.412) There was no sign of return breast cancer today. Breast of monthly. She will be up-to-date with a 09/01/2024 Multiple sclerosis (ICD-10 - G35) There was no sign of activity of this process. She remained stable. No treatment is necessary. Surveillance will continue. 09/01/2024 Intermittent chest pain (ICD-10 - R07.9) It is likely that this is noncardiac chest pain. It could possibly be vasospasm. She has an appointment with cardiology next week which I urged her to continue. The cardiac catheterization showed normal valves and contractility and septum and coronary anatomy. 11/02/2024 Multiple sclerosis (ICD-10 - G35) There was no sign of activity of this process. She remained stable. No treatment is necessary. Surveillance will continue. 11/02/2024 Left medial tibial stress syndrome, initial encounter (ICD-10 - S86.892A) Images have been requested. She will use ice and rest and NSAIDs. A followup visit was arranged. 03/14/2024 Vitamin D deficiency, unspecified (ICD-10 - [...] She will be up-to-date with a 11/02/2024 Malignant neoplasm of upper-outer quadrant of left female breast, unspecified estrogen receptor status (ICD-10 - C50.412) There was no sign of return breast cancer today. Breast of monthly. She will be up-to-date with a 03/14/2024 Multiple sclerosis (ICD-10 - G35) There [...] worsening depression around the winter holidays. 09/01/2024 Reactive depression (ICD-10 - F32.9) She appears to be stable. No increase in her depression or depressive symptoms has occurred. She continues on sertraline. She does not have a history of worsening depression around the winter holidays. 11/02/2024 Reactive depression (ICD-10 - F32.9) She [...] (ICD-10 - N93.8) She has had no [employer] complaints. Recently. 09/01/2024 Anxiety (ICD-10 - F41.9) We discussed ways of coping with anxiety without using medication. Her anxiety is mild and her depression is minimal distention. 11/02/2024 Anxiety (ICD-10 - F41.9) We discussed ways of coping with anxiety without using medication. Her anxiety is mild and her depression is minimal distention. 03/14/2024 Lumbosacral radiculopathy due to degenerative joint [...] in an orthopedic consultation will be arranged. 11/02/2024 Chronic obstructive pulmonary disease, unspecified COPD type (ICD-10 - J44.9) No longer smoking. She is comfortable breathing room air. Is somewhat short of breath with prolonged exertion. She has not her clinical nurse specialist recently. 03/14/2024 Anxiety (ICD-10 - F41.9) We discussed [...] of motion of the spine is normal. 11/02/2024 Former smoker (ICD-10 - Z87.891) We have formulated a plan to reemain abstinent in times of stress and illness. 08/02/2024 Degenerative disc disease at L5-S1 level [...] range of normal of her BMI. 11/02/2024 Overweight (ICD-10 - E66.3) She has gained a few pounds and is very slightly overweight. We reviewed her weight loss strategy. We made a plan to return to the mid range of normal of her BMI. 08/02/2024 Right lower lobe pulmonary nodule (ICD-10 - R91.1) The tumor was a benign lesion with granulomatous. Although the lymph nodes were negative. She continues to smoke cigarettes and we have aggressively discussed smoking cessation today. The wounds have healed. 09/01/2024 Former smoker (ICD-10 - Z87.891) We have formulated a plan to reemain abstinent in times of stress and illness. 11/02/2024 Vitamin D deficiency, unspecified (ICD-10 - E55.9) She was continued on her supplements. 09/01/2024 Chronic obstructive pulmonary disease, unspecified COPD type (ICD-10 - J44.9) No longer smoking. She is comfortable breathing room air. Is somewhat short of breath with prolonged exertion. She has not her clinical nurse specialist recently. 09/01/2024 Right lower lobe pulmonary [...] CBC WITH AUTO DIFF 03/14/2024 Lipid Panel 01/26/2023 Lipid Panel 03/14/2024 Lipid Panel 07/28/2023 Vitamin B12 06/02/2021 Vitamin D 25-OH Total 03/14/2024 MM screening mammo BI 08/02/2024 XR tibia fibula LT 2V 11/02/2024 Next Appt Details Provider Name:Jaime Russ , 08/03/2025 09:30:00 AM, [address] [place] [address] JERICA OCHOA, [place], [address], Insurance Providers Payer Name Payer Address Payer Phone Subscriber Number Group Number Insured Name Patient Relationship to Insured Coverage Start Date Coverage End Date [employer] [address] [place], [place] [id number] [phone] [id number] [place] (Billing s)Filomena Self - patient is the insured MEDICARE NGS [address] [place] [address] [id number] [place] (Billing s), Filomena Self - patient is the insured Medical (General) History Medical History History ICD Code multiple sclerosis 2012, last menstrual period 1986 invasive adenocarcinoma left breast, estrogen and progesterone positive, HER-2 negative,12/2015, Oncotype 10% depression history of anxiety state history of vitamin B12 injections 2014 or cobalamin deficiency osteopenia by bone density December 05, 2015 chest pain Surgical History Surgery Date(Month/Year) Lung surgery segmentectomy by Dr Forbes at [facility], [place] ign granuloma 06/24/2022 lumpectomy left breast, DCIS 1995 partial hysterectomy with unilateral O o ophorectomy 1986 lumpectomy, fibroadenoma, left breast 19 75 left breast lumpectomy stage 1A infiltra ting ductal carcinoma 01/2016 Hospitalization History Reason Date(Month/Year) inpt at with chest pain 08/12/2024 lung resection only in 2 days 06/24/2022 Low back pain 04/2019
--- OUTSIDE RECORDS SUMMARY | 2025-01-29 17:40 | XMS_ITS | Clinical Summary ---
Author Organization [facility] Address [address] [place] [address] Phone Care Team Providers Care High School Learning Support Teacher Name Role Phone Ariana Russ MD Primary Care Provider [phone] Social History Tobacco Use Types Packs/Day Years [...] Health Maintenance Due Date Last Done Comments Colorectal Cancer Screening: Colonoscopy 1955 DTaP,Tdap,and Td Vaccines (1 - Tdap) 1973 Pneumococcal Vaccine: 50+ Years (1 of 1 - PCV) 2004 Zoster Vaccines (1 of 2) 2004 Falls Risk Assessment 03/03/2022 Hepatitis C Screening 03/03/2022 Medicare Annual Wellness Visit 03/03/2022 Social Influencers of Health Screening 03/03/2022 Depression Screening 04/05/2024 COVID-19 Vaccine (1 - 2024-25 season) 2024 Influenza Vaccine (#1) 2024 Breast Cancer Screening [...] Procedure Name Priority Date/Time Associated Diagnosis Comments [facility] SCREENING DIGITAL Routine 08/13/2023 10:07 AM EDT Encounter for screening mammogram for malignant neoplasm of breast [facility] DEXA AXIAL SKELETON Routine 06/30/2021 2:58 PM EDT Encounter for screening for osteoporosis from Last 3 Months or Most Recently Relevant to Health Maintenance Results * [facility] SCREENING DIGITAL (08/13/2023 10:07 AM EDT) Anatomical Region Laterality Modality Mammography 08/13/2023 8:33 AM EDT Narrative 08/13/2023 10:07 AM EDT [facility] Diagnostic Imaging Department [address] [place] [address] Patient: ENRIQUE MERAZ /Age/Sex: 1955 - 68 - F Unit#: [id number] Location/Status: SPDIMAM/REG CLI Mnemonic/Ordering Site: [facility] Ordering Physician: ARIANA RUSS MD [facility] Screening Digital - 08/13/23 - 0846 Report Status:Signed EXAM: [facility] Screening Digital EXAM DATE AND TIME: 08/13/2023 8:46 AM HISTORY: Annual screening, history of left breast lumpectomy in 2016 COMPARISON: Multiple exams dating back to 2019 TECHNIQUE: Bilateral digital breast tomosynthesis was performed in the CC and MLO projections. Computer aided detection with [employer] 3D 3.1 was employed. TISSUE DENSITY: b. [...] Procedure Note Raysa Castellon MD - 11/22/2023 [facility] Diagnostic Imaging Department [address] [place] [address] Patient: ROSE MERAZTERESE Yi /Age/Sex: 1955 - 68 - F Unit#: [id number] Location/Status: SPDIMAM/REG CLI Mnemonic/Ordering Site: [facility] Ordering Physician: ARIANA RUSS MD [facility] Screening Digital - 08/13/23845 Report Status:Signed EXAM: [facility] Screening Digital EXAM DATE AND TIME: 08/13/2023 8:46 AM HISTORY: Annual screening, history of left breast lumpectomy in 2016 COMPARISON: Multiple exams dating back to 2019 TECHNIQUE: Bilateral digital breast tomosynthesis was performed in the CCand MLO projections. Computer aided detection with [employer] AI 3D 3.1was employed. TISSUE DENSITY: b. [...] MD IMG BI PROCEDURES Final Result * [facility] DEXA AXIAL SKELETON (06/30/2021 2:58 PM EDT) Anatomical Region Laterality Modality Mammography 06/30/2021 1:24 PM EDT Narrative 06/30/2021 2:58 PM EDT [facility] Diagnostic Imaging Department [address] [place] [address] Patient: KTENRIQUE /Age/Sex: 1955 - 65 - F Unit#: [id number] [facility] Ordering Physician: ARIANA RUSS MD [facility] Dexa Axial Skeleton - 06/30/21 - 7008 HISTORY: Post menopausal woman with hormone depletion for screening bone densitometry. The patient is on calcium supplement with Vitamin D. TECHNIQUE: Bone densitometry is performed utilizing dual energy x-ray absorptiometry (DEXA) in the [employer] unit. The lumbar spine is evaluated in the AP projection and L1 through L4 are utilized. The proximal femora are evaluated in the AP projection bilaterally. FINDINGS: AP spine: Bone mineral density: 0.911 gm/cm2 T-score: -2.2 Z-score: -0.8 Dual Femur (mean): Bone mineral density: 0.675 gm/cm2 T-score: -2.6 Z-score: -1.6 IMPRESSION: Osteopenia in the lumbar spine. 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 64052 A report detailing these results has been enclosed. Dictating Physician: PETERSON BRAND MD Electronically Signed by: PETERSON BRAND MD Dic Date/Time: 06/30/211456 Sign date/Time: 06/30/21 1458 Procedure Note Peterson Brand MD - 03/25/2022 [facility] Diagnostic Imaging Department [address] [place] [address] Patient: ENRIQUE MERAZO.B./Age/Sex: 1955 - 65 - F Unit#: [id number] Location/Status: [facility] CLI Mnemonic/Ordering Site: [facility] Ordering Physician: ARIANA RUSS MD [facility] Dexa Axial Skeleton - 06/30/21 - 0710 HISTORY: Post menopausal woman with hormone depletion for screening bone densitometry. The patient is on calcium supplement with Vitamin D. TECHNIQUE: Bone densitometry is performed utilizing dual energy x-ray absorptiometry (DEXA) in the [employer] unit. The lumbar spine isevaluated in the AP projection and L1 through L4 are utilized. The proximal femoraare evaluated in the AP projection bilaterally. FINDINGS: AP spine: Bone mineral density: 0.911 gm/cm2 T-score: -2.2 Z-score: -0.8 Dual Femur (mean): Bone mineral density: 0.675 gm/cm2 T-score: -2.6 Z-score: -1.6 IMPRESSION: Osteopenia in the lumbar spine. 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 [address]135 A report detailing these results has been enclosed. Dictating Physician: PETERSON BRAND MD Electronically Signed by: PETERSON BRAND MD Dic Date/Time: 06/30/211456 Sign date/Time: 06/30/211457 Ariana Russ MD IMG BI PROCEDURES Final Result from Last 3 Months or Most Recently Relevant to Health Maintenance Insurance BLUE [employer]OSS - [place] MEDICARE ADVANTAGE Care Teams High School Learning Support Teacher Relationship Specialty Start Date End Date Ariana Russ MD [address] [address] PCP - General 05/18/22
--- OUTSIDE RECORDS SUMMARY | 2025-01-29 17:40 | XMS_ITS | Patient Health Record ---
Author Organization [facility] Address [address] [facility] [place] [address] Care Team Providers Care Telecommunications Sales Representative Name Role Phone Jaime Rsus MD Primary Care Provider Jaime Chambers Unavailable [phone] Allergies No Known Allergies Reason For Referral No Information Medications Medication SIG (Take, Route, Frequency, Duration) Notes Start Date End Date Status Cyclobenzaprine HCl 5 MG TAKE 1 TABLET B Y MOUTH EVERY DAY AT BEDTIME Oral; Duration: 90 M797,Unavailab mara Active Trelegy Ellipta 200-62.5-25 MCG/ACT Inhalation; Duration: 30 Active Vitamin E Active Dicyclomine HCl 10 MG TAKE 1 TO 2 CAPSULES BY MOUTH EVERY 6 HOURS NEEDED FOR ABDOMINAL CRAMPS/DISCOMFORT Orally Every 6 hours as needed; Duration: 30 days Active Ondansetron 4 MG 1 tablet on the tongue and allow to dissolve Orally Every 6 hours as needed for nausea; Duration: 30 day(s) 04/07/2024 Active Vitamin D3 Active [...] Problem Status W/U Status Risk Notes Problem Colon cancer screening (739042448) Colon cancer screening (Z12.11) Active confirmed Problem Change in bowel habit (76532658) Change in bowel habits (R19.4) Active confirmed Problem Diverticular disease of colon (369702181) Diverticulosis of large intestine without perforation or abscess without bleeding (K57.30) Active confirmed Problem Abdominal pain (71463673) Abdominal cramps (R10.9) Active confirmed Problem Diarrhea (60166069) Diarrhea, unspecified type (R19.7) Active confirmed Encounters Encounter Location Date Provider Diagnosis [facility] [address] [place] [address] 04/03/2024 Jaime Preciado [facility] [address] [place] [address] 04/07/2024 Jaime Preciado Plan Of Treatment Pending Test Test Name Order Date CRP 12/17/2022 CBC w DIFF 12/17/2022 SED RATE (ESR) 12/17/2022 TSH reflex Free T4 12/17/2022 Celiac Panel 10 12/17/2022 Future Test Test Name Order Date COLONOSCOPY 12/17/2022 Insurance Providers Payer Name Payer Address Payer Phone Subscriber Number Group Number Insured Name Patient Relationship to Insured Coverage Start Date Coverage End Date O BLUE [employer]BS PROF[employer] L CLAIMS [address] [place] [address] [phone] [id number] ENRIQUE GUIDO Self - patient is the insured MEDICAID [facility] [address] [place] [address] [phone] [id number] ERNIQUE GUIDO Self - patient is the insured Medical (General) History Medical History History ICD Code COPD Left breast cancer 2015- lumpectomy and Tamoxifen Fibromyalgia Denies WA,DM,CVA,renal disease Negative screening colonosco py at age 49 or so--done while living on [facility] Lung nodule with surgery as below Surgical History Surgery Date(Month/Year) Lumpectomy, left breast 2015 Partial right lung resection for benign lesion-Dr. Forbes 06/2022 Hysterectomy with removal of 1 ovary 199 7
--- OUTSIDE RECORDS SUMMARY | 2025-01-29 17:41 | XMS_ITS | Patient Health Record ---
Author Organization [facility] Address [address] [place] [address] Care Team Providers Care First Dyer Name Role Phone SUKH EDMONDS Unavailable Allergies No Known Allergies Reason For Referral Reason EVAL AND TREAT Diagnosis 1 Anxiety (F41.9) Referral Organization [facility] Referring Provider First Name SUKH Referring Provider Last Name ARISTEO Penn Referring Provider Speciality Family Med icine Referred Provider Specialty Psychiatry Referral Priority Routine Referral Appointment Date 02/24/2024 Reason EVAL AND TREAT Diagnosis 1 Anxiety (F41.9) Referral Organization [facility] Referring Provider First Name SUKH Referring Provider Last Name ARISTEO Penn Referring Provider Speciality Family Med icine Referred Provider Specialty Family Medic ine Referral Priority Routine Referral Appointment Date 02/24/2024 Medications Medication SIG (Take, Route, Frequency, Duration) Notes Start Date End Date Status Anoro Ellipta 62.5-25 MCG/ACT INHALE 1 P UFF BY MOUTH DAILY Inhalation; Duration: 30 Days Active Cyclobenzaprine HCl 5 MG TAKE 1 TABLET B Y MOUTH EVERY DAY AT BEDTIME Oral; Duration: 90 Days Active Sertraline HCl 50 MG TAKE 1 TABLET BY MO UTH TWICE DAILY Oral; Duration: 90 Days Active LORazepam 1 MG TAKE 1 TABLET BY ALEJANDRA TH DAILY AT BEDTIME FOR 10 DAYS NEEDED Oral; Duration: 10 Days Active Social History Tobacco Use: Social History Observation Description Date Details (start date - stop date) Never Smoker NA - NA Tobacco Control (Standard) Question Answer Notes Tobacco use: Nonsmoker Problems Problem Type SNOMED Code ICD Code Onset Dates Problem Status W/U Status Risk Notes Problem Anxiety (48091345) Anxiety (F41.9) Active confirmed Vital Signs Height 69 in 02/24/2024 Patient Reported Normal Blood Pressure Patient Reported Normal Temperature Weight 172 lbs 02/24/2024 Patient Reported Normal Blood Pressure Patient Reported Normal Temperature BMI 25.4 kg/m2 02/24/2024 Patient Reported Normal Blood Pressure Patient Reported Normal Temperature Encounters Encounter Location Date Provider Diagnosis [facility] [address] [place] [address] 02/24/2024 SUKH EDMONDS Anxiety F41.9 Assessments Encounter [...] are a list of different online options: [email or web address]/ [email or web address]/ [email or web address]/ [email or web address]/ [email or web address] Take medicines exactly as directed. Call your doctor if you think you are having a problem with your medicine. Go to your counseling sessions and follow-up appointments. Call 911 anytime you think you may need emergency care. For example, call if: You feel you cannot stop from hurting yourself or someone else. Keep the numbers for these national suicide hotlines: Dial 988, 3-984-297-TALK ( ) or 7-354-XDPXBVN ( ) . If you or someone [...] Insured Coverage Start Date Coverage End Date [facility] [address] [facility] [place] [address] [id number] Filomena Saeed Self - patient is the insured Medical (General) History Medical History History ICD Code COPD 11/24/2021
== END 2025-01-29 14:25 | disposition home or self-care (01) ==
LOC: HO.HCS 13:57
PROVIDERS: PCP Internal Medicine Medical Oncology; Visit Provider Internal Medicine Cardiovascular Disease
DX: I48.0 Paroxysmal atrial fibrillation (principal); E78.5 Hyperlipidemia, unspecified
CPT/HCPCS: 99214; G2211

== ENCOUNTER → 2025-01-29 13:56 | Outpatient (BNVA) | payer MEDICARE, SELFPAY | PROVIDERS: PCP Internal Medicine Medical Oncology; Visit Provider Internal Medicine Cardiovascular Disease | DX: I48.0 Paroxysmal atrial fibrillation (principal); E78.5 Hyperlipidemia, unspecified; I25.10 Atherosclerotic heart disease of native coronary artery without angina pectoris | CPT/HCPCS: 99212 ==

== ENCOUNTER 2025-04-02 09:21 | Outpatient (AMB) | payer MEDICARE, SELFPAY ==
--- OUTSIDE RECORDS SUMMARY | 2024-04-03 04:26 | XMS_ITS ---
Author Organization Jaime Russ III, MD Address [address] [place] [address] [place] [address] Care Team Providers Care Plush Finisher Name Role Phone Dr. Jaime Russ III Primary Care Provider REASON FOR VISIT Message Social History Sex Assigned At : Social History Observation Description Sex Assigned At Female Encounters Encounter Location Date Provider Diagnosis Jaime Russ III, MD [address] [place] [address] [address] [place] [address] 04/03/2024 Jaime Russ Plan Of Treatment Next Appt Details Provider Name:Jaime Russ , 08/03/2025 09:30:00 AM, [address] [place] [address] [place], [address], Progress Notes * Filomena SAEED (BILLINGS)DOB: 1955 (68 yo F)Acc No.[id number]:04/03/2024 Patient: Warner MCKEON Filomena (BILLINGS) :1955 A ge:68 Y S ex:Female Address:[address] [place], [place] [address], [address] * true * Date: Generated for Morai ng/Faxing/eTransmitting on: 09:46 AM EST
--- OUTSIDE RECORDS SUMMARY | 2024-06-09 05:59 | XMS_ITS ---
Author Organization Jaime Russ III, MD Address [address] [place] [address] [place] [address] Care Team Providers Care Dietary Supervisor Name Role Phone Dr. Jaime Russ III Primary Care Provider REASON FOR VISIT Rx Request Social History Sex Assigned At : Social History Observation Description Sex Assigned At Female Encounters Encounter Location Date Provider Diagnosis Jaime Russ III, MD [address] [place] [address] [address] [place] [address] 06/09/2024 Jaime Russ Plan Of Treatment Next Appt Details Provider Name:Jaime Russ , 08/03/2025 09:30:00 AM, [address] [place] [address] [place], [address], Progress Notes * Filomena SAEED (BILLINGS)DOB: 1955 (68 yo F)Acc No.[id number]:06/09/2024 Patient: Warner MCKEON Filomena (BILLINGS) :1955 A ge:68 Y S ex:Female Address:[address] [place], [place] [address], [address] * true * Date: Generated for Princess sarmiento/Faoding/eTransmitting on: 09:47 AM EST
--- OUTSIDE RECORDS SUMMARY | 2024-06-09 07:09 | XMS_ITS ---
Author Organization Jaime Russ III, MD Address [address] [place] [address] [address] [facility] [place] [address] Care Team Providers Care Production Support Consultant Name Role Phone Dr. Jaime Russ III Primary Care Provider Medications Medication SIG (Take, Route, Fr equency, Duration) Notes Start Date End Date Status LORazepam 1 MG 1 tablet at bedtime if needed Orally Once a day for 10 days 06/09/2024 Active Social History Sex Assigned At : Social History Observation Description Sex Assigned At Female Encounters Encounter Location Date Provider Diagnosis Jaime Russ III, MD [address] [place] [address] [address] [place] [address] 06/09/2024 Jaime Russ Plan Of Treatment Medication Medication Name Sig Start Date Stop Date Notes LORazepam 1 MG 1 tablet at bedtime if needed Orally Once a day for 10 days 06/09/2024 Next Appt Details Provider Name:Jaime Russ , 08/03/2025 09:30:00 AM, [address] [place] [address] [place], [address], Progress Notes * HAY (Filomena DASDOB: 1955 (68 yo F)Acc No.[id number]:06/09/2024 Patient: Warner MCKEON (Filomena DAS :1955 A ge:68 Y S ex:Female Address:[address] [place], [place] [address], [address] * Refills Start LORazepam Tablet, 1 MG, Orally, 10 Tablet, 1 tablet at bedtime if needed, Once a day, 10 days, Refills=1 * true * Date: Generated for Princess sarmiento/Zoila/Amrik on: 09:45 AM EST
--- OUTSIDE RECORDS SUMMARY | 2024-08-02 04:45 | XMS_ITS ---
Author Organization Jaime Russ III, MD Address [address] [place] [address] Care Team Providers Care Graduation Coach Name Role Phone Dr. Jaime Russ III Primary Care Provider Allergies Allergen (clinical drug ingredient) Drug/Non Drug Allergy documented on EMR Reaction Allergy Type Onset Date Status No Known Food Allergy Unknown Drug Allergy Active tamoxifen Tamoxifen Citrate Unknown Drug Allergy Active Seasonale Unknown Drug Allergy Active Results Component Value Reference Range Notes URINE DIP STICK Reviewed date:08/02/2024 09:44:03 AM Interpretation: Performing Lab: Notes/Report: SG 1.025 1.005 - 1.025 pH 5.0 5.0 - 9.0 MESHA Negative Negative - NIT Negative Negative - PRO 15 Negative - Trace GLU Negative Negative - KET 5 Negative - UBG 0.2 0.1 - 1.8 KEVIN 1 0.2 - 1.3 BLD Negative Negative - Menstrating No Lipid Panel Reviewed date:09/03/2024 08:13:14 PM Interpretation: Performing Lab:[facility], [address] [place] [id number] Notes/Report: Triglycerides 227 <150 mg/dL Desirable Triglyceride: less than 150 mg/dL Borderline High Triglyceride 150-199 mg/dL High Triglyceride: 200-499 mg/dL Very High Triglyceride: greater than or equal to 5OO mg/dL Cholesterol 252 <200 mg/dL Desirable Cholesterol: less than 200 mg/dL Borderline High Cholesterol: 200-239 mg/dL High Cholesterol: greater than 239 mg/dL LDL Cholesterol Calculated 145 <100 mg/dL Desirable LDL: less than 100 mg/dL Near Optimal/Above Optimal LDL: 110-129 mg/dL Borderline High LDL: 130-159 mg/dL High LDL: 160-189 mg/dL Very High LDL: greater than or equal to 190 mg/dL HDL Cholesterol 62 >40 mg/dL Desirable HDL: greater than 40 mg/dL Note: This HDL assay may give artificially low results in patients with liver disease. REASON FOR VISIT annual exam Medications Medication SIG (Take, Route, Frequency, Duration) Notes Start Date End Date Status Sertraline HCl 50 MG TAKE 1 TABLET BY MO [facility] TWICE DAILY Active Anoro Ellipta 62.5-25 MCG/ACT Inhalation Active tiZANidine HCl 2 MG TAKE 1 TABLET BY ALEJANDRA TH DAILY AT BEDTIME NEEDED Oral Active LORazepam 1 MG 1 tablet at bedtime if needed Orally Once a day 06/09/2024 Active LORazepam 1 MG 1 tablet at bedtime as needed Orally Once a day 02/15/2024 Active Social History Tobacco Use: Social History Observation Description Date Details (start date - stop date) Former Smoker NA - NA Sex Assigned At : Social History Observation Description Sex Assigned At Female Tobacco Control (Standard) Question Answer Notes Tobacco use: Former smoker How long has it been since you last smoked? 1-5 years Additional Findings: Tobacco non-user Ex-cigaret te smoker AUDIT-C (Standard) Question Answer Notes Did you have a drink contain ing alcohol in the past year? Yes How often did you have six o r more drinks on one occasion in the past year? 2 to 4 times a month (2 points) How many drinks did you have on a typical day when you were drinking in the past year? 1 or 2 drinks (0 point) How often did you have a dri nk containing alcohol in the past year? Never (0 point) Points 2 Interpretation Negative Vital Signs Temperature 97.0 degrees Fahrenheit 08/03/19 25 Blood pressure systolic 117 mm Hg 08/03/19 25 Blood pressure diastolic 75 mm Hg 025 Heart Rate 72 /min 08/02/2024 Height 69 in 08/02/2024 Weight 168 lbs 08/02/2024 BMI 24.81 kg/m2 08/02/2024 Encounters Encounter Location Date Provider Diagnosis Jaime Russ III, MD [address] [place] [address] [place] [address] 08/02/2024 Jaime Russ Malignant neoplasm o f upper-outer quadrant of left female breast, unspecified estrogen receptor status C50.412 ; Chronic obstructive pulmonary disease, unspecified COPD type J44.9 ; Multiple sclerosis G35 ; Reactive depression F32.9 ; Dysfunctional uterine bleeding N93.8 ; Anxiety F41.9 ; Lumbosacral radiculopathy due to degenerative joint disease of spine M47.27 ; Degenerative disc disease at L5-S1 level M51.36 and Right lower lobe pulmonary nodule R91.1 Assessments Encounter Date Diagnosis (ICD Code) Assessment Notes Treat ment Notes Treatment Clinical Notes 08/02/2024 Malignant neoplasm of upper-outer quadrant of left female breast, unspecified estrogen receptor status (ICD-10 - C50.412) There was no sign of return breast cancer today. Breast of monthly. She will be up-to-date with a 08/02/2024 Chronic obstructive pulmonary disease, unspecified COPD type (ICD-10 - J44.9) No longer smoking. She is comfortable breathing room air. Is somewhat short of breath with prolonged exertion. She has not her air conditioning specialist recently. 08/02/2024 Multiple sclerosis (ICD-10 - G35) There was no sign of activity of this process. She remained stable. No treatment is necessary. Surveillance will continue. 08/02/2024 Reactive depression (ICD-10 - F32.9) She appears to be stable. No increase in her depression or depressive symptoms has occurred. She continues on sertraline. She does not have a history of worsening depression around the winter holidays. 08/02/2024 Dysfunctional uterine bleeding (ICD-10 - N93.8) She has had no HOME APPLIANCE TECH complaints. Recently. 08/02/2024 Anxiety (ICD-10 - F41.9) We discussed ways of coping with anxiety without using medication. Her anxiety is mild and her depression is minimal distention. 08/02/2024 Lumbosacral radiculopathy due to degenerative joint disease of spine (ICD-10 - M47.27) Pain in the right hip may be from nerve impingement in the lumbar spine or from the joint. X-rays will be done in an orthopedic consultation will be arranged. 08/02/2024 Degenerative disc disease at L5-S1 level (ICD-10 - M51.36) Her back pain is mild. She is avoiding heavy lifting and says to range of motion of the spine is normal. 08/02/2024 Right lower lobe pulmonary nodule (ICD-10 - R91.1) The tumor was a benign lesion with granulomatous. Although the lymph nodes were negative. She continues to smoke cigarettes and we have aggressively discussed smoking cessation today. The wounds have healed. Plan Of Treatment Medication Medication Name Sig Start Date Stop Date Notes Sertraline HCl 50 MG TAKE 1 TABLET BY MO [facility] TWICE DAILY Anoro Ellipta 62.5-25 MCG/ACT Inhalation tiZANidine HCl 2 MG TAKE 1 TABLET BY ALEJANDRA TH DAILY AT BEDTIME NEEDED Oral LORazepam 1 MG 1 tablet at bedtime if needed Orally Once a day 06/09/2024 LORazepam 1 MG 1 tablet at bedtime as needed Orally Once a day 02/15/2024 Pending Test Test Name Order Date PROFILE, FASTING (COMPREHENSIVE METABOLI C) 08/02/2024 CBC w DIFF 08/02/2024 MM screening mammo BI 08/02/2024 Next Appt Details Follow Up: 3 Months, Reason: ov review labs and mammogram Provider Name:Jaime Russ , 08/03/2025 09:30:00 AM, [address] [place] [address] JERICA OCHOA [facility], [place], [address], Progress Notes * HAY (KTCalinFilomenaDOB: 1955 (69 yo F)Acc No.[id number]:08/02/2024 Progress Notes Patient: Warner MCKEON (KTCalin Filomena Provider: Kenan Russ MD :1955 A ge:69 Y S ex:Female Date:08/02/2024 Address:[address] [place] [address] KEATON Rashid [id number] Subjective: * Chief Complaints: * A nnual exam * HPI: D epression Screening: She comes to the office today at the age of 73 her annual physical examination. Her COPD has been stable. Her seasonal allergies have been very mild. Her main complaint today is that she wakes up in the middle the night and cannot return to sleep. She has been taking melatonin. Her dose was 3 mg. I suggested she try fiber 6. We discussed the varieties of insomnia. She will be up-to-date with colonoscopies and mammograms. Comprehensive blood work will be ordered. PHQ-9 L ittle interest or pleasure in doing things?Not at all F eeling down, depressed, or hopeless N ot at all T rouble falling or staying asleep, or sleeping too much N early every day F eeling tired or having little energy N ot at all P oor appetite or overeating N ot at all F eeling bad about yourself or that you are a failure, or have let yourself or your family down N ot at all T rouble concentrating on things, such as reading the newspaper or watching television N ot at all M oving or speaking so slowly that other people could have noticed; or the opposite, being so fidgety or restless that you have been moving around a lot more than usual N ot at all T houghts that you would be better off or of hurting yourself in some way N ot at all T otal Score 3 I nterpretation M inimal Depression C OVID-19 Screening: Questions H ave you had any new onset fever, chills, cough, congestion, sore throat, shortness of breath, muscle aches? N o F all Risk Screening: Fall History H ave you had any falls with injury in the past year? N o H ave you had two or more falls in the past year? N o F all Risk Assessment: N o falls in the past year S JOSUE Questions: SDOH Questions I n the past year have you been worried about losing your housing? N o I n the past year have you or any family members you live with been unable to get any of the following when it was really needed? Check all that apply: N one * ROS: G eneral/Constitutional: pain o nly normal aches and pains. C hills d enies.?Fatigue a dmits. F ever d enies. E NT: Decreased hearing d enies. R espiratory: Cough d enies. C ardiovascular: Chest pain with exertion d enies. D yspnea on exertion?with prolonged activity. S hortness of breath w ith exertion. G astrointestinal: Constipation o ccasional. D ecreased appetite d enies. D iarrhea d enies. H eartburn d enies. N ausea d enies. R ectal bleeding d enies. V omiting d enies. H ematology: bruising d enies. p etechiae d enies. S wollen glands n one have been noted. G enitourinary: Frequent urination a small amount. M usculoskeletal: Muscle aches d enies. 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 M other: 88 yrs, diagnosed with Cancer, HTN. S iblings: . 1 brother(s) , 1 [...] Social History: T obacco Use: T obacco Control (Standard) T obacco use: F ormer smoker H ow long has it been since you last smoked??1-5 years A dditional Findings: Tobacco non-user E x-cigarette smoker D rugs/Alcohol: D rugs H ave you used drugs other than those for medical reasons in the past 12 months? N o D rug/Alcohol: A CORTNEY-C (Standard) D id you have a drink containing alcohol in the past year? Y es H ow often did you have six or more drinks on one occasion in the past year? 2 to 4 times a month (2 points) H ow many drinks did you have on a typical day when you were drinking in the past year? 1 or 2 drinks (0 point) H ow often did you have a drink containing alcohol in the past year? N ever (0 point) P oints 2 I nterpretation N egative S he is and lives independently. She has a significant other boyfriend in [place]. A daughter has a history of substance abuse. She has a son who works as a residential counselor. She stopped smoking in 2015. * Medications: T akingSertraline HCl 50 MG Tablet TAKE 1 TABLET BY MOUTH TWICE DAILY Anoro Ellipta 62.5-25 MCG/ACT Aerosol Powder Breath Activated Inhalation LORazepam 1 MG Tablet 1 tablet at bedtime if needed Orally Once a day tiZANidine HCl 2 MG Tablet TAKE 1 TABLET BY MOUTH DAILY AT BEDTIME NEEDED Oral Taking Sertraline HCl 50 MG Tablet TAKE 1 TABLET BY MOUTH TWICE DAILY Taking Anoro Ellipta 62.5-25 MCG/ACT Aerosol Powder Breath Activated Inhalation Taking LORazepam 1 MG Tablet 1 tablet at bedtime if needed Orally Once a day Taking tiZANidine HCl 2 MG Tablet TAKE 1 TABLET BY MOUTH DAILY AT BEDTIME NEEDED Oral DiscontinuedLORazepam 1 MG Tablet 1 tablet at bedtime as needed Orally Once a day Cyclobenzaprine HCl 5 MG Tablet TAKE 1 TABLET BY MOUTH EVERY DAY Medication List reviewed and reconciled with the patientDiscontinued LORazepam 1 MG Tablet 1 tablet at bedtime as needed Orally Once a day Discontinued Cyclobenzaprine HCl 5 MG Tablet TAKE 1 TABLET BY MOUTH EVERY DAY Medication List reviewed and reconciled with the patient * Allergies: S easonaleTamoxifen CitrateNo Known Food Allergy Objective: * Vitals: H t: 69, Wt:168, BMI:24.81, BP:117/75, HR:72, Temp:97.0, Wt-k.2. * P ast Orders: Lab:URINE DIP STICK * Collection Date 08/02/2024 07/28/2023 07/23/2022 Order Date 08/02/2024 07/28/2023 07/23/2022 SG 1.025 (Ref Range: 1.005 - 1.025) 1.020 (Ref Range: 1.005 - 1.025) 1.020 (Ref Range: 1.005 - 1.025) pH 5.0 (Ref Range: 5.0 - 9.0) 6.0 (Ref Range: 5.0 - 9.0) 5.0 (Ref Range: 5.0 - 9.0) MESHA Negative (Ref Range: Negative -) Negative (Ref Range: Negative -) neg (Ref Range: Negative -) NIT Negative (Ref Range: Negative -) Negative (Ref Range: Negative -) neg (Ref Range: Negative -) PRO 15 (Ref Range: Negative - Trace) 15 (Ref Range: Negative - Trace) neg (Ref Range: Negative - Trace) GLU Negative (Ref Range: Negative -) Negative (Ref Range: Negative -) neg (Ref Range: Negative -) KET 5 (Ref Range: Negative -) Negative (Ref Range: Negative -) neg (Ref Range: Negative -) UBG 0.2 (Ref Range: 0.1 - 1.8) 0.2 (Ref Range: 0.1 - 1.8) 0.2 (Ref Range: 0.1 - 1.8) KEVIN 1 (Ref Range: 0.2 - 1.3) Negative (Ref Range: 0.2 - 1.3) neg (Ref Range: 0.2 - 1.3) BLD Negative (Ref Range: Negative -) Negative (Ref Range: Negative -) neg (Ref Range: Negative -) Menstrating No NR N/A * Examination: G eneral Examination: GENERAL APPEARANCE: p leasant, well nourished, well developed, in no acute distress, calm and relaxed, woman. HEAD: a traumatic, normocephalic. EYES: e [...] normal, no s3, or vascular bruits. LUNGS: , diminished breath sounds throughout, rhonchi on the RIGHT, rhonchi on the LEFT. BREASTS: N ot examined, Patient declined in favor her top collar maker. ABDOMEN: b owel sounds normal, no ascites, no organomegaly, no mass. RECTAL EXAM: D eclined, prefers top collar maker. MUSCULOSKELETAL: e xtremities unremarkable, no clubbing, cyanosis or edema. PERIPHERAL PULSES: n ormal. NEUROLOGIC: a lert and oriented, cranial nerves 2-12 grossly intact, deep tendon reflexes 2+ symmetrical, motor strength normal upper and lower extremities, sensory exam intact. PSYCH: a lert, oriented, cognitive function intact, thought process logical, goal directed, speech clear, mood/affect full range, good eye contact. ? Assessment: * Assessment: 1. M alignant neoplasm of upper-outer quadrant of left female breast, unspecified estrogen receptor status - C50.412 (Primary) N otes :There was no sign of return breast cancer today. Breast of monthly. She will be up-to-date with a 2 . C hronic obstructive pulmonary disease, unspecified COPD type - J44.9 N otes :No longer smoking. She is comfortable breathing room air. Is somewhat short of breath with prolonged exertion. She has not her air conditioning specialist recently. 3 . M ultiple sclerosis - G35 N otes :There was no sign of activity of this process. She remained stable. No treatment is necessary. Surveillance will continue. 4 . R eactive depression - F32.9 N otes :She appears to be stable. No increase in her depression or depressive symptoms has occurred. She continues on sertraline. She does not have a history of worsening depression around the winter holidays. 5 . D ysfunctional uterine bleeding - N93.8 N otes :She has had no HOME APPLIANCE TECH complaints. Recently. 6 . A nxiety - F41.9 N otes :We discussed ways of coping with anxiety without using medication. Her anxiety is mild and her depression is minimal distention. 7 . L umbosacral radiculopathy due to degenerative joint disease of spine - M47.27 N otes :Pain in the right hip may be from nerve impingement in the lumbar spine or from the joint. X-rays will be done in an orthopedic consultation will be arranged. 8 . D egenerative disc disease at L5-S1 level - M51.36 N otes :Her back pain is mild. She is avoiding heavy lifting and says to range of motion of the spine is normal. 9 . R ight lower lobe pulmonary nodule - R91.1 N otes :The tumor was a benign lesion with granulomatous. Although the lymph nodes were negative. She continues to smoke cigarettes and we have aggressively discussed smoking cessation today. The wounds have healed. Plan: * Treatment: 2. C hronic obstructive pulmonary disease, unspecified COPD type L AB: PROFILE, FASTING (COMPREHENSIVE METABOLIC) L AB: CBC w DIFF L AB: Lipid Panel 3. O thers Continue LORazepam Tablet, 1 MG, 1 tablet at bedtime as needed, Orally, Once a day; C ontinue Sertraline HCl Tablet, 50 MG, TAKE 1 TABLET BY MOUTH TWICE DAILY; C ontinue Anoro Ellipta Aerosol Powder Breath Activated, 62.5-25 MCG/ACT, Inhalation; C ontinue LORazepam Tablet, 1 MG, 1 tablet at bedtime if needed, Orally, Once a day; C ontinue tiZANidine HCl Tablet, 2 MG, TAKE 1 TABLET BY MOUTH DAILY AT BEDTIME NEEDED, Oral. * Labs: * L ab: URINE DIP STICK (Collection Date & Time - 08/02/2024) Value Reference Range S G 1.025 1.005 - 1.025 * p H 5.0 5.0 - 9.0 * L EU Negative Negative - * N IT Negative Negative - * P RO 15 Negative - Trace * G MARVIN Negative Negative - * K ET 5 Negative - * U BG 0.2 0.1 - 1.8 * B IL 1 0.2 - 1.3 * B LD Negative Negative - * M enstrating No * Procedure Codes: 8 1002 URINE-NO MICRO * Preventive Medicine: COPD Care Plan: P atient Lifestyle Goals B e able to be more active with friends and family, Reduce number of ED and hospitalizations, Relieve symptoms and improve quality of life. T reatment Goals E xercise to help whole body, including lungs, Eat a nutritious diet and increase water consumption to 6-8 glasses a day. B arriers n o barriers. S elf-Managment Goals E at a healthy diet, Get an air purifier for the rooms you are in the most. * Follow Up: 3 Months (Reason: ov review labs and mammogram) * Images: * Sign off status: Completed true * Provider: Kenan Russ MD Date: 0 08/02/2024 Generated for Princess sarmiento/Zoila/Sulemanitting on: 1 09:46 AM EST History and Physical Notes * HPI (History of Present Illness) Category Sub-Category Detail Notes Depression Screening PHQ-9 Little inte rest or pleasure in doing things: Not at all Feeling down, depressed, or hopeless: No t at all Trouble falling or staying asleep, or sl eeping too much: Nearly every day Feeling tired or having little energy: N ot at all Poor appetite or overeating: Not at all Feeling bad about yourself o r that you are a failure, or have let yourself or your family down: Not at all Trouble concentrating on thi ngs, such as reading the newspaper or watching television: Not at all Moving or speaking so slowly that other people could have noticed; or the opposite, being so fidgety or restless that you have been moving around a lot more than usual: Not at all Thoughts that you would be b christiano off or of hurting yourself in some way: Not at all Total Score: 3 Interpretation: Minimal Depression Fall Risk Screening Fall History Have you had any falls with injury in the past year?: No Have you had two or more falls in the st year?: No Fall Risk Assessment:: No falls in the p year COVID-19 Screening Questions Have you had any new onset fever, chills, cough, congestion, sore throat, shortness of breath, muscle aches?: No SDOH Questions SDOH Questions In the past year have you been worried about losing your housing?: No In the past year have you or any family members you live with been unable to get any of the following when it was really needed? Check all that apply:: None Examination Category Sub-Category Detail Notes General Examination GENERAL APPEARANCE: pleasant , well nourished, well developed, in no acute distress, calm and relaxed, woman HEAD: atraumatic, normocep halic EYES: eomi, perrla, anicte bala, conjugate EARS: normal NOSE: septum intact NECK/THYROID: no jugular venous di stention, no carotid bruit, thyroid normal HEART: no clicks, gallops, murmurs, or rubs, regular rhythm, S1, S2 normal, no s3, or vascular bruits LUNGS: , diminished breath sounds throughout, rhonchi on the RIGHT, rhonchi on the LEFT ABDOMEN: bowel sounds normal, no ascites, no organomegaly, no mass NEUROLOGIC: alert and oriented, cranial nerves 2-12 grossly intact, deep tendon reflexes 2+ symmetrical, motor strength normal upper and lower extremities, sensory exam intact SKIN: no suspicious lesion s, anicteric PERIPHERAL PULSES: normal BREASTS: Not examined, Patien t declined in favor her top collar maker MUSCULOSKELETAL: extremities unremark able, no clubbing, cyanosis or edema LYMPH NODES: no enlarged lymph no brennan,spleen normal RECTAL EXAM: Declined, prefers gy necologist PSYCH: alert, oriented, cog nitive function intact, thought process logical, goal directed, speech clear, mood/affect full range, good eye contact ORAL CAVITY: normal, unremarkable
--- OUTSIDE RECORDS SUMMARY | 2024-09-01 06:00 | XMS_ITS ---
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 Jaime Russ III Primary Care Provider Allergies Allergen (clinical drug ingredient) Drug/Non Drug Allergy documented on EMR Reaction Allergy Type Onset Date Status No Known Food Allergy Unknown Drug Allergy Active tamoxifen Tamoxifen Citrate Unknown Drug Allergy Active Seasonale Unknown Drug Allergy Active REASON FOR VISIT Hospital Follow up, was inpt at from 08/12/2024-08/15/2024, chest pain Medications Medication SIG (Take, Route, Frequency, Duration) Notes Start Date End Date Status tiZANidine HCl 2 MG TAKE 1 TABLET BY ALEJANDRA TH DAILY AT BEDTIME NEEDED Oral Active Sertraline HCl 50 MG TAKE 1 TABLET BY MO UTH TWICE DAILY Active Anoro Ellipta 62.5-25 MCG/ACT Inhalation Active Aspirin Low Dose 81 MG TAKE 1 TABLET BY MOUTH EVERY DAY Oral Active Atorvastatin Calcium 40 MG Oral Active Social History Tobacco Use: Social History Observation Description Date Details (start date - stop date) Former Smoker NA - NA Sex Assigned At : Social History Observation Description Sex Assigned At Female Tobacco Control (Standard) Question Answer Notes Tobacco use: Former smoker How long has it been since you last smoked? 1-5 years Additional Findings: Tobacco non-user Ex-cigaret te smoker Problems Problem Type SNOMED Code ICD Code Onset Dates Problem Status W/U Status Risk Notes Problem [id number] Intermittent chest pain (R07.9) Active confirmed It is likely th at this is noncardiac chest pain. It could possibly be vasospasm. She has an appointment with cardiology next week which I urged her to continue. The cardiac catheterization showed normal valves and contractility and septum and coronary anatomy. Vital Signs Temperature 98.0 degrees Fahrenheit 09/02/19 25 Blood pressure systolic 110 mm Hg 09/02/19 25 Blood pressure diastolic 60 mm Hg 025 Heart Rate 71 /min 09/01/2024 Height 69 in 09/01/2024 Weight 168 lbs 09/01/2024 BMI 24.81 kg/m2 09/01/2024 Encounters Encounter Location Date Provider Diagnosis Jaime Russ III, MD [address] [place] [address] [place] [address] 09/01/2024 Jaime Russ Intermittent chest p ain R07.9 ; Multiple sclerosis G35 ; Malignant neoplasm of upper-outer quadrant of left female breast, unspecified estrogen receptor status C50.412 ; Reactive depression F32.9 ; Anxiety F41.9 ; Lumbosacral radiculopathy due to degenerative joint disease of spine M47.27 ; Degenerative disc disease at L5-S1 level M51.36 ; Overweight E66.3 ; Former smoker Z87.891 ; Chronic obstructive pulmonary disease, unspecified COPD type J44.9 and Right lower lobe pulmonary nodule R91.1 Assessments Encounter Date Diagnosis (ICD Code) Assessment Notes Treatment Notes Treatment Clinical Notes 09/01/2024 Intermittent chest pain (ICD-10 - R07.9) It is likely that this is noncardiac chest pain. It could possibly be vasospasm. She has an appointment with cardiology next week which I urged her to continue. The cardiac catheterization showed normal valves and contractility and septum and coronary anatomy. 09/01/2024 Multiple sclerosis (ICD-10 - G35) There was no sign of activity of this process. She remained stable. No treatment is necessary. Surveillance will continue. 09/01/2024 Malignant neoplasm of upper-outer quadrant of left female breast, unspecified estrogen receptor status (ICD-10 - C50.412) There was no sign of return breast cancer today. Breast of monthly. She will be up-to-date with a 09/01/2024 Reactive depression (ICD-10 - F32.9) She appears to be stable. No increase in her depression or depressive symptoms has occurred. She continues on sertraline. She does not have a history of worsening depression around the winteridays. 09/01/2024 Anxiety (ICD-10 - F41.9) We discussed ways of coping with anxiety without using medication. Her anxiety is mild and her depression is minimal distention. 09/01/2024 Lumbosacral radiculopathy due to degenerative joint disease of spine (ICD-10 - M47.27) Pain in the right hip may be from nerve impingement in the lumbar spine or from the joint. X-rays will be done in an orthopedic consultation will be arranged. 09/01/2024 Degenerative disc disease at L5-S1 level (ICD-10 - M51.36) Her back pain is mild. She is avoiding heavy lifting and says to range of motion of the spine is normal. 09/01/2024 Overweight (ICD-10 - E66.3) She has gained a few pounds and is very slightly overweight. We reviewed her weight loss strategy. We made a plan to return to the mid range of normal of her BMI. 09/01/2024 Former smoker (ICD-10 - Z87.891) We have formulated a plan to reemain abstinent in times of stress and illness. 09/01/2024 Chronic obstructive pulmonary disease, unspecified COPD type (ICD-10 - J44.9) No longer smoking. She is comfortable breathing room air. Is somewhat short of breath with prolonged exertion. She has not her closing specialist recently. 09/01/2024 Right lower lobe pulmonary nodule (ICD-10 - R91.1) The tumor was a benign lesion with granulomatous. Although the lymph nodes were negative. She continues to smoke cigarettes and we have aggressively discussed smoking cessation today. The wounds have healed. Plan Of Treatment Medication Medication Name Sig Start Date Stop Date Notes tiZANidine HCl 2 MG TAKE 1 TABLET BY ALEJANDRA TH DAILY AT BEDTIME NEEDED Oral Sertraline HCl 50 MG TAKE 1 TABLET BY MO UTH TWICE DAILY Anoro Ellipta 62.5-25 MCG/ACT Inhalation Aspirin Low Dose 81 MG TAKE 1 TABLET BY MOUTH EVERY DAY Oral Atorvastatin Calcium 40 MG Oral Next Appt Details Follow Up: 2 Months, Reason: OV Provider Name:Jaime Russ , 08/03/2025 09:30:00 AM, [address] [place] [address] , [facility] [place], [place], [address], Progress Notes * Filomena SAEED (BILLINGS)DOB: 1955 (69 yo F)Acc No.[id number]:09/01/2024 Patient: Filomena MENJIVAR (BILLINGS) Provider: Kenan Russ MD :1955 A ge:69 Y S ex:Female Date:09/01/2024 Address:[address] [place], [place] [address], [id number] Subjective: * Chief Complaints: * H ospital Follow upwas inpt at from 08/12/2024-5Chest pain * HPI: C OVID-19 Screening: She was recently admitted to [facility] August 12 through August 15, 2024 for chest pain.? She went to the emergency room where her EKG was equivocal with nonspecific ST-T wave changes. Her troponins were normal. She was seen in consultation by cardiology, Dr. Crouch. Her monitoring showed only peripheral ventricular contractions. After discharge she was taken to [facility] on August 22, 2024 and underwent cardiac catheterization which showed normal coronary anatomy and contractility and valves. She has her next appointment with cardiology September 05, 2024. She comes in today in follow-up. Questions H ave you had any new onset fever, chills, cough, congestion, sore throat, shortness of breath, muscle aches? N o * ROS: G eneral/Constitutional: pain o nly normal aches and pains. C hills d enies.?Fatigue a dmits. F ever d enies. E NT: Decreased hearing d enies. R espiratory: Cough d enies. C ardiovascular: Chest pain with exertion resolved. D yspnea on exertion w ith moderate activity. S hortness of breath w ith exertion. G astrointestinal: Constipation d enies. 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, Benign granuloma 06/24/2022Lung surgery * Hospitalization/Major Diagno stic Procedure: L ow back pain 04/2019lung resection only in 2 days 06/24/2022inpt at with chest pain 08/12/2024 * Family History: F ather: 78 yrs. [...] dditional Findings: Tobacco non-user E x-cigarette smoker S he is and lives independently. She has a significant other boyfriend in [place]. A daughter has a history of substance abuse. She has a son who works as a residential counselor. She stopped smoking in 2015. * Medications: T akingSertraline HCl 50 MG Tablet TAKE 1 TABLET BY MOUTH TWICE DAILY Anoro Ellipta 62.5-25 MCG/ACT Aerosol Powder Breath Activated Inhalation tiZANidine HCl 2 MG Tablet TAKE 1 TABLET BY MOUTH DAILY AT BEDTIME NEEDED Oral Atorvastatin Calcium 40 MG Tablet Oral Aspirin Low Dose 81 MG Tablet Delayed Release TAKE 1 TABLET BY MOUTH EVERY DAY Oral Taking Sertraline HCl 50 MG Tablet TAKE 1 TABLET BY MOUTH TWICE DAILY Taking Anoro Ellipta 62.5-25 MCG/ACT Aerosol Powder Breath Activated Inhalation Taking tiZANidine HCl 2 MG Tablet TAKE 1 TABLET BY MOUTH DAILY AT BEDTIME NEEDED Oral Taking Atorvastatin Calcium 40 MG Tablet Oral Taking Aspirin Low Dose 81 MG Tablet Delayed Release TAKE 1 TABLET BY MOUTH EVERY DAY Oral DiscontinuedLORazepam 1 MG Tablet 1 tablet at bedtime if needed Orally Once a day LORazepam 1 MG Tablet 1 tablet at bedtime as needed Orally Once a day Medication List reviewed and reconciled with the patientDiscontinued LORazepam 1 MG Tablet 1 tablet at bedtime if needed Orally Once a day Discontinued LORazepam 1 MG Tablet 1 tablet at bedtime as needed Orally Once a day Medication List reviewed and reconciled with the patient * Allergies: S easonaleTamoxifen CitrateNo Known Food Allergyno[Allergies Verified] Objective: * Vitals: H t: 69, Wt:168, BMI:24.81, BP:110/60, HR:71, Temp:98.0, Wt-k.2. * Examination: G eneral Examination: GENERAL APPEARANCE: [...] bruits. LUNGS: , diminished breath sounds throughout, good air movement, no wheezes, rales, rhonchi. BREASTS: no masses palpable bilaterally. ABDOMEN: b [...] a lert, oriented. Assessment: * Assessment: 1. I ntermittent chest pain - R07.9 (Primary) N otes :It is likely that this is noncardiac chest pain. It could possibly be vasospasm. She has an appointment with cardiology next week which I urged her to continue. The cardiac catheterization showed normal valves and contractility and septum and coronary anatomy. 2 . M ultiple sclerosis - G35 N otes :There was no sign of activity of this process. She remained stable. No treatment is necessary. Surveillance will continue. 3 . M alignant neoplasm of upper-outer quadrant of left female breast, unspecified estrogen receptor status - C50.412 N otes :There was no sign of return breast cancer today. Breast of monthly. She will be up-to-date with a 4 . R eactive depression - F32.9 N otes :She appears to be stable. No increase in her depression or depressive symptoms has occurred. She continues on sertraline. She does not have a history of worsening depression around the winter holidays. 5 . A nxiety - F41.9 N otes :We discussed ways of coping with anxiety without using medication. Her anxiety is mild and her depression is minimal distention. 6 . L umbosacral radiculopathy due to degenerative joint disease of spine - M47.27 N otes :Pain in the right hip may be from nerve impingement in the lumbar spine or from the joint. X-rays will be done in an orthopedic consultation will be arranged. 7 . D egenerative disc disease at L5-S1 level - M51.36 N otes :Her back pain is mild. She is avoiding heavy lifting and says to range of motion of the spine is normal. 8 . O verweight - E66.3 N otes :She has gained a few pounds and is very slightly overweight. We reviewed her weight loss strategy. We made a plan to return to the mid range of normal of her BMI. 9 . F ormer smoker - Z87.891 N otes :We have formulated a plan to reemain abstinent in times of stress and illness. 1 0. C hronic obstructive pulmonary disease, unspecified COPD type - J44.9? Notes :No longer smoking. She is comfortable breathing room air. Is somewhat short of breath with prolonged exertion. She has not her closing specialist recently. 1 1. R ight lower lobe pulmonary nodule - R91.1 N otes :The tumor was a benign lesion with granulomatous. Although the lymph nodes were negative. She continues to smoke cigarettes and we have aggressively discussed smoking cessation today. The wounds have healed. Plan: * Treatment: 2. O thers Continue Sertraline HCl Tablet, 50 MG, TAKE 1 TABLET BY MOUTH TWICE DAILY; C ontinue Anoro Ellipta Aerosol Powder Breath Activated, 62.5-25 MCG/ACT, Inhalation; C ontinue tiZANidine HCl Tablet, 2 MG, TAKE 1 TABLET BY MOUTH DAILY AT BEDTIME NEEDED, Oral. * Procedure Codes: * Preventive Medicine: Counseling: C are goal follow-up plan: Counseling for abnormal BMI given Y es Above Normal BMI Follow-up D ietary management education, guidance, and counseling S moking/Tobacco Use Patient counseled on the dangers of tobacco use and urged to quit. 0 09/01/2024 COPD Care Plan: P atient Lifestyle Goals R elieve symptoms and improve quality of life, Reduce number of ED and hospitalizations, Be able to be more active with friends and family. T reatment Goals E xercise to help whole body, including lungs, Eat a nutritious diet and increase water consumption to 6-8 glasses a day, Eat 4-5 small meals throughout the day. B arriers n o barriers. S elf-Managment Goals E at a healthy diet, Get an air purifier for the rooms you are in the most. * Follow Up: 2 Months (Reason: OV) * Images: * Sign off status: Completed true * Provider: Kenan Russ MD Date: 0 09/01/2024 Generated for Princess sarmiento/Zoila/Amrik on: 09:44 AM EST History and Physical Notes * HPI (History of Present Illness) Category Sub-Category Detail Notes COVID-19 Screening Questions Have you had any new onset fever, chills, cough, congestion, sore throat, shortness of breath, muscle aches?: No Examination Category Sub-Category Detail Notes General [...] bruits LUNGS: , diminished breath sounds throughout, good air movement, no wheezes, rales, rhonchi ABDOMEN: bowel sounds normal, no ascites, no [...]
--- OUTSIDE RECORDS SUMMARY | 2024-11-01 12:30 | XMS_ITS ---
Author Organization Jaime Russ III, MD Address [address] [place] [address] [place] [address] Care Team Providers Care Diamond Setter Apprentice Name Role Phone Dr. Jaime Russ III Primary Care Provider REASON FOR VISIT follow up Social History Sex Assigned At : Social History Observation Description Sex Assigned At Female Encounters Encounter Location Date Provider Diagnosis Jaime Russ III, MD [address] [place] [address] [address] [place] [address] 11/01/2024 Jaime Russ Plan Of Treatment Next Appt Details Provider Name:Jaime Russ , 08/03/2025 09:30:00 AM, [address] [place] [address] [place], [address], Progress Notes * ALLYLOR LemonsZEKECalinFilomenaDOB: 1955 (69 yo F)Acc No.[id number]:11/01/2024 Progress Notes Patient: Warner LemonsZEKECalinFilomena Provider: Kenan Russ MD :1955 A ge:69 Y S ex:Female Date:11/01/2024 Address:[facility] [address] [id number] Subjective: * Chief Complaints: * 1 . Follow up. * Medical History: Objective: * Vitals: Assessment: Plan: * Treatment: * Images: * The named appointment provid er may or may not be the originator of this progress note, and it is not deemed complete until electronically signed by the appointment provider. Sign off status: Pending * Provider: Kenan Russ MD Date: 0 11/01/2024 Generated for Princess sarmiento/Zoila/Amrik on: 09:46 AM EST
--- OUTSIDE RECORDS SUMMARY | 2024-11-02 05:00 | XMS_ITS ---
Author Organization Jaime Russ III, MD Address [address] [facility] [place] [address] Care Team Providers Care Senior Technical Support Engineer Name Role Phone Dr. Jaime Russ III Primary Care Provider [phone] Allergies Allergen (clinical drug ingredient) Drug/Non Drug Allergy documented on EMR Reaction Allergy Type Onset Date Status No Known Food Allergy Unknown Drug Allergy Active tamoxifen Tamoxifen Citrate Unknown Drug Allergy Active Seasonale Unknown Drug Allergy Active REASON FOR VISIT Left medial tibial stress pain, Multiple sclerosis, Left breast cancer, Depression, Lumbar radiculopathy Medications Medication SIG (Take, Route, Frequency, Duration) Notes Start Date End Date Status tiZANidine HCl 2 MG TAKE 1 TABLET BY ALEJANDRA TH DAILY AT BEDTIME NEEDED Oral Active Atorvastatin Calcium 40 MG Oral Active Anoro Ellipta 62.5-25 MCG/ACT Inhalation Active Eliquis 5 MG TAKE 1 TABLET BY ALEJANDRA TH TWICE DAILY Oral for 30 Days Active Metoprolol Tartrate 25 MG TAKE 1/2 TABLE T BY MOUTH TWICE DAILY Oral for 30 Days Active Meloxicam 15 MG 1 tablet Orally Once a day for 30 days 11/02/2024 03/01/2025 Active Sertraline HCl 50 MG TAKE 1 TABLET BY MO UTH TWICE DAILY Active Aspirin Low Dose 81 MG TAKE 1 TABLET BY MOUTH EVERY DAY Oral Active Social History Tobacco Use: Social [...] Problem Status W/U Status Risk Notes Problem [id number] Left medial tibial stress syndrome, initial encounter (S86.892A) Active confirmed Images have been requested. She will use ice and rest and NSAIDs. A followup visit was arranged. Vital Signs Temperature 97.0 degrees Fahrenheit 11/03/19 25 Blood pressure systolic 133 mm Hg 11/03/19 25 Blood pressure diastolic 74 mm Hg 025 Heart Rate 51 /min 11/02/2024 Height 69 in 11/02/2024 Weight 169 lbs 11/02/2024 BMI 24.95 kg/m2 11/02/2024 Encounters Encounter Location Date Provider Diagnosis Jaime Russ III, MD [address] [place] [address] [place] [address] 11/02/2024 Jaime Russ Left medial tibial stress syndrome, initial encounter S86.892A ; Multiple sclerosis G35 ; Malignant neoplasm of upper-outer quadrant of left female breast, unspecified estrogen receptor status C50.412 ; Reactive depression F32.9 ; Anxiety F41.9 ; Chronic obstructive pulmonary disease, unspecified COPD type J44.9 ; Former smoker Z87.891 ; Overweight E66.3 and Vitamin D deficiency, unspecified E55.9 Assessments Encounter Date Diagnosis (ICD Code) Assessment Notes Treatment Notes Treatment Clinical Notes 11/02/2024 Left medial tibial stress syndrome, initial encounter (ICD-10 - S86.892A) Images have been requested. She will use ice and rest and NSAIDs. A followup visit was arranged. 11/02/2024 Multiple sclerosis (ICD-10 - G35) There was no sign of activity of this process. She remained stable. No treatment is necessary. Surveillance will continue. 11/02/2024 Malignant neoplasm of upper-outer quadrant of left female breast, unspecified estrogen receptor status (ICD-10 - C50.412) There was no sign of return breast cancer today. Breast of monthly. She will be up-to-date with a 11/02/2024 Reactive depression (ICD-10 - F32.9) She appears to be stable. No increase in her depression or depressive symptoms has occurred. She continues on sertraline. She does not have a history of worsening depression around the winter holidays. 11/02/2024 Anxiety (ICD-10 - F41.9) We discussed ways of coping with anxiety without using medication. Her anxiety is mild and her depression is minimal distention. 11/02/2024 Chronic obstructive pulmonary disease, unspecified COPD type (ICD-10 - J44.9) No longer smoking. She is comfortable breathing room air. Is somewhat short of breath with prolonged exertion. She has not her lubricating specialist recently. 11/02/2024 Former smoker (ICD-10 - Z87.891) We have formulated a plan to reemain abstinent in times of stress and illness. 11/02/2024 Overweight (ICD-10 - E66.3) She has gained a few pounds and is very slightly overweight. We reviewed her weight loss strategy. We made a plan to return to the mid range of normal of her BMI. 11/02/2024 Vitamin D deficiency, unspecified (ICD-10 - E55.9) She was continued on her supplements. Plan Of Treatment Medication Medication Name Sig Start Date Stop Date Notes tiZANidine HCl 2 MG TAKE 1 TABLET BY ALEJANDRA DAILY AT BEDTIME NEEDED Oral Atorvastatin Calcium 40 MG Oral Anoro Ellipta 62.5-25 MCG/ACT Inhalation Meloxicam 15 MG 1 tablet Orally Once a day for 30 days 11/02/2024 03/01/2025 Sertraline HCl 50 MG TAKE 1 TABLET BY MO [facility] TWICE DAILY Aspirin Low Dose 81 MG TAKE 1 TABLET BY MOUTH EVERY DAY Oral Pending Test Test Name Order Date XR tibia fibula LT 2V 11/02/2024 Next Appt Details Follow Up: 3 Weeks, Reason: OV Provider Name:Jaime Russ , 08/03/2025 09:30:00 AM, [address] [place] [address] DR, [place] [address], [place], [address], Progress Notes * ALLYLOR (Filomena DASDOB: 1955 (69 yo F)Acc No.[id number]:11/02/2024 Progress Notes Patient: Warner MCKEON (Filomena DAS Provider: Kenan Russ MD :1955 A ge:69 Y S ex:Female Date:11/02/2024 Address:[address] [place], [id number] Subjective: * Chief Complaints: * L eft medial tibial stress painMultiple sclerosisLeft breast cancerDepressionLumbar radiculopathy * HPI: C OVID-19 Screening: She comes in for an unscheduled urgent visit because of pain in her left leg below her knee. Over the last 3 weeks she has developed pain along the anterior tibia under the skin. It is increased with pressure and ambulation. Upon examination the skin was normal as was the musculature of the lower leg.Images were requested. We discussed the nature nurse chu splints. We reviewed the causes of this disorder and treatments. She will rest and apply ice and use NSAIDs. A followup visit next week. Was arranged to discuss the x-ray report. Questions H ave you had any new onset fever, chills, cough, congestion, sore throat, shortness of breath, muscle aches? N o * ROS: G eneral/Constitutional: pain L eft anterior tibia. C hills d enies. F atigue a dmits. 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 A daughter has a history of substance [...] Oral Atorvastatin Calcium 40 MG Tablet Oral Metoprolol Tartrate 25 MG Tablet TAKE 1/2 TABLET BY MOUTH TWICE DAILY Oral Eliquis 5 MG Tablet TAKE 1 TABLET BY MOUTH TWICE DAILY Oral Taking Sertraline HCl 50 MG Tablet TAKE 1 TABLET BY MOUTH TWICE DAILY Taking Anoro Ellipta 62.5-25 MCG/ACT Aerosol Powder Breath Activated Inhalation Taking tiZANidine HCl 2 MG Tablet TAKE 1 TABLET BY MOUTH DAILY AT BEDTIME NEEDED Oral Taking Atorvastatin Calcium 40 MG Tablet Oral Taking Metoprolol Tartrate 25 MG Tablet TAKE 1/2 TABLET BY MOUTH TWICE DAILY Oral Taking Eliquis 5 MG Tablet TAKE 1 TABLET BY MOUTH TWICE DAILY Oral Not-Taking/PRNAspirin Low Dose 81 MG Tablet Delayed Release TAKE 1 TABLET BY MOUTH EVERY DAY Oral Medication List reviewed and reconciled with the patientNot- Taking/PRN Aspirin Low Dose 81 MG Tablet Delayed Release TAKE 1 TABLET BY MOUTH EVERY DAY Oral Medication List reviewed and reconciled with the patient * Allergies: S easonaleTamoxifen CitrateNo Known Food Allergyno[Allergies Verified] Objective: * Vitals: H t: 69, Wt:169, BMI:24.95, BP:133/74, HR:51, Temp:97.0, Wt-k.66. * P ast Orders: L ab:D Dimer High Sensitivity (Order Date 08/12/2024) (Collection Date & Time - 08/12/2024 11:08 AM) Value Reference Range D Dimer High Sensitivity < 150 - NG/ML L ab:Prothrombin Time INR (Order Date 08/12/2024) (Collection Date & Time - 08/12/2024 11:08 AM) Value Reference Range Prothrombin Time 10.2 L 10.9-12.4 - SEC INTERNATIONAL NORM RATIO 0.9 0.9-1.1 - L ab:Partial Thromboplastin Time (Order Date 08/12/2024) (Collection Date & Time - 08/12/2024 11:08 AM) Value Reference Range Partial Thromboplastin Time 27.0 26.0-36.8 - SEC L ab:Troponin-I High Sensitivity (Order Date 08/12/2024) (Collection Date & Time - 08/12/2024 01:25 PM) Value Reference Range Troponin-I High Sensitivity < 2.7 <3.5-17.0 - ng/L L ab:UA CC w/rflx Micro + Cult (Order Date 08/12/2024) (Collection Date & Time - 08/12/2024 01:07 PM) Value Reference Range Color Urine Yellow - Appearance Urine Clear - PH 5.5 5.0-9.0 - Glucose Urine UA Negative Negative - mg/dL Urine Blood Negative Negative - Specific [place] - Urine >= 1.030 H 1.005-1.025 - Urine Protein Trace Neg-Trace - mg/dL Urine Ketones Trace Negative - mg/dL Nitrite Urine Negative Negative - Leukocyte Esterase Urine Negative Negative - Lab:Basic Metabolic Panel * Collection Date 08/13/2024 07/28/2022 Collection Time 07:42 AM 10:50 AM Order Date 08/13/2024 07/28/2022 Sodium 141 (Ref Range: 135-145 mmol/L) 141 (Ref Range: 135-145 mmol/L) Blood Urea Nitrogen 21 H (Ref Range: 9-16 mg/dL) 19 H (Ref Range: 9-16 mg/dL) Creatinine 0.75 (Ref Range: 0.5-1.4 mg/dL) 0.79 (Ref Range: 0.5-1.4 mg/dL) Glucose Random 108 (Ref Range: 60-115 mg/dL) 95 (Ref Range: 60-115 mg/dL) Calcium 9.2 (Ref Range: 8.4-10.2 mg/dL) 9.6 (Ref Range: 8.4-10.2 mg/dL) Potassium 4.7 (Ref Range: 3.3-5.1 mmol/L) 4.9 (Ref Range: 3.3-5.1 mmol/L) Chloride 106 (Ref Range: 96-108 mmol/L) 104 (Ref Range: 96-108 mmol/L) Carbon Dioxide 27 (Ref Range: 22-29 mmol/L) 27 (Ref Range: 22-29 mmol/L) Anion Gap 13 (Ref Range: 12-20) 15 (Ref Range: 12-20) Estimated Glomerular Filt Rate > 60 > 60 Creatinine Clr Calc Pharmacy 72.9 NR ???Imaging:XR chest 2V (Order Date - 08/12/2024) (Performed Date - 08/12/2024) ???Imaging:NM yvonne perf SPECT rest & str (Order Date - 08/14/2024) (Performed Date - 08/14/2024) * Lab:Complete Blood Count Aut o Diff * Collection Date 08/13/2024 07/26/2023 07/28/2022 Collection Time 07:42 AM 08:43 AM 10:50 AM Order Date 08/13/2024 07/26/2023 07/28/2022 White Blood Count 5.6 (Ref Range: 4.8-10.8 X10*3/uL) 5.9 (Ref Range: 4.8-10.8 X10*3/uL) 6.4 (Ref Range: 4.8-10.8 X10*3/uL) Red Blood Count 4.20 (Ref Range: 4.20-5.50 X10*6/uL) 4.35 (Ref Range: 4.20-5.50 X10*6/uL) 4.33 (Ref Range: 4.20-5.50 X10*6/uL) Hemoglobin 13.4 (Ref Range: 12.0-16.0 g/dl) 13.8 (Ref Range: 12.0-16.0 g/dl) 13.9 (Ref Range: 12.0-16.0 g/dl) Hematocrit 40.3 (Ref Range: 37.0-47.0 %) 40.5 (Ref Range: 37.0-47.0 %) 41.1 (Ref Range: 37.0-47.0 %) Mean Corpuscular Volume 96.0 (Ref Range: 80.0-98.0 fL) 93.1 (Ref Range: 80.0-98.0 fL) 94.9 (Ref Range: 80.0-98.0 fL) Mean Corpuscular Hemoglobin 31.9 (Ref Range: 27.0-33.0 pg) 31.7 (Ref Range: 27.0-33.0 pg) 32.1 (Ref Range: 27.0-33.0 pg) Mean Corpuscular HGB Conc 33.3 (Ref Range: 31.0-35.0 g/dl) 34.1 (Ref Range: 31.0-35.0 g/dl) 33.8 (Ref Range: 31.0-35.0 g/dl) Red Cell Distribution Width 13.1 (Ref Range: 11.0-16.0 %) 12.6 (Ref Range: 11.0-16.0 %) 12.6 (Ref Range: 11.0-16.0 %) Platelet Count 289 (Ref Range: 160-400 X10*3/uL) 291 (Ref Range: 160-400 X10*3/uL) 279 (Ref Range: 160-400 X10*3/uL) Mean Platelet Volume 9.1 L (Ref Range: 9.4-12.3 fL) 9.3 L (Ref Range: 9.4-12.3 fL) 9.2 L (Ref Range: 9.4-12.3 fL) Neutrophils Percent Auto 58.3 (Ref Range: 45-73 %) 59.8 (Ref Range: 45-73 %) 56.8 (Ref Range: 45-73 %) Imm Gran Pct Auto 0.4 (Ref Range: 0.0-0.4 %) 0.3 (Ref Range: 0.0-0.4 %) 0.5 H (Ref Range: 0.0-0.4 %) Lymphocytes Percent Auto 29.9 (Ref Range: 20-40 %) 29.5 (Ref Range: 20-40 %) 31.2 (Ref Range: 20-40 %) Monocytes Percent Auto 6.8 (Ref Range: 2-11 %) 6.8 (Ref Range: 2-11 %) 8.4 (Ref Range: 2-11 %) Eosinophils Percent Auto 4.1 H (Ref Range: 0-4 %) 3.1 (Ref Range: 0-4 %) 2.8 (Ref Range: 0-4 %) Basophils Percent Auto 0.5 (Ref Range: 0-2 %) 0.5 (Ref Range: 0-2 %) 0.3 (Ref Range: 0-2 %) NRBC Pct Auto 0.0 (Ref Range: 0.0-0.2 /100WBC) 0.0 (Ref Range: 0.0-0.2 /100WBC) 0.0 (Ref Range: 0.0-0.2 /100WBC) Neutrophils Absolute Auto 3.2 (Ref Range: 2.0-8.3 x10*3/uL) 3.5 (Ref Range: 2.0-8.3 x10*3/uL) 3.6 (Ref Range: 2.0-8.3 x10*3/uL) Imm Gran Abs Auto 0.02 (Ref Range: 0.00-0.03 X10*3/uL) 0.02 (Ref Range: 0.00-0.03 X10*3/uL) 0.03 (Ref Range: 0.00-0.03 X10*3/uL) Lymphocytes Absolute Auto 1.7 (Ref Range: 1.2-4.9 X10*3/uL) 1.7 (Ref Range: 1.2-4.9 X10*3/uL) 2.0 (Ref Range: 1.2-4.9 X10*3/uL) Monocytes Absolute Auto 0.4 (Ref Range: 0.1-1.2 X10*3/uL) 0.4 (Ref Range: 0.1-1.2 X10*3/uL) 0.5 (Ref Range: 0.1-1.2 X10*3/uL) Eosinophils Absolute Auto 0.2 (Ref Range: 0.0-0.4 X10*3/uL) 0.2 (Ref Range: 0.0-0.4 X10*3/uL) 0.2 (Ref Range: 0.0-0.4 X10*3/uL) Basophils Absolute Auto 0.0 (Ref Range: 0.0-0.2 X10*3/uL) 0.0 (Ref Range: 0.0-0.2 X10*3/uL) 0.0 (Ref Range: 0.0-0.2 X10*3/uL) NRBC Abs Auto 0.000 (Ref Range: 0.0-0.012 X10*3/uL) 0.000 (Ref Range: 0.0-0.012 X10*3/uL) 0.000 (Ref Range: 0.0-0.012 X10*3/uL) * Examination: G eneral Examination: GENERAL APPEARANCE: p leasant, well nourished, well developed, in no acute distress, calm and relaxed: woman. HEAD: a traumatic, normocephalic. EYES: e [...] LUNGS: c lear to auscultation . BREASTS: N ot examined. ABDOMEN: b owel sounds normal, no ascites, no organomegaly, no mass. RECTAL EXAM: n ot examined. MUSCULOSKELETAL: T enderness to palpation of the left anterior tibia with unremarkable scan and normal-appearing muscles, no edema or bruising. PERIPHERAL PULSES: n ormal. NEUROLOGIC: a lert and oriented, cranial nerves 2-12 grossly intact, deep tendon reflexes 2+ symmetrical, motor strength normal upper and lower extremities, sensory exam intact. PSYCH: a lert, oriented: anxious appearing. ? Assessment: * Assessment: 1. L eft medial tibial stress syndrome, initial encounter - S86.892A (Primary) N otes :Images have been requested. She will use ice and rest and NSAIDs. A followup visit was arranged. 2 . M ultiple sclerosis - G35 [...] her depression is minimal distention. 6 . C hronic obstructive pulmonary disease, unspecified COPD type - J44.9 N otes :No longer smoking. She is comfortable breathing room air. Is somewhat short of breath with prolonged exertion. She has not her lubricating specialist recently. 7 . F ormer smoker - Z87.891 N otes :We have formulated a plan to reemain abstinent in times of stress and illness. 8 . O verweight - E66.3 N otes :She has gained a few pounds and is very slightly overweight. We reviewed her weight loss strategy. We made a plan to return to the mid range of normal of her BMI. 9 . V itamin D deficiency, unspecified - E55.9 N otes :She was continued on her supplements. Plan: * Treatment: * Imaging: * I maging: XR tibia fibula LT 2V * Procedure Codes: * Preventive Medicine: Counseling: S moking/Tobacco Use Patient counseled on the dangers of tobacco use and urged to quit. 0 11/02/2024 * Follow Up: 3 Weeks (Reason: OV) * Images: * Sign off status: Completed true * Provider: Kenan Russ MD Date: 0 11/02/2024 Generated for Morai guillermina/Zoila/eTransmitting on: 1 09:45 AM EST History and Physical Notes * HPI (History of Present Illness) Category Sub-Category Detail Notes COVID-19 Screening Questions Have you had any new onset fever, chills, cough, congestion, sore throat, shortness of breath, muscle aches?: No Examination Category Sub-Category Detail Notes General Examination GENERAL APPEARANCE: pleasant , well nourished, well developed, in no acute distress, calm and relaxed: woman HEAD: atraumatic, normocep halic EYES: eomi, [...] s, anicteric PERIPHERAL PULSES: normal BREASTS: Not examined MUSCULOSKELETAL: Tenderness to palpat ion of the left anterior tibia with unremarkable scan and normal-appearing muscles, no edema or bruising LYMPH NODES: no enlarged lymph no brennan,spleen normal RECTAL EXAM: not examined PSYCH: alert, oriented: anx ious appearing ORAL CAVITY: normal, unremarkable
--- OUTSIDE RECORDS SUMMARY | 2024-11-23 12:00 | XMS_ITS ---
Author Organization Jaime Russ III, MD Address [address] [place] [address] Care Team Providers Care Vibrating Screed Operator Name Role Phone Dr. Jaime Russ III Primary Care Provider Allergies Allergen (clinical drug ingredient) Drug/Non Drug Allergy documented on EMR Reaction Allergy Type Onset Date Status No Known Food Allergy Unknown Drug Allergy Active tamoxifen Tamoxifen Citrate Unknown Drug Allergy Active Seasonale Unknown Drug Allergy Active REASON FOR VISIT follow up Medications Medication SIG (Take, Route, Frequency, Duration) Notes Start Date End Date Status Metoprolol Tartrate 25 MG TAKE 1/2 TABLE T BY MOUTH TWICE DAILY Oral Active Meloxicam 15 MG 1 tablet Orally Once a day 11/02/2024 Active Atorvastatin Calcium 40 MG Oral Active Aspirin Low Dose 81 MG TAKE 1 TABLET BY MOUTH EVERY DAY Oral Active tiZANidine HCl 2 MG TAKE 1 TABLET BY ALEJANDRA TH DAILY AT BEDTIME NEEDED Oral Active Eliquis 5 MG TAKE 1 TABLET BY ALJEANDRA TH TWICE DAILY Oral Active Anoro Ellipta 62.5-25 MCG/ACT Inhalation Active Sertraline HCl 50 MG TAKE 1 TABLET BY MO UTH TWICE DAILY Active Social History Tobacco Use: Social History Observation Description Date Details (start date - stop date) Former Smoker NA - NA Sex Assigned At : Social History Observation Description Sex Assigned At Female Tobacco Control (Standard) Question Answer Notes Tobacco use: Former smoker How long has it been since you last smoked? 1-5 years Additional Findings: Tobacco non-user Ex-cigaret te smoker Encounters Encounter Location Date Provider Diagnosis Jaime Russ III, MD [address] [place] [address] [place] [address] 11/23/2024 Jaime Russ Plan Of Treatment Medication Medication Name Sig Start Date Stop Date Notes Metoprolol Tartrate 25 MG TAKE 1/2 TABLE T BY MOUTH TWICE DAILY Oral Meloxicam 15 MG 1 tablet Orally Once a day 11/02/2024 Atorvastatin Calcium 40 MG Oral Aspirin Low Dose 81 MG TAKE 1 TABLET BY MOUTH EVERY DAY Oral tiZANidine HCl 2 MG TAKE 1 TABLET BY ALEJANDRA TH DAILY AT BEDTIME NEEDED Oral Eliquis 5 MG TAKE 1 TABLET BY ALEJANDRA TH TWICE DAILY Oral Anoro Ellipta 62.5-25 MCG/ACT Inhalation Sertraline HCl 50 MG TAKE 1 TABLET BY MO UTH TWICE DAILY Next Appt Details Provider Name:Jaime Russ , 08/03/2025 09:30:00 AM, [address] [place] [address] JERICA OCHOA, [place], [address], Progress Notes * CHRISTOPHE (KT)FilomenaDOB: 1955 (69 yo F)Acc No.[id number]:11/23/2024 Progress Notes Patient: Warner MCKEON (Filomena MONTIEL Provider: Kenan uRss MD :1955 A ge:69 Y S ex:Female Date:11/23/2024 Address:[address] [place] [address] [address] [phone] Subjective: * Chief Complaints: * 1 . Follow up. * HPI: C OVID-19 Screening: Questions H [...] deficiency, osteopenia by bone density December 05, 2015, Chest pain. * Surgical History: l eft breast lumpectomy stage 1A infiltrating ductal carcinoma 01/2016, lumpectomy, fibroadenoma, left breast 1974, partial hysterectomy with unilateral O oophorectomy 1986, lumpectomy left breast, DCIS 1995, segmentectomy by Dr Forbes at [facility], Benign granuloma 06/24/2022, Lung surgery . * Hospitalization/Major Diagno stic Procedure: L ow back pain 04/2019, lung resection only in 2 days 06/24/2022, inpt at with chest pain 08/12/2024. * Family History: F ather: 79 yrs. [...] She has a significant other boyfriend in [place]. A daughter has a history of substance abuse. She has a son who works as a residential counselor. She stopped smoking in 2015. * Medications: T aking Sertraline HCl 50 MG Tablet TAKE 1 TABLET BY MOUTH TWICE DAILY , Taking Anoro Ellipta 62.5-25 MCG/ACT Aerosol Powder Breath Activated Inhalation , Taking tiZANidine HCl 2 MG Tablet TAKE 1 TABLET BY MOUTH DAILY AT BEDTIME NEEDED Oral , Taking Atorvastatin Calcium 40 MG Tablet Oral , Taking Aspirin Low Dose 81 MG Tablet Delayed Release TAKE 1 TABLET BY MOUTH EVERY DAY Oral , Taking Metoprolol Tartrate 25 MG Tablet TAKE 1/2 TABLET BY MOUTH TWICE DAILY Oral , Taking Eliquis 5 MG Tablet TAKE 1 TABLET BY MOUTH TWICE DAILY Oral , Taking Meloxicam 15 MG Tablet 1 tablet Orally Once a day , stop date 03/01/2025, Medication List reviewed and reconciled with the patient * Allergies: S easonale, Tamoxifen Citrate, No Known Food Allergy. Objective: * Vitals: * Examination: G eneral Examination: GENERAL APPEARANCE: p leasant, well nourished, well developed, in no acute distress, calm and relaxed. HEAD: a traumatic, normocephalic. EYES: e farhana, [...] * Provider: Kenan Russ MD Date: 0 11/23/2024 Generated for Princess sarmiento/Zoila/Ancelmosmitting on: 09:45 AM EST History and Physical Notes [...]
--- OUTSIDE RECORDS SUMMARY | 2025-02-26 08:29 | XMS_ITS ---
Author Organization Jaime Russ III, MD Address [address] [place] [address] [place] [address] Care Team Providers Care Scratch Polisher Name Role Phone Dr. Jaime Russ III Primary Care Provider REASON FOR VISIT Rx Request Social History Sex Assigned At : Social History Observation Description Sex Assigned At Female Encounters Encounter Location Date Provider Diagnosis Jaime Russ III, MD [address] [place] [address] [address] [place] [address] 02/26/2025 Jaime Russ Plan Of Treatment Next Appt Details Provider Name:Jaime Russ , 08/03/2025 09:30:00 AM, [address] [place] [address] [place], [address], Progress Notes * Filomena SAEED (BILLINGS)DOB: 1955 (69 yo F)Acc No.[id number]:02/26/2025 Patient: Warner MCKEON Filomena (BILLINGS) :1955 A ge:69 Y S ex:Female Address:[address] [place], [place] [address], [address] * true * Date: Generated for Princess sarmiento/Radhag/eTransmitting on: 09:45 AM EST
--- OUTSIDE RECORDS SUMMARY | 2025-02-26 10:03 | XMS_ITS ---
Author Organization Jaime Russ III, MD Address [address] [place] [address] [place] [address] Care Team Providers Care Electrical Equipment Tester Name Role Phone Dr. Jaime Russ III Primary Care Provider [phone] Medications Medication SIG (Take, Route, Fr equency, Duration) Notes Start Date End Date Status LORazepam 1 MG 1 tablet if needed O rally Once a day for 15 days 02/26/2025 Active Social History Sex Assigned At : Social History Observation Description Sex Assigned At Female Encounters Encounter Location Date Provider Diagnosis Jaime Russ III, MD [address] [place] [address] [address] [place] [address] 02/26/2025 Jaime Russ Plan Of Treatment Medication Medication Name Sig Start Date Stop Date Notes LORazepam 1 MG 1 tablet if needed O rally Once a day for 15 days 02/26/2025 Next Appt Details Provider Name:Jaime Russ , 08/03/2025 09:30:00 AM, [address] [place] [address] [place], [address], Progress Notes * HAY (Filomena DASDOB: 1955 (69 yo F)Acc No.[id number]:02/26/2025 Patient: Warner MCKEON (Filomena DAS :1955 A ge:69 Y S ex:Female Address:[address] [place], [place] [address], [address] * Refills Start LORazepam Tablet, 1 MG, Orally, 15 Tablet, 1 tablet if needed, Once a day, 15 days, Refills=1 * true * Date: Generated for Princess sarmiento/Zoila/Amrik on: 09:45 AM EST
--- NOTE | 2025-04-02 09:23 | A.OFFVIS_ITS ---
Intake Visit Reasons: follow up Allergies No Known Allergies (No Known Allergies*) Allergy (Verified 04/02/25 09:28) Medication List - Last Reconciled 04/02/25 by Kirti Rodriguez CNP acetaminophen ER 650 mg PO Q8H PRN apixaban (Eliquis) 5 mg PO BID cholecalciferol (vitamin D3) (Vitamin D3) 50 mcg PO DAILY dicyclomine 10 - 20 mg PO Q6H PRN qqnxrzninkw-heqqfcqdj-drffhqpz 200-62.5-25 mcg (Trelegy Ellipta) 1 inh inhalation DAILY melatonin 10 mg PO BEDTIME metoprolol tartrate 25 mg PO BID nebulizers As directed sertraline 50 mg PO DAILY tizanidine 2 mg PO BEDTIME PRN HPI Comments Details: 69-year-old RH woman with h/o breast cancer diagnosed in 2016 treated with surgery and hormone treatement, depression and anxiety, who carried a diagnosis of MS for last few years. She presented with double vision and prior to that had been treated with fibromyalgia. She had an MRI of brain done and was given the diagnosis. She was not given any immunomodulating agent. Her previous and recent MRI of brain was reviewed, and did not find lesions diagnostic of MS. Her MRI of C and T spine did not reveal any sign of demylinating disease either. She was treated for a diagnosis of fibromyalgia. She was doing okay, but recently may be having a flare, which she has not had in some time. She was having more musculoskeletal pain all over, including to arms and legs, which she described as feeling like a bruise and heaviness, along with some brain fog. She was having some muscle spasms. She was taking tizanidine at bedtime as medication made her tired. sleep was okay. She thought this flare may be triggered by increased stress related to holidays. No falls or injuries. She was still working part-time which she enjoyed. [facility] Medical History Pulmonary nodules Pulmonary nodule History of breast cancer Personal history of nicotine dependence COPD (chronic obstructive pulmonary disease) Bronchitis Chronic allergic rhinitis Asthma-COPD overlap syndrome Surgical History History of pneumonectomy History of cone biopsy of cervix History of tonsillectomy History of lumpectomy of left breast History of hysterectomy Family History Mother Heart disease Social History Household Members: Spouse Household Members Other:: Carlos Housing: House Do you presently have visiting nurse or other home services: No Alcohol intake: current Alcohol intake frequency: a few times a week Patient Tobacco Use Status: Former Tobacco user Tobacco use type: Cigarette Cigarette Packs Per Day: 1 Years Smoked: 40 Second Hand Smoke Exposure: No service: No Sexual orientation: Straight/Heterosexual Gender identity: Female Review of Systems Const Denies chills, Denies daytime sleepiness, Denies difficulty sleeping, Denies fatigue, Denies fever(s), Denies frequent falls, Denies headache(s), Denies increased appetite, Denies poor appetite, Denies snoring, Denies weakness, Denies weight gain and Denies weight loss Eyes Denies loss of vision ENT Denies vertigo, Denies dizziness and Denies headache(s) Card Denies chest pain at rest, Denies chest pain with activity, Denies syncope, Denies leg edema and Denies palpitations Resp Denies snoring GI Denies constipation, Denies heartburn, Denies diarrhea and Denies nausea Denies urinary frequency, Denies urinary incontinence and Denies urinary urgency Musc Denies abnormal gait, Reports myalgias, Denies numbness and Denies tingling Skin/Breast Denies dry skin and Denies rash Neuro Denies abnormal gait, Denies vertigo, Denies dizziness, Denies syncope, Denies frequent falls, Denies headache(s), Denies lack of coordination, Denies loss of vision, Denies memory loss, Denies numbness, Denies restless legs, Denies seizure-like activity, Denies tingling, Denies paresthesias, Denies tremor(s) and Denies weakness Psych Denies anxiety, Denies depression, Denies auditory hallucinations, Denies memory loss, Denies visual hallucinations and Denies suicidal ideation Endo Denies fatigue and Denies palpitations Physical Exam Const Other: General Appearance:? normal, in no acute distress. Skin:? no rashes, no significant birthmarks. Heart:? S1, S2 normal, no murmurs. Lungs:? clear anteriorly and posteriorly. Extremities:? no edema. Psych:? alert, oriented, cognitive function intact, cooperative with exam. Neuro Other: Mental Status:?Normal attention, orientation, memory and affect.? Cranial Nerves:?Pupils are equal, round and reactive to light. External occular muscles are intact. Visual vences are full. Face is symmetrical. Facial sensations are normal. Tongue is midline. Palate elevates symmetrically. Shoulder shrugging is normal. Hearing to bedside conversation is normal. Motor Examination:?DTRs are 3-4 in knees and good 2 in arms with bilateral Beck signs and flexor plantars. Sensory Exam:?....? Coordination:?No ataxia,?no titubation.? Gait Exam: Within normal limits. Cerebellar Signs:?Cyxthw-kp-knqx is okay. Extrapyramidal System:?No tremor, rigidity with normal facial expressions.? Pronator Drift:?Not present.? Involuntary Movements:?No tremors seen.? Speech:?Normal.? Assessment & Plan Assessment & Plan (1) Fibromyalgia: Code(s): M79.7 - Fibromyalgia Category: Medical Plan: Start gabapentin 100mg 1 capsule at bedtime, use/side effects reviewed. Continue tizanidine 2mg 1 tablet at bedtime as needed for muscle spasms. Follow up in 6 weeks or sooner as needed. Plan Meds tried: cyclobenzaprine (not covered by insurance) Medications: New gabapentin 100 mg PO BEDTIME 30 caps 2RF 30 days Coding Level of Care Code Est Pt Level 4 (01238) Diagnoses Fibromyalgia M79.7
--- OUTSIDE RECORDS SUMMARY | 2025-04-02 09:45 | XMS_ITS | Patient Health Record ---
Author Organization [facility] Address [address] [facility] [place] [address] Care Team Providers Care Coroner Forensic Technician Name Role Phone Jaime Russ MD Primary Care Provider Jaime Chambers Unavailable [phone] Allergies No Known Allergies Reason For Referral No Information Medications Medication SIG (Take, Route, Frequency, Duration) Notes Start Date End Date Status Cyclobenzaprine HCl 5 MG Tablet TAKE 1 TABLET BY MOUTH EVERY DAY AT BEDTIME Oral; Duration: 90 M797,Unavailab mara Active Trelegy Ellipta 200-62.5-25 MCG/ACT Aerosol Powder Breath Activated Inhalation; Duration: 30 Active Vitamin E Active Dicyclomine HCl 10 MG Capsule TAKE 1 TO 2 CAPSULES BY MOUTH EVERY 6 HOURS NEEDED FOR ABDOMINAL CRAMPS/DISCOMFORT Orally Every 6 hours as needed; Duration: 30 days Active Ondansetron 4 MG Tablet Disintegrating 1 tablet on the tongue and allow to dissolve Orally Every 6 hours as needed for nausea; Duration: 30 day(s) 04/07/2024 Active Vitamin D3 Active Social History Tobacco Use: Social History Observation Description Date Details (start date - stop date) Former Smoker NA - NA Social History Drugs/Alcohol: Social Info Question Answer Notes Alcohol Screen Did you have a drink containing alcohol in the past year? Yes How often did you have a drink containing alcohol in the past year? 2 to 3 times a week (3 points) How many drinks did you have on a typical day when you were drinking in the past year? 1 or 2 drinks (0 point) How often did you have 6 or more drinks on one occasion in the past year? Never (0 point) Points 3 Interpretation Positive Tobacco Use: Social Info Question Answer Notes Tobacco Use/Smoking Patient is a former smoker How long has it been since you last smoked? 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: Nonsmoker x 5 years, 1 or 2 drinks about 4 times per week Problems Problem Type SNOMED Code ICD Code Onset Dates Problem Status W/U Status Risk Notes Problem Colon cancer screening (522911369) Colon cancer screening (Z12.11) Active confirmed Problem Change in bowel habit (57135774) Change in bowel habits (R19.4) Active confirmed Problem Diverticular disease of colon (432344568) Diverticulosis of large intestine without perforation or abscess without bleeding (K57.30) Active confirmed Problem Abdominal pain (95619627) Abdominal cramps (R10.9) Active confirmed Problem Diarrhea (89550325) Diarrhea, unspecified type (R19.7) Active confirmed Encounters Encounter Location Date Provider Diagnosis [facility] [address] [place] [address] 04/03/2024 Jaime Preciado [facility] [address] [place] [phone] 04/07/2024 Jaime Preciado Plan Of Treatment Pending [...] BLUE BCBS PROFESSIONA L CLAIMS [address] [place] [address] [phone] [id number] ENRIQUE GUIDO Self - patient is the insured MEDICAID OF [facility] [address] [place] [address] [phone] [id number] ENRIQUE GUIDO Self - patient is the insured Medical (General) History Medical History History ICD Code COPD Left breast cancer 2015- lumpectomy and Tamoxifen Fibromyalgia Denies AR,DM,CVA,renal disease Negative screening colonosco py at age 49 or so--done while living on [facility] Lung nodule with surgery as below Surgical History Surgery Date(Month/Year) Lumpectomy, left breast 2015 Partial right lung resection for benign lesion-Dr. Forbes 06/2022 Hysterectomy with removal of 1 ovary 199 7
--- OUTSIDE RECORDS SUMMARY | 2025-04-02 09:46 | XMS_ITS | Patient Health Record ---
Author Organization Jaime Russ III, MD Address [address] [place] [address] Care Team Providers Care Gaming Cage Worker Name Role Phone Dr. Jaime Russ III Primary Care Provider [phone] Allergies Allergen (clinical drug ingredient) Drug/Non Drug [...] Panel Reviewed date:09/03/2024 08:13:14 PM Interpretation: Performing Lab:[facility], [address] [place] [address] Notes/Report: Triglycerides 227 <150 mg/dL Desirable Triglyceride: [...] INR Reviewed date:09/03/2024 08:13:14 PM Interpretation: Performing Lab:[address] [address] Notes/Report: Prothrombin Time 10.2 10.9-12.4 SEC INTERNATIONAL [...] Time Reviewed date:09/03/2024 08:13:14 PM Interpretation: Performing Lab:[address] [address] Notes/Report: Partial Thromboplastin Time 27.0 26.0-36.8 SEC For information regarding the monitoring of direct thrombin inhibitors, please refer to Pharmacy. Troponin-I High Sensitivity Reviewed date:09/03/2024 08:13:14 PM Interpretation: Performing Lab:[address] [address] Notes/Report: Troponin-I High Sensitivity < 2.7 <3.5-17.0 ng/L The [place] high sensitivity Troponin-I results should be used in conjunction with other diagnostic information such as ECG, clinical observations and information, and patient symptoms to aid in the diagnosis of [place]. UA CC w/rflx Micro + Cult Reviewed date:09/03/2024 08:13:14 PM Interpretation: Performing Lab:[address] [address] Notes/Report: Urine, Clean Catch Color Urine Yellow Appearance Urine Clear PH 5.5 5.0-9.0 Glucose Urine UA Negative Negative mg/dL Urine Blood Negative Negative Specific [place] - Urine >= 1.030 1.005-1.025 Urine Protein Trace Neg-Trace mg/dL Urine Ketones Trace Negative mg/dL Nitrite Urine Negative Negative Leukocyte Esterase Urine Negative Negative D Dimer High Sensitivity Reviewed date:09/03/2024 08:13:14 PM Interpretation: Performing Lab:[facility], [address] [place] [address] Notes/Report: D Dimer High Sensitivity < 150 [...] date:09/03/2024 08:13:14 PM Interpretation: Performing Lab: Notes/Report: [address] [address] XRay Report Signed Patient: Filomena Saeed MR#: [id number] [birth year] : 1955 Acct:[id number] Age/Sex: 69 / F ADM Date: 08/12/24 Loc: .ED Attending Dr: Ordering Physician: Amanda Hou Date of Service: 08/12/24 Procedure(s): XR chest 2V Accession Number(s): [id number] cc: Jaime Russ MD; Amanda Hou CLINICAL [...] 08/12/24 1136 DD/ 1135 TD/TT: 08/12/24 1135 Manufacturing Production Manager: [address] [address] XRay Report Signed Patient: Kacey Saeed MR#: [id number] [birth year] : 1955 Acct:[id number] Age/Sex: 69 / F ADM Date: 08/12/24 Loc: HO.ED Attending Dr: Ordering Physician: Amanda Hou Date of Service: 08/12/24 Procedure(s): XR prasanth st 2V Accession Number(s): [id number] cc: Jaime Russ MD; Amanda Hou CLINICAL [...] 08/12/24 1136 DD/ 1135 TD/TT: 08/12/24 1135 Manufacturing Production Manager: Complete Blood Count Auto Di ff Reviewed date:09/03/2024 08:13:14 PM Interpretation: Performing Lab:[facility], [address] [place] [address] Notes/Report: White Blood Count 5.6 4.8-10.8 X10*3/uL [...] Panel Reviewed date:09/03/2024 08:13:14 PM Interpretation: Performing Lab:[facility], [address] [place] [address] Notes/Report: Sodium 141 135-145 mmol/L Potassium 4.7 [...] date:09/03/2024 08:13:14 PM Interpretation: Performing Lab: Notes/Report: [address] [address] Nuclear Medicine Report Signed Patient: Filomena Saeed MR#: [id number] [birth year] : 1955 Acct:[id number] Age/Sex: 69 / F ADM Date: 08/12/24 Loc: [facility] 458-[address]: Usama Lopes MD Ordering Physician: Jimbo Bain MD Date of Service: 08/14/24 Procedure(s): NM yvonne perf SPECT rest str Accession Number(s): [id number] cc: Jaime Russ MD; Jimbo Bain MD [...] Impression: 1. Myocardial perfusion imaging study shows beixf-xo-qcjjdrwy sized minimal to mild intensity basal and mid inferior wall ischemia in RCA territory 2. Gated LVEF is 62% 3. Transient ischemic dilatation not present Nondiagnostic changes on EKG. Electronically signed by: Dl Mann MD 08/14/2024 05:25 PM EDT RP Dictated By: Dl Mann MD Signed By: <Electronically signed by Dl Mann MD in OV> 08/14/24 1725 DD/ 0935 TD/TT: 08/14/24 1135 Manufacturing Production Manager: [place] [address] Nuclear Medicine Report Signed Patient: Kacey Saeed MR#: [id number] [birth year] : 1955 Acct:[id number] Age/Sex: 69 / F ADM Date: 08/12/24 Loc: [facility] 458-[address]: Anya Lopes MD Ordering Physician: Jimbo Bain MD Date of Service: 08/14/24 Procedure(s): NM yvonne perf SPECT rest str Accession Number(s): [id number] cc: Jaime Russ MD; Jimbo Bain MD [...] Impression: 1. Myocardial perfusion imaging study shows atqwo-vp-cidayaka sized minimal to mild intensity basal and [...] 08/14/24 1725 DD/ 0935 TD/TT: 08/14/24 1135 Manufacturing Production Manager: Liver Panel Reviewed date:11/12/2024 08:08:12 PM Interpretation: Performing Lab:[facility], [address] [place] [address] Notes/Report: Bilirubin Total 0.6 0.0-1.0 mg/dL Bilirubin Direct 0.2 0.0-0.5 mg/dL Aspartate Amino Transferase 24 5-31 U/L Alanine Aminotransferase 31 0-31 U/L Total Protein 6.8 6.5-8.0 g/dL Albumin Level 4.4 3.5-5.0 g/dL Alkaline Phosphatase 99 39-117 U/L Lipid Panel Reviewed date:11/12/2024 08:08:12 PM Interpretation: Performing Lab:[facility], [address] [place] [address] Notes/Report: Triglycerides 137 <150 mg/dL Desirable Triglyceride: [...] date:11/12/2024 08:08:12 PM Interpretation: Performing Lab: Notes/Report: [address] [address] XRay Report Signed Patient: Filomena Saeed MR#: [id number] 54 : 1955 Acct:[id number] Age/Sex: 69 / F ADM Date: 11/02/24 Loc: HO.LAB Attending Dr: Jaime Russ MD Ordering Physician: Jaime Russ MD Date of Service: 11/02/24 Procedure(s): XR tibia fibula LT 2V Accession Number(s): [id number] cc: Jaime Russ MD EXAMINATION: XR TIBIA [...] 11/02/24 1057 DD/ 1040 TD/TT: 11/02/24 1050 Manufacturing Production Manager: [address] [address] XRay Report Signed Patient: Kacey Saeed MR#: [id number] [birth year] : 1955 Acct:[id number] Age/Sex: 69 / F ADM Date: 11/02/24 Loc: HO.LAB Attending Dr: Jaime Russ MD Ordering Physician: Jaime Russ MD Date of Service: 11/02/24 Procedure(s): XR tib ia fibula LT 2V Accession Number(s): [id number] cc: Jaime Russ MD EXAMINATION: XR TIBI [...] 11/02/24 1057 DD/ 1040 TD/TT: 11/02/24 1050 Manufacturing Production Manager: Reason For Referral No Information Medications Medication SIG (Take, Route, Frequency, Duration) Notes Start Date End Date Status Meloxicam 15 MG TAKE 1 TABLET BY ALEJANDRA TH DAILY for 30 Active Metoprolol Tartrate 25 MG TAKE 1/2 TABLE T BY MOUTH TWICE DAILY Oral Active Eliquis 5 MG TAKE 1 TABLET BY ALEJANDRA TH TWICE DAILY Oral Active Atorvastatin Calcium 40 MG Oral Active Aspirin Low Dose 81 MG TAKE 1 TABLET BY MOUTH EVERY DAY Oral Active Sertraline HCl 50 MG TAKE 1 TABLET BY MO UTH TWICE DAILY for 90 Active Anoro Ellipta 62.5-25 MCG/ACT Inhalation Active tiZANidine HCl 2 MG TAKE 1 TABLET BY ALEJANDRA TH DAILY AT BEDTIME NEEDED Oral Active LORazepam 1 MG 1 tablet if needed O rally Once a day for 15 days 02/26/2025 Active Immunizations Vaccine Route Administration Date Status [...] Problem Status W/U Status Risk Notes Problem 0222146 Former smoker (Z87.891) Active confirmed We have formulated a plan to reemain abstinent in times of stress and illness. Problem 102401384 Overweight (E66.3) Active confirmed She has gained a few pounds and is very slightly overweight. We reviewed her weight loss strategy. We made a plan to return to the mid range of normal of her BMI. Problem 15664393 Multiple sclerosis (G35) Active confirmed There was no sign of activity of this process. She remained stable. No treatment is necessary. Surveillance will continue. Problem 53077606 Anxiety (F41.9) Active confirmed We discussed ways of coping with anxiety without using medication. Her anxiety is mild and her depression is minimal distention. Problem Vitamin D deficiency (06510034) Vitamin D deficiency, unspecified (E55.9) Active confirmed She was continued on her supplements. Problem 17901214 Chronic obstructive pulmonary disease, unspecified COPD type (J44.9) Active confirmed No longer smoking. She is comfortable breathing room air. Is somewhat short of breath with prolonged exertion. She has not her bilingual customer service specialist recently. Problem 237594407 Lumbosacral radiculopathy due to degenerative joint disease of spine (M47.27) Active confirmed Pain in the right hip may be from nerve impingement in the lumbar spine or from the joint. X-rays will be done in an orthopedic consultation will be arranged. Problem 91673739 Dysfunctional uterine bleeding (N93.8) Active confirmed She has had no SUPERVISOR MAJOR APPLIANCE ASSEMBLY complaints. Recently. Problem 73114157 Reactive depression (F32.9) Active confirmed She appears to be stable. No increase in her depression or depressive symptoms has occurred. She continues on sertraline. She does not have a history of worsening depression around the winter holidays. Problem 367994966 Malignant neoplasm of upper-outer quadrant of left female breast, unspecified estrogen receptor status (C50.412) Active confirmed There was no sign of return breast cancer today. Breast of monthly. She will be up-to-date with a Problem 64065911 Degenerative disc disease at L5-S1 level (M51.36) Active confirmed Her back pain i s mild. She is avoiding heavy lifting and says to range of motion of the spine is normal. Problem 017741512 Right lower lobe pulmonary nodule (R91.1) Active confirmed The tumor was a benign lesion with granulomatous. Although the lymph nodes were negative. She continues to smoke cigarettes and we have aggressively discussed smoking cessation today. The wounds have healed. 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 She is conducting all of the activities of daily life without impairment. Problem 50732712 Intermittent chest pain (R07.9) Active confirmed It is likely that this is noncardiac chest pain. It could possibly be vasospasm. She has an appointment with cardiology next week which I urged her to continue. The cardiac catheterization showed normal valves and contractility and septum and coronary anatomy. Problem 89363671047093730 Left medial tibial stress syndrome, initial encounter (S84.942T) Active confirmed Images have bee n requested. [...] Date Provider Diagnosis Jaime Russ III, MD [address] [place] [address] [place] [address] 08/02/2024 Jaime Russ Malignant neoplasm o f [...] pulmonary nodule R91.1 Jaime Russ III, MD [address] [place] [address] [place] [address] 09/01/2024 Jaime Russ Intermittent chest p ain [...] pulmonary nodule R91.1 Jaime Russ III, MD [address] [place] [address] [place] [phone] 11/02/2024 Jaime Russ Left medial tibial stress syndrome, initial encounter S86.892A ; Multiple sclerosis G35 ; Malignant neoplasm of upper-outer quadrant of left female breast, unspecified estrogen receptor status C50.412 ; Reactive depression F32.9 ; Anxiety F41.9 ; Chronic obstructive pulmonary disease, unspecified COPD type J44.9 ; Former smoker Z87.891 ; Overweight E66.3 and Vitamin D deficiency, unspecified E55.9 Jaime Russ III, MD [address] [place] [address] [place] [address] 04/03/2024 Jaime Russ III, MD [address] [place] [address] [place] [address] 06/09/2024 Jaime Russ III, MD [address] [place] [address] [place] [address] 06/09/2024 Jaime Russ III, MD [address] [place] [address] [address] [place] [address] 02/26/2025 Jaime Russ III, MD [address] [place] [address] [place] [address] 02/26/2025 Jaime Russ Assessments Encounter Date Diagnosis (ICD Code) Assessment Notes Treatment Notes Treatment Clinical Notes 08/02/2024 Chronic obstructive pulmonary disease, unspecified COPD type (ICD-10 - J44.9) No longer smoking. She is comfortable breathing room air. Is somewhat short of breath with prolonged exertion. She has not her bilingual customer service specialist recently. 08/02/2024 Malignant neoplasm of upper-outer [...] and NSAIDs. A followup visit was arranged. 08/02/2024 Multiple sclerosis (ICD-10 - G35) There [...] She will be up-to-date with a 08/02/2024 Reactive depression (ICD-10 - F32.9) She [...] (ICD-10 - N93.8) She has had no SUPERVISOR MAJOR APPLIANCE ASSEMBLY complaints. Recently. 09/01/2024 Anxiety (ICD-10 - F41.9) We discussed ways of coping with anxiety without using medication. Her anxiety is mild and her depression is minimal distention. 11/02/2024 Anxiety (ICD-10 - F41.9) We discussed ways of coping with anxiety without using medication. Her anxiety is mild and her depression is minimal distention. 08/02/2024 Anxiety (ICD-10 - F41.9) We discussed [...] with prolonged exertion. She has not her bilingual customer service specialist recently. 08/02/2024 Lumbosacral radiculopathy due to degenerative joint [...] with prolonged exertion. She has not her bilingual customer service specialist recently. 09/01/2024 Right lower lobe pulmonary [...] Provider Name:Jaime Russ , 08/03/2025 09:30:00 AM, [address] [place] [address] [address]A, [place], [address], Insurance Providers Payer Name Payer Address Payer Phone Subscriber Number Group Number Insured Name Patient Relationship to Insured Coverage Start Date Coverage End Date [employer]UE [employer] [address] [place], [place] [id number] [place] (Billing s), Filmoena Self - patient is the insured MEDICARE NGS [address] [place] [address] [id number] [place] (Billing s), Filomena Self - patient [...] Lung surgery segmentectomy by Dr Forbes at [facility], [place] ign granuloma 06/24/2022 lumpectomy left breast, DCIS 1995 partial hysterectomy with unilateral O o ophorectomy 1986 lumpectomy, fibroadenoma, left breast 19 75 left breast lumpectomy stage 1A infiltra ting ductal carcinoma 01/2016 Hospitalization History Reason Date(Month/Year) inpt at with chest pain 08/12/2024 lung resection only in 2 days 06/24/2022 Low back pain 04/2019
--- OUTSIDE RECORDS SUMMARY | 2025-04-02 09:46 | XMS_ITS | Clinical Summary ---
Author Organization [facility] Address [address] [place] [address] Phone Care Team Providers Care Welfare Worker Name Role Phone Ariana Russ MD Primary Care Provider [phone] Social History Tobacco Use Types Packs/Day Years Used Date Smoking Tobacco: Former Cigarettes 0 Q uit: 05/06/2022 Comments Unknown Sex and Gender Information Value Date Recorded Sex Assigned at Not on file Legal Sex Female 11:22 AM EST Gender Identity Not on file Sexual Orientation Not on file Last Filed Vital Signs Vital Sign Reading [...] Depression Screening 04/05/2024 COVID-19 Vaccine (1 - 2025-26 season) 2024 Influenza Vaccine (#1) 2024 Breast [...] Procedure Name Priority Date/Time Associated Diagnosis Comments [facility] SCREENING DIGITAL Routine 08/13/2023 10:07 AM EDT Encounter for screening mammogram for malignant neoplasm of breast [facility] DEXA AXIAL SKELETON Routine 06/30/2021 2:58 PM EDT Encounter for screening for osteoporosis from Last 3 Months or Most Recently Relevant to Health Maintenance Results * [facility] SCREENING DIGITAL (08/13/2023 10:07 AM EDT) Anatomical Region Laterality Modality Mammography 08/13/2023 8:33 AM EDT Narrative 08/13/2023 10:07 AM EDT [facility] Diagnostic Imaging Department [address] [place] [address] Patient: ENRIQUE MERAZ /Age/Sex: 1955 - 68 - F Unit#: [id number] Location/Status: SPDIMAM/REG CLI Mnemonic/Ordering Site: [facility] Ordering Physician: ARIANA RUSS MD [facility] Screening Digital - 08/13/23 - [id number] Report Status:Signed EXAM: [facility] Screening Digital EXAM DATE AND TIME: 08/13/2023 8:46 AM HISTORY: Annual screening, history of left breast lumpectomy in 2016 COMPARISON: Multiple exams dating back to 2019 TECHNIQUE: Bilateral digital breast tomosynthesis was performed in the CC and MLO projections. Computer aided detection with [employer] 3D 3.1 was employed. TISSUE DENSITY: b. [...] Procedure Note Raysa Castellon MD - 11/22/2023 [facility] Diagnostic Imaging Department [address] [place] [id number] Patient: ROSE MERAZTERESE Yi /Age/Sex: 1955 - 68 - F Unit#: [id number] Location/Status: SPDIMAM/REG CLI Mnemonic/Ordering Site: [facility] Ordering Physician: ARIANA RUSS MD [facility] Screening Digital - 08/13/23845 Report Status:Signed EXAM: [facility] Screening Digital EXAM DATE AND TIME: 08/13/2023 8:46 AM HISTORY: Annual screening, history of left breast lumpectomy in 2016 COMPARISON: Multiple exams dating back to 2019 TECHNIQUE: Bilateral digital breast tomosynthesis was performed in the CCand MLO projections. Computer aided detection with [employer] 3D 3.1was employed. TISSUE DENSITY: b. [...] MD IMG BI PROCEDURES Final Result * [facility] DEXA AXIAL SKELETON (06/30/2021 2:58 PM EDT) Anatomical Region Laterality Modality Mammography 06/30/2021 1:24 PM EDT Narrative 06/30/2021 2:58 PM EDT [facility] Diagnostic Imaging Department [address] [place], [place] [id number] Patient: ROSE MERAZTERESE Yi /Age/Sex: 1955 - 65 - F Unit#: [id number] [facility] Ordering Physician: ARIANA RUSS MD [facility] Dexa Axial Skeleton - 06/30/21 - [id number] HISTORY: Post menopausal woman with hormone depletion for screening bone densitometry. The patient is on calcium supplement with Vitamin D. TECHNIQUE: Bone densitometry is performed utilizing dual energy x-ray absorptiometry (DEXA) in the [employer] unit. The lumbar spine is evaluated in the AP projection and L1 through L4 are utilized. The proximal femora are evaluated in the AP projection bilaterally. FINDINGS: AP spine: Bone mineral density: 0.911 gm/cm2 T-score: -2.2 Z-score: -0.8 Dual Femur (mean): Bone mineral density: 0.675 gm/cm2 T-score: -2.6 Z-score: -1.6 IMPRESSION: Osteopenia in the lumbar spine. 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 [id number] A report detailing these results has been enclosed. Dictating Physician: PETERSON BRAND MD Electronically Signed by: PETERSON BRAND MD Dic Date/Time: 06/30/211456 Sign date/Time: 06/30/21 1458 Procedure Note Peterson Brand MD - 03/25/2022 [facility] Diagnostic Imaging Department [address] [place] [address] Patient: ENRIQUE MERAZ /Age/Sex: 1955 - 65 - F Unit#: [id number] [facility] Ordering Physician: ARIANA RUSS MD [facility] Dexa Axial Skeleton - 06/30/21 - 5036 HISTORY: Post menopausal woman with hormone depletion for screening bone densitometry. The patient is on calcium supplement with Vitamin D. TECHNIQUE: Bone densitometry is performed utilizing dual energy x-ray absorptiometry (DEXA) in the [employer] unit. The lumbar spine isevaluated in the AP projection and L1 through L4 are utilized. The proximal femoraare evaluated in the AP projection bilaterally. FINDINGS: AP spine: Bone mineral density: 0.911 gm/cm2 T-score: -2.2 Z-score: -0.8 Dual Femur (mean): Bone mineral density: 0.675 gm/cm2 T-score: -2.6 Z-score: -1.6 IMPRESSION: Osteopenia in the lumbar spine. 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 [id number] A report detailing these results has been enclosed. Dictating Physician: PETERSON BRAND MD Electronically Signed by: PETERSON BRAND MD Dic Date/Time: 06/30/211456 Sign date/Time: 06/30/211457 Ariana Russ MD IMG BI PROCEDURES Final Result from Last 3 Months or Most Recently Relevant to Health Maintenance Insurance [employer] - [place] MEDICARE ADVANTAGE Care Teams Welfare Worker Relationship Specialty Start Date End Date Ariana Russ MD [address] [address] PCP - General 05/18/22
--- OUTSIDE RECORDS SUMMARY | 2025-04-02 09:47 | XMS_ITS | Patient Health Record ---
Author Organization [facility] Address [address] [place] [address] Support Name Relationship Address Phone Christophe Filomena Guarantor Unknown Unavailable Allergies No Known Allergies Reason For [...] Status W/U Status Risk Notes Problem Anxiety (19351663) Anxiety (F41.9) Active confirmed Plan Of Treatment No Information Insurance Providers Payer Name Payer Address Payer Phone Subscriber Number Group Number Insured Name Patient Relationship to Insured Coverage Start Date Coverage End Date [employer] [address] [place] [address] [id number] Filomena Saeed Self - patient is the insured Medical (General) History Medical History History ICD Code COPD 11/24/2021
== END 2025-04-02 09:38 | disposition home or self-care (01) ==
LOC: HO.HSM 09:21
PROVIDERS: PCP Internal Medicine Medical Oncology; Visit Provider Registered Nurse
DX: M79.7 Fibromyalgia (principal)
CPT/HCPCS: 99214

== ENCOUNTER → 2025-04-02 09:21 | Outpatient (BNVA) | payer MEDICARE, SELFPAY | PROVIDERS: PCP Internal Medicine Medical Oncology; Visit Provider Registered Nurse | DX: M79.7 Fibromyalgia (principal); Z79.899 Other long term (current) drug therapy | CPT/HCPCS: 99212 ==